=== PATIENT | male | born 1975 | race Caucasian/White ===

== ENCOUNTER → 2022-07-05 | Outpatient (CLI) | payer OTHER ==
--- NOTE | 2022-07-05 13:52 | MR ---
EXAMINATION TYPE: MR brain wo con DATE OF EXAM: 07/05/2022 COMPARISON: NONE HISTORY: DIZZINESS GIDDINESS, OTHER ABN GAIT TECHNIQUE: Multiplanar, multisequence imaging of the brain and brainstem is performed without IV cont rast. FINDINGS: Diffusion weighted images demonstrate no evidence of a recent infarct or other diffusion abnormality. The ventricular system and cisternal spaces are normal in size and appearance. The brain volume is a ge appropriate. Few scattered tiny foci of T2 hyperintensity are seen throughout the white matter esme aterally. Approximately 5-10 scattered lesions are seen. Slight prominence of CSF anterior aspect mid dle cranial fossa could reflect small arachnoid cysts axial image 12 for reference Midline structures demonstrate normal morphology. The craniocervical junction appears within normal limits. Normal vascular flow voids are present. The visualized sinuses are clear and the globes are i ntact. No suspicious opacification of the mastoid air cells bilaterally. IMPRESSION: Mild to minimal nonspecific white matter changes. Possible small arachnoid cysts anterior temporal region bilaterally.
== END | disposition home or self-care (01) ==
LOC: RADMRIMAIN 11:47
PROVIDERS: ATTEND Nurse Practitioner Family
DX: G93.89 Other specified disorders of brain (principal); R42 Dizziness and giddiness; R26.89 Other abnormalities of gait and mobility
CPT/HCPCS: 70551

== ENCOUNTER 2023-07-14 13:42 | Inpatient (IN) | payer OTHER ==
[2023-07-14 14:52] LABS: Basophils # (A) 0.1 k/uL (0-0.2); Basophils % (A) 1 %; Eosinophils # (A) 0.1 k/uL (0-0.7); Eosinophils % (A) 1 %; HCT 42.4 % (39.0-53.0); HGB 14.8 gm/dL (13.0-17.5); Lymphocytes # (A) 2.1 k/uL (1.0-4.8); Lymphocytes % (A) 13 %; MCH 29.5 pg (25.0-35.0); MCHC 34.9 g/dL (31.0-37.0); MCV 84.6 fL (80.0-100.0); Mean Platelet Volume 8.9; Monocytes # (A) 0.6 k/uL (0-1.0); Monocytes % (A) 4 %; Neutrophils # (A) 12.8 k/uL (1.3-7.7); Neutrophils % (A) 80 %; Platelet Count 283 k/uL (150-450); RBC 5.01 m/uL (4.30-5.90); RDW 14.4 % (11.5-15.5); WBC 15.9 k/uL (3.8-10.6)
[2023-07-14 15:00] LABS: Partial Thromboplastin Time 22.6 sec (22.0-30.0)
--- NOTE | 2023-07-14 15:05 | XR ---
EXAMINATION TYPE: XR foot complete LT DATE OF EXAM: 07/14/2023 CLINICAL HISTORY: possible osteomyelitis. Increased redness and drainage from plantar surface wound TECHNIQUE: Frontal, lateral, and oblique images of the left foot are obtained. COMPARISON: None FINDINGS: There is no acute fracture/dislocation evident in the left foot. No suspicious bony destru ction. Small to moderate-sized inferior calcaneal spur. The joint spaces in the left foot appear with in normal limits. Severe diffuse soft tissue swelling is seen. IMPRESSION: As above. No convincing radiographic evidence for acute osteomyelitis. If clinical concer n persists further investigation with 3 phase bone scan and/or MRI may be warranted.
[2023-07-14 15:07] LABS: ALT 35 U/L (4-49); AST 28 U/L (17-59); African American GFR (CKD) 87 (>60 ml/min/1.73 sqM); Albumin 3.7 g/dL (3.5-5.0); Alkaline Phosphatase 183 U/L (38-126); Anion Gap 12 mmol/L; Blood Urea Nitrogen 24 mg/dL (9-20); C Reactive Protein 8.4 mg/dL (<1.0); Calcium 8.8 mg/dL (8.4-10.2); Carbon Dioxide 23 mmol/L (22-30); Chloride 93 mmol/L (98-107); Glucose 279 mg/dL (74-99); Non-African American GFR(CKD) 75 (>60 ml/min/1.73 sqM); Potassium 4.2 mmol/L (3.5-5.1); Sodium 128 mmol/L (137-145); Total Protein 7.9 g/dL (6.3-8.2)
[2023-07-14] MEDS ORDERED: VANCOMYCIN IV PER PHARMACY 1 EACH MISC MISCELLANE PRN (15:12)
--- NOTE | 2023-07-14 15:14 | ED ---
General Adult HPI - General Chief complaint: Skin/Abscess/Foreign Body Stated complaint: FREDI THOMAS Source: patient Mode of arrival: ambulatory Limitations: no limitations - History of Present Illness Initial comments: Cristian is a 47-year-old male with a history of poorly controlled type 2 diabetes, chronic lower extremity lymphedema with chronic wounds, morbid obesity. Patient presents to the ER today via ambulance. Patient states that he's had a wound on his left foot for a long period of time, over the past week it's been progressively worsening it's more red there's purulent drainage and there's worsening sloughing of the skin and skin breakdown. Patient reports he was seen at an outside emergency department over the weekend he had blood work done he states it cultures were obtained and they did a CAT scan of his leg but told him he could be discharged home on Bactrim which she has been taking since that time. He saw his primary care provider today and she advised him he needed to be hospitalized due to the wound. Patient reports significant diabetic neuropathy with minimal sensation of the foot. - Related Data Home Medications Medication Instructions Recorded Confirmed ALPRAZolam [Xanax] 2 mg PO TID 06/12/16 07/14/23 Pregabalin [Lyrica] 300 mg PO BID 06/12/16 07/14/23 lisinopriL [Zestril] 40 mg PO DAILY 06/12/16 07/14/23 ARIPiprazole [Abilify] 30 mg PO DAILY 07/14/23 07/14/23 Amoxic-Pot Clav 875-125Mg 1 tab PO BID 07/14/23 07/14/23 [Augmentin 875-125] Atorvastatin Calcium [Lipitor] 80 mg PO DAILY 07/14/23 07/14/23 Dapagliflozin Propanediol [Farxiga] 10 mg PO DAILY 07/14/23 07/14/23 Escitalopram [Lexapro] 20 mg PO HS 07/14/23 07/14/23 Insulin Glargine,Hum.rec.anlog 95 unit SQ DAILY 07/14/23 07/14/23 [Basaglar Kwikpen U-100] Levothyroxine Sodium [Synthroid] 300 mcg PO DAILY 07/14/23 07/14/23 Metoprolol Succinate (ER) [Toprol 50 mg PO DAILY 07/14/23 07/14/23 Xl] Ondansetron [Zofran] 4 mg PO Q8H PRN 07/14/23 07/14/23 Sulfamethox-Tmp 800-160Mg [Bactrim 1 tab PO BID 07/14/23 07/14/23 DS 800-160 mg] Tirzepatide [Mounjaro] 2.5 mg SQ Q7D 07/14/23 07/14/23 amLODIPine [Norvasc] 10 mg PO DAILY 07/14/23 07/14/23 Allergies Allergy/AdvReac Type Severity Reaction Status Date / Time No Known Allergies Allergy Verified 07/14/23 15:17 Review of Systems ROS Statement: Those systems with pertinent positive or pertinent negative responses have been documented in the HPI. ROS Other: All systems not noted in ROS Statement are negative. Past Medical History Past Medical History: Diabetes Mellitus, Hyperlipidemia, Hypertension, Pneumonia History of Any Multi-Drug Resistant Organisms: None Reported Past Surgical History: No Surgical Hx Reported Past Anesthesia/Blood Transfusion Reactions: No Reported Reaction Past Psychological History: Anxiety, Bipolar, Depression, Panic Disorder Smoking Status: Never smoker Past Alcohol Use History: Rare Past Drug Use History: None Reported - Past Family History Father Additional Family Medical History / Comment(s): polycystic kidney disease. at age 3030 years old Mother Family Medical History: Coronary Artery Disease (CAD), Diabetes Mellitus, Myocardial Infarction ([place]) General Exam Limitations: no limitations General appearance: alert, obese Head exam: Present: atraumatic, normocephalic Eye exam: Present: normal appearance Respiratory exam: Absent: respiratory distress Cardiovascular Exam: Present: regular rate GI/Abdominal exam: Present: soft Rectal exam: Present: deferred Extremities exam: Present: other (Ears chronic lymphedema bilaterally with significant swelling and skin changes that appear chronic. The left foot the lateral surface has macerated skin that is sloughing off, there is a black eschar under the sloughing skin. There is some surrounding erythema and there is a malodorous discharge.) Neurological exam: Present: alert, oriented X3 Psychiatric exam: Present: normal affect, normal mood Skin exam: Present: other (as above) Course Vital Signs 07/14/23 07/14/23 07/14/23 13:59 14:04 14:37 Temperature 98.4 F Pulse Rate 97 78 94 Respiratory 18 20 16 Rate Blood Pressure 113/77 135/68 142/84 O2 Sat by Pulse 96 98 95 Oximetry 07/14/23 17:00 Temperature Pulse Rate 78 Respiratory 20 Rate Blood Pressure 178/105 O2 Sat by Pulse 98 Oximetry Medical Decision Making - Medical Decision Making Was pt. sent in by a medical professional or institution (PATRICIA Stubbs, ELECTRICAL TEST ENGINEER, urgent care, hospital, or jail...) When possible be specific @ -Yes - Roxanne Agee NP Did you speak to anyone other than the patient for history (EMS, parent, family, police, friend...)? What history was obtained from this source @ -EMS Did you review nursing and triage notes (agree or disagree)? Why? @ -I reviewed and agree with nursing and triage notes Were old charts reviewed (outside hosp., previous admission, EMS record, old EKG, old radiological studies, urgent care reports/EKG's, jail records)? Report findings @ -Previous visits here reviewed, records from outside hospital requested Differential Diagnosis (chest pain, altered mental status, abdominal pain women, abdominal pain men, vaginal bleeding, weakness, fever, dyspnea, syncope, headache, dizziness, GI bleed, back pain, seizure, CVA, palpatations, mental health)? @ -For enjoy includes infected diabetic ulcer, osteomyelitis, chronic venous stasis EKG interpreted by me (3pts min.). @ -As above X-rays interpreted by me (1pt min.). @ -No obvious fractures, no free air in the soft tissue CT interpreted by me (1pt min.). @ -None done U/S interpreted by me (1pt. min.). @ -None done What testing was considered but not performed or refused? (CT, X-rays, U/S, labs)? Why? @ -MRI of the foot can be performed while inpatient if needed What meds were considered but not given or refused? Why? @ -None Did you discuss the management of the patient with other professionals (professionals i.e. PATRICIA Stubbs, ELECTRICAL TEST ENGINEER, lab, RT, psych nurse, director of social work, video coordinator, teacher, deportation officer, onsite case manager)? Give summary @ -No Was smoking cessation discussed for >3mins.? @ -No Was critical care preformed (if so, how long)? @ -No Were there social determinants of health that impacted care today? How? (Homelessness, low income, unemployed, alcoholism, drug addiction, transportation, low edu. Level, literacy, decrease access to med. care, shelter, rehab)? @ -No Was there de-escalation of care discussed even if they declined (Discuss DNR or withdrawal of care, Hospice)? DNR status @ -No What co-morbidities impacted this encounter? (DM, HTN, Smoking, COPD, CAD, Cance r, CVA, ARF, Chemo, Hep., AIDS, mental health diagnosis, sleep apnea, morbid obesity)? @ -Diabetes, morbid obesity Was patient admitted / discharged? Hospital course, mention meds given and route, prescriptions, significant lab abnormalities, going to OR and other pertinent info. @ -Admit Patient was seen and evaluated, septic workup was initiated. Outpatient records were requested. Cefepime and vancomycin were ordered for possible ost eomyelitis due to infected diabetic foot ulcer. Labs resulted with multiple abnormalities including leukocytosis, hyponatremia, hyperglycemia. Patient has elevated inflammatory markers. Patient will be admitted for IV antibiotics and evaluation by vascular surgery. Undiagnosed new problem with uncertain prognosis? @ -Yes Drug Therapy requiring intensive monitoring for toxicity (Heparin, Nitro, Insulin, Cardizem)? @ -No Were any procedures done? @ -No Diagnosis/symptom? @ -Infected diabetic foot ulcer Acute, or Chronic, or Acute on Chronic? @ -Acute on chronic Uncomplicated (without systemic symptoms) or Complicated (systemic symptoms)? @ -Complicated Side effects of treatment? @ -No Exacerbation, Progression, or Severe Exacerbation? @ -No Poses a threat to life or bodily function? How? (Chest pain, [place], [place], pneumonia, PE, COPD, DKA, ARF, appy, cholecystitis, CVA, Diverticulitis, Homicidal, Suicidal, threat to staff... and all critical care pts) @ -Yes, infection can advance to sepsis, sepsis shock and . - Lab Data Result diagrams: 07/14/23 14:33 07/14/23 14:33 Lab Results 07/14/23 07/14/23 07/14/23 Range/Units 14:33 14:33 14:34 WBC 15.9 H (3.8-10.6) k/uL RBC 5.01 (4.30-5.90) m/uL Hgb 14.8 (13.0-17.5) gm/dL Hct 42.4 (39.0-53.0) % MCV 84.6 (80.0-100.0) fL MCH 29.5 (25.0-35.0) pg MCHC 34.9 (31.0-37.0) g/dL RDW 14.4 (11.5-15.5) % Plt Count 283 (150-450) k/uL MPV 8.9 Neutrophils % 80 % Lymphocytes % 13 % Monocytes % 4 % Eosinophils % 1 % Basophils % 1 % Neutrophils # 12.8 H (1.3-7.7) k/uL Lymphocytes # 2.1 (1.0-4.8) k/uL Monocytes # 0.6 (0-1.0) k/uL Eosinophils # 0.1 (0-0.7) k/uL Basophils # 0.1 (0-0.2) k/uL ESR 97 H (0-15) mm/Hr PT 11.0 (10.0-12.5) sec INR 1.0 (<1.2) APTT 22.6 (22.0-30.0) sec Sodium 128 L (137-145) mmol/L Potassium 4.2 (3.5-5.1) mmol/L Chloride 93 L (98-107) mmol/L Carbon Dioxide 23 (22-30) mmol/L Anion Gap 12 mmol/L BUN 24 H (9-20) mg/dL Creatinine 1.15 (0.66-1.25) mg/dL Est GFR (CKD-EPI)AfAm 87 (>60 ml/min/1.73 sqM) Est GFR (CKD-EPI)NonAf 75 (>60 ml/min/1.73 sqM) Glucose 279 H (74-99) mg/dL Plasma Lactic Acid Simon (0.7-2.0) mmol/L Calcium 8.8 (8.4-10.2) mg/dL Total Bilirubin 1.0 (0.2-1.3) mg/dL AST 28 (17-59) U/L ALT 35 (4-49) U/L Alkaline Phosphatase 183 H (38-126) U/L C-Reactive Protein 8.4 H (<1.0) mg/dL Total Protein 7.9 (6.3-8.2) g/dL Albumin 3.7 (3.5-5.0) g/dL Procalcitonin (0.02-0.09) ng/mL 07/14/23 07/14/23 Range/Units 14:34 14:39 WBC (3.8-10.6) k/uL RBC (4.30-5.90) m/uL Hgb (13.0-17.5) gm/dL Hct (39.0-53.0) % MCV (80.0-100.0) fL MCH (25.0-35.0) pg MCHC (31.0-37.0) g/dL RDW (11.5-15.5) % Plt Count (150-450) k/uL MPV Neutrophils % % Lymphocytes % % Monocytes % % Eosinophils % % Basophils % % Neutrophils # (1.3-7.7) k/uL Lymphocytes # (1.0-4.8) k/uL Monocytes # (0-1.0) k/uL Eosinophils # (0-0.7) k/uL Basophils # (0-0.2) k/uL ESR (0-15) mm/Hr PT (10.0-12.5) sec INR (<1.2) APTT (22.0-30.0) sec Sodium (137-145) mmol/L Potassium (3.5-5.1) mmol/L Chloride (98-107) mmol/L Carbon Dioxide (22-30) mmol/L Anion Gap mmol/L BUN (9-20) mg/dL Creatinine (0.66-1.25) mg/dL Est GFR (CKD-EPI)AfAm (>60 ml/min/1.73 sqM) Est GFR (CKD-EPI)NonAf (>60 ml/min/1.73 sqM) Glucose (74-99) mg/dL Plasma Lactic Acid Simon 1.7 (0.7-2.0) mmol/L Calcium (8.4-10.2) mg/dL Total Bilirubin (0.2-1.3) mg/dL AST (17-59) U/L ALT (4-49) U/L Alkaline Phosphatase (38-126) U/L C-Reactive Protein (<1.0) mg/dL Total Protein (6.3-8.2) g/dL Albumin (3.5-5.0) g/dL Procalcitonin 0.48 H (0.02-0.09) ng/mL Disposition Clinical Impression: Diabetic foot ulcer, Morbid obesity, Diabetes type 2, uncontrolled, Lymphedema associated with obesity Disposition: ADMITTED IP TO THIS HOSP Condition: Serious
[2023-07-14] MEDS ORDERED: CEFEPIME 2 GM in SODIUM CHLORIDE 0.9% 100 ML IVPB STA (15:23)
[2023-07-14] MEDS ORDERED: VANCOMYCIN 2,500 MG in SODIUM CHLORIDE 0.9% 500 ML 500 ML IVPB ONE (16:00)
[2023-07-14] MEDS ORDERED: NALOXONE 0.4 MG/ML 1 ML VIAL IV PRN (16:51)
[2023-07-14] MEDS: SODIUM CHLORIDE 0.9% 1,000 ML IV SCH (17:19)
[2023-07-14 18:34] LABS: Erythrocyte Sedimentation Rate 97 mm/Hr (0-15)
[2023-07-14] MEDS: PREGABALIN 100 MG CAP PO SCH (22:47)
[2023-07-14] MEDS: ALPRAZolam 1 MG TAB PO SCH (22:47)
[2023-07-14] MEDS: ESCITALOPRAM 20 MG TAB PO SCH (23:11)
[2023-07-15] MEDS ORDERED: CEFEPIME 2 GM in SODIUM CHLORIDE 0.9% 100 ML IVPB SCH ×2
[2023-07-15] MEDS: VANCOMYCIN 2,500 MG in SODIUM CHLORIDE 0.9% 500 ML 500 ML IVPB SCH ×2 (00:51→14:02)
--- NOTE | 2023-07-15 02:37 | HP ---
HISTORY AND PHYSICAL HISTORY OF PRESENT ILLNESS: This is a 47-year-old white male with poorly controlled diabetes mellitus, right lower extremity lymphedema, chronic morbid obesity, came with purulent drainage and worsening of skin breakdown in his right outside foot, has been working now for 10 months. CAT scan of his leg, could not be discharged home after . He is back down here to review further wound cultures, etc. HOME MEDICINES: Reviewed. ALLERGIES: Negative. REVIEW OF SYSTEMS: A 14-point review of systems negative. PHYSICAL EXAMINATION: VITAL SIGNS: Temp 98.4, pulse 97, respiratory rate 16 to 18, blood pressure is 115 to 140s over 70s to 80s, and 96 to 98 on room air. HEENT: Normocephalic, atraumatic. CARDIOVASCULAR: S1, S2. LUNGS: Transmitted upper sounds. GI: Soft, nontender. HEMATOLOGY: Negative for Homans. eschar of his subcu skin on the lateral surface of the left foot. ASSESSMENT: Cellulitis of left foot. Sepsis workup improved osteomyelitis of the foot. The patient wants surgery for debridement possibly soon. Prognosis guarded. MMODL / IJN: [id number] /
[2023-07-15] MEDS: LEVOTHYROXINE 100 MCG TAB PO SCH (06:31)
[2023-07-15 07:28] LABS: Glucose,Whole Blood 225 mg/dL (70-110)
[2023-07-15 07:52] LABS: African American GFR (CKD) >90 (>60 ml/min/1.73 sqM); Non-African American GFR(CKD) >90 (>60 ml/min/1.73 sqM)
[2023-07-15] MEDS: IPRATROPIUM-ALBUTEROL 3 ML NEB INHALATION SCH ×4 (08:04→19:45)
[2023-07-15] MEDS: lisinopriL 20 MG TAB PO SCH (09:48)
[2023-07-15] MEDS: INSULIN DETEMIR (LEVEMIR) 100 UNIT/ML SYR SQ SCH (09:48)
[2023-07-15] MEDS: PREGABALIN 100 MG CAP PO SCH ×2 (09:49→21:40)
[2023-07-15] MEDS: ATORVASTATIN 80 MG TAB PO SCH (09:49)
[2023-07-15] MEDS: amLODIPine 10 MG TAB PO SCH (09:49)
[2023-07-15] MEDS: METOPROLOL SUCCINATE (ER) 50 MG TAB.ER.24H PO SCH (09:49)
[2023-07-15] MEDS: ALPRAZolam 1 MG TAB PO SCH ×3 (09:49→21:40)
[2023-07-15] MEDS: DAPAGLIFLOZIN PROPANEDIOL 10 MG TABLET PO SCH (09:50)
[2023-07-15] MEDS: ARIPiprazole 15 MG TAB PO SCH (09:50)
[2023-07-15] MEDS: SODIUM CHLORIDE 0.9% 1,000 ML IV SCH (09:52)
[2023-07-15 12:08] LABS: Glucose,Whole Blood 260 mg/dL (70-110)
[2023-07-15] MEDS ORDERED: DEXTROSE 50% SYRINGE 50 ML IVP PRN ×2 (12:51)
[2023-07-15] MEDS: INSULIN ASPART (NovoLOG) 100 UNIT/ML VIAL SQ SCH ×3 (13:28→21:34)
[2023-07-15] MEDS: AMPICILLIN-SULBACTAM 3 GM in SODIUM CHLORIDE 0.9% 100 ML IVPB SCH ×2 (13:28→18:40)
--- NOTE | 2023-07-15 15:44 | P.CONS ---
History of Present Illness - Reason for Consult Consult date: 07/15/23 - History of Present Illness Patient is a 47-year-old male with a past medical history significant for diabetes mellitus hypertension hyperlipidemia pneumonia, bipolar depression and panic disorder, patient presented to the ER yesterday afternoon concerning for wound on the left foot that apparently has been getting worse and did have some purulent drainage patient mention he did have a diffuse swelling to esme ateral extremity lymphedema and has developed a blister on the plantar aspect of the left foot subsequent dropped related to ulceration patient will be taking care of himself however on last few days the patient noticed to having increasing swelling redness and foul-smelling drainage for the patient called the EMS and the patient was brought into the hospital on presentation to the hospital patient was afebrile and no fever has been recorded subsequently patient was not tachycardic hypotensive or hypoxic patient did have white count of 15.9 with a left shift creatinine is 1.15 liver isms are normal procalcitonin and CRP are elevated patient did have a foot x-ray no acute fracture or dislocat ion no suspicious bony destruction diffuse soft tissue swelling is seen patient was started on cefepime and vancomycin infectious disease was consulted for further management of antibiotic therapy patient to have diabetic neuropathy has denies significant pain to the left foot wound area Past Medical History Past Medical History: Diabetes Mellitus, Hyperlipidemia, Hypertension, Pneumonia History of Any Multi-Drug Resistant Organisms: None Reported Past Surgical History: No Surgical Hx Reported Past Anesthesia/Blood Transfusion Reactions: No Reported Reaction Past Psychological History: Anxiety, Bipolar, Depression, Panic Disorder Smoking Status: Never smoker Past Alcohol Use History: Rare Past Drug Use History: None Reported - Past Family History Father Additional Family Medical History / Comment(s): polycystic kidney disease. at age 3030 years old Mother Family Medical History: Coronary Artery Disease (CAD), Diabetes Mellitus, Myocardial Infarction ([place]) Medications and Allergies Home Medications Medication Instructions Recorded Confirmed Type ALPRAZolam [Xanax] 2 mg PO TID 06/12/16 07/14/23 History Pregabalin [Lyrica] 300 mg PO BID 06/12/16 07/14/23 History lisinopriL [Zestril] 40 mg PO DAILY 06/12/16 07/14/23 History ARIPiprazole [Abilify] 30 mg PO DAILY 07/14/23 07/14/23 History Amoxic-Pot Clav 875-125Mg 1 tab PO BID 07/14/23 07/14/23 History [Augmentin 875-125] Atorvastatin Calcium [Lipitor] 80 mg PO DAILY 07/14/23 07/14/23 History Dapagliflozin Propanediol [Farxiga] 10 mg PO DAILY 07/14/23 07/14/23 History Escitalopram [Lexapro] 20 mg PO HS 07/14/23 07/14/23 History Insulin Glargine,Hum.rec.anlog 95 unit SQ DAILY 07/14/23 07/14/23 History [Basaglar Kwikpen U-100] Levothyroxine Sodium [Synthroid] 300 mcg PO DAILY 07/14/23 07/14/23 History Metoprolol Succinate (ER) [Toprol 50 mg PO DAILY 07/14/23 07/14/23 History Xl] Ondansetron [Zofran] 4 mg PO Q8H PRN 07/14/23 07/14/23 History Sulfamethox-Tmp 800-160Mg [Bactrim 1 tab PO BID 07/14/23 07/14/23 History DS 800-160 mg] Tirzepatide [Mounjaro] 2.5 mg SQ Q7D 07/14/23 07/14/23 History amLODIPine [Norvasc] 10 mg PO DAILY 07/14/23 07/14/23 History Allergies Allergy/AdvReac Type Severity Reaction Status Date / Time No Known Allergies Allergy Verified 07/14/23 15:17 Physical Exam Vitals: Vital Signs Temp Pulse Pulse Resp BP BP Pulse Ox 07/15/23 07:53 98.6 F 82 21 159/73 94 L 07/15/23 02:32 89 16 07/15/23 01:52 98.5 F 86 18 125/76 92 L 07/14/23 22:18 97.7 F 89 16 141/83 97 07/14/23 19:00 92 20 142/69 96 07/14/23 18:20 97.7 F 89 16 141/92 07/14/23 17:00 78 20 178/105 98 07/14/23 14:37 94 16 142/84 95 07/14/23 14:04 78 20 135/68 98 07/14/23 13:59 98.4 F 97 18 113/77 96 Intake and Output 07/14/23 07/15/23 07/15/23 22:59 06:59 14:59 Other: Voiding Method Toilet # Voids 1 Weight 167.829 kg Results CBC & Chem 7: 07/14/23 14:33 07/15/23 06:44 Labs: Abnormal Lab Results - Last 24 Hours (Table) 07/14/23 07/14/23 07/14/23 Range/Units 14:33 14:33 14:34 WBC 15.9 H (3.8-10.6) k/uL Neutrophils # 12.8 H (1.3-7.7) k/uL ESR 97 H (0-15) mm/Hr Sodium 128 L (137-145) mmol/L Chloride 93 L (98-107) mmol/L BUN 24 H (9-20) mg/dL Glucose 279 H (74-99) mg/dL POC Glucose (mg/dL) (70-110) mg/dL Alkaline Phosphatase 183 H (38-126) U/L C-Reactive Protein 8.4 H (<1.0) mg/dL Procalcitonin 0.48 H (0.02-0.09) ng/mL 07/15/23 Range/Units 07:26 WBC (3.8-10.6) k/uL Neutrophils # (1.3-7.7) k/uL ESR (0-15) mm/Hr Sodium (137-145) mmol/L Chloride (98-107) mmol/L BUN (9-20) mg/dL Glucose (74-99) mg/dL POC Glucose (mg/dL) 225 H (70-110) mg/dL Alkaline Phosphatase (38-126) U/L C-Reactive Protein (<1.0) mg/dL Procalcitonin (0.02-0.09) ng/mL Assessment and Plan Plan: 1patient presented to hospital with extensive left diabetic foot infection and this patient did have a large necrotic wound on the plantar aspect of the left foot with some foul-smelling drainage with associated diffuse swelling redness of the left foot extending to the left leg we will need to cover for the polymicrobial zeeshan associated with diabetic foot infection 2we will wait for the vascular surgery evaluation drainage of this abscess and deep culture 3we will keep the patient on vancomycin however switch cefepime to Unasyn while waiting for the workup to be completed 4check inflammatory markers We will follow on clinical condition and cultures to further adjust medication if needed Thank you for this consultation we will follow the patient along with you Dictation was produced using [employer] dictation software. please excuse any grammatical, word or spelling errors. Time with Patient: Greater than 30
--- NOTE | 2023-07-15 16:44 | P.GSCN ---
History of Present Illness History of present illness: 47-year-old gentleman patient came to the emergency room with history of left foot blister formation on the plantar aspect with a skin necrosis involving the plantar aspect with some fluctuation. Patient has a chronic venous hypertension involving the left lower extremity with marked cellulitis of the both lower extremity left foot is swollen and there is a blister and there is eschar with skin necrosis involving the plantar aspect with some fluctuation noted discussed with the patient patient has been taking care of this problem at home by himself Medical history history of diabetes diabetes, hypertension, history of bipolar disorder Patient was seen in his room afebrile Chest is clear good and both lungs first and second sound present Abdomen is soft nontender Femorals are 1+ patient has a cellulitis of the lower extremity with wound on the plantar aspect the left foot Plan is patient will need debridement and deep culture we will arrange Past Medical History Past Medical History: Diabetes Mellitus, Hyperlipidemia, Hypertension, Pneumonia History of Any Multi-Drug Resistant Organisms: None Reported Past Surgical History: No Surgical Hx Reported Past Anesthesia/Blood Transfusion Reactions: No Reported Reaction Past Psychological History: Anxiety, Bipolar, Depression, Panic Disorder Smoking Status: Never smoker Past Alcohol Use History: Rare Past Drug Use History: None Reported - Past Family History Father Additional Family Medical History / Comment(s): polycystic kidney disease. passe d away at age 3030 years old Mother Family Medical History: Coronary Artery Disease (CAD), Diabetes Mellitus, Myocardial Infarction ([place]) Medications and Allergies Home Medications Medication Instructions Recorded Confirmed Type ALPRAZolam [Xanax] 2 mg PO TID 06/12/16 07/14/23 History Pregabalin [Lyrica] 300 mg PO BID 06/12/16 07/14/23 History lisinopriL [Zestril] 40 mg PO DAILY 06/12/16 07/14/23 History ARIPiprazole [Abilify] 30 mg PO DAILY 07/14/23 07/14/23 History Amoxic-Pot Clav 875-125Mg 1 tab PO BID 07/14/23 07/14/23 History [Augmentin 875-125] Atorvastatin Calcium [Lipitor] 80 mg PO DAILY 07/14/23 07/14/23 History Dapagliflozin Propanediol [Farxiga] 10 mg PO DAILY 07/14/23 07/14/23 History Escitalopram [Lexapro] 20 mg PO HS 07/14/23 07/14/23 History Insulin Glargine,Hum.rec.anlog 95 unit SQ DAILY 07/14/23 07/14/23 History [Basaglar Kwikpen U-100] Levothyroxine Sodium [Synthroid] 300 mcg PO DAILY 07/14/23 07/14/23 History Metoprolol Succinate (ER) [Toprol 50 mg PO DAILY 07/14/23 07/14/23 History Xl] Ondansetron [Zofran] 4 mg PO Q8H PRN 07/14/23 07/14/23 History Sulfamethox-Tmp 800-160Mg [Bactrim 1 tab PO BID 07/14/23 07/14/23 History DS 800-160 mg] Tirzepatide [Mounjaro] 2.5 mg SQ Q7D 07/14/23 07/14/23 History amLODIPine [Norvasc] 10 mg PO DAILY 07/14/23 07/14/23 History Allergies Allergy/AdvReac Type Severity Reaction Status Date / Time No Known Allergies Allergy Verified 07/14/23 15:17 Surgical - Exam Vital Signs Temp Pulse Resp BP Pulse Ox 98.4 F 97 18 113/77 96 07/14/23 13:59 07/14/23 13:59 07/14/23 13:59 07/14/23 13:59 07/14/23 13:59 Results - Labs 07/14/23 14:33 07/15/23 06:44 Abnormal Lab Results - Last 24 Hours (Table) 07/14/23 07/14/23 07/15/23 Range/Units 14:33 14:34 06:44 ESR 97 H (0-15) mm/Hr POC Glucose (mg/dL) (70-110) mg/dL Hemoglobin A1c 9.9 H (<=6.0) % Procalcitonin 0.48 H (0.02-0.09) ng/mL 07/15/23 07/15/23 Range/Units 07:26 12:03 ESR (0-15) mm/Hr POC Glucose (mg/dL) 225 H 260 H (70-110) mg/dL Hemoglobin A1c (<=6.0) % Procalcitonin (0.02-0.09) ng/mL Diabetes panel 07/15/23 07/15/23 Range/Units 06:44 06:44 Creatinine 0.89 (0.66-1.25) mg/dL Hemoglobin A1c 9.9 H (<=6.0) % Pituitary panel 07/15/23 Range/Units 06:44 Creatinine 0.89 (0.66-1.25) mg/dL Adrenal panel 07/15/23 Range/Units 06:44 Creatinine 0.89 (0.66-1.25) mg/dL
[2023-07-15 17:50] LABS: Glucose,Whole Blood 106 mg/dL (70-110)
--- NOTE | 2023-07-15 20:38 | PN ---
PROGRESS NOTE SUBJECTIVE: Dr. Dey saw the patient as well as Dr. Gutierrez. He is a 47-year-old white male, history of diabetes mellitus, hypertension, dyslipidemia, pneumonia, bipolar, panic disorder, in the ER for apparently a wound infection in his leg. OBJECTIVE: VITAL SIGNS: His temperature 98.6, pulse 82, respiratory rate 21, blood pressure 159/73. CARDIOVASCULAR: S1, S2. LUNGS: Transmitted upper sounds. GI: Soft. INTEGUMENT: Extensive left foot diabetic foot infection, large necrotic wound on the plantar aspect of his left foot with some foul smelling drainage. Vascular surgery for evaluating this patient. Continue on vancomycin and Unasyn. Check inflammatory markers. Continue with current treatment. Possible surgical recommendations per Dr. Dey. MMODL / IJN: [id number] /
--- NOTE | 2023-07-15 20:51 | CT ---
EXAMINATION TYPE: CT chest wo con DATE OF EXAM: 07/15/2023 COMPARISON: None HISTORY: pleural effusion, CHF CT DLP: 916.[address] of the chest was performed with lung and mediastinal window settings submitted. The la ck of contrast limits evaluation of the vascular, mediastinal and parenchymal structures including th e upper abdomen. LUNGS: The lungs are clear and free of infiltrate. Mild linear atelectasis left lower lobe. No sizabl e effusion. No pulmonary nodule or mass is detected. No pleural effusion. No CT evidence of interst itial lung disease. MEDIASTINUM/BECKY: Thoracic aorta is of normal caliber with limited evaluation given lack of contrast . The heart is not enlarged. Moderate coronary artery calcifications. No evidence for mediastinal m ass. No lymph nodes greater than 1cm. UPPER ABDOMEN: Cholelithiasis. OTHER: No significant other abnormality. IMPRESSION: 1. Mild linear atelectasis left lower lobe. No sizable effusion.
[2023-07-15 21:13] LABS: Glucose,Whole Blood 113 mg/dL (70-110)
[2023-07-15] MEDS: ESCITALOPRAM 20 MG TAB PO SCH (21:40)
[2023-07-16] MEDS: AMPICILLIN-SULBACTAM 3 GM in SODIUM CHLORIDE 0.9% 100 ML IVPB SCH ×4 (00:15→17:24)
[2023-07-16] MEDS: VANCOMYCIN 2,500 MG in SODIUM CHLORIDE 0.9% 500 ML 500 ML IVPB SCH ×3 (00:59→18:04)
[2023-07-16] MEDS: LEVOTHYROXINE 100 MCG TAB PO SCH (06:31)
[2023-07-16 07:21] LABS: Glucose,Whole Blood 109 mg/dL (70-110)
[2023-07-16] MEDS ORDERED: fentaNYL (PF) 50 MCG/ML 2 ML AMP ONE (08:01)
[2023-07-16] MEDS ORDERED: PROPOFOL 10 MG/ML 20 ML VIAL IV ONE (08:01)
[2023-07-16] MEDS ORDERED: LIDOCAINE 1% INJ 10MG/ML (20 ML MDV) ONE (08:01)
[2023-07-16] MEDS ORDERED: MIDAZOLAM 2 MG/2 ML VIAL ONE (08:01)
[2023-07-16] MEDS ORDERED: IV FLUID CONTINUATION 1,000 ML IV ONE (08:01)
[2023-07-16] MEDS ORDERED: ONDANSETRON 4 MG/2 ML VIAL ONE (08:01)
[2023-07-16] MEDS ORDERED: KETAMINE HCL IN 0.9 % NACL 50 MG/5 ML SYRINGE ONE (08:01)
[2023-07-16] MEDS ORDERED: LIDOCAINE 1% INJ 10MG/ML (20 ML MDV) SQ ONE ×2 (08:12)
[2023-07-16] MEDS ORDERED: SODIUM CHLORIDE 0.9% 1,000 ML IV ONE (08:32)
--- NOTE | 2023-07-16 08:36 | P.PCN ---
Description of Procedure: Preoperative diagnoses is infected wound left foot plantar aspect measurement is 9 x 5 cm Postop is the same measurement is a 9 x 5 x 1 cm Procedure this patient brought to the operating room left foot was prepped and draped applied sterile manner Nina IV sedation and 1% lidocaine was infiltrated using knife we did the debridement we excise the devitalized tissue down to fascia of the left foot there was necrotic tissue skin was excised all the devitalized tissue was excised there was some bleeding point which were controlled with electrocautery. Wound was irrigated with saline excess silver was placed with pressure dressing on patient transferred to recovery room in satisfactory condition Plan is we will change her dressing on Tuesday patient IV antibiotic deep culture was sent for culture and sensitivity aerobic and anaerobic prognosis is guarded
[2023-07-16 08:58] LABS: Glucose,Whole Blood 99 mg/dL (70-110)
[2023-07-16] MEDS: IPRATROPIUM-ALBUTEROL 3 ML NEB INHALATION SCH ×4 (09:02→20:09)
[2023-07-16] MEDS: INSULIN ASPART (NovoLOG) 100 UNIT/ML VIAL SQ SCH ×4 (10:33→21:22)
[2023-07-16] MEDS: SODIUM CHLORIDE 0.9% 1,000 ML IV SCH ×2 (10:54→11:03)
[2023-07-16] MEDS: ARIPiprazole 15 MG TAB PO SCH (10:55)
[2023-07-16] MEDS: ALPRAZolam 1 MG TAB PO SCH ×3 (10:55→21:22)
[2023-07-16] MEDS: INSULIN DETEMIR (LEVEMIR) 100 UNIT/ML SYR SQ SCH (10:55)
[2023-07-16] MEDS: amLODIPine 10 MG TAB PO SCH (10:55)
[2023-07-16] MEDS: METOPROLOL SUCCINATE (ER) 50 MG TAB.ER.24H PO SCH (10:56)
[2023-07-16] MEDS: lisinopriL 20 MG TAB PO SCH (10:56)
[2023-07-16] MEDS: PREGABALIN 100 MG CAP PO SCH ×2 (10:56→21:22)
[2023-07-16] MEDS: ATORVASTATIN 80 MG TAB PO SCH (10:56)
[2023-07-16] MEDS: DAPAGLIFLOZIN PROPANEDIOL 10 MG TABLET PO SCH (10:56)
[2023-07-16] MEDS ORDERED: VANCOMYCIN TROUGH DUE 1 EACH MISC MISCELLANE ONE (11:00)
[2023-07-16 11:40] LABS: African American GFR (CKD) >90 (>60 ml/min/1.73 sqM); Non-African American GFR(CKD) >90 (>60 ml/min/1.73 sqM)
[2023-07-16 12:06] LABS: Glucose,Whole Blood 114 mg/dL (70-110)
[2023-07-16 12:40] LABS: ALT 29 U/L (10-49); AST 68 U/L (14-35); Albumin 2.9 g/dL (3.8-4.9); Albumin/Globulin Ratio 0.81 Ratio (1.60-3.17); Alkaline Phosphatase 125 U/L (41-126); Blood Urea Nitrogen 11.2 mg/dL (9.0-27.0); Calcium 8.4 mg/dL (8.7-10.3); Carbon Dioxide 20.9 mmol/L (21.6-31.8); Chloride 101 mmol/L (96-109); Globulin 3.6 g/dL (1.6-3.3); Glucose 109 mg/dL (70-110); Potassium 3.9 mmol/L (3.5-5.5); Sodium 135 mmol/L (135-145); Total Bilirubin 0.7 mg/dL (0.3-1.2); Total Protein 6.5 g/dL (6.2-8.2)
[2023-07-16 12:54] LABS: Basophils # (A) 0.05 X 10*3/uL (0.00-0.10); Basophils % (A) 0.4 %; Eosinophils # (A) 0.17 X 10*3/uL (0.04-0.35); Eosinophils % (A) 1.3 %; HCT 39.1 % (39.6-50.0); HGB 13.1 g/dL (13.0-17.0); Lymphocytes # (A) 2.05 X 10*3/uL (0.90-5.00); Lymphocytes % (A) 16.2 %; MCH 28.9 pg (27.0-32.0); MCHC 33.5 g/dL (32.0-37.0); MCV 86.1 FL (80.0-97.0); Mean Platelet Volume 10.2 FL (9.5-12.2); Monocytes # (A) 0.75 X 10*3/uL (0.20-1.00); Monocytes % (A) 5.9 %; NRBC Per 100 WBC 0 X 10*3/uL (0.00-0.01); Neutrophils % (A) 74.1 %; Platelet Count 275 X 10*3/uL (140-440); RBC 4.54 X 10*6/uL (4.40-5.60); RDW 14.5 % (11.5-14.5); WBC 12.68 X 10*3/uL (4.50-10.00)
[2023-07-16 13:12] VITALS: BMI 45.0
[2023-07-16 17:19] LABS: Glucose,Whole Blood 134 mg/dL (70-110)
[2023-07-16 19:30] LABS: Glucose,Whole Blood 140 mg/dL (70-110)
--- NOTE | 2023-07-16 21:01 | P.PN ---
Progress Note - Text Progress Note Date: 07/16/23 Presenting complaint: Leg wound Hospital course: I'm rounding for Dr. Deejay Tate 07/16/2023: Patient underwent debridement of the left foot wound on the plantar aspect by Dr. Gutierrez. Patient has bilateral lower extremity redness/cellulitis. Laying in bed. Afebrile. On IV Unasyn and IV vancomycin. Active Medications Albuterol/Ipratropium (Ipratropium-Albuterol 3 Ml Neb) 3 ml INHALATION RT-QID [facility] Last Admin: 07/16/23 20:09 Dose: Not Given Alprazolam (Alprazolam 1 Mg Tab) 2 mg PO TID [facility] Last Admin: 07/16/23 17:24 Dose: 2 mg Amlodipine Besylate (Amlodipine 10 Mg Tab) 10 mg PO DAILY [facility] Last Admin: 07/16/23 10:55 Dose: 10 mg Aripiprazole (Aripiprazole 15 Mg Tab) 30 mg PO DAILY [facility] Last Admin: 07/16/23 10:55 Dose: 30 mg Atorvastatin Calcium (Atorvastatin 80 Mg Tab) 80 mg PO DAILY [facility] Last Admin: 07/16/23 10:56 Dose: 80 mg Dapagliflozin (Dapagliflozin Propanediol 10 Mg Tablet) 10 mg PO DAILY [facility] Last Admin: 07/16/23 10:56 Dose: 10 mg Dextrose/Water (Dextrose 50% Syringe 50 Ml) 25 ml IVP PER PROTOCOL PRN; Protocol PRN Reason: Hypoglycemia Dextrose/Water (Dextrose 50% Syringe 50 Ml) 50 ml IVP PER PROTOCOL PRN; Protocol PRN Reason: Hypoglycemia Escitalopram Oxalate (Escitalopram 20 Mg Tab) 20 mg PO HS [facility] Last Admin: 07/15/23 21:40 Dose: 20 mg Sodium Chloride (Saline 0.9%) 1,000 mls @ 75 mls/hr IV .[id number] [facility] Last Admin: 07/16/23 11:03 Dose: 75 mls/hr Ampicillin Sodium/Sulbactam (Sodium 3 gm/ Sodium Chloride) 100 mls @ 200 mls/hr IVPB Q6H [facility]; Protocol Last Admin: 07/16/23 17:24 Dose: 200 mls/hr Vancomycin HCl 2,500 mg/ (Sodium Chloride) 500 mls @ 167 mls/hr IVPB Q16H [facility] Last Admin: 07/16/23 18:04 Dose: 167 mls/hr Insulin Aspart (Insulin Aspart (Novolog) 100 Unit/Ml Vial) 0 unit SQ ACHS [facility]; Protocol Last Admin: 07/16/23 17:25 Dose: Not Given Insulin Detemir (Insulin Detemir (Levemir) 100 Unit/Ml Syr) 95 unit SQ DAILY@0700 [facility] Last Admin: 07/16/23 10:55 Dose: 95 unit Levothyroxine Sodium (Levothyroxine 100 Mcg Tab) 300 mcg PO DAILY@0630 [facility] Last Admin: 07/16/23 06:31 Dose: 300 mcg Lisinopril (Lisinopril 20 Mg Tab) 40 mg PO DAILY [facility] Last Admin: 07/16/23 10:56 Dose: 40 mg Metoprolol Succinate (Metoprolol Succinate (Er) 50 Mg Tab.Er.24h) 50 mg PO DAILY [facility] Last Admin: 07/16/23 10:56 Dose: 50 mg Naloxone HCl (Naloxone 0.4 Mg/Ml 1 Ml Vial) 0.2 mg IV Q2M PRN PRN Reason: Opioid Reversal Ondansetron HCl (Ondansetron 4 Mg Tab) 4 mg PO Q8H PRN PRN Reason: Nausea Pregabalin (Pregabalin 100 Mg Cap) 300 mg PO BID [facility] Last Admin: 07/16/23 10:56 Dose: 300 mg On examination: VITAL SIGNS: 97.6, 80, 16, 140/82, 95% on room air GENERAL APPEARANCE: Laying in bed, BMI 45 HEENT: Normal external appearance of nose and ear. Oral cavity normal EYES: Pupils equal. Conjunctiva normal. NECK: JVD not raised. Mass not palpable. RESPIRATORY: Respiratory effort normal. Lungs agrees breath sounds. CARDIOVASCULAR: First and second sounds normal. No edema. ABDOMEN: Soft. Liver and spleen not palpable. No tenderness. No mass palpable. PSYCHIATRY: Alert and oriented x3. Mood and affect normal. EXTREMITIES: Left lower extremity foot and a dressing. Both lower extremity mid tibia downwards redness. Investigations: July 16: White count 12.6 and globin 13.1 potassium 3.9 creatinine 1.0 Assessment and plan: -Acute on chronic severe left diabetic foot infection/cellulitis with the large necrotic wound on the plantar aspect with foul-smelling drainage. Associated severe cellulitis.: Uncontrolled July 16: Debridement per Dr. Matt IV Unasyn, IV vancomycin -Essential hypertension Zestril. Norvasc. Toprol-XL -Diabetes mellitus type 2, mounjara. Insulin Lantus. -Hyperlipidemia Lipitor -Depression and anxiety Lexapro -Hypothyroid Synthroid -Peripheral neuropathy with chronic pain Neurontin -Morbid obesity BMI 45 Weight loss measures Discussed with patient.
[2023-07-16] MEDS: ESCITALOPRAM 20 MG TAB PO SCH (21:22)
[2023-07-17] MEDS: AMPICILLIN-SULBACTAM 3 GM in SODIUM CHLORIDE 0.9% 100 ML IVPB SCH ×5 (00:15→23:56)
[2023-07-17] MEDS: SODIUM CHLORIDE 0.9% 1,000 ML IV SCH ×2 (00:18→13:29)
--- NOTE | 2023-07-17 03:50 | P.PN ---
Subjective Progress Note Date: 07/16/23 Principal diagnosis: Reason for follow-up is extensive left diabetic foot infection with an abscess This is a telehealth visit Patient is a 47-year-old male with a past medical history significant for diabetes mellitus hypertension hyperlipidemia pneumonia, bipolar depression and panic disorder, patient presented to the ER for evaluation of worsening wound to the left foot plantar area apparently has been going on for few weeks noticed to have elevated white count and necrotic wound to the left foot patient was taken to the OR 07/16/2023 and s/p debridement of the wound along with deep culture. On today's evaluation that is 07/16/2023 the patient remains to be afebrile, the patient is breathing comfortably currently on 2 L nasal cannula oxygen, the patient denies having any chest pain shortness of breath or cough no nausea no vomiting no abdominal pain and no diarrhea, patient denies any worsening pain to the left foot. Patient did have a creatinine 0.69 Vanco trough is 25.2, white count down to 12.68 sed rate was 97 cultures are currently pending Objective - Vital Signs Vital signs: Vital Signs Temp 97.6 F 07/16/23 14:00 Pulse 80 07/16/23 14:00 Resp 16 07/16/23 14:00 BP 140/82 07/16/23 14:00 Pulse Ox 95 07/16/23 14:00 FiO2 Intake & Output 07/15/23 07/16/23 07/16/23 18:59 06:59 18:59 Intake Total 1118 500 Output Total 900 860 Balance 1118 -900 -360 Weight 167.829 kg Intake: IV 500 Oral 1118 Output: Urine 900 850 Estimated Blood Loss 10 Other: Voiding Method Toilet Toilet # Voids 4 1 1 - Exam Middle-age male lying in bed in no distress Respiratory system unlabored breathing decreased breath sound the base Heart S1-S2 regular Abdominal soft no tenderness Left foot wound is covered with the OR dressing Exam completed with the help of [employer] - Labs CBC & Chem 7: 07/16/23 06:47 07/16/23 11:14 Labs: Abnormal Lab Results - Last 24 Hours (Table) 07/15/23 07/16/23 07/16/23 Range/Units 21:06 06:47 06:47 WBC 12.68 H (4.50-10.00) X 10*3/uL Hct 39.1 L (39.6-50.0) % Immature Gran # 0.26 H (0.00-0.04) X 10*3/uL Neutrophils # 9.40 H (1.80-7.70) X 10*3/uL Carbon Dioxide 20.9 L (21.6-31.8) mmol/L Anion Gap 13.10 H (4.00-12.00) mmol/L BUN/Creatinine Ratio 11.20 L (12.00-20.00) Ratio POC Glucose (mg/dL) 113 H (70-110) mg/dL Calcium 8.4 L (8.7-10.3) mg/dL AST 68 H (14-35) U/L Albumin 2.9 L (3.8-4.9) g/dL Globulin 3.6 H (1.6-3.3) g/dL Albumin/Globulin Ratio 0.81 L (1.60-3.17) Ratio 07/16/23 Range/Units 12:04 WBC (4.50-10.00) X 10*3/uL Hct (39.6-50.0) % Immature Gran # (0.00-0.04) X 10*3/uL Neutrophils # (1.80-7.70) X 10*3/uL Carbon Dioxide (21.6-31.8) mmol/L Anion Gap (4.00-12.00) mmol/L BUN/Creatinine Ratio (12.00-20.00) Ratio POC Glucose (mg/dL) 114 H (70-110) mg/dL Calcium (8.7-10.3) mg/dL AST (14-35) U/L Albumin (3.8-4.9) g/dL Globulin (1.6-3.3) g/dL Albumin/Globulin Ratio (1.60-3.17) Ratio Microbiology - Last 24 Hours (Table) 07/14/23 14:30 Blood Culture - Preliminary Blood Assessment and Plan (1) Diabetic foot infection Current Visit: Yes Status: Acute Code(s): E11.628 - TYPE 2 DIABETES MELLITUS WITH OTHER SKIN COMPLICATIONS; L08.9 - LOCAL INFECTION OF THE SKIN AND SUBCUTANEOUS TISSUE, UNSP SNOMED Code(s): 158473160 (2) Foot abscess, left Current Visit: Yes Status: Acute Code(s): L02.612 - CUTANEOUS ABSCESS OF LEFT FOOT SNOMED Code(s): 27891641430827572 (3) Diabetic foot ulcer Current Visit: Yes Status: Acute Code(s): E11.621 - TYPE 2 DIABETES MELLITUS WITH FOOT ULCER; L97.509 - NON-PRESSURE CHRONIC ULCER OTH PRT UNSP FOOT W UNSP SEVERITY SNOMED Code(s): 178311366 Plan: 1patient presented to hospital with extensive left diabetic foot infection and this patient did have a large necrotic wound on the plantar aspect of the left foot with some foul-smelling drainage with associated diffuse swelling redness of the left foot extending to the left leg we will need to cover for the polymicrobial zeeshan associated with diabetic foot infection 2-patient is s/p vascular surgery evaluation and drainage of this abscess and deep culture which are currently pending 3patient to continue with vancomycin and Unasyn while waiting for the cultures to be completed Dictation was produced using [employer] dictation software. please excuse any grammatical, word or spelling errors.
[2023-07-17] MEDS: LEVOTHYROXINE 100 MCG TAB PO SCH (06:00)
[2023-07-17] MEDS: INSULIN DETEMIR (LEVEMIR) 100 UNIT/ML SYR SQ SCH (06:00)
[2023-07-17 06:41] LABS: African American GFR (CKD) >90 (>60 ml/min/1.73 sqM); Non-African American GFR(CKD) >90 (>60 ml/min/1.73 sqM)
[2023-07-17 07:52] LABS: Glucose,Whole Blood 103 mg/dL (70-110)
[2023-07-17] MEDS: IPRATROPIUM-ALBUTEROL 3 ML NEB INHALATION SCH ×4 (08:13→20:17)
[2023-07-17] MEDS: INSULIN ASPART (NovoLOG) 100 UNIT/ML VIAL SQ SCH ×4 (09:43→20:41)
[2023-07-17] MEDS: VANCOMYCIN 2,500 MG in SODIUM CHLORIDE 0.9% 500 ML 500 ML IVPB SCH (10:00)
[2023-07-17] MEDS: lisinopriL 20 MG TAB PO SCH (10:04)
[2023-07-17] MEDS: PREGABALIN 100 MG CAP PO SCH ×2 (10:04→20:48)
[2023-07-17] MEDS: amLODIPine 10 MG TAB PO SCH (10:04)
[2023-07-17] MEDS: ATORVASTATIN 80 MG TAB PO SCH (10:05)
[2023-07-17] MEDS: DAPAGLIFLOZIN PROPANEDIOL 10 MG TABLET PO SCH (10:05)
[2023-07-17] MEDS: METOPROLOL SUCCINATE (ER) 50 MG TAB.ER.24H PO SCH (10:05)
[2023-07-17] MEDS: ARIPiprazole 15 MG TAB PO SCH (10:05)
--- NOTE | 2023-07-17 11:02 | OP ---
OPERATIVE REPORT DATE OF SERVICE : 07/17/2023 PREOPERATIVE DIAGNOSIS: Acute chronic renal failure. POSTOPERATIVE DIAGNOSIS: Acute chronic renal failure. PROCEDURE PERFORMED: Ultrasound-guided 23 cm dialysis catheter placed in right jugular approach under local and IV sedation. DESCRIPTION OF PROCEDURE: This patient was brought to the clinical laboratory service teacher. Right side of the neck and chest was prepped and draped in a usual sterile manner. 1% lidocaine infiltrated in neck and chest area. Ultrasound-guided Micropuncture introduced in the right jugular vein and Micropuncture guidewire was passed. A 4-Brazilian dilator advanced on top of the guidewire. Then, we passed a regular vide guidewire, which was parked in the inferior vena cava. A tunnel was created through the tunnel. We brought 23 cm dialysis catheter. The dilator was advanced on top of the guidewire. Then, we placed a sheath on the top of the guidewire. Through the sheath, we introduced a 26 cm dialysis catheter. Sheath was removed. Tip of the catheter in superior vena and atrial junction. Flushed with heparin saline and hep-locked, secured with 3-0 nylon, dressing applied. The patient tolerated the procedure well. The patient was going for a chest x-ray. The patient will be dialyzed after the chest x-ray. MMODL / IJN: [id number] / MTDD
--- NOTE | 2023-07-17 11:17 | PN ---
PROGRESS NOTE This patient had a left foot extensive debridement, dress it to dry and intact, the patient is on IV antibiotic. We will change the dressing tomorrow using. Continue with IV antibiotic. MMPERICOL / IJN: [id number] / MTDYasmin
[2023-07-17] MEDS: ALPRAZolam 1 MG TAB PO SCH ×3 (11:38→20:48)
[2023-07-17 13:05] LABS: Glucose,Whole Blood 60 mg/dL (70-110)
[2023-07-17 13:29] LABS: Glucose,Whole Blood 56 mg/dL (70-110)
[2023-07-17 14:09] LABS: Glucose,Whole Blood 64 mg/dL (70-110)
[2023-07-17 14:54] LABS: Glucose,Whole Blood 84 mg/dL (70-110)
[2023-07-17 17:50] LABS: Glucose,Whole Blood 99 mg/dL (70-110)
[2023-07-17 20:34] LABS: Glucose,Whole Blood 81 mg/dL (70-110)
[2023-07-17] MEDS: ESCITALOPRAM 20 MG TAB PO SCH (20:48)
[2023-07-17] MEDS: ONDANSETRON 4 MG TAB PO PRN (20:48)
--- NOTE | 2023-07-18 00:08 | P.PN ---
Progress Note - Text Progress Note Date: 07/17/23 Presenting complaint: Leg wound Hospital course: I'm rounding for Dr. Deejay Tate 07/16/2023: Patient underwent debridement of the left foot wound on the plantar aspect by Dr. Gutierrez. Patient has bilateral lower extremity redness/cellulitis. Laying in bed. Afebrile. On IV Unasyn and IV vancomycin. 07/17/2023: Decreased pain in the feet. Eating better. On IV antibiotics. Wound care per Dr. Angulo. Accu-Cheks low this morning. Cutback on Levemir. Active Medications Albuterol/Ipratropium (Ipratropium-Albuterol 3 Ml Neb) 3 ml INHALATION RT-QID [facility] Last Admin: 07/17/23 20:17 Dose: Not Given Alprazolam (Alprazolam 1 Mg Tab) 2 mg PO TID [facility] Last Admin: 07/17/23 20:48 Dose: 2 mg Amlodipine Besylate (Amlodipine 10 Mg Tab) 10 mg PO DAILY [facility] Last Admin: 07/17/23 10:04 Dose: 10 mg Aripiprazole (Aripiprazole 15 Mg Tab) 30 mg PO DAILY [facility] Last Admin: 07/17/23 10:05 Dose: 30 mg Atorvastatin Calcium (Atorvastatin 80 Mg Tab) 80 mg PO DAILY [facility] Last Admin: 07/17/23 10:05 Dose: 80 mg Dapagliflozin (Dapagliflozin Propanediol 10 Mg Tablet) 10 mg PO DAILY [facility] Last Admin: 07/17/23 10:05 Dose: 10 mg Dextrose/Water (Dextrose 50% Syringe 50 Ml) 25 ml IVP PER PROTOCOL PRN; Protocol PRN Reason: Hypoglycemia Last Admin: 07/17/23 14:18 Dose: 25 ml Dextrose/Water (Dextrose 50% Syringe 50 Ml) 50 ml IVP PER PROTOCOL PRN; Protocol PRN Reason: Hypoglycemia Escitalopram Oxalate (Escitalopram 20 Mg Tab) 20 mg PO HS [facility] Last Admin: 07/17/23 20:48 Dose: 20 mg Sodium Chloride (Saline 0.9%) 1,000 mls @ 75 mls/hr IV .[id number] [facility] Last Admin: 07/17/23 13:29 Dose: 75 mls/hr Ampicillin Sodium/Sulbactam (Sodium 3 gm/ Sodium Chloride) 100 mls @ 200 mls/hr IVPB Q6H [facility]; Protocol Last Admin: 07/17/23 23:56 Dose: 200 mls/hr Vancomycin HCl 2,500 mg/ (Sodium Chloride) 500 mls @ 167 mls/hr IVPB Q16H [facility] Last Admin: 07/17/23 10:00 Dose: 167 mls/hr Insulin Aspart (Insulin Aspart (Novolog) 100 Unit/Ml Vial) 0 unit SQ ACHS [facility]; Protocol Last Admin: 07/17/23 20:41 Dose: Not Given Insulin Detemir (Insulin Detemir (Levemir) 100 Unit/Ml Syr) 95 unit SQ DAILY@0700 [facility] Last Admin: 07/17/23 06:00 Dose: 95 unit Levothyroxine Sodium (Levothyroxine 100 Mcg Tab) 300 mcg PO DAILY@0630 [facility] Last Admin: 07/17/23 06:00 Dose: 300 mcg Lisinopril (Lisinopril 20 Mg Tab) 40 mg PO DAILY [facility] Last Admin: 07/17/23 10:04 Dose: 40 mg Metoprolol Succinate (Metoprolol Succinate (Er) 50 Mg Tab.Er.24h) 50 mg PO DAILY [facility] Last Admin: 07/17/23 10:05 Dose: 50 mg Naloxone HCl (Naloxone 0.4 Mg/Ml 1 Ml Vial) 0.2 mg IV Q2M PRN PRN Reason: Opioid Reversal Ondansetron HCl (Ondansetron 4 Mg Tab) 4 mg PO Q8H PRN PRN Reason: Nausea Last Admin: 07/17/23 20:48 Dose: 4 mg Pregabalin (Pregabalin 100 Mg Cap) 300 mg PO BID [facility] Last Admin: 07/17/23 20:48 Dose: 300 mg On examination: VITAL SIGNS: 97.7, 95, 18, 135.76, 93% room air GENERAL APPEARANCE: Laying in bed, HEENT: Normal external appearance of nose and ear. Oral cavity normal EYES: Pupils equal. Conjunctiva normal. NECK: JVD not raised. Mass not palpable. RESPIRATORY: Respiratory effort normal. Lungs agrees breath sounds. CARDIOVASCULAR: First and second sounds normal. No edema. ABDOMEN: Soft. Liver and spleen not palpable. No tenderness. No mass palpable. PSYCHIATRY: Alert and oriented x3. Mood and affect normal. EXTREMITIES: Left lower extremity foot and a dressing. Both lower extremity mid tibia downwards redness. Investigations: July 16: White count 12.6 and globin 13.1 potassium 3.9 creatinine 1.0 Assessment and plan: -Acute on chronic severe left diabetic foot infection/cellulitis with the large necrotic wound on the plantar aspect with foul-smelling drainage. Associated severe cellulitis.: Uncontrolled July 16: Debridement per Dr. Gutierrez IV Unasyn, IV vancomycin -Essential hypertension Zestril. Norvasc. Toprol-XL -Diabetes mellitus type 2, with hyperglycemia mounjara. Cutback Levemir to 70 units -Hyperlipidemia Lipitor -Depression and anxiety Lexapro -Hypothyroid Synthroid -Peripheral neuropathy with chronic pain Neurontin -Morbid obesity BMI 45 Weight loss measures Discussed with patient. Cutback Levemir.
[2023-07-18] MEDS: VANCOMYCIN 2,500 MG in SODIUM CHLORIDE 0.9% 500 ML 500 ML IVPB SCH (01:13)
[2023-07-18] MEDS: SODIUM CHLORIDE 0.9% 1,000 ML IV SCH ×2 (01:13→21:47)
--- NOTE | 2023-07-18 02:04 | P.PN ---
Subjective Progress Note Date: 07/17/23 Principal diagnosis: Reason for follow-up is extensive left diabetic foot infection with an abscess This is a telehealth visit Patient is a 47-year-old male with a past medical history significant for diabetes mellitus hypertension hyperlipidemia pneumonia, bipolar depression and panic disorder, patient presented to the ER for evaluation of worsening wound to the left foot plantar area apparently has been going on for few weeks noticed to have elevated white count and necrotic wound to the left foot patient was taken to the OR 07/16/2023 and s/p debridement of the wound along with deep culture. On today's evaluation that is 07/17/2023 the patient continues to be afebrile, the patient is breathing comfortably on room air patient denies having any chest pain occasional cough no sputum production, the pt denies nausea vomiting no abdominal pain no diarrhea, denies any worsening pain to the left foot. No CBC was done today creatinine 0.75 culture showing gram-negative and group D Enterococcus Objective - Vital Signs Vital signs: Vital Signs Temp 98.2 F 07/17/23 07:47 Pulse 85 07/17/23 07:47 Resp 18 07/17/23 07:47 BP 126/81 07/17/23 07:47 Pulse Ox 92 L 07/17/23 08:13 FiO2 21 07/17/23 08:13 Intake & Output 07/16/23 07/17/23 07/17/23 18:59 06:59 18:59 Intake Total 500 500 Output Total 860 1500 Balance -360 -1000 Weight 167.829 kg Intake: IV 500 Oral 500 Output: Urine 850 1500 Estimated Blood Loss 10 Other: Voiding Method Toilet # Voids 1 - Exam Middle-age male lying in bed in no distress Respiratory system unlabored breathing decreased breath sound the base Heart S1-S2 regular Abdominal soft no tenderness Left foot wound is covered with the OR dressing Exam completed with the help of [employer] - Labs CBC & Chem 7: 07/16/23 06:47 07/17/23 05:38 Labs: Abnormal Lab Results - Last 24 Hours (Table) 07/16/23 07/16/23 07/16/23 Range/Units 06:47 06:47 06:47 WBC 12.68 H (4.50-10.00) X 10*3/uL Hct 39.1 L (39.6-50.0) % Immature Gran # 0.26 H (0.00-0.04) X 10*3/uL Neutrophils # 9.40 H (1.80-7.70) X 10*3/uL Carbon Dioxide 20.9 L (21.6-31.8) mmol/L Anion Gap 13.10 H (4.00-12.00) mmol/L BUN/Creatinine Ratio 11.20 L (12.00-20.00) Ratio POC Glucose (mg/dL) (70-110) mg/dL Hemoglobin A1c 9.6 H (<=6.0) % Calcium 8.4 L (8.7-10.3) mg/dL AST 68 H (14-35) U/L Albumin 2.9 L (3.8-4.9) g/dL Globulin 3.6 H (1.6-3.3) g/dL Albumin/Globulin Ratio 0.81 L (1.60-3.17) Ratio 07/16/23 07/16/23 07/16/23 Range/Units 12:04 17:17 19:29 WBC (4.50-10.00) X 10*3/uL Hct (39.6-50.0) % Immature Gran # (0.00-0.04) X 10*3/uL Neutrophils # (1.80-7.70) X 10*3/uL Carbon Dioxide (21.6-31.8) mmol/L Anion Gap (4.00-12.00) mmol/L BUN/Creatinine Ratio (12.00-20.00) Ratio POC Glucose (mg/dL) 114 H 134 H 140 H (70-110) mg/dL Hemoglobin A1c (<=6.0) % Calcium (8.7-10.3) mg/dL AST (14-35) U/L Albumin (3.8-4.9) g/dL Globulin (1.6-3.3) g/dL Albumin/Globulin Ratio (1.60-3.17) Ratio Microbiology - Last 24 Hours (Table) 07/16/23 08:27 Gram Stain - Preliminary Foot - Left 07/14/23 14:30 Blood Culture - Preliminary Blood Assessment and Plan (1) Diabetic foot infection Current Visit: Yes Status: Acute Code(s): E11.628 - TYPE 2 DIABETES MELLITUS WITH OTHER SKIN COMPLICATIONS; L08.9 - LOCAL INFECTION OF THE SKIN AND SUBCUTANEOUS TISSUE, UNSP SNOMED Code(s): 688677954 (2) Foot abscess, left Current Visit: Yes Status: Acute Code(s): L02.612 - CUTANEOUS ABSCESS OF LEFT FOOT SNOMED Code(s): 71926557072069987 (3) Diabetic foot ulcer Current Visit: Yes Status: Acute Code(s): E11.621 - TYPE 2 DIABETES MELLITUS WITH FOOT ULCER; L97.509 - NON-PRESSURE CHRONIC ULCER OTH PRT UNSP FOOT W UNSP SEVERITY SNOMED Code(s): 440944330 Plan: 1patient presented to hospital with extensive left diabetic foot infection and this patient did have a large necrotic wound on the plantar aspect of the left foot with some foul-smelling drainage with associated diffuse swelling redness of the left foot extending to the left leg we will need to cover for the polymicrobial zeeshan associated with diabetic foot infection 2-patient is s/p vascular surgery evaluation and drainage of this abscess and deep culture which are currently pending 3patient to continue with vancomycin and Unasyn, will need a PICC line for outpatient IV antibiotic therapy Dictation was produced using [employer] dictation software. please excuse any grammatical, word or spelling errors. Time with Patient: Less than 30
[2023-07-18] MEDS: LEVOTHYROXINE 100 MCG TAB PO SCH (06:21)
[2023-07-18 06:30] LABS: African American GFR (CKD) >90 (>60 ml/min/1.73 sqM); Non-African American GFR(CKD) >90 (>60 ml/min/1.73 sqM)
[2023-07-18] MEDS ORDERED: INSULIN DETEMIR (LEVEMIR) 100 UNIT/ML SYR SQ SCH ×2 (07:00)
[2023-07-18 07:09] LABS: Glucose,Whole Blood 75 mg/dL (70-110)
[2023-07-18] MEDS: INSULIN ASPART (NovoLOG) 100 UNIT/ML VIAL SQ SCH ×4 (07:45→21:41)
[2023-07-18] MEDS ORDERED: PIPERACILLIN-TAZOBACTAM 3.375 GM in SODIUM CHLORIDE 0.9% 100 ML IVPB SCH (08:00)
[2023-07-18] MEDS: ATORVASTATIN 80 MG TAB PO SCH (08:04)
[2023-07-18] MEDS: DAPAGLIFLOZIN PROPANEDIOL 10 MG TABLET PO SCH (08:04)
[2023-07-18] MEDS: ALPRAZolam 1 MG TAB PO SCH ×3 (08:04→21:41)
[2023-07-18] MEDS: ARIPiprazole 15 MG TAB PO SCH (08:04)
[2023-07-18] MEDS: amLODIPine 10 MG TAB PO SCH (08:04)
[2023-07-18] MEDS: PREGABALIN 100 MG CAP PO SCH ×2 (08:05→21:41)
[2023-07-18] MEDS: METOPROLOL SUCCINATE (ER) 50 MG TAB.ER.24H PO SCH (08:05)
[2023-07-18] MEDS: lisinopriL 20 MG TAB PO SCH (08:05)
[2023-07-18] MEDS: IPRATROPIUM-ALBUTEROL 3 ML NEB INHALATION SCH ×4 (08:32→20:38)
[2023-07-18 11:50] LABS: Glucose,Whole Blood 108 mg/dL (70-110)
--- NOTE | 2023-07-18 12:59 | P.PN ---
Progress Note - Text Patient came with infected wound plantar suspect the foot with gangrene changes patient had a extensive debridement done on the weekend patient IV antibiotic today we have changed the dressing we will use [employer] gel dressing should be changed every day daily basis Veda also has a diarrhea today we will check for the for C. diff
[2023-07-18] MEDS: INSULIN DETEMIR (LEVEMIR) 100 UNIT/ML SYR SQ SCH (13:46)
[2023-07-18 16:43] LABS: Glucose,Whole Blood 112 mg/dL (70-110)
[2023-07-18] MEDS: AMPICILLIN-SULBACTAM 3 GM in SODIUM CHLORIDE 0.9% 100 ML IVPB SCH (16:53)
[2023-07-18 20:19] LABS: Glucose,Whole Blood 129 mg/dL (70-110)
[2023-07-18] MEDS: ESCITALOPRAM 20 MG TAB PO SCH (21:41)
[2023-07-18] MEDS: LOPERAMIDE 2 MG CAP PO PRN (21:46)
--- NOTE | 2023-07-18 23:11 | P.PN ---
Subjective Progress Note Date: 07/18/23 Principal diagnosis: Reason for follow-up is extensive left diabetic foot infection with an abscess This is a telehealth visit Patient is a 47-year-old male with a past medical history significant for diabetes mellitus hypertension hyperlipidemia pneumonia, bipolar depression and panic disorder, patient presented to the ER for evaluation of worsening wound to the left foot plantar area apparently has been going on for few weeks noticed to have elevated white count and necrotic wound to the left foot patient was taken to the OR 07/16/2023 and s/p debridement of the wound along with deep culture. On today's evaluation that is 07/18/2023 the patient remains to be afebrile, patient is breathing comfortably on room air without need for supplemental oxygen, the patient denies having any chest pain no significant cough or sputum production no nausea vomiting no abdominal pain, patient has developed some diarrhea No new labs has been obtained today, culture positive for Proteus and Enterococcus faecalis Objective - Vital Signs Vital signs: Vital Signs Temp 97.6 F 07/18/23 07:04 Pulse 85 07/18/23 07:04 Resp 16 07/18/23 07:04 BP 134/78 07/18/23 07:04 Pulse Ox 98 07/18/23 07:45 FiO2 21 07/17/23 08:13 Intake & Output 07/17/23 07/18/23 07/18/23 18:59 06:59 18:59 Intake Total 240 540 Output Total 850 Balance -610 540 Intake: Oral 240 540 Output: Urine 850 Other: Voiding Method Toilet # Voids 400 1 # Bowel Movements 1 1 1 - Labs CBC & Chem 7: 07/16/23 06:47 07/18/23 05:57 Labs: Abnormal Lab Results - Last 24 Hours (Table) 07/17/23 07/17/23 07/17/23 Range/Units 13:03 13:28 14:08 POC Glucose (mg/dL) 60 L 56 L 64 L (70-110) mg/dL Microbiology - Last 24 Hours (Table) 07/14/23 14:30 Blood Culture - Preliminary Blood 07/16/23 08:27 Gram Stain - Preliminary Foot - Left Tissue Culture - Preliminary Gram Neg Bacilli Group D Enterococcus Assessment and Plan (1) Diabetic foot infection Current Visit: Yes Status: Acute Code(s): E11.628 - TYPE 2 DIABETES MELLITUS WITH OTHER SKIN COMPLICATIONS; L08.9 - LOCAL INFECTION OF THE SKIN AND SUBCUTANEOUS TISSUE, UNSP SNOMED Code(s): 685641606 (2) Foot abscess, left Current Visit: Yes Status: Acute Code(s): L02.612 - CUTANEOUS ABSCESS OF LEFT FOOT SNOMED Code(s): 01991253533614972 (3) Diabetic foot ulcer Current Visit: Yes Status: Acute Code(s): E11.621 - TYPE 2 DIABETES MELLITUS WITH FOOT ULCER; L97.509 - NON-PRESSURE CHRONIC ULCER OTH PRT UNSP FOOT W UNSP S [facility] SNOMED Code(s): 898502361 Plan: 1patient presented to hospital with extensive left diabetic foot infection and this patient did have a large necrotic wound on the plantar aspect of the left foot with some foul-smelling drainage with associated diffuse swelling redness of the left foot extending to the left leg we will need to cover for the polymicrobial zeeshan associated with diabetic foot infection 2-patient is s/p vascular surgery evaluation and drainage of this abscess and deep culture, currently growing Proteus and Enterococcus faecalis 3we will discontinue Zosyn and start the patient on Unasyn 3 g every 6 hours will need a PICC line for outpatient IV antibiotic therapy 4-diarrhea check a stool for C. difficile and treat if positive add Questran for symptomatic relief Dictation was produced using [employer] dictation software. please excuse any grammatical, word or spelling errors.
[2023-07-19] MEDS: AMPICILLIN-SULBACTAM 3 GM in SODIUM CHLORIDE 0.9% 100 ML IVPB SCH ×5 (00:13→23:55)
[2023-07-19] MEDS: ONDANSETRON 4 MG TAB PO PRN (01:50)
--- NOTE | 2023-07-19 02:22 | PN ---
PROGRESS NOTE Cristian is a 47-year-old white male for debridement of the left foot wound by the plantar aspect by Dr. Gutierrez, bilateral lower extremity redness, cellulitis, lying in bed, afebrile, on IV Unasyn and vancomycin. He had been on IV antibiotics. Was put back on his Levemir. His Accu-Cheks were low. OBJECTIVE: VITAL SIGNS: Temp 97.7, pulse 95, respiratory rate 16 to 18, O2 93% on room air. HEENT: Normocephalic, atraumatic. Pupils equal, round, reactive. LUNGS: Decreased breath sounds. HEART: S1, S2. ABDOMEN: Soft. PSYCH: Fair mood and affect. NEUROLOGIC: 2 to 3+ edema. White count 12.6, potassium 3.9, creatinine is at 1.0. ASSESSMENT: Acute on chronic severe left diabetic foot infection, cellulitis, large necrotic wound on the plantar aspect, foul smelling drainage severe cellulitis, uncontrolled. IV Zosyn, vancomycin. Hypertension, Zestril, Norvasc, Toprol XL. Diabetes, to cut back his Levemir down to 30 due to low blood sugar. Dyslipidemia, on Lipitor. Depression and anxiety, on Lexapro. Hypothyroid, on Synthroid. Peripheral neuropathy, on Neurontin. Morbid obesity, weight loss procedures. Prognosis guarded. Please see further orders. Continue broad-spectrum antibiotics. Wait for cultures to come back. Prognosis extremely guarded. C Diff negative. MMODL / IJN: [id number] /
[2023-07-19] MEDS: LEVOTHYROXINE 100 MCG TAB PO SCH (05:41)
[2023-07-19] MEDS: SODIUM CHLORIDE 0.9% 1,000 ML IV SCH ×2 (05:42→11:37)
[2023-07-19 07:29] LABS: Glucose,Whole Blood 112 mg/dL (70-110)
[2023-07-19] MEDS: IPRATROPIUM-ALBUTEROL 3 ML NEB INHALATION SCH ×4 (08:06→18:16)
[2023-07-19] MEDS ORDERED: LIDOCAINE 1% INJ 10MG/ML (20 ML MDV) SQ ONE ×2 (08:24→08:30)
--- NOTE | 2023-07-19 08:37 | P.PCN ---
Date of Procedure: 07/19/23 Preoperative Diagnosis: left diabetic foot wound, need for termite inspector antibiotics Postoperative Diagnosis: same Left cephalic vein thrombosis Procedure(s) Performed: Right basilic vein PICC line placement under ultrasound and fluoroscopic guidance Anesthesia: local Surgeon: Ilan Montes Pathology: none sent Condition: stable Disposition: floor Indications for Procedure: 47 year old male with left diabetic foot wound s/p debridement in need of custodial antibiotics Operative Findings: Left upper extremity cephalic vein was thrombosed and noncompressible. Basilic vein was visualized on the left Description of Procedure: After written and informed consent was obtained the patient and all risks, benefits and complications were described the patient was brought to the Director Employee Communications and laid in a supine position with his right arm outstretched on an armboard. The area of the right arm was prepped and draped in usual sterile fashion. Timeout was performed in normal fashion. Utilizing ultrasound the basilic vein was visualized and shown to be compressible without any visible thrombus. Under ultrasound guidance the basilic vein was then cannulated with a micropuncture needle and wire was placed under direct visualization of fluoroscopy. Introducer sheath was then placed. The catheter was measured and cut to the appropriate length which was 49 cm. The catheter was then guided through the breakaway sheath and the sheath was removed with good positioning was visualized under fluoroscopy. The catheter was pulled and flushed easily. It was then secured in place in normal fashion. Patient tolerated the procedure well was sent back to his room for recovery.
--- NOTE | 2023-07-19 08:53 | IR ---
PICC Insertion: EXAMINATION TYPE: IR cvc insert >=5 years Intraoperative/procedural fluoroscopic services were provid ed. CLINICAL INDICATION:Male, 47 years old with history of ANTIBIOTICS; , [facility] Total fluoroscopy time is 0.7 min. DAP: 2.68 Gycm2 Please see the operative/procedural note for further details.
[2023-07-19] MEDS: ATORVASTATIN 80 MG TAB PO SCH (09:21)
[2023-07-19] MEDS: ARIPiprazole 15 MG TAB PO SCH (09:21)
[2023-07-19] MEDS: METOPROLOL SUCCINATE (ER) 50 MG TAB.ER.24H PO SCH (09:21)
[2023-07-19] MEDS: amLODIPine 10 MG TAB PO SCH (09:21)
[2023-07-19] MEDS: ALPRAZolam 1 MG TAB PO SCH ×3 (09:22→21:01)
[2023-07-19] MEDS: PREGABALIN 100 MG CAP PO SCH ×2 (09:22→21:01)
[2023-07-19] MEDS: CHOLESTYRAMINE (WITH SUGAR) 4 GM PACKET PO SCH ×2 (09:22→17:52)
[2023-07-19] MEDS: DAPAGLIFLOZIN PROPANEDIOL 10 MG TABLET PO SCH (09:22)
[2023-07-19] MEDS: lisinopriL 20 MG TAB PO SCH (09:22)
[2023-07-19] MEDS: INSULIN ASPART (NovoLOG) 100 UNIT/ML VIAL SQ SCH ×4 (09:23→21:10)
[2023-07-19] MEDS: INSULIN DETEMIR (LEVEMIR) 100 UNIT/ML SYR SQ SCH (09:23)
[2023-07-19 10:15] LABS: Basophils # (A) 0.04 X 10*3/uL (0.00-0.10); Basophils % (A) 0.4 %; Eosinophils # (A) 0.19 X 10*3/uL (0.04-0.35); Eosinophils % (A) 1.7 %; HCT 37.7 % (39.6-50.0); HGB 12.2 g/dL (13.0-17.0); Lymphocytes # (A) 2.16 X 10*3/uL (0.90-5.00); Lymphocytes % (A) 19.9 %; MCH 28.6 pg (27.0-32.0); MCHC 32.4 g/dL (32.0-37.0); MCV 88.5 FL (80.0-97.0); Mean Platelet Volume 10.4 FL (9.5-12.2); Monocytes # (A) 0.67 X 10*3/uL (0.20-1.00); Monocytes % (A) 6.2 %; NRBC Per 100 WBC 0 X 10*3/uL (0.00-0.01); Neutrophils # (A) 7.74 X 10*3/uL (1.80-7.70); Neutrophils % (A) 71.2 %; Platelet Count 243 X 10*3/uL (140-440); RBC 4.26 X 10*6/uL (4.40-5.60); RDW 14.6 % (11.5-14.5); WBC 10.86 X 10*3/uL (4.50-10.00)
[2023-07-19 10:38] LABS: INR 1.11 sec (0.93-1.11); Prothrombin Time 11.9 sec (9.9-11.9)
[2023-07-19 11:02] LABS: ALT 27 U/L (10-49); AST 61 U/L (14-35); Albumin 2.8 g/dL (3.8-4.9); Albumin/Globulin Ratio 0.85 Ratio (1.60-3.17); Alkaline Phosphatase 117 U/L (41-126); Blood Urea Nitrogen 4.8 mg/dL (9.0-27.0); Carbon Dioxide 24.3 mmol/L (21.6-31.8); Chloride 107 mmol/L (96-109); Globulin 3.3 g/dL (1.6-3.3); Glucose 108 mg/dL (70-110); Potassium 3.8 mmol/L (3.5-5.5); Sodium 142 mmol/L (135-145); Total Bilirubin 0.8 mg/dL (0.3-1.2); Total Protein 6.1 g/dL (6.2-8.2)
[2023-07-19 12:01] LABS: Glucose,Whole Blood 124 mg/dL (70-110)
[2023-07-19 17:32] LABS: Glucose,Whole Blood 142 mg/dL (70-110)
[2023-07-19 20:15] LABS: Glucose,Whole Blood 180 mg/dL (70-110)
[2023-07-19] MEDS: ESCITALOPRAM 20 MG TAB PO SCH (21:01)
--- NOTE | 2023-07-19 22:57 | PN ---
PROGRESS NOTE The patient has an infected wound on the plantar aspect of the foot. The patient had extensive debridement. The patient is on IV antibiotic under care of Infectious Disease. Today I have changed the dressing with Medihoney gel, which will continue. The patient is on IV antibiotic, which will be continued. DENY / BRIA: [id number] /
[2023-07-20] MEDS: LOPERAMIDE 2 MG CAP PO PRN (00:37)
[2023-07-20] MEDS: AMPICILLIN-SULBACTAM 3 GM in SODIUM CHLORIDE 0.9% 100 ML IVPB SCH ×4 (05:03→23:53)
[2023-07-20] MEDS: LEVOTHYROXINE 100 MCG TAB PO SCH (06:16)
[2023-07-20] MEDS: SODIUM CHLORIDE 0.9% 1,000 ML IV SCH ×2 (06:17→17:15)
[2023-07-20 07:45] LABS: Glucose,Whole Blood 108 mg/dL (70-110)
[2023-07-20] MEDS: INSULIN ASPART (NovoLOG) 100 UNIT/ML VIAL SQ SCH ×4 (08:02→21:29)
[2023-07-20] MEDS: IPRATROPIUM-ALBUTEROL 3 ML NEB INHALATION SCH ×4 (08:12→20:09)
[2023-07-20] MEDS: METOPROLOL SUCCINATE (ER) 50 MG TAB.ER.24H PO SCH (10:14)
[2023-07-20] MEDS: PREGABALIN 100 MG CAP PO SCH ×2 (10:14→21:28)
[2023-07-20] MEDS: lisinopriL 20 MG TAB PO SCH (10:14)
[2023-07-20] MEDS: amLODIPine 10 MG TAB PO SCH (10:14)
[2023-07-20] MEDS: ALPRAZolam 1 MG TAB PO SCH ×3 (10:15→21:29)
[2023-07-20] MEDS: INSULIN DETEMIR (LEVEMIR) 100 UNIT/ML SYR SQ SCH (10:15)
[2023-07-20] MEDS: CHOLESTYRAMINE (WITH SUGAR) 4 GM PACKET PO SCH ×2 (10:15→18:41)
[2023-07-20] MEDS: ATORVASTATIN 80 MG TAB PO SCH (10:15)
[2023-07-20] MEDS: ARIPiprazole 15 MG TAB PO SCH (10:15)
[2023-07-20] MEDS: DAPAGLIFLOZIN PROPANEDIOL 10 MG TABLET PO SCH (10:15)
[2023-07-20 12:00] LABS: Glucose,Whole Blood 133 mg/dL (70-110)
[2023-07-20 17:10] LABS: Glucose,Whole Blood 104 mg/dL (70-110)
[2023-07-20 20:30] LABS: Glucose,Whole Blood 154 mg/dL (70-110)
[2023-07-20] MEDS: ESCITALOPRAM 20 MG TAB PO SCH (21:28)
[2023-07-21] MEDS: LEVOTHYROXINE 100 MCG TAB PO SCH (05:57)
[2023-07-21] MEDS: AMPICILLIN-SULBACTAM 3 GM in SODIUM CHLORIDE 0.9% 100 ML IVPB SCH ×4 (05:58→23:27)
[2023-07-21] MEDS: SODIUM CHLORIDE 0.9% 1,000 ML IV SCH ×2 (05:59→20:58)
--- NOTE | 2023-07-21 06:20 | P.PN ---
Subjective Progress Note Date: 07/19/23 Principal diagnosis: Reason for follow-up is extensive left diabetic foot infection with an abscess This is a telehealth visit Patient is a 47-year-old male with a past medical history significant for diabetes mellitus hypertension hyperlipidemia pneumonia, bipolar depression and panic disorder, patient presented to the ER for evaluation of worsening wound to the left foot plantar area apparently has been going on for few weeks noticed to have elevated white count and necrotic wound to the left foot patient was taken to the OR 07/16/2023 and s/p debridement of the wound along with deep culture. On today's evaluation that is 07/19/2023 the patient continues to be afebrile, patient is breathing comfortably on 2 L nasal cannula oxygen, the patient denies having any chest pain no significant cough or sputum production no nausea vomiting no abdominal pain and no diarrhea has been reported, denies pain to the left foot. Patient did have white count of 10.86, creatinine 0.8, stool for C. difficile negative Objective - Vital Signs Vital signs: Vital Signs Temp 97.7 F 07/19/23 07:37 Pulse 89 07/19/23 07:37 Resp 19 07/19/23 07:37 BP 161/90 07/19/23 07:37 Pulse Ox 92 L 07/19/23 07:37 FiO2 21 07/17/23 08:13 Intake & Output 07/18/23 07/19/23 07/19/23 18:59 06:59 18:59 Intake Total 240 Balance 240 Intake: Oral 240 Other: Voiding Method Toilet # Voids 2 # Bowel Movements 1 2 - Exam Middle-age male lying in bed in no distress Respiratory system unlabored breathing decreased breath sound the base Heart S1-S2 regular Abdominal soft no tenderness Left foot wound is covered with the OR dressing Exam completed with the help of ELIGIBILITY MANAGER - Labs CBC & Chem 7: 07/19/23 05:34 07/19/23 05:34 Labs: Abnormal Lab Results - Last 24 Hours (Table) 07/18/23 07/18/23 07/19/23 Range/Units 16:42 20:16 07:24 POC Glucose (mg/dL) 112 H 129 H 112 H (70-110) mg/dL Microbiology - Last 24 Hours (Table) 07/16/23 08:27 Anaerobic Culture - Final Foot - Left 07/16/23 08:27 Gram Stain - Final Foot - Left Tissue Culture - Final Proteus mirabilis Enterococcus faecalis Assessment and Plan (1) Diabetic foot infection Current Visit: Yes Status: Acute Code(s): E11.628 - TYPE 2 DIABETES MELLITUS WITH OTHER SKIN COMPLICATIONS; L08.9 - LOCAL INFECTION OF THE SKIN AND VEGA BCUTANEOUS TISSUE, UNSP SNOMED Code(s): 159548017 (2) Foot abscess, left Current Visit: Yes Status: Acute Code(s): L02.612 - CUTANEOUS ABSCESS OF LEFT FOOT SNOMED Code(s): 71542887117201687 (3) Diabetic foot ulcer Current Visit: Yes Status: Acute Code(s): E11.621 - TYPE 2 DIABETES MELLITUS WITH FOOT ULCER; L97.509 - NON-PRESSURE CHRONIC ULCER OTH PRT UNSP FOOT W UNSP SEVERITY SNOMED Code(s): 526855444 Plan: 1patient presented to hospital with extensive left diabetic foot infection and this patient did have a large necrotic wound on the plantar aspect of the left foot with some foul-smelling drainage with associated diffuse swelling redness of the left foot extending to the left leg we will need to cover for the polymicrobial zeeshan associated with diabetic foot infection 2-patient is s/p vascular surgery evaluation and drainage of this abscess and deep culture, currently growing Proteus and Enterococcus faecalis 3we will continue the patient on Unasyn 3 g every 6 hours, patient did get a PICC line, continue with the Questran for symptomatic relief of his diarrhea stool for C. difficile was negative Dictation was produced using [employer] dictation software. please excuse any gr ammatical, word or spelling errors. Time with Patient: Less than 30
--- NOTE | 2023-07-21 06:21 | P.PN ---
Subjective Progress Note Date: 07/20/23 Principal diagnosis: Reason for follow-up is extensive left diabetic foot infection with an abscess This is a telehealth visit Patient is a 47-year-old male with a past medical history significant for diabetes mellitus hypertension hyperlipidemia pneumonia, bipolar depression and panic disorder, patient presented to the ER for evaluation of worsening wound to the left foot plantar area apparently has been going on for few weeks noticed to have elevated white count and necrotic wound to the left foot patient was taken to the OR 07/16/2023 and s/p debridement of the wound along with deep culture. On today's evaluation that is 07/20/2023, the patient is afebrile patient is breathing comfortably on 3 L nasal cannula supplemental oxygen the patient denies chest pain, the patient did have occasional cough no sputum production patient denies abdominal pain no nausea no vomiting and denies having diarrhea, denies pain to the left foot No new labs has been obtained today culture positive for Proteus mirabilis and Enterococcus faecalis Objective - Vital Signs Vital signs: Vital Signs Temp 97.3 F L 07/20/23 07:46 Pulse 80 07/20/23 08:24 Resp 18 07/20/23 07:46 BP 151/84 07/20/23 07:46 Pulse Ox 92 L 07/20/23 07:46 FiO2 21 07/17/23 08:13 Intake & Output 07/19/23 07/20/23 07/20/23 18:59 06:59 18:59 Intake Total 1720 Balance 1720 Intake: Oral 1720 Other: Voiding Method Toilet # Voids 5 3 # Bowel Movements 1 1 - Exam Middle-age male lying in bed in no distress Respiratory system unlabored breathing decreased breath sound the base Heart S1-S2 regular Abdominal soft no tenderness Left foot wound is covered with the OR dressing Exam completed with the help of GAS DERRICK OPERATOR - Labs CBC & Chem 7: 07/19/23 05:34 07/19/23 05:34 Labs: Abnormal Lab Results - Last 24 Hours (Table) 07/19/23 07/19/23 07/19/23 Range/Units 05:34 05:34 11:52 WBC 10.86 H (4.50-10.00) X 10*3/uL RBC 4.26 L (4.40-5.60) X 10*6/uL Hgb 12.2 L (13.0-17.0) g/dL Hct 37.7 L (39.6-50.0) % RDW 14.6 H (11.5-14.5) % Immature Gran # 0.06 H (0.00-0.04) X 10*3/uL Neutrophils # 7.74 H (1.80-7.70) X 10*3/uL BUN 4.8 L (9.0-27.0) mg/dL BUN/Creatinine Ratio 6.00 L (12.00-20.00) Ratio POC Glucose (mg/dL) 124 H (70-110) mg/dL Calcium 8.0 L (8.7-10.3) mg/dL AST 61 H (14-35) U/L C-Reactive Protein 7.00 H (0.00-0.80) mg/dL Total Protein 6.1 L (6.2-8.2) g/dL Albumin 2.8 L (3.8-4.9) g/dL Albumin/Globulin Ratio 0.85 L (1.60-3.17) Ratio 07/19/23 07/19/23 Range/Units 17:18 20:13 WBC (4.50-10.00) X 10*3/uL RBC (4.40-5.60) X 10*6/uL Hgb (13.0-17.0) g/dL Hct (39.6-50.0) % RDW (11.5-14.5) % Immature Gran # (0.00-0.04) X 10*3/uL Neutrophils # (1.80-7.70) X 10*3/uL BUN (9.0-27.0) mg/dL BUN/Creatinine Ratio (12.00-20.00) Ratio POC Glucose (mg/dL) 142 H 180 H (70-110) mg/dL Calcium (8.7-10.3) mg/dL AST (14-35) U/L C-Reactive Protein (0.00-0.80) mg/dL Total Protein (6.2-8.2) g/dL Albumin (3.8-4.9) g/dL Albumin/Globulin Ratio (1.60-3.17) Ratio Microbiology - Last 24 Hours (Table) 07/14/23 14:30 Blood Culture - Final Blood Assessment and Plan (1) Diabetic foot infection Current Visit: Yes Status: Acute Code(s): E11.628 - TYPE 2 DIABETES MELLITUS WITH OTHER SKIN COMPLICATIONS; L08.9 - LOCAL INFECTION OF THE SKIN AND SUBCUTANEOUS TISSUE, UNSP SNOMED Code(s): 268129608 (2) Foot abscess, left Current Visit: Yes Status: Acute Code(s): L02.612 - CUTANEOUS ABSCESS OF LEFT FOOT SNOMED Code(s): 58065574263919794 (3) Diabetic foot ulcer Current Visit: Yes Status: Acute Code(s): E11.621 - TYPE 2 DIABETES MELLITUS WITH FOOT ULCER; L97.509 - NON-PRESSURE CHRONIC ULCER OTH PRT UNSP FOOT W UNSP SEVERITY SNOMED Code(s): 074287241 Plan: 1patient presented to hospital with extensive left diabetic foot infection and this patient did have a large necrotic wound on the plantar aspect of the left foot with some foul-smelling drainage with associated diffuse swelling redness of the left foot extending to the left leg we will need to cover for the polymicrobial zeeshan associated with diabetic foot infection 2-patient is s/p vascular surgery evaluation and drainage of this abscess and deep culture, currently growing Proteus and Enterococcus faecalis 3patient did have resolution of his diarrhea stool for C. difficile was negative use Questran as needed encouraged to increase his probiotic intake 4-patient did get a PICC line for his extensive left diabetic foot infection plan is for 4 to 6 weeks of IV Unasyn prescription provided to the machine adjuster leader case trim currently waiting for insurance authorization before discharge Dictation was produced using [employer] dictation software. please excuse any gramm atical, word or spelling errors. Time with Patient: Less than 30
[2023-07-21 07:15] LABS: Glucose,Whole Blood 89 mg/dL (70-110)
--- NOTE | 2023-07-21 07:31 | PN ---
PROGRESS NOTE SUBJECTIVE: This is a 47-year-old white male. He is on DuoNeb, IV Zosyn, Abilify, Lipitor, Questran, Zestril, Imodium, Toprol. He had a PIC line placed for IV antibiotics. Echo that is pending, to 98. OBJECTIVE: CARDIOVASCULAR: S1, S2. LUNGS: Transmitted upper sounds. GI: Soft. HEMATOLOGY: Negative for Homans. PSYCH: Fair mood and affect. PLAN: Continue current treatments. Follow up in next 24 to 48 hours. Echo is pending. Continue on breathing treatments. Oxygen at night if pulse ox drops down to 88 on room air. Given 2 L oxygen. Prognosis guarded. MMODL / IJN: [id number] /
[2023-07-21] MEDS: IPRATROPIUM-ALBUTEROL 3 ML NEB INHALATION SCH ×4 (07:48→18:07)
[2023-07-21] MEDS: INSULIN ASPART (NovoLOG) 100 UNIT/ML VIAL SQ SCH ×4 (07:57→20:56)
[2023-07-21] MEDS: INSULIN DETEMIR (LEVEMIR) 100 UNIT/ML SYR SQ SCH (07:59)
[2023-07-21] MEDS: CHOLESTYRAMINE (WITH SUGAR) 4 GM PACKET PO SCH ×2 (09:32→18:01)
[2023-07-21] MEDS: ALPRAZolam 1 MG TAB PO SCH ×3 (09:32→21:00)
[2023-07-21] MEDS: DAPAGLIFLOZIN PROPANEDIOL 10 MG TABLET PO SCH (09:33)
[2023-07-21] MEDS: ATORVASTATIN 80 MG TAB PO SCH (09:33)
[2023-07-21] MEDS: METOPROLOL SUCCINATE (ER) 50 MG TAB.ER.24H PO SCH (09:33)
[2023-07-21] MEDS: PREGABALIN 100 MG CAP PO SCH ×2 (09:33→20:55)
[2023-07-21] MEDS: amLODIPine 10 MG TAB PO SCH (09:33)
[2023-07-21] MEDS: lisinopriL 20 MG TAB PO SCH (09:33)
[2023-07-21] MEDS: ARIPiprazole 15 MG TAB PO SCH (09:33)
[2023-07-21 12:16] LABS: Glucose,Whole Blood 143 mg/dL (70-110)
[2023-07-21] MEDS ORDERED: LIDOCAINE 1% INJ 10MG/ML (20 ML MDV) SQ STA (16:21)
--- NOTE | 2023-07-21 16:55 | P.PN ---
Progress Note - Text 47-year-old diabetic male history of hypertension and diabetes patient came with chronic wound plantar aspect of the foot patient particular surgery we did do extensive debridement patient is an IV diabetic under care of infectious disease culture report came back as a Enterococcus faecalis and Proteus Mirabella's is an IV antibiotic and under care of infectious disease we will changing dressing daily with the Medihoney gel today will change dressing with Medihoney gel continue with IV antibiotic if patient goes to senior living patient has to follow-up in the wound clinic on Tuesday to see me at this point prognosis is guarded
[2023-07-21 17:24] LABS: Glucose,Whole Blood 101 mg/dL (70-110)
[2023-07-21] MEDS ORDERED: KETOROLAC 15 MG/ML 1 ML VIAL IVP PRN (18:17)
[2023-07-21] MEDS: HYDROcodone/APAP 7.5-325MG 1 EACH TAB PO PRN (18:34)
--- NOTE | 2023-07-21 19:28 | US ---
EXAMINATION TYPE: US venous doppler duplex LE RT DATE OF EXAM: 07/21/2023 6:39 PM COMPARISON: NONE CLINICAL INDICATION: Male, 47 years old with history of rule out blood clot; Right leg pain. No hx of DVT. Takes a baby aspirin daily SIDE PERFORMED: Right TECHNIQUE: The lower extremity deep venous system is examined utilizing real time linear array sonog vincenzo with graded compression, doppler sonography and color-flow sonography. VESSELS IMAGED: Common Femoral Vein Deep Femoral Vein Greater Saphenous Vein * Femoral Vein Popliteal Vein Small Saphenous Vein * Proximal Calf Veins (* superficial vessels) Right Leg: No evidence for DVT. Slightly limited due to body habitus IMPRESSION: 1. Right lower extremity ultrasound negative for deep venous thrombosis.
[2023-07-21 20:05] LABS: Glucose,Whole Blood 163 mg/dL (70-110)
[2023-07-21] MEDS: ESCITALOPRAM 20 MG TAB PO SCH (20:55)
--- NOTE | 2023-07-22 01:33 | P.PN ---
Subjective Progress Note Date: 07/21/23 Principal diagnosis: Reason for follow-up is extensive left diabetic foot infection with an abscess This is a telehealth visit Patient is a 47-year-old male with a past medical history significant for diabetes mellitus hypertension hyperlipidemia pneumonia, bipolar depression and panic disorder, patient presented to the ER for evaluation of worsening wound to the left foot plantar area apparently has been going on for few weeks noticed to have elevated white count and necrotic wound to the left foot patient was taken to the OR 07/16/2023 and s/p debridement of the wound along with deep culture. On today's evaluation that is 07/21/2023 patient remains to be afebrile, the patient is breathing comfortably and is currently on room air, the patient denies having any chest pain no significant cough or sputum production patient denies having abdominal pain no nausea no vomiting and no diarrhea has been reported. Denies any pain to the left foot wound area. No new labs has been obtained today culture with Proteus and Enterococcus faecalis Objective - Vital Signs Vital signs: Vital Signs Temp 97.6 F 07/21/23 07:33 Pulse 80 07/21/23 08:01 Resp 18 07/21/23 07:33 BP 171/72 07/21/23 07:33 Pulse Ox 94 L 07/21/23 07:33 FiO2 21 07/17/23 08:13 Intake & Output 07/20/23 07/21/23 07/21/23 18:59 06:59 18:59 Intake Total 1100 1200 Balance 1100 1200 Weight 167.829 kg Intake: Intake, IV Titration 1100 Amount Ampicillin-Sulbactam 3 gm 200 In Sodium Chloride 0.9% 100 ml @ 200 mls/hr IVPB Q6HR LEANDRO Rx#:[id number] Sodium Chloride 0.9% 1, 900 000 ml @ 75 mls/hr IV . [id number] LEANDRO Rx#:[id number] Oral 1200 Other: Voiding Method Toilet # Voids 3 - Exam Middle-age male lying in bed in no distress Respiratory system unlabored breathing decreased breath sound the base Heart S1-S2 regular Abdominal soft no tenderness Left foot wound is covered with the OR dressing Exam completed with the help of FRONT DESK SPECIALIST - Labs CBC & Chem 7: 07/19/23 05:34 07/19/23 05:34 Labs: Abnormal Lab Results - Last 24 Hours (Table) 07/20/23 07/20/23 Range/Units 11:57 20:29 POC Glucose (mg/dL) 133 H 154 H (70-110) mg/dL Assessment and Plan (1) Diabetic foot infection Current Visit: Yes Status: Acute Code(s): E11.628 - TYPE 2 DIABETES MELLITUS WITH OTHER SKIN COMPLICATIONS; L08.9 - LOCAL INFECTION OF THE SKIN AND SUBCUTANEOUS TISSUE, UNSP SNOMED Code(s): 151176732 (2) Foot abscess, left Current Visit: Yes Status: Acute Code(s): L02.612 - CUTANEOUS ABSCESS OF LEFT FOOT SNOMED Code(s): 70995839885116929 (3) Diabetic foot ulcer Current Visit: Yes Status: Acute Code(s): E11.621 - TYPE 2 DIABETES MELLITUS WITH FOOT ULCER; L97.509 - NON-PRESSURE CHRONIC ULCER OTH PRT UNSP FOOT W UNSP SEVERITY SNOMED Code(s): 955450322 Plan: 1patient presented to hospital with extensive left diabetic foot infection and this patient did have a large necrotic wound on the plantar aspect of the left foot with some foul-smelling drainage with associated diffuse swelling redness of the left foot extending to the left leg we will need to cover for the polymicrobial zeeshan associated with diabetic foot infection 2-patient is s/p vascular surgery evaluation and drainage of this abscess and deep culture, currently growing Proteus and Enterococcus faecalis 3patient did have resolution of his diarrhea stool for C. difficile was negative use Questran as needed and discontinue if no bowel movement for more than 24 hours 4-patient did get a PICC line for his extensive left diabetic foot infection 5-plan is for 4 to 6 weeks of IV Unasyn with weekly monitoring of CRP and sed rate local wound care to continue per vascular surgery currently being treated with the Medihoney followed by moist dressing daily Dictation was produced using [employer] dictation software. please excuse any grammatical, word or spelling errors. Time with Patient: Less than 30
[2023-07-22] MEDS: AMPICILLIN-SULBACTAM 3 GM in SODIUM CHLORIDE 0.9% 100 ML IVPB SCH ×3 (05:25→17:28)
[2023-07-22] MEDS: LEVOTHYROXINE 100 MCG TAB PO SCH (05:29)
[2023-07-22] MEDS: SODIUM CHLORIDE 0.9% 1,000 ML IV SCH ×2 (05:29→19:29)
[2023-07-22 07:38] LABS: Glucose,Whole Blood 123 mg/dL (70-110)
[2023-07-22] MEDS: IPRATROPIUM-ALBUTEROL 3 ML NEB INHALATION SCH ×4 (07:53→18:20)
[2023-07-22] MEDS: INSULIN ASPART (NovoLOG) 100 UNIT/ML VIAL SQ SCH ×4 (08:04→20:30)
[2023-07-22] MEDS: INSULIN DETEMIR (LEVEMIR) 100 UNIT/ML SYR SQ SCH (08:33)
[2023-07-22] MEDS: lisinopriL 20 MG TAB PO SCH (08:33)
[2023-07-22] MEDS: ALPRAZolam 1 MG TAB PO SCH ×3 (08:33→21:04)
[2023-07-22] MEDS: METOPROLOL SUCCINATE (ER) 50 MG TAB.ER.24H PO SCH (08:34)
[2023-07-22] MEDS: amLODIPine 10 MG TAB PO SCH (08:34)
[2023-07-22] MEDS: ATORVASTATIN 80 MG TAB PO SCH (08:34)
[2023-07-22] MEDS: ARIPiprazole 15 MG TAB PO SCH (08:34)
[2023-07-22] MEDS: PREGABALIN 100 MG CAP PO SCH ×2 (08:34→21:04)
[2023-07-22] MEDS: DAPAGLIFLOZIN PROPANEDIOL 10 MG TABLET PO SCH (08:34)
[2023-07-22] MEDS: CHOLESTYRAMINE (WITH SUGAR) 4 GM PACKET PO SCH ×2 (08:34→17:28)
--- NOTE | 2023-07-22 09:58 | CA ---
Transthoracic Echo Report Name: Cristian Hoff Age: 47 Gender: M : 1975 Exam Date: 07/21/2023 13:33 Exam Location: [place] Echo Ht (in): 76 Wt (lb): 370 Ordering Physician: Deejay Tate MD Attending/Referring Phys: Fabrication Engineer Ena Crain [facility] Procedure CPT: Indications: CAD Cardiac Hx: Technical Quality: Fair Contrast 1: Total Dose (mL): Contrast 2: Total Dose (mL): MEASUREMENTS (Male / Female) Normal Values 2D ECHO LV Diastolic Diameter PLAX 4.8 cm 4.2 - 5.9 / 3.9 - 5.3 cm LV Systolic Diameter PLAX 3.2 cm IVS Diastolic Thickness 1.0 cm 0.6 - 1.0 / 0.6 - 0.9 cm LVPW Diastolic Thickness 1.2 cm 0.6 - 1.0 / 0.6 - 0.9 cm LV Relative Wall Thickness 0.5 LVOT Diameter 2.0 cm Ascending Aorta Diameter 3.1 cm M-MODE Aortic Root Diameter MM 2.9 cm LA Systolic Diameter MM 4.5 cm LA Ao Ratio MM 1.6 AV Cusp Separation MM 2.3 cm DOPPLER AV Peak Velocity 173.0 cm/s AV Peak Gradient 12.0 mmHg AV Mean Velocity 114.8 cm/s AV Mean Gradient 6.0 mmHg AV Velocity Time Integral 34.4 cm LVOT Peak Velocity 111.5 cm/s LVOT Peak Gradient 5.0 mmHg LVOT Velocity Time Integral 25.6 cm LVOT Stroke Volume 79.0 cm??? LVOT Stroke Volume Index 27.5 ml/m??? LVOT Cardiac Index 2340.0 cm???/min???m??? AV Area Cont Eq vti 2.3 cm??? AV Area Cont Eq pk 2.0 cm??? Mitral E Point Velocity 109.7 cm/s Mitral A Point Velocity 96.1 cm/s Mitral E to A Ratio 1.1 MV Deceleration Time 158.7 ms LV E' Lateral Velocity 10.5 cm/s Mitral E to LV E' Lateral Ratio 10.4 LV E' Septal Velocity 7.2 cm/s Mitral E to LV E' Septal Ratio 15.2 TR Peak Velocity 258.9 cm/s TR Peak Gradient 26.8 mmHg Right Atrial Pressure 8.0 mmHg Pulmonary Artery Systolic Pressu 34.8 mmHg Right Ventricular Systolic Press 34.8 mmHg FINDINGS Left Ventricle Mildly increased left ventricular wall thickness. Left ventricular cavity size normal. Normal left ventricular systolic function with no obvious regional wall motion abnormalities. Left ventricular ejection fraction is estimated at 55- 60%. Right Ventricle Right ventricle not well visualized but appears dilated. Mild pulmonary hypertension. Right Atrium Normal right atrial size. Left Atrium Normal left atrial size. Mitral Valve Mitral valve not well visualized. Trace mitral regurgitation. Aortic Valve Trileaflet aortic valve. No aortic valve stenosis or regurgitation. Tricuspid Valve Tricuspid valve not well visualized. Trace tricuspid regurgitation. Pulmonic Valve Pulmonic valve not well visualized. Pericardium No pericardial effusion. Aorta Normal size aortic root and proximal ascending aorta. CONCLUSIONS Technically difficult study. Normal LV systolic function Previewed by: Dr. Stiven Peralta MD (Electronically Signed) Final Date: 22 July 2023 09:57
[2023-07-22 12:10] LABS: Glucose,Whole Blood 132 mg/dL (70-110)
--- NOTE | 2023-07-22 14:38 | P.PN ---
Progress Note - Text Patient had a large infected wound plantar aspect of the foot we did excisional debridement culture patient is under care of infectious disease [facility] should be changed daily if patient goes home patient has to follow-up with the wound clinic with me
[2023-07-22 17:08] LABS: Glucose,Whole Blood 112 mg/dL (70-110)
[2023-07-22] MEDS: HYDROcodone/APAP 7.5-325MG 1 EACH TAB PO PRN (19:31)
[2023-07-22 19:50] LABS: Glucose,Whole Blood 143 mg/dL (70-110)
[2023-07-22] MEDS: ESCITALOPRAM 20 MG TAB PO SCH (21:04)
--- NOTE | 2023-07-22 23:38 | P.PN ---
Subjective Progress Note Date: 07/22/23 Principal diagnosis: Reason for follow-up is extensive left diabetic foot infection with an abscess This is a telehealth visit Patient is a 47-year-old male with a past medical history significant for diabetes mellitus hypertension hyperlipidemia pneumonia, bipolar depression and panic disorder, patient presented to the ER for evaluation of worsening wound to the left foot plantar area apparently has been going on for few weeks noticed to have elevated white count and necrotic wound to the left foot patient was taken to the OR 07/16/2023 and s/p debridement of the wound along with deep culture. On today's evaluation that is 07/22/2023, the patient is afebrile, the patient is breathing comfortably on room air, the patient denies having any shortness of breath chest pain or cough.Patient denies having any abdominal pain no nausea vomiting or any diarrhea, denies pain to the left foot wound area,. No new labs has been obtained today Objective - Vital Signs Vital signs: Vital Signs Temp 97.5 F L 07/22/23 07:42 Pulse 82 07/22/23 08:05 Resp 18 07/22/23 07:42 BP 136/81 07/22/23 07:42 Pulse Ox 98 07/22/23 07:53 FiO2 21 07/17/23 08:13 Intake & Output 07/21/23 07/22/23 07/22/23 18:59 06:59 18:59 Intake Total 1080 1600 Balance 1080 1600 Intake: Intake, IV Titration 1100 Amount Ampicillin-Sulbactam 3 gm 200 In Sodium Chloride 0.9% 100 ml @ 200 mls/hr IVPB Q6HR LEANDRO Rx#:[id number] Sodium Chloride 0.9% 1, 900 000 ml @ 75 mls/hr IV . [id number] LEANDRO Rx#:[id number] Oral 1080 500 Other: Voiding Method Toilet Toilet # Voids 3 3 - Exam Middle-age male lying in bed in no distress Respiratory system unlabored breathing decreased breath sound the base Heart S1-S2 regular Abdominal soft no tenderness Left foot wound is covered with the OR dressing Exam completed with the help of TRUCK OPERATOR - Labs CBC & Chem 7: 07/19/23 05:34 07/19/23 05:34 Labs: Abnormal Lab Results - Last 24 Hours (Table) 07/21/23 07/21/23 07/22/23 Range/Units 12:09 20:04 07:23 POC Glucose (mg/dL) 143 H 163 H 123 H (70-110) mg/dL Assessment and Plan (1) Diabetic foot infection Current Visit: Yes Status: Acute Code(s): E11.628 - TYPE 2 DIABETES MELLITUS WITH OTHER SKIN COMPLICATIONS; L08.9 - LOCAL INFECTION OF THE SKIN AND SUBCUTANEOUS TISSUE, UNSP SNOMED Code(s): 513477935 (2) Foot abscess, left Current Visit: Yes Status: Acute Code(s): L02.612 - CUTANEOUS ABSCESS OF LEFT FOOT SNOMED Code(s): 26214921876754204 (3) Diabetic foot ulcer Current Visit: Yes Status: Acute Code(s): E11.621 - TYPE 2 DIABETES MELLITUS WITH FOOT ULCER; L97.509 - NON-PRESSURE CHRONIC ULCER OTH PRT UNSP FOOT W UNSP SEVERITY SNOMED Code(s): 793153544 Plan: 1patient presented to hospital with extensive left diabetic foot infection and this patient did have a large necrotic wound on the plantar aspect of the left foot with some foul-smelling drainage with associated diffuse swelling redness of the left foot extending to the left leg we will need to cover for the polymicrobial zeeshan associated with diabetic foot infection 2-patient is s/p vascular surgery evaluation and drainage of this abscess and deep culture, currently growing Proteus and Enterococcus faecalis 3patient did have resolution of his diarrhea stool for C. difficile was negative use Questran as needed and discontinue if no bowel movement for more than 24 hours 4-patient did get a PICC line for his extensive left diabetic foot infection 5-patient to continue with IV Unasyn currently waiting for outpatient IV antibiotic arrangement before discharge Dictation was produced using [employer] software. please excuse any grammatical, word or spelling errors. Time with Patient: Less than 30
[2023-07-23] MEDS: AMPICILLIN-SULBACTAM 3 GM in SODIUM CHLORIDE 0.9% 100 ML IVPB SCH ×5 (00:09→23:17)
[2023-07-23] MEDS: LEVOTHYROXINE 100 MCG TAB PO SCH (05:16)
--- NOTE | 2023-07-23 06:04 | DS ---
DISCHARGE SUMMARY DISCHARGE DIAGNOSES: 1. Type 2 diabetes, uncontrolled. 2. Sleep apnea. 3. Pulmonary hypertension. 4. Asthma. 5. Diabetic foot infection. 6. Diastolic CHF. 7. Diabetic foot ulcer. 8. Foot abscess. 9. Sepsis with necrotic diabetic wound infection, left leg. HOME MEDICINES: 1. Accu-Chek protocol a.c. and at bedtime. 2. Unasyn 3 g IV piggyback every 6 hours for 4-6 weeks. 3. MediHoney dressing changes to the wound daily on the left foot. 4. DuoNeb updrafts q.i.d. around the clock to nonstop dose. He wears 2 L oxygen at nighttime. If his oxygen drops into the 80s in his sleep, do not stop this or either. 2 L only while sleeping. 5. Imodium 2 mg q.i.d. 6. Levemir 30 daily. 7. [place] 7.5 q.6 p.r.n. 8. Questran 4 mg b.i.d. for diarrhea. 9. Xanax 2 mg t.i.d. for anxiety. 10.Lyrica 300 b.i.d. for neuropathy. 11.Zestril 40 mg daily for hypertension. 12.Toprol-XL 50 mg daily for hypertension. 13.Lipitor 80 mg daily for cholesterol. 14.Synthroid 300 mcg for hypothyroidism. 15.Farxiga 10 mg daily for diastolic heart failure and diabetes. 16.Abilify 30 mg daily. 17.Mounjaro 2.5 mg subcu every 7 days for diabetes. 18.Norvasc 10 mg daily for hypertension. 19.Zofran 4 mg q.8 hours p.r.n. for nausea. 20.Lexapro 20 mg daily. As mentioned MediHoney, Unasyn, DuoNeb, oxygen when he sleeps, do not stop these. Wound care MediHoney daily changes. Continue antibiotics for 4-6 weeks. Follow up as an outpatient. Condition stable. Prognosis guarded. Ambulate as tolerated. The patient came in the hospital with diastolic heart failure, severe swelling of his extremities, open skin wounds, large necrotic wound debrided, anterior-posterior foot, much skin debrided and open wounds. Prognosis extremely guarded. He has p.r.n. medicines as mentioned above. Follow up as an outpatient. Offloading boot. Dr. Gutierrez. Follow up with Dr. Harp and follow up with the Wound Clinic with Dr. Gutierrez after being on antibiotics. If the wound worsens, bring him back to the hospital. Condition stable. Prognosis guarded. MMODL / IJN: [id number] /
[2023-07-23 07:06] LABS: Glucose,Whole Blood 117 mg/dL (70-110)
[2023-07-23] MEDS: IPRATROPIUM-ALBUTEROL 3 ML NEB INHALATION SCH ×4 (07:55→18:37)
[2023-07-23] MEDS: INSULIN ASPART (NovoLOG) 100 UNIT/ML VIAL SQ SCH ×4 (09:32→20:08)
[2023-07-23] MEDS: ARIPiprazole 15 MG TAB PO SCH (09:50)
[2023-07-23] MEDS: INSULIN DETEMIR (LEVEMIR) 100 UNIT/ML SYR SQ SCH (09:51)
[2023-07-23] MEDS: amLODIPine 10 MG TAB PO SCH (09:51)
[2023-07-23] MEDS: lisinopriL 20 MG TAB PO SCH (09:51)
[2023-07-23] MEDS: CHOLESTYRAMINE (WITH SUGAR) 4 GM PACKET PO SCH ×2 (09:51→17:59)
[2023-07-23] MEDS: ALPRAZolam 1 MG TAB PO SCH ×3 (09:51→21:15)
[2023-07-23] MEDS: METOPROLOL SUCCINATE (ER) 50 MG TAB.ER.24H PO SCH (09:51)
[2023-07-23] MEDS: PREGABALIN 100 MG CAP PO SCH ×2 (09:51→20:08)
[2023-07-23] MEDS: ATORVASTATIN 80 MG TAB PO SCH (09:51)
[2023-07-23] MEDS: DAPAGLIFLOZIN PROPANEDIOL 10 MG TABLET PO SCH (09:51)
[2023-07-23 12:10] LABS: Glucose,Whole Blood 118 mg/dL (70-110)
[2023-07-23] MEDS: HYDROcodone/APAP 7.5-325MG 1 EACH TAB PO PRN (17:05)
[2023-07-23 17:10] LABS: Glucose,Whole Blood 129 mg/dL (70-110)
[2023-07-23 19:51] LABS: Glucose,Whole Blood 158 mg/dL (70-110)
[2023-07-23] MEDS: ESCITALOPRAM 20 MG TAB PO SCH (20:08)
[2023-07-23] MEDS: SODIUM CHLORIDE 0.9% 1,000 ML IV SCH (20:09)
[2023-07-24] MEDS: HYDROcodone/APAP 7.5-325MG 1 EACH TAB PO PRN ×2 (02:29→15:41)
[2023-07-24] MEDS: AMPICILLIN-SULBACTAM 3 GM in SODIUM CHLORIDE 0.9% 100 ML IVPB SCH ×4 (05:35→23:35)
[2023-07-24] MEDS: LEVOTHYROXINE 100 MCG TAB PO SCH (05:35)
[2023-07-24] MEDS: SODIUM CHLORIDE 0.9% 1,000 ML IV SCH ×2 (05:36→17:58)
--- NOTE | 2023-07-24 05:43 | PN ---
PROGRESS NOTE DuoNeb q.i.d., Norvasc 10 mg for hypertension, Unasyn, Abilify for mood swings, Questran for diarrhea, Farxiga 10 mg daily for diabetes mellitus, Lexapro 20 mg for depression, [place] 7.5 q.i.d. for pain, Levemir 30 units subcu daily a.c. at bedtime, Synthroid 300 mcg daily, Zestril 40 mg daily, Toprol XL 50 daily, Lyrica 300 b.i.d. Condition is stable. 95% on room air. Blood pressure is 132/83, temperature 97.8, pulse 83, respiratory rate 16. PLAN: Continue current treatment, extensive wounds to the legs. Negative for DVT. He has a possible lumbar disc herniation. He is going to go home on Medihoney and IV antibiotics for 6 to 8 weeks from [place]. Waiting for discharge up there. Prognosis guarded. Please see further orders. MMODL / IJN: [id number] /
[2023-07-24 07:13] LABS: Glucose,Whole Blood 122 mg/dL (70-110)
[2023-07-24] MEDS: INSULIN ASPART (NovoLOG) 100 UNIT/ML VIAL SQ SCH ×4 (07:38→20:40)
[2023-07-24] MEDS: IPRATROPIUM-ALBUTEROL 3 ML NEB INHALATION SCH ×4 (07:54→18:15)
[2023-07-24] MEDS: INSULIN DETEMIR (LEVEMIR) 100 UNIT/ML SYR SQ SCH (09:48)
[2023-07-24] MEDS: CHOLESTYRAMINE (WITH SUGAR) 4 GM PACKET PO SCH ×2 (09:48→17:57)
[2023-07-24] MEDS: DAPAGLIFLOZIN PROPANEDIOL 10 MG TABLET PO SCH (09:49)
[2023-07-24] MEDS: PREGABALIN 100 MG CAP PO SCH ×2 (09:49→20:40)
[2023-07-24] MEDS: ALPRAZolam 1 MG TAB PO SCH ×3 (09:49→21:14)
[2023-07-24] MEDS: METOPROLOL SUCCINATE (ER) 50 MG TAB.ER.24H PO SCH (09:49)
[2023-07-24] MEDS: ATORVASTATIN 80 MG TAB PO SCH (09:49)
[2023-07-24] MEDS: amLODIPine 10 MG TAB PO SCH (09:49)
[2023-07-24] MEDS: ARIPiprazole 15 MG TAB PO SCH (09:49)
[2023-07-24] MEDS: lisinopriL 20 MG TAB PO SCH (09:49)
[2023-07-24 11:55] LABS: Glucose,Whole Blood 117 mg/dL (70-110)
--- NOTE | 2023-07-24 15:00 | PN ---
PROGRESS NOTE SUBJECTIVE: This is a 47-year-old white male with asthma, diastolic heart failure, pulmonary hypertension, insulin-dependent diabetes mellitus, extensive wound to the left foot, debridement with osteomyelitis and 6 weeks of IV antibiotics, waiting for fdc placement. OBJECTIVE: VITAL SIGNS: Pulse rate 70 to 80. No other vitals in the computer. CARDIOVASCULAR: S1 and S2. LUNGS: Transmitted upper sounds. HEMATOLOGIC: Stasis changes. EXTREMITIES: 3+ edema in bilateral legs. Negative for DVT. ASSESSMENT: Cellulitis of the legs and diabetic foot infection extending to the left foot. PLAN: Continue on his breathing treatments. Continue with IV antibiotics. Prognosis extremely guarded. Follow up as an outpatient. He has recent IV antibiotics in the fdc, is going to go tomorrow. Slightly appears to be better more with it. His extremity swelling is going down in his legs greatly from when he was admitted. The redness has decreased on his legs. He does have 3+ grossly morbidly obese with right-sided heart failure changes appears to be improving though. MMODL / IJN: [id number] /
[2023-07-24 17:24] LABS: Glucose,Whole Blood 118 mg/dL (70-110)
[2023-07-24 20:05] LABS: Glucose,Whole Blood 240 mg/dL (70-110)
[2023-07-24] MEDS: ESCITALOPRAM 20 MG TAB PO SCH (21:15)
[2023-07-25] MEDS: HYDROcodone/APAP 7.5-325MG 1 EACH TAB PO PRN (04:16)
[2023-07-25] MEDS: LEVOTHYROXINE 100 MCG TAB PO SCH (05:15)
[2023-07-25] MEDS: AMPICILLIN-SULBACTAM 3 GM in SODIUM CHLORIDE 0.9% 100 ML IVPB SCH (05:15)
[2023-07-25] MEDS: SODIUM CHLORIDE 0.9% 1,000 ML IV SCH (05:22)
[2023-07-25 07:24] LABS: Glucose,Whole Blood 112 mg/dL (70-110)
[2023-07-25] MEDS: IPRATROPIUM-ALBUTEROL 3 ML NEB INHALATION SCH ×2 (08:05→11:08)
[2023-07-25] MEDS: INSULIN ASPART (NovoLOG) 100 UNIT/ML VIAL SQ SCH (08:32)
[2023-07-25 08:42] VITALS: BP 131/79; PULSE 88; RESP 16; TEMP 97.4
[2023-07-25] MEDS: PREGABALIN 100 MG CAP PO SCH (08:55)
[2023-07-25] MEDS: ARIPiprazole 15 MG TAB PO SCH (08:55)
[2023-07-25] MEDS: DAPAGLIFLOZIN PROPANEDIOL 10 MG TABLET PO SCH (08:55)
[2023-07-25] MEDS: lisinopriL 20 MG TAB PO SCH (08:55)
[2023-07-25] MEDS: ALPRAZolam 1 MG TAB PO SCH (08:55)
[2023-07-25] MEDS: ATORVASTATIN 80 MG TAB PO SCH (08:56)
[2023-07-25] MEDS: INSULIN DETEMIR (LEVEMIR) 100 UNIT/ML SYR SQ SCH (08:56)
[2023-07-25] MEDS: CHOLESTYRAMINE (WITH SUGAR) 4 GM PACKET PO SCH (08:56)
[2023-07-25] MEDS: METOPROLOL SUCCINATE (ER) 50 MG TAB.ER.24H PO SCH (08:56)
[2023-07-25] MEDS: amLODIPine 10 MG TAB PO SCH (08:56)
== END 2023-07-25 12:09 | DRG 720 ==
LOC: EC 13:42 → 5NMEDONC 16:53
PROVIDERS: ADMIT Family Medicine; ATTEND Family Medicine
PROC: 0JBR0ZZ Excision of Left Foot Subcutaneous Tissue and Fascia, Open Approach (ICD-10-PCS; principal; 2023-07-16 08:00)
PROC: 02HV33Z Insertion of Infusion Device into Superior Vena Cava, Percutaneous Approach (ICD-10-PCS; 2023-07-17)
PROC: 5A1D70Z Performance of Urinary Filtration, Intermittent, Less than 6 Hours Per Day (ICD-10-PCS; 2023-07-17)
PROC: 02HV33Z Insertion of Infusion Device into Superior Vena Cava, Percutaneous Approach (ICD-10-PCS; 2023-07-19)
DX: A41.9 Sepsis, unspecified organism (principal); E03.9 Hypothyroidism, unspecified; E11.22 Type 2 diabetes mellitus with diabetic chronic kidney disease; N18.9 Chronic kidney disease, unspecified; E11.40 Type 2 diabetes mellitus with diabetic neuropathy, unspecified; E11.52 Type 2 diabetes mellitus with diabetic peripheral angiopathy with gangrene; E11.621 Type 2 diabetes mellitus with foot ulcer; E11.622 Type 2 diabetes mellitus with other skin ulcer; E11.628 Type 2 diabetes mellitus with other skin complications; E11.69 Type 2 diabetes mellitus with other specified complication; E66.01 Morbid (severe) obesity due to excess calories; E11.649 Type 2 diabetes mellitus with hypoglycemia without coma; E78.5 Hyperlipidemia, unspecified; E87.1 Hypo-osmolality and hyponatremia; F41.9 Anxiety disorder, unspecified; G47.30 Sleep apnea, unspecified; I13.0 Hypertensive heart and chronic kidney disease with heart failure and stage 1 through stage 4 chronic kidney disease, or unspecified chronic kidney disease; I27.20 Pulmonary hypertension, unspecified; I50.30 Unspecified diastolic (congestive) heart failure; N17.9 Acute kidney failure, unspecified; J45.909 Unspecified asthma, uncomplicated; L97.509 Non-pressure chronic ulcer of other part of unspecified foot with unspecified severity; I82.612 Acute embolism and thrombosis of superficial veins of left upper extremity; Z68.42 Body mass index [BMI] 45.0-49.9, adult; I87.309 Chronic venous hypertension (idiopathic) without complications of unspecified lower extremity; G89.29 Other chronic pain; Z87.01 Personal history of pneumonia (recurrent); L02.612 Cutaneous abscess of left foot; L03.115 Cellulitis of right lower limb; F41.0 Panic disorder [episodic paroxysmal anxiety]; F31.9 Bipolar disorder, unspecified; L03.116 Cellulitis of left lower limb; M86.9 Osteomyelitis, unspecified; Z79.4 Long term (current) use of insulin; Z79.84 Long term (current) use of oral hypoglycemic drugs; Z79.85 Long-term (current) use of injectable non-insulin antidiabetic drugs; Z79.890 Hormone replacement therapy; Z79.899 Other long term (current) drug therapy; Z82.49 Family history of ischemic heart disease and other diseases of the circulatory system; Z82.71 Family history of polycystic kidney; Z83.3 Family history of diabetes mellitus; Z60.2 Problems related to living alone; Z75.1 Person awaiting admission to adequate facility elsewhere; Z79.2 Long term (current) use of antibiotics
CPT/HCPCS: 36415; 36573; 71250; 80053; 80202; 82565; 83036; 83605; 84145; 85025; 85610; 85652; 85730; 86140; 87040; 87070; 87075; 87077; 87186; 87205; 87324; 93306; 94640; 94760; 96365; 96366; 96367; 99285

== ENCOUNTER 2023-10-01 21:36 | Inpatient (IN) | payer OTHER ==
[2023-10-01] MEDS ORDERED: NALOXONE 0.4 MG/ML 1 ML VIAL IV PRN (23:16)
[2023-10-01] MEDS ORDERED: MAG HYDROX/AL HYDROX/SIMETH 30 ML CUP PO PRN (23:16)
[2023-10-01] MEDS ORDERED: MORPHINE SULFATE 4 MG/ML SYRINGE IV PRN (23:16)
--- NOTE | 2023-10-02 00:06 | ED ---
Weakness HPI - General Chief complaint: Extremity Problem,Nontraumatic Stated complaint: Wounds on extremities Time Seen by Provider: 10/01/23 21:52 Source: patient, EMS Mode of arrival: EMS - History of Present Illness Initial comments: This patient is a 47-year-old man who is transferred here from [facility] to have further treatment for left foot ulcer and osteomyelitis. The patient had been sent to the emergency department there from his long-term care facility because he was feeling generalized weakness and fatigue worsening over the past couple of days. At the facility he was also noted to have developed hypotension with blood pressure approximately 80/40. The patient was seen at the other hospital the patient received fluid bolus, had dose of Zosyn 4.5 g, vancomycin 1250 mg, received Zofran 4, Ativan 2, morphine 4 for other symptoms. Studies included left foot x-rays which showed osteomyelitis probably of fifth metatarsal, fifth proximal phalanx, fourth proximal phalanx, third and fourth metatarsals. The patient had CT of the brain for weakness which was interpreted as negative. The patient had chest x-ray that was interpreted as negative. Labs showed white blood cell count 11.26, hemoglobin 8.2, platelets 236. Glucose of 160 MD Complaint: generalized weakness, lack of energy Onset/Timin -: days(s) Location: generalized Severity: moderate Consistency: constant Improves with: none Associated Symptoms: other (Left foot infection) - Related Data Home Medications Medication Instructions Recorded Confirmed Pregabalin [Lyrica] 300 mg PO BID 06/12/16 10/02/23 ARIPiprazole [Abilify] 30 mg PO DAILY 07/14/23 10/02/23 Atorvastatin Calcium [Lipitor] 80 mg PO HS 07/14/23 10/02/23 Dapagliflozin Propanediol [Farxiga] 10 mg PO DAILY 07/14/23 10/02/23 Levothyroxine Sodium [Synthroid] 300 mcg PO DAILY 07/14/23 10/02/23 Metoprolol Succinate (ER) [Toprol 50 mg PO DAILY 07/14/23 10/02/23 XL] Ondansetron [Zofran] 4 mg PO Q8H PRN 07/14/23 10/02/23 Tirzepatide [Mounjaro] 2.5 mg SQ FR 07/14/23 10/02/23 amLODIPine [Norvasc] 10 mg PO DAILY 07/14/23 10/02/23 Collagenase [Santyl Ointment] 1 applic TOPICAL DAILY 10/02/23 10/02/23 Furosemide [Lasix] 20 mg PO DAILY 10/02/23 10/02/23 Insulin Lispro See Protocol SQ ACHS 10/02/23 10/02/23 L.acidoph,Paracasei, B.lactis 2 cap PO DAILY 10/02/23 10/02/23 [Probiotic] Liquacel 30 ml PO TID 10/02/23 10/02/23 Multivitamins, Thera [Multivitamin 1 tab PO DAILY 10/02/23 10/02/23 (formulary)] Previous Rx's Medication Instructions Recorded HYDROcodone/APAP 7.5-325MG [[place] 1 tab PO Q6HR PRN #12 tab 10/06/23 7.5-325] Insulin Glargine,Hum.rec.anlog 26 units SQ DAILY #0 10/06/23 [Lantus Solostar Pen] Mirtazapine [Remeron] 15 mg PO HS #3 tab 10/06/23 Piperacillin-Tazobactam [Zosyn] 4.5 gm IVPB Q8HR #120 each 10/06/23 Potassium Chloride ER [K-Dur 20] 20 meq PO DAILY #0 10/06/23 Sennosides-Docusate Sodium 1 each PO BID tab 10/06/23 [Senokot-S] Sertraline [Zoloft] 50 mg PO DAILY tab 10/06/23 Tamsulosin [Flomax] 0.4 mg PO PC-BRKFST cap 10/06/23 lisinopriL [Zestril] 10 mg PO HS #1 tab 10/06/23 Allergies Allergy/AdvReac Type Severity Reaction Status Date / Time No Known Allergies Allergy Verified 10/02/23 10:01 Review of Systems ROS Statement: Those systems with pertinent positive or pertinent negative responses have been documented in the HPI. ROS Other: All systems not noted in ROS Statement are negative. Past Medical History Past Medical History: Diabetes Mellitus, Hyperlipidemia, Hypertension, Pneumonia Additional Past Medical History / Comment(s): pressure ulcer bilat feet and coccyx History of Any Multi-Drug Resistant Organisms: None Reported Past Surgical History: No Surgical Hx Reported Past Anesthesia/Blood Transfusion Reactions: No Reported Reaction Past Psychological History: Anxiety, Bipolar, Depression, Panic Disorder Smoking Status: Never smoker Past Alcohol Use History: Rare Past Drug Use History: None Reported - Past Family History Father Additional Family Medical History / Comment(s): polycystic kidney disease. at age 3030 years old Mother Family Medical History: Coronary Artery Disease (CAD), Diabetes Mellitus, Myocardial Infarction ([place]) General Exam General appearance: alert, in no apparent distress Head exam: Present: atraumatic, normocephalic Eye exam: Present: normal appearance. Absent: scleral icterus, conjunctival injection Neck exam: Present: normal inspection Respiratory exam: Present: normal lung sounds bilaterally. Absent: respiratory distress, wheezes, rales, rhonchi, stridor, accessory muscle use Cardiovascular Exam: Present: regular rate, normal rhythm, normal heart sounds. Absent: systolic murmur, diastolic murmur, rubs, gallop GI/Abdominal exam: Present: soft. Absent: distended, tenderness, guarding, rebound, rigid, mass Extremities exam: Present: normal capillary refill, pedal edema, other (There are venous stasis changes bilaterally). Absent: calf tenderness Back exam: Present: normal inspection. Absent: CVA tenderness (R), CVA tenderness (L) Neurological exam: Present: alert Skin exam: Present: warm, dry Course Vital Signs 10/01/23 10/01/23 10/02/23 21:42 22:23 00:16 Temperature 97.6 F Pulse Rate 96 94 93 Respiratory 18 12 18 Rate Blood Pressure 108/71 114/78 108/74 O2 Sat by Pulse 88 L 96 95 Oximetry Medical Decision Making - Medical Decision Making Was pt. sent in by a medical professional or institution (, PA, INSPECTOR TYPE, urgent care, hospital, or prison...) When possible be specific @ -[No] Did you speak to anyone other than the patient for history (EMS, parent, family, police, friend...)? What history was obtained from this source @ -[No] Did you review nursing and triage notes (agree or disagree)? Why? @ -[I reviewed and agree with nursing and triage notes] Were old charts reviewed (outside hosp., previous admission, EMS record, old EKG, old radiological studies, urgent care reports/EKG's, prison records)? Report findings @ -[Transfer records were reviewed Differential Diagnosis (chest pain, altered mental status, abdominal pain women, abdominal pain men, vaginal bleeding, weakness, fever, dyspnea, syncope, headache, dizziness, GI bleed, back pain, seizure, CVA, palpatations, mental health, musculoskeletal)? @ -[Differential Musculoskeletal Muscular strain, contusion, ligament sprain, fracture, arthritis, septic arthritis, bursitis, cellulitis, muscle spasm, nerve compression, DVT, arterial occlusion, herpes zoster, electrolyte abnormality, tumor.... This is not meant t o be in all inclusive list EKG interpreted by me (3pts min.). @ -[As above] X-rays interpreted by me (1pt min.). @ -[None done] CT interpreted by me (1pt min.). @ -[None done] U/S interpreted by me (1pt. min.). @ -[None done] What testing was considered but not performed or refused? (CT, X-rays, U/S, labs)? Why? @ -[None] What meds were considered but not given or refused? Why? @ -[None] Did you discuss the management of the patient with other professionals (professionals i.e. , PA, INSPECTOR TYPE, lab, RT, psych nurse, social scientist, refinery operator crude unit, teacher, biological technical officer, rehabilitation case coordinator)? Give summary @ -[Case discussed with the admitting physician and treatment recommendations incorporated Was smoking cessation discussed for >3mins.? @ -[No] Was critical care preformed (if so, how long)? @ -[No] Were there social determinants of health that impacted care today? How? (Homelessness, low income, unemployed, alcoholism, drug addiction, transportation, low edu. Level, literacy, decrease access to med. care, alf, rehab)? @ -[No] Was there de-escalation of care discussed even if they declined (Discuss DNR or withdrawal of care, Hospice)? DNR status @ -[No] What co-morbidities impacted this encounter? (DM, HTN, Smoking, COPD, CAD, Cancer, CVA, ARF, Chemo, Hep., AIDS, mental health diagnosis, sleep apnea, morbid obesity)? @ -[None] Was patient admitted / discharged? Hospital course, mention meds given and route, prescriptions, significant lab abnormalities, going to OR and other pertinent info. @ -[Patient is 47-year-old man transferred from the outside hospital to have further care for diabetic foot ulcer with suspected osteomyelitis. The patient will be admitted to have vascular consultation, ID consultation and antibiotics. Undiagnosed new problem with uncertain prognosis? @ -[No] Drug Therapy requiring intensive monitoring for toxicity (Heparin, Nitro, Insulin, Cardizem)? @ -[No] Were any procedures done? @ -[No] Diagnosis/symptom? @ -[Acute diabetic foot ulcer Possible osteomyelitis. Acute, or Chronic, or Acute on Chronic? @ -[Acute Uncomplicated (without systemic symptoms) or Complicated (systemic symptoms)? @ -[Uncomplicated Side effects of treatment? @ -[No] Exacerbation, Progression, or Severe Exacerbation? @ -[No] Poses a threat to life or bodily function? How? (Chest pain, [place], [place], pneumonia, PE, COPD, DKA, ARF, appy, cholecystitis, CVA, Diverticulitis, Homicidal, Suicidal, threat to staff... and all critical care pts) @ -[Yes diabetic foot ulcer can progress to osteomyelitis/sepsis, with possibility of amputation/worsening infection/ - Lab Data Result diagrams: 10/04/23 06:51 10/05/23 07:09 Disposition Clinical Impression: Diabetic foot ulcer Disposition: ADMITTED IP TO THIS HOSP Condition: Serious
[2023-10-02] MEDS: SODIUM CHLORIDE 0.9% 1,000 ML IV SCH (00:51)
[2023-10-02] MEDS: ONDANSETRON 4 MG TAB PO PRN (01:35)
[2023-10-02] MEDS ORDERED: DEXTROSE 50% SYRINGE 50 ML IVP PRN ×4 (03:32→10:46)
[2023-10-02 03:37] LABS: Glucose,Whole Blood 186 mg/dL (70-110)
[2023-10-02] MEDS: PIPERACILLIN-TAZOBACTAM 3.375 GM in SODIUM CHLORIDE 0.9% 100 ML IVPB SCH (05:39)
[2023-10-02] MEDS: LEVOTHYROXINE 100 MCG TAB PO SCH (05:40)
[2023-10-02] MEDS ORDERED: VANCOMYCIN IV PER PHARMACY 1 EACH MISC MISCELLANE PRN (06:00)
[2023-10-02 07:18] LABS: Glucose,Whole Blood 173 mg/dL (70-110)
[2023-10-02] MEDS: HYDROcodone/APAP 7.5-325MG 1 EACH TAB PO PRN (07:52)
[2023-10-02] MEDS: METOPROLOL SUCCINATE (ER) 50 MG TAB.ER.24H PO SCH (07:53)
[2023-10-02] MEDS: lisinopriL 20 MG TAB PO SCH (07:53)
[2023-10-02] MEDS: ATORVASTATIN 80 MG TAB PO SCH (07:53)
[2023-10-02] MEDS: PREGABALIN 100 MG CAP PO SCH (07:53)
[2023-10-02] MEDS: ALPRAZolam 1 MG TAB PO SCH (07:53)
[2023-10-02] MEDS: amLODIPine 10 MG TAB PO SCH (07:53)
[2023-10-02] MEDS: DAPAGLIFLOZIN PROPANEDIOL 10 MG TABLET PO SCH (07:54)
[2023-10-02] MEDS: VANCOMYCIN 2,250 MG in SODIUM CHLORIDE 0.9% 500 ML 500 ML IVPB SCH (07:54)
[2023-10-02] MEDS: ARIPiprazole 15 MG TAB PO SCH (07:54)
[2023-10-02] MEDS ORDERED: LACTULOSE 20 GM/30 ML CUP PO PRN (10:47)
[2023-10-02] MEDS ORDERED: LORazepam 1 MG TAB PO PRN (10:48)
[2023-10-02 11:07] LABS: Anisocytosis Slight; Basophils % (A) 0 %; Eosinophils # (A) 0.2 k/uL (0-0.7); Eosinophils % (A) 2 %; HCT 28.1 % (39.0-53.0); HGB 8.5 gm/dL (13.0-17.5); Hypochromasia Moderate; Lymphocytes # (A) 1.8 k/uL (1.0-4.8); Lymphocytes % (A) 18 %; MCH 24.8 pg (25.0-35.0); MCHC 30.3 g/dL (31.0-37.0); MCV 81.8 fL (80.0-100.0); Mean Platelet Volume 10.3; Monocytes # (A) 0.5 k/uL (0-1.0); Monocytes % (A) 5 %; Neutrophils # (A) 7.3 k/uL (1.3-7.7); Neutrophils % (A) 74 %; Platelet Count 218 k/uL (150-450); RBC 3.43 m/uL (4.30-5.90); WBC 9.8 k/uL (3.8-10.6)
[2023-10-02 11:16] LABS: ALT 68 U/L (4-49); AST 98 U/L (17-59); African American GFR (CKD) 72 (>60 ml/min/1.73 sqM); Albumin 2.7 g/dL (3.5-5.0); Albumin/Globulin Ratio 0.7; Alkaline Phosphatase 308 U/L (38-126); Anion Gap 10 mmol/L; Blood Urea Nitrogen 34 mg/dL (9-20); Calcium 8.1 mg/dL (8.4-10.2); Carbon Dioxide 19 mmol/L (22-30); Chloride 105 mmol/L (98-107); Globulin 3.9 g/dL; Glucose 166 mg/dL (74-99); Non-African American GFR(CKD) 62 (>60 ml/min/1.73 sqM); Potassium 4.5 mmol/L (3.5-5.1); Sodium 134 mmol/L (137-145); Total Protein 6.6 g/dL (6.3-8.2)
[2023-10-02 12:26] LABS: Glucose,Whole Blood 170 mg/dL (70-110)
[2023-10-02] MEDS: LIDOCAINE 1% INJ 10MG/ML (20 ML MDV) ONE (12:43)
[2023-10-02] MEDS ORDERED: IOPAMIDOL CONTRAST (ORAL USE) VIAL PO PRN (12:57)
--- NOTE | 2023-10-02 13:01 | P.HPIM ---
History of Present Illness H&P Date: 10/02/23 Chief Complaint: Foot ulcer This is a pleasant 47-year-old patient, chronic stable medical conditions include diabetes, hyperlipidemia, hypertension. Patient in June of this year was admitted under Dr. Deejay Tate. Was then seen by Dr. Angulo from vascular. And patient was treated for wound of the left foot with skin necrosis. Patient has known chronic venous hypertension including left lower extremity. Prior to that patient has been dealing with the foot by himself at home. Wound was debrided. Also seen by ID Dr. Dick. PICC line was placed and patient was discharged on IV Unasyn. Patient now presents with wounds on both the feet. Also has sacral decubitus ulcer. Not really ambulated much since June. Left foot is also draining significantly. Decreased appetite. Denies any obvious pain. No fever no chills. Tired. Very weak. Review of systems: GEN.: Tired EYES: None HEENT: None NECK: None RESPIRATORY: None CARDIOVASCULAR: None GASTROINTESTINAL: None GENITOURINARY: None MUSCULOSKELETAL: [As above LYMPHATICS: None HEMATOLOGICAL: None PSYCHIATRY: None NEUROLOGICAL: None Social history: Lives with his girlfriend. No smoking no alcohol. Currently not employed. Physical examination: VITAL SIGNS: 97.6, 89, 18, 126/79, 92% room air GENERAL: BMI 40.8, reclining bed awake a bit tired. EYES: Pupils equal. Conjunctiva gabby l. HEENT: External appearance of nose and ears normal, oral cavity grossly normal. NECK: JVD not raised; masses not palpable. HEART: First and second heart sounds are normal; no edema. LUNGS: Respiratory rate normal; clear to auscultation. ABDOMEN: Soft, nontender, liver spleen not palpable, smooth mass felt in the middle of the abdomen. Mildly tender. Smooth surface. PSYCH: Alert and oriented x3; mood and affect gabby l. EXTREMITIES: Patient has wound on both the foot on the plantar aspect. Also the sacral decubitus. Pictures in the chart. Patient also has venous stasis findings on the right lower extremity. Kate discoloration. MUSCULOSKELETAL:No Clubbing/cyanosis;muscles-grossly intact NEUROLOGICAL: Cranial nerves grossly intact; no facial asymmetry, power and sensation grossly intact. LYMPHATICS: No lymph nodes palpable in the axilla and neck INVESTIGATIONS, reviewed in the clinical context: October 01: White count 9.8 hemoglobin 8.5 platelets 218 sodium 134 potassium 4.5 BUN 34 creatinine 1.34 AST 98 ALT 68 alkaline phosphatase 308 Previous labs: July 19, 2023: Creatinine 0.8 Assessment and plan: -Bilateral acute on chronic foot wounds specially draining on the left side. Patient had foot wound in June. Had debridement done by Dr. Alvino Gutierrez. ID and Dr. Gutierrez consulted. Pictures in the chart.. IV Zosyn. Hold off IV vancomycin because of renal jhony lure. Will need daptomycin. -Sacral decubitus wound Follow-up with surgery -Diabetes mellitus type 2, chronically insulin, uncontrolled Resume home medications. Accu-Cheks with sliding scale. -Essential hypertension Amlodipine 10 mg a day Toprol-XL 50 mg a day -Hypothyroid Synthroid 300 mcg a day -Abdominal mass, CT scan of the abdomen.. P.o. contrast. No IV contrast. -Depression Lexapro 20 mg a day -Hyperlipidemia Lipitor 80 mg a day -Acute kidney injury. Cause at this point unclear Patient's creatinine was 0.8 in June 2023. Hold off IV vancomycin. Consult nephrology. Past Medical History Past Medical History: Diabetes Mellitus, Hyperlipidemia, Hypertension, Pneumonia Additional Past Medical History / Comment(s): pressure ulcer bilat feet and coccyx History of Any Multi-Drug Resistant Organisms: None Reported Past Surgical History: No Surgical Hx Reported Additional Past Surgical History / Comment(s): debridement of left foot ulcer Past Anesthesia/Blood Transfusion Reactions: No Reported Reaction Past Psychological History: Anxiety, Bipolar, Depression, Panic Disorder Smoking Status: Never smoker Past Alcohol Use History: Rare Past Drug Use History: None Reported - Past Family History Father Additional Family Medical History / Comment(s): polycystic kidney disease. at age 3030 years old Mother Family Medical History: Coronary Artery Disease (CAD), Diabetes Mellitus, Myocardial Infarction ([place]) Medications and Allergies Home Medications Medication Instructions Recorded Confirmed Type Pregabalin [Lyrica] 300 mg PO BID 06/12/16 10/02/23 History lisinopriL [Zestril] 40 mg PO DAILY 06/12/16 10/02/23 History ARIPiprazole [Abilify] 30 mg PO DAILY 07/14/23 10/02/23 History Atorvastatin Calcium [Lipitor] 80 mg PO HS 07/14/23 10/02/23 History Dapagliflozin Propanediol [Farxiga] 10 mg PO DAILY 07/14/23 10/02/23 History Escitalopram [Lexapro] 20 mg PO DAILY 07/14/23 10/02/23 History Levothyroxine Sodium [Synthroid] 300 mcg PO DAILY 07/14/23 10/02/23 History Metoprolol Succinate (ER) [Toprol 50 mg PO DAILY 07/14/23 10/02/23 History XL] Ondansetron [Zofran] 4 mg PO Q8H PRN 07/14/23 10/02/23 History Tirzepatide [Mounjaro] 2.5 mg SQ FR 07/14/23 10/02/23 History amLODIPine [Norvasc] 10 mg PO DAILY 07/14/23 10/02/23 History Collagenase [Santyl Ointment] 1 applic TOPICAL DAILY 10/02/23 10/02/23 History Furosemide [Lasix] 20 mg PO DAILY 10/02/23 10/02/23 History HYDROcodone/APAP 7.5-325MG [[place] 1 tab PO Q6HR PRN 10/02/23 10/02/23 History 7.5-325] Insulin Glargine,Hum.rec.anlog 30 units SQ DAILY 10/02/23 10/02/23 History [Lantus Solostar Pen] Insulin Lispro See Protocol SQ ACHS 10/02/23 10/02/23 History L.acidoph,Paracasei, B.lactis 2 cap PO DAILY 10/02/23 10/02/23 History [Probiotic] Liquacel 30 ml PO TID 10/02/23 10/02/23 History Multivitamins, Thera [Multivitamin 1 tab PO DAILY 10/02/23 10/02/23 History (formulary)] Potassium Chloride ER [K-Dur 20] 20 meq PO BID 10/02/23 10/02/23 History clindamycin HCL 300 mg PO QID 10/02/23 10/02/23 History Allergies Allergy/AdvReac Type Severity Reaction Status Date / Time No Known Allergies Allergy Verified 10/02/23 10:01 Physical Exam Vitals: Vital Signs Temp Pulse Pulse Resp BP BP Pulse Ox 10/02/23 07:18 99 18 139/74 98 10/02/23 05:52 97.8 F 96 18 132/79 96 10/02/23 01:37 98.1 F 97 16 115/69 95 10/02/23 00:16 93 18 108/74 95 10/01/23 22:23 94 12 114/78 96 10/01/23 21:42 97.6 F 96 18 108/71 88 L Intake and Output 10/01/23 10/02/23 10/02/23 22:59 06:59 14:59 Intake Total 1600 Balance 1600 Intake: Intake, IV Titration 1600 Amount Piperacillin-Tazobactam 3 100 .375 gm In Sodium Chloride 0.9% 100 ml @ 25 mls/hr IVPB Q8H [facility] Rx#: [id number] Sodium Chloride 0.9% 1, 1500 000 ml @ 130 mls/hr IV . Q7H42M [facility] Rx#:[id number] Other: Voiding Method Diaper Diaper Incontinent Incontinent External Catheter # Voids 2 2 # Bowel Movements 1 Weight 144.242 kg 152 kg Results CBC & Chem 7: 10/02/23 05:00 10/02/23 05:00 Labs: Abnormal Lab Results - Last 24 Hours (Table) 10/02/23 10/02/23 Range/Units 03:35 07:17 POC Glucose (mg/dL) 186 H 173 H (70-110) mg/dL Thrombosis Risk Factor Assmnt - Choose All That Apply Any of the Below Risk Factors Present?: Yes Each Factor Represents 1 point: Age 41-60 years, Minor surgery planned, Obesity (BMI >25), Swollen legs (current) Other Risk Factors: No Other congenital or acquired thrombophilia - If yes, enter type in comment: No Thrombosis Risk Factor Assessment Total Risk Factor Score: 4 Thrombosis Risk Factor Assessment Level: Moderate Risk
--- NOTE | 2023-10-02 13:12 | P.GSCN ---
History of Present Illness History of present illness: 47-year-old gentleman well known to me from the past patient has been coming to the wound clinic for local wound care involving the left foot plantar aspect Veda came in the past with long-standing history of 4 infected wound on the plantar aspect of the left foot we did extensive debridement that time and patient was treated in the wound clinic every Tuesday and patient IV antibiotic under care of infectious disease pant also came twith some abdominal pain mostly right lower quadrant and some diarrhea. This patient has sacral wound involvement close to the the anus and there is discoloration of the skin and some mild drainage noted. Medical history history of diabetes hypertension chronic venous hypertension involving the both lower extremity Patient's in his room neck is supple trachea central chest is clear good and both lungs first second sound present patient is a mild tenderness noted in the right lower quadrant patient scheduled to have a CAT scan Vascular femorals are 1+ bilateral Veda has a large wound on the left foot plantar aspect most of the wound is granulating at the heel area patient had some necrotic area which will be doing debridement and deep culture we will arrange for debridement follow with you Past Medical History Past Medical History: Diabetes Mellitus, Hyperlipidemia, Hypertension, Pneumonia Additional Past Medical History / Comment(s): pressure ulcer bilat feet and jarrod cyx History of Any Multi-Drug Resistant Organisms: None Reported Past Surgical History: No Surgical Hx Reported Additional Past Surgical History / Comment(s): debridement of left foot ulcer Past Anesthesia/Blood Transfusion Reactions: No Reported Reaction Past Psychological History: Anxiety, Bipolar, Depression, Panic Disorder Smoking Status: Never smoker Past Alcohol Use History: Rare Past Drug Use History: None Reported - Past Family History Father Additional Family Medical History / Comment(s): polycystic kidney disease. at age 3030 years old Mother Family Medical History: Coronary Artery Disease (CAD), Diabetes Mellitus, Myocardial Infarction ([place]) Medications and Allergies Home Medications Medication Instructions Recorded Confirmed Type Pregabalin [Lyrica] 300 mg PO BID 06/12/16 10/02/23 History lisinopriL [Zestril] 40 mg PO DAILY 06/12/16 10/02/23 History ARIPiprazole [Abilify] 30 mg PO DAILY 07/14/23 10/02/23 History Atorvastatin Calcium [Lipitor] 80 mg PO HS 07/14/23 10/02/23 History Dapagliflozin Propanediol [Farxiga] 10 mg PO DAILY 07/14/23 10/02/23 History Escitalopram [Lexapro] 20 mg PO DAILY 07/14/23 10/02/23 History Levothyroxine Sodium [Synthroid] 300 mcg PO DAILY 07/14/23 10/02/23 History Metoprolol Succinate (ER) [Toprol 50 mg PO DAILY 07/14/23 10/02/23 History XL] Ondansetron [Zofran] 4 mg PO Q8H PRN 07/14/23 10/02/23 History Tirzepatide [Mounjaro] 2.5 mg SQ FR 07/14/23 10/02/23 History amLODIPine [Norvasc] 10 mg PO DAILY 07/14/23 10/02/23 History Collagenase [Santyl Ointment] 1 applic TOPICAL DAILY 10/02/23 10/02/23 History Furosemide [Lasix] 20 mg PO DAILY 10/02/23 10/02/23 History HYDROcodone/APAP 7.5-325MG [[place] 1 tab PO Q6HR PRN 10/02/23 10/02/23 History 7.5-325] Insulin Glargine,Hum.rec.anlog 30 units SQ DAILY 10/02/23 10/02/23 History [Lantus Solostar Pen] Insulin Lispro See Protocol SQ ACHS 10/02/23 10/02/23 History L.acidoph,Paracasei, B.lactis 2 cap PO DAILY 10/02/23 10/02/23 History [Probiotic] Liquacel 30 ml PO TID 10/02/23 10/02/23 History Multivitamins, Thera [Multivitamin 1 tab PO DAILY 10/02/23 10/02/23 History (formulary)] Potassium Chloride ER [K-Dur 20] 20 meq PO BID 10/02/23 10/02/23 History clindamycin HCL 300 mg PO QID 10/02/23 10/02/23 History Allergies Allergy/AdvReac Type Severity Reaction Status Date / Time No Known Allergies Allergy Verified 10/02/23 10:01 Surgical - Exam Vital Signs Temp Pulse Resp BP Pulse Ox 97.6 F 96 18 108/71 88 L 10/01/23 21:42 10/01/23 21:42 10/01/23 21:42 10/01/23 21:42 10/01/23 21:42 Results - Labs 10/02/23 05:00 10/02/23 05:00 Abnormal Lab Results - Last 24 Hours (Table) 10/02/23 10/02/23 10/02/23 Range/Units 03:35 05:00 05:00 RBC 3.43 L (4.30-5.90) m/uL Hgb 8.5 L (13.0-17.5) gm/dL Hct 28.1 L (39.0-53.0) % MCH 24.8 L (25.0-35.0) pg MCHC 30.3 L (31.0-37.0) g/dL RDW 17.0 H (11.5-15.5) % Sodium 134 L (137-145) mmol/L Carbon Dioxide 19 L (22-30) mmol/L BUN 34 H (9-20) mg/dL Creatinine 1.34 H (0.66-1.25) mg/dL Glucose 166 H (74-99) mg/dL POC Glucose (mg/dL) 186 H (70-110) mg/dL Calcium 8.1 L (8.4-10.2) mg/dL AST 98 H (17-59) U/L ALT 68 H (4-49) U/L Alkaline Phosphatase 308 H (38-126) U/L Albumin 2.7 L (3.5-5.0) g/dL 10/02/23 10/02/23 Range/Units 07:17 12:25 RBC (4.30-5.90) m/uL Hgb (13.0-17.5) gm/dL Hct (39.0-53.0) % MCH (25.0-35.0) pg MCHC (31.0-37.0) g/dL RDW (11.5-15.5) % Sodium (137-145) mmol/L Carbon Dioxide (22-30) mmol/L BUN (9-20) mg/dL Creatinine (0.66-1.25) mg/dL Glucose (74-99) mg/dL POC Glucose (mg/dL) 173 H 170 H (70-110) mg/dL Calcium (8.4-10.2) mg/dL AST (17-59) U/L ALT (4-49) U/L Alkaline Phosphatase (38-126) U/L Albumin (3.5-5.0) g/dL Diabetes panel 10/02/23 Range/Units 05:00 Sodium 134 L (137-145) mmol/L Potassium 4.5 (3.5-5.1) mmol/L Chloride 105 (98-107) mmol/L Carbon Dioxide 19 L (22-30) mmol/L BUN 34 H (9-20) mg/dL Creatinine 1.34 H (0.66-1.25) mg/dL Glucose 166 H (74-99) mg/dL Calcium 8.1 L (8.4-10.2) mg/dL AST 98 H (17-59) U/L ALT 68 H (4-49) U/L Alkaline Phosphatase 308 H (38-126) U/L Total Protein 6.6 (6.3-8.2) g/dL Albumin 2.7 L (3.5-5.0) g/dL Calcium panel 10/02/23 Range/Units 05:00 Calcium 8.1 L (8.4-10.2) mg/dL Albumin 2.7 L (3.5-5.0) g/dL Pituitary panel 10/02/23 Range/Units 05:00 Sodium 134 L (137-145) mmol/L Potassium 4.5 (3.5-5.1) mmol/L Chloride 105 (98-107) mmol/L Carbon Dioxide 19 L (22-30) mmol/L BUN 34 H (9-20) mg/dL Creatinine 1.34 H (0.66-1.25) mg/dL Glucose 166 H (74-99) mg/dL Calcium 8.1 L (8.4-10.2) mg/dL Adrenal panel 10/02/23 Range/Units 05:00 Sodium 134 L (137-145) mmol/L Potassium 4.5 (3.5-5.1) mmol/L Chloride 105 (98-107) mmol/L Carbon Dioxide 19 L (22-30) mmol/L BUN 34 H (9-20) mg/dL Creatinine 1.34 H (0.66-1.25) mg/dL Glucose 166 H (74-99) mg/dL Calcium 8.1 L (8.4-10.2) mg/dL Total Bilirubin 1.0 (0.2-1.3) mg/dL AST 98 H (17-59) U/L ALT 68 H (4-49) U/L Alkaline Phosphatase 308 H (38-126) U/L Total Protein 6.6 (6.3-8.2) g/dL Albumin 2.7 L (3.5-5.0) g/dL
--- NOTE | 2023-10-02 13:14 | P.PN ---
Progress Note - Text preoperative diagnoses is chronic wound left foot plantar aspect left heel wound has some necrotic tissue followed or smell The foot was prepped and 1% lidocaine for infected patient had a chronic devitalized tissue and followed or smell noted of the left heel 1% lidocaine infiltrated and using sharp knife we excised the device tissue down to subcutaneous tissue fat and fascia on the Berry test tissue was excised we took some deep culture plus of the wound is granulating on the plantar aspect of the foot the use medihoney gel patient has a scab on the right foot lateral aspect we use medihoney gel no drainage noted dressing will be changed tomorrow
[2023-10-02] MEDS: ENOXAPARIN 40 MG/0.4 ML SYRINGE SQ SCH (13:18)
[2023-10-02] MEDS: IOPAMIDOL CONTRAST (ORAL USE) VIAL PO PRN (13:18)
[2023-10-02] MEDS: ONDANSETRON 4 MG/2 ML VIAL IVP PRN (13:26)
[2023-10-02] MEDS: INSULIN ASPART (NovoLOG) 100 UNIT/ML VIAL SQ SCH (13:39)
[2023-10-02 17:10] LABS: Glucose,Whole Blood 153 mg/dL (70-110)
[2023-10-02 20:41] LABS: Glucose,Whole Blood 161 mg/dL (70-110)
--- NOTE | 2023-10-02 21:51 | CT ---
EXAMINATION TYPE: CT abdomen pelvis wo con CT DLP: 2120.30 mGycm, Automated exposure control for dose reduction was used. DATE OF EXAM: 10/02/2023 2:48 PM COMPARISON: None. CLINICAL INDICATION:Male, 47 years old with history of mid intraabdominal mass was felt; mid intraabd ominal mass was felt TECHNIQUE: Axial CT of the abdomen and pelvis. Sagittal and coronal reformats were created on a [employer] workstation. Contrast used: mL of , (none if empty) Oral contrast used: without Oral Contrast (none if empty) FINDINGS: Exam is limited without contrast. There is also limitation by body habitus and streak artifacts from the patient's arm position LOWER CHEST: Heart is mildly enlarged. Mildly prominent pericardiac fat without effusion seen. Mild c oronary artery calcifications. Dependent strandy opacities in the lung bases likely subsegmental atel ectasis or scarring. ABDOMEN LIVER: Unremarkable GALLBLADDER AND BILE DUCTS: The gallbladder appears mildly distended with several calcified gallstone s and layering radiodensity which could represent sludge versus tiny layering stones. No pericholecys tic inflammation. PANCREAS: Fatty infiltration without acute finding SPLEEN: Unremarkable. ADRENAL GLANDS: Unremarkable. KIDNEYS AND URETERS: Kidneys show no calculi. There is moderate bilateral perinephric stranding. Mild bilateral hydroureteronephrosis with no ureteral calculi seen. PELVIS BLADDER: Bladder is moderately to severely distended, with the bladder dome reaching the L4 level. Th is also causes deformity of the anterior abdominal muscular wall, and probably accounts for the palpa ble mass. REPRODUCTIVE: Prostate not well seen due to pelvic artifacts however appears somewhat prominent measu ring approximately 5.1 cm transverse. ABDOMEN & PELVIS STOMACH AND BOWEL: Contrast is present in the stomach. There is contrast traversing multiple small argenis wel loops without evidence of obstruction. Contrast has not yet reached the colon. The appendix appea rs within normal limits. Mild/moderate stool throughout the colon without focal acute abnormality. P ortions of small bowel and colon are displaced by the distended bladder. PERITONEUM/RETROPERITONEUM: No evidence of pneumoperitoneum or free fluid. VASCULATURE: Aorta and major branches are grossly unremarkable. No AAA. LYMPH NODES: No enlarged nodes by CT size criteria. SOFT TISSUE/ABDOMINAL WALL: Large pannus is present which drapes towards the left and pulls the abdom inal wall musculature and umbilicus towards the left. Small area of subcutaneous increased attenuatio n and small bubble of gas in the left anterior abdominal wall, likely from medication injection. Ther e is moderate diffuse body wall edema suggesting third spacing. MUSCULOSKELETAL: No acute osseous abnormalities. Moderate degenerative changes throughout the majori ty of the visualized spine, worst towards the lumbosacral junction and there is the suggestion of mod erate to severe canal stenoses in these areas. No significant listhesis. Mild S-shaped scoliosis IMPRESSION: 1. Moderately to severely distended urinary bladder. 2. Prostate is mostly obscured but appears mildly enlarged. 3. Mild bilateral hydronephrosis, probably secondary to the distended bladder. There is bilateral pe rinephric stranding, which may be chronic but can be seen with acute infection. 4. Recommend Dykes catheter placement and urology consultation.
--- NOTE | 2023-10-02 23:10 | P.CONS ---
History of Present Illness - Reason for Consult Consult date: 10/02/23 Diabetic foot ulcer Requesting physician: Ilan Msoquera - Chief Complaint Weakness low blood pressure and worsening wound to the left foot x few days - History of Present Illness Patient is a 47-year-old male with a past medical history significant for diabetes mellitus hypertension hyperlipidemia pneumonia patient was admitted to the hospital June 2022 and this patient who did have a extensive left diabetic foot infection requiring surgical debridement culture positive for Enterococcus faecalis and Proteus Mirabelis for the patient has received 6 to 8- week course of IV Unasyn at the local group home and the patient has been following at [facility] wound care [place] for local wound care patient is now brought back to the hospital last night for generalized weakness fatigue and also noticed to having worsening wound to the left foot apparently the patient developed hypotension at the facility for the patient was sent to the [facility] where the patient was evaluated he did have left foot x-ray concerning for osteomyelitis probably left fifth metatarsal as well as the third and fourth metatarsal he did receive a dose of vancomycin and Zosyn subsequently was transferred to [facility] for further evaluation patient denies high-gr shilpi fever and chills and no fever have recorded during this hospital stay patient was not tachycardic hypotensive or hypoxic patient did have a white count of 9.8 creatinine is 1.34 liver isms mildly elevated patient has been evaluated by vascular surgery and did have a bedside debridement to the left foot culture has been obtained which are currently pending patient is empirically on Zosyn infectious disease was consulted for further management of antibiotic therapy patient mention his foot has been getting worse recently patient did have neuropathy denies significant pain to the left foot area however mentioning worsening wound and did have some possible drainage patient denies having any nausea vomiting abdominal pain or diarrhea Review of Systems Positive point and negatives has been mentioned in the HPI, complete review of systems was performed and all other systems are negative Past Medical History Past Medical History: Diabetes Mellitus, Hyperlipidemia, Hypertension, Pneumonia Additional Past Medical History / Comment(s): pressure ulcer bilat feet and coccyx History of Any Multi-Drug Resistant Organisms: None Reported Past Surgical History: No Surgical Hx Reported Additional Past Surgical History / Comment(s): debridement of left foot ulcer Past Anesthesia/Blood Transfusion Reactions: No Reported Reaction Past Psychological History: Anxiety, Bipolar, Depression, Panic Disorder Smoking Status: Never smoker Past Alcohol Use History: Rare Past Drug Use History: None Reported - Past Family History Father Additional Family Medical History / Comment(s): polycystic kidney disease. at age 3030 years old Mother Family Medical History: Coronary Artery Disease (CAD), Diabetes Mellitus, Myocardial Infarction ([place]) Medications and Allergies Home Medications Medication Instructions Recorded Confirmed Type Pregabalin [Lyrica] 300 mg PO BID 06/12/16 10/02/23 History ARIPiprazole [Abilify] 30 mg PO DAILY 07/14/23 10/02/23 History Atorvastatin Calcium [Lipitor] 80 mg PO HS 07/14/23 10/02/23 History Dapagliflozin Propanediol [Farxiga] 10 mg PO DAILY 07/14/23 10/02/23 History Levothyroxine Sodium [Synthroid] 300 mcg PO DAILY 07/14/23 10/02/23 History Metoprolol Succinate (ER) [Toprol 50 mg PO DAILY 07/14/23 10/02/23 History XL] Ondansetron [Zofran] 4 mg PO Q8H PRN 07/14/23 10/02/23 History Tirzepatide [Mounjaro] 2.5 mg SQ FR 07/14/23 10/02/23 History amLODIPine [Norvasc] 10 mg PO DAILY 07/14/23 10/02/23 History Collagenase [Santyl Ointment] 1 applic TOPICAL DAILY 10/02/23 10/02/23 History Furosemide [Lasix] 20 mg PO DAILY 10/02/23 10/02/23 History Insulin Lispro See Protocol SQ ACHS 10/02/23 10/02/23 History L.acidoph,Paracasei, B.lactis 2 cap PO DAILY 10/02/23 10/02/23 History [Probiotic] Liquacel 30 ml PO TID 10/02/23 10/02/23 History Multivitamins, Thera [Multivitamin 1 tab PO DAILY 10/02/23 10/02/23 History (formulary)] HYDROcodone/APAP 7.5-325MG [Adrian 1 tab PO Q6HR PRN #12 tab 10/06/23 Rx 7.5-325] Insulin Glargine,Hum.rec.anlog 26 units SQ DAILY #0 10/06/23 10/02/23 Rx [Lantus Solostar Pen] Mirtazapine [Remeron] 15 mg PO HS #3 tab 10/06/23 Rx Piperacillin-Tazobactam [Zosyn] 4.5 gm IVPB Q8HR #120 each 10/06/23 Rx Potassium Chloride ER [K-Dur 20] 20 meq PO DAILY #0 10/06/23 10/02/23 Rx Sennosides-Docusate Sodium 1 each PO BID tab 10/06/23 Rx [Senokot-S] Sertraline [Zoloft] 50 mg PO DAILY tab 10/06/23 Rx Tamsulosin [Flomax] 0.4 mg PO PC-BRKFST cap 10/06/23 Rx lisinopriL [Zestril] 10 mg PO HS #1 tab 10/06/23 Rx Allergies Allergy/AdvReac Type Severity Reaction Status Date / Time No Known Allergies Allergy Verified 10/02/23 10:01 Physical Exam Vitals: Vital Signs Temp Pulse Pulse Resp BP BP Pulse Ox 10/02/23 12:25 97.6 F 89 18 126/79 92 L 10/02/23 07:18 99 18 139/74 98 10/02/23 05:52 97.8 F 96 18 132/79 96 10/02/23 01:37 98.1 F 97 16 115/69 95 10/02/23 00:16 93 18 108/74 95 10/01/23 22:23 94 12 114/78 96 10/01/23 21:42 97.6 F 96 18 108/71 88 L Intake and Output 10/02/23 10/02/23 10/02/23 06:59 14:59 22:59 Intake Total 1600 Balance 1600 Intake: Intake, IV Titration 1600 Amount Piperacillin-Tazobactam 3 100 .375 gm In Sodium Chloride 0.9% 100 ml @ 25 mls/hr IVPB Q8H [facility] Rx#: [id number] Sodium Chloride 0.9% 1, 1500 000 ml @ 130 mls/hr IV . Q7H42M [facility] Rx#:[id number] Other: Voiding Method Diaper Diaper Incontinent Incontinent External Catheter # Voids 2 2 # Bowel Movements 1 Weight 152 kg GENERAL DESCRIPTION: Middle-aged male lying in bed, no distress. No tachypnea or accessory muscle of respiration use. HEENT: Shows Pallor , no scleral icterus. Oral mucous membrane is dry. No pharyngeal erythema or thrush NECK: Trachea central, no thyromegaly. LUNGS: Unlabored breathing. Clear to auscultation anteriorly. No wheeze or crackle. HEART: S1, S2, regular rate and rhythm. No loud murmur ABDOMEN: Soft, no tenderness , guarding or rigidity, no organomegaly EXTREMITIES: Left foot plantar wound with significant slough tissue surrounding swelling redness no foul-smelling drainage SKIN: No rash, no masses palpable. NEUROLOGICAL: The patient is awake, alert, oriented x3, mood and affect normal. Results CBC & Chem 7: 10/04/23 06:51 10/05/23 07:09 Labs: Abnormal Lab Results - Last 24 Hours (Table) 10/02/23 10/02/23 10/02/23 Range/Units 03:35 05:00 05:00 RBC 3.43 L (4.30-5.90) m/uL Hgb 8.5 L (13.0-17.5) gm/dL Hct 28.1 L (39.0-53.0) % MCH 24.8 L (25.0-35.0) pg MCHC 30.3 L (31.0-37.0) g/dL RDW 17.0 H (11.5-15.5) % Sodium 134 L (137-145) mmol/L Carbon Dioxide 19 L (22-30) mmol/L BUN 34 H (9-20) mg/dL Creatinine 1.34 H (0.66-1.25) mg/dL Glucose 166 H (74-99) mg/dL POC Glucose (mg/dL) 186 H (70-110) mg/dL Calcium 8.1 L (8.4-10.2) mg/dL AST 98 H (17-59) U/L ALT 68 H (4-49) U/L Alkaline Phosphatase 308 H (38-126) U/L Albumin 2.7 L (3.5-5.0) g/dL 10/02/23 10/02/23 Range/Units 07:17 12:25 RBC (4.30-5.90) m/uL Hgb (13.0-17.5) gm/dL Hct (39.0-53.0) % MCH (25.0-35.0) pg MCHC (31.0-37.0) g/dL RDW (11.5-15.5) % Sodium (137-145) mmol/L Carbon Dioxide (22-30) mmol/L BUN (9-20) mg/dL Creatinine (0.66-1.25) mg/dL Glucose (74-99) mg/dL POC Glucose (mg/dL) 173 H 170 H (70-110) mg/dL Calcium (8.4-10.2) mg/dL AST (17-59) U/L ALT (4-49) U/L Alkaline Phosphatase (38-126) U/L Albumin (3.5-5.0) g/dL Assessment and Plan (1) Diabetic foot infection Status: Acute Code(s): E11.628 - TYPE 2 DIABETES MELLITUS WITH OTHER SKIN COMPLICATIONS; L08.9 - LOCAL INFECTION OF THE SKIN AND SUBCUTANEOUS TISSUE, UNSP SNOMED Code(s): 788903408 (2) Diabetic foot ulcer Status: Acute Code(s): E11.621 - TYPE 2 DIABETES MELLITUS WITH FOOT ULCER; L97.509 - NON-PRESSURE CHRONIC ULCER OTH PRT UNSP FOOT W UNSP SEVERITY SNOMED Code(s): 795382115 (3) Failure of outpatient treatment Status: Acute Code(s): Z78.9 - OTHER SPECIFIED HEALTH STATUS SNOMED Code(s): 176100911 Plan: 1patient with extensive left diabetic foot wound and concern for secondary cellulitis due to significant amount of slippage that has been debrided at the bedside by the vascular surgeon culture has been obtained previous culture positive for Proteus and Enterococcus faecalis 2-we will check inflammatory markers if elevated may benefit from Bone scan as x-rays were abnormal 3-for now continue with Zosyn 3.37 g every 8 hours 4-local wound care per surgery We will follow on clinical condition and cultures to further adjust medication if needed Thank you for this consultation we will follow the patient along with you Dictation was produced using [employer] dictation software. please excuse any gra mmatical, word or spelling errors. Time with Patient: Greater than 30
[2023-10-03] MEDS: ZINC OXIDE PASTE (Z-GUARD) 1 APPLIC TOPICAL PRN (05:54)
[2023-10-03 07:04] LABS: Glucose,Whole Blood 111 mg/dL (70-110)
[2023-10-03 07:10] LABS: African American GFR (CKD) >90 (>60 ml/min/1.73 sqM); Anion Gap 7 mmol/L; Blood Urea Nitrogen 22 mg/dL (9-20); Calcium 7.9 mg/dL (8.4-10.2); Carbon Dioxide 20 mmol/L (22-30); Chloride 112 mmol/L (98-107); Glucose 119 mg/dL (74-99); Non-African American GFR(CKD) >90 (>60 ml/min/1.73 sqM); Sodium 139 mmol/L (137-145)
[2023-10-03 07:27] LABS: C Reactive Protein 13.1 mg/dL (<1.0)
--- NOTE | 2023-10-03 09:43 | P.NPCON ---
History of Present Illness - Reason for Consult acute renal failure - History of Present Illness Reason for consultation: Acute kidney injury History of present illness: Patient is a 47-year-old male seen in renal consultation for acute kidney injury. Patient's baseline creatinine is 0.8. It was elevated at 1.34 this admission and is back down to 0.88 today. Patient is currently being treated for left lower extremity wounds. Patient was noted to have severe urinary retention and a Dykes catheter was placed. Urine output in the last 24 hours was nearly 6 L. He is currently receiving IV fluids. Oral intake is fair. No vomiting or diarrhea. Denies chest pain or shortness of breath. Patient does have history of diabetes. Denies regular use of nonsteroidals. Patient was taking lisinopril as well as Lasix which are currently held. He is also on Farxiga. Currently receiving IV Zosyn for the foot wounds. Patient states he did take IV antibiotics outpatient and the PICC line was removed a couple of weeks ago. Patient states his left arm has been weak since the PICC line was removed. Vital signs are stable. General: No acute distress. HEENT: Head exam is unremarkable. LUNGS: No audible rhonchi or wheezes. HEART: Rate and Rhythm are regular. ABDOMEN: Nontender. EXTREMITITES: No edema. Both feet wrapped. No drainage. Past Medical History Past Medical History: Diabetes Mellitus, Hyperlipidemia, Hypertension, Pneumonia Additional Past Medical History / Comment(s): pressure ulcer bilat feet and coccyx History of Any Multi-Drug Resistant Organisms: None Reported Past Surgical History: No Surgical Hx Reported Additional Past Surgical History / Comment(s): debridement of left foot ulcer Past Anesthesia/Blood Transfusion Reactions: No Reported Reaction Past Psychological History: Anxiety, Bipolar, Depression, Panic Disorder Smoking Status: Never smoker Past Alcohol Use History: Rare Past Drug Use History: None Reported - Past Family History Father Additional Family Medical History / Comment(s): polycystic kidney disease. at age 3030 years old Mother Family Medical History: Coronary Artery Disease (CAD), Diabetes Mellitus, Myocardial Infarction ([place]) Medications and Allergies Home Medications Medication Instructions Recorded Confirmed Type Pregabalin [Lyrica] 300 mg PO BID 06/12/16 10/02/23 History lisinopriL [Zestril] 40 mg PO DAILY 06/12/16 10/02/23 History ARIPiprazole [Abilify] 30 mg PO DAILY 07/14/23 10/02/23 History Atorvastatin Calcium [Lipitor] 80 mg PO HS 07/14/23 10/02/23 History Dapagliflozin Propanediol [Farxiga] 10 mg PO DAILY 07/14/23 10/02/23 History Escitalopram [Lexapro] 20 mg PO DAILY 07/14/23 10/02/23 History Levothyroxine Sodium [Synthroid] 300 mcg PO DAILY 07/14/23 10/02/23 History Metoprolol Succinate (ER) [Toprol 50 mg PO DAILY 07/14/23 10/02/23 History XL] Ondansetron [Zofran] 4 mg PO Q8H PRN 07/14/23 10/02/23 History Tirzepatide [Mounjaro] 2.5 mg SQ FR 07/14/23 10/02/23 History amLODIPine [Norvasc] 10 mg PO DAILY 07/14/23 10/02/23 History Collagenase [Santyl Ointment] 1 applic TOPICAL DAILY 10/02/23 10/02/23 History Furosemide [Lasix] 20 mg PO DAILY 10/02/23 10/02/23 History HYDROcodone/APAP 7.5-325MG [[place] 1 tab PO Q6HR PRN 10/02/23 10/02/23 History 7.5-325] Insulin Glargine,Hum.rec.anlog 30 units SQ DAILY 10/02/23 10/02/23 History [Lantus Solostar Pen] Insulin Lispro See Protocol SQ ACHS 10/02/23 10/02/23 History L.acidoph,Paracasei, B.lactis 2 cap PO DAILY 10/02/23 10/02/23 History [Probiotic] Liquacel 30 ml PO TID 10/02/23 10/02/23 History Multivitamins, Thera [Multivitamin 1 tab PO DAILY 10/02/23 10/02/23 History (formulary)] Potassium Chloride ER [K-Dur 20] 20 meq PO BID 10/02/23 10/02/23 History clindamycin HCL 300 mg PO QID 10/02/23 10/02/23 History Allergies Allergy/AdvReac Type Severity Reaction Status Date / Time No Known Allergies Allergy Verified 10/02/23 10:01 Physical Exam Vitals: Vital Signs Temp Pulse Resp BP Pulse Ox 10/03/23 07:05 97.4 F L 82 17 104/67 92 L 10/03/23 01:31 97.4 F L 85 18 112/70 95 10/02/23 22:56 97.6 F 89 18 114/73 93 L 10/02/23 20:00 97.4 F L 85 16 159/79 95 10/02/23 12:25 97.6 F 89 18 126/79 92 L Intake and Output 10/02/23 10/03/23 10/03/23 22:59 06:59 14:59 Intake Total 2200 Output Total 3500 2400 Balance -3500 -200 Intake: Intake, IV Titration 1700 Amount Piperacillin-Tazobactam 3 200 .375 gm In Sodium Chloride 0.9% 100 ml @ 25 mls/hr IVPB Q8H [facility] Rx#: [id number] Sodium Chloride 0.9% 1, 1500 000 ml @ 130 mls/hr IV . Q7H42M [facility] Rx#:[id number] Oral 500 Output: Urine 3500 2400 Uretheral (Dykes) 2400 Other: Voiding Method Diaper Diaper Indwelling Catheter Indwelling Catheter # Bowel Movements 3 Results - Lab Results Most recent lab results Calcium 7.9 mg/dL (8.4-10.2) L 10/03/23 06:23 10/02/23 05:00 10/03/23 06:23 Assessment and Plan Plan: Assessment: 1. Acute kidney injury secondary to urinary retention. Improved. Creatinine 1.34 on admission and is 0.88 today. 2. Urinary retention status post Dykes catheter placement. Mild bilateral hydronephrosis noted on CAT scan. 3. Benign hypertension. Controlled. 4. Left diabetic foot wound being followed by vascular surgery and infectious disease. 5. Diabetes mellitus. 6. Metabolic acidosis secondary to IV fluids. Plan: Decrease rate of normal saline to 75 cc an hour. Encouraged oral intake. Add Flomax. Urology consulted for retention. Check UA. Hold Farxiga for now. Hold amlodipine for systolic blood pressure less than 120. Thank you for the consultation. I will continue to follow the patient with you during his hospital stay.
[2023-10-03] MEDS: LIDOCAINE 1% INJ 10MG/ML (20 ML MDV) SQ ONE (10:00)
[2023-10-03] MEDS: TAMSULOSIN 0.4 MG CAP.ER.24H PO SCH (11:13)
[2023-10-03 12:08] LABS: Glucose,Whole Blood 168 mg/dL (70-110)
[2023-10-03 12:28] LABS: Appearance,Urine Clear (Clear); Bacteria,Urine Rare /hpf; Bilirubin,Urine Negative (Negative); Blood,Urine Small (Negative); Color,Urine Colorless; Glucose,Urine (UA) 4+ (Negative); Ketones,Urine Trace (Negative); Leukocyte Esterase,Urine Negative (Negative); Mucus,Urine Rare /hpf; Nitrite,Urine Negative (Negative); PH, Urine 5.5 (5.0-8.0); Protein,Urine 1+ (Negative); RBC,Urine 4 /hpf (0-5); Specific Gravity,Urine 1.015 (1.001-1.035); Squamous Epithelial Cell,Urine <1 /hpf (0-4); Urobilinogen,Urine <2.0 mg/dL (<2.0); WBC,Urine 2 /hpf (0-5)
--- NOTE | 2023-10-03 12:41 | P.PN ---
Subjective Progress Note Date: 10/03/23 Principal diagnosis: Left diabetic foot wound infection Patient is a 47-year-old male with a past medical history significant for diabetes mellitus hypertension hyperlipidemia pneumonia and also with extensive left diabetic foot infection culture with Proteus and Enterococcus faecalis per the patient has completed 8 weeks of IV by therapy, patient has now been admitted to the hospital with worsening wound s/p bedside debridement by vascular surgery on 10/02/2023. On today's visit that is 10/03/2023, patient has been afebrile, patient is breathing comfortably and is currently on room air, patient denies having any significant cough no chest pain shortness of breath, patient denies nausea vomiting or diarrhea and no abdominal pain , Denies any worsening pain to the left foot wound. Patient did have a creatinine 0.88 urine is negative cultures are pending Objective - Vital Signs Vital signs: Vital Signs Temp 97.4 F L 10/03/23 07:05 Pulse 82 10/03/23 07:05 Resp 17 10/03/23 07:05 BP 104/67 10/03/23 07:05 Pulse Ox 92 L 10/03/23 07:05 FiO2 Intake & Output 10/02/23 10/03/23 10/03/23 18:59 06:59 18:59 Intake Total 2200 Output Total 700 5200 1000 Balance -700 -3000 -1000 Intake: Intake, IV Titration 1700 Amount Piperacillin-Tazobactam 3 200 .375 gm In Sodium Chloride 0.9% 100 ml @ 25 mls/hr IVPB Q8H [facility] Rx#: [id number] Sodium Chloride 0.9% 1, 1500 000 ml @ 130 mls/hr IV . Q7H42M [facility] Rx#:[id number] Oral 500 Output: Urine 700 5200 1000 Uretheral (Dykes) 2400 Other: Voiding Method Diaper Diaper Diaper Incontinent Indwelling Catheter Indwelling Catheter External Catheter # Voids 2 # Bowel Movements 3 - Exam GENERAL DESCRIPTION: Middle-age male lying in bed in no distress RESPIRATORY SYSTEM: Unlabored breathing , decreased breath sounds at bases HEART: S1 S2 regular rate and rhythm , ABDOMEN: Soft , no tenderness EXTREMITIES: Left foot is currently dressed Unstageable sacral pressure ulcer - Labs CBC & Chem 7: 10/02/23 05:00 10/03/23 06:23 Labs: Abnormal Lab Results - Last 24 Hours (Table) 10/02/23 10/02/23 10/03/23 Range/Units 17:09 20:39 06:23 ESR (0-15) mm/Hr Chloride (98-107) mmol/L Carbon Dioxide (22-30) mmol/L BUN (9-20) mg/dL Glucose (74-99) mg/dL POC Glucose (mg/dL) 153 H 161 H (70-110) mg/dL Hemoglobin A1c 7.4 H (<=6.0) % Calcium (8.4-10.2) mg/dL C-Reactive Protein (<1.0) mg/dL Urine Protein (Negative) Urine Glucose (UA) (Negative) Urine Ketones (Negative) Urine Blood (Negative) Urine Bacteria (None) /hpf Urine Mucus (None) /hpf 10/03/23 10/03/23 10/03/23 Range/Units 06:23 06:23 07:02 ESR 92 H (0-15) mm/Hr Chloride 112 H (98-107) mmol/L Carbon Dioxide 20 L (22-30) mmol/L BUN 22 H (9-20) mg/dL Glucose 119 H (74-99) mg/dL POC Glucose (mg/dL) 111 H (70-110) mg/dL Hemoglobin A1c (<=6.0) % Calcium 7.9 L (8.4-10.2) mg/dL C-Reactive Protein 13.1 H (<1.0) mg/dL Urine Protein (Negative) Urine Glucose (UA) (Negative) Urine Ketones (Negative) Urine Blood (Negative) Urine Bacteria (None) /hpf Urine Mucus (None) /hpf 10/03/23 10/03/23 Range/Units 11:44 12:06 ESR (0-15) mm/Hr Chloride (98-107) mmol/L Carbon Dioxide (22-30) mmol/L BUN (9-20) mg/dL Glucose (74-99) mg/dL POC Glucose (mg/dL) 168 H (70-110) mg/dL Hemoglobin A1c (<=6.0) % Calcium (8.4-10.2) mg/dL C-Reactive Protein (<1.0) mg/dL Urine Protein 1+ H (Negative) Urine Glucose (UA) 4+ H (Negative) Urine Ketones Trace H (Negative) Urine Blood Small H (Negative) Urine Bacteria Rare H (None) /hpf Urine Mucus Rare H (None) /hpf Assessment and Plan (1) Unstageable pressure ulcer of sacral region Current Visit: Yes Status: Acute Code(s): L89.150 - PRESSURE ULCER OF SACRAL REGION, UNSTAGEABLE SNOMED Code(s): 32817756315398129 (2) Diabetic foot infection Current Visit: No Status: Acute Code(s): E11.628 - TYPE 2 DIABETES MELLITUS WITH OTHER SKIN COMPLICATIONS; L08.9 - LOCAL INFECTION OF THE SKIN AND SUBCUTANEOUS TISSUE, UNSP SNOMED Code(s): 810239977 (3) Diabetic foot ulcer Current Visit: No Status: Acute Code(s): E11.621 - TYPE 2 DIABETES MELLITUS WITH FOOT ULCER; L97.509 - NON-PRESSURE CHRONIC ULCER OTH PRT UNSP FOOT W UNSP SEVERITY SNOMED Code(s): 756644808 Plan: 1patient with extensive left diabetic foot wound and concern for secondary cellulitis due to significant amount of slippage that has been debrided at the bedside by the vascular surgeon culture has been obtained previous culture positive for Proteus and Enterococcus faecalis 2-patient did have elevated inflammatory markers and will order bone scan to the left foot 3 -patient to continue with Zosyn 3.37 g every 8 hours while waiting for the culture to finalize 4-local wound care per surgery Dictation was produced using [employer] dictation software. please excuse any grammatical, word or spelling errors. Time with Patient: Less than 30
--- NOTE | 2023-10-03 12:55 | P.PN ---
Progress Note - Text 47-year-old gentleman history of diabetes, patient came with history of infected wound left foot plantar aspect patient also complaining of abdominal pain patient had CT scan which was negative patient had a distended bladder today we have changed her dressing will use Medihoney gel patient is under care of infectious disease we will change dressing tomorrow
--- NOTE | 2023-10-03 13:00 | P.OP ---
Date of Procedure: 10/03/23 Preoperative Diagnosis: Need for long-term IV antibiotic therapy. Postoperative Diagnosis: Same. Procedure(s) Performed: Ultrasound and fluoroscopic guided placement of a PICC via the left brachial vein approach. Anesthesia: local Surgeon: Devon Vee Estimated Blood Loss (ml): 20 IV fluids (ml): 0 Urine output (ml): 0 Pathology: none sent Condition: stable Disposition: no change Description of Procedure: Patient brought to the special procedure suite. The left upper extremity was sterilely prepped and draped in usual manner. Ultrasound was utilized to evaluate the left upper extremity. The cephalic vein was not usable due to its relatively small size however the patient had a normal-appearing brachial vein. 1% Xylocaine was utilized for local anesthesia of the tissues overlying the brachial vein. Through this anesthetized area with the aid of ultrasound a micropuncture needle was utilized to cannulate the vein. Once cannulated soft tipped guidewire was then advanced into the vein. The needle was withdrawn and a PICC sheath and dilator were advanced over the guidewire. The dilator was withdrawn after the distance was measured to 55 cm to the atrial level. The catheter was then advanced over the guidewire and and the sheath was peeled away. The catheter was advanced into its proper position. The guidewire and sheath were peeled away. Blood was easily aspirated through the catheter and the catheter was then flushed with heparinized saline solution and secured to the skin with nylon suture. Appropriate dressings were applied. Patient tolerated the procedure well.
--- NOTE | 2023-10-03 13:31 | IR ---
EXAMINATION TYPE: IR cvc insert >=5 years DATE OF EXAM: 10/03/2023 COMPARISON: NONE HISTORY: Fluoroscopy time. Fluoroscopy was provided to the referring clinician.
--- NOTE | 2023-10-03 14:17 | P.GSCN ---
History of Present Illness Consult date: 10/03/23 History of present illness: CHIEF COMPLAINT: Left foot wound HISTORY OF PRESENT ILLNESS: This is a 47-year-old male who was a transfer from [place] due to his left foot ulcer and osteomyelitis. He is status post debridement of the left foot ulcer by vascular surgery. Patient does have a known history of diabetes mellitus. Patient reports that his mobility has been limited recently. And also has had issues with left arm weakness. Medicine service has placed consult for neurology. He has a sacral decubitus ulcer. He is unsure of how long it has been present. Afebrile. He is also followed by infectious disease. PAST MEDICAL HISTORY: See below PAST SURGICAL HISTORY: See below MEDICATIONS: See below ALLERGIES: See below SOCIAL HISTORY: No illicit drug use. REVIEW OF SYSTEMS: CONSTITUTIONAL: Denies fever or chills. HEENT: Denies blurred vision, vision changes, or eye pain. Denies hemoptysis CARDIOVASCULAR: Denies chest pain or pressure. RESPIRATORY: No shortness of breath. GASTROINTESTINAL: See HPI for pertinent findings HEMATOLOGIC: Denies bleeding disorders. GENITOURINARY: Denies any blood in urine or increased urinary frequency. SKIN: Denies pruitis. Denies rash. PHYSICAL EXAM: VITAL SIGNS: Reviewed GENERAL: Well-developed in no acute distress. ABDOMEN: Soft. Nondistended. nontender NEUROLOGIC: Alert and oriented x 3 SKIN: Sacral decubitus ulcer with darkened granulation tissue and slough LABORATORY DATA: WBC 9.8 Hgb 8.5 platelets 218 Sodium 139 potassium is 4 creatinine 0.88 IMAGING: CT scan abdomen pelvis moderate to severe distended urinary bladder. Prostate mostly obscured mildly enlarged. Mild bilateral hydronephrosis. ASSESSMENT: 1. Sacral decubitus ulcer 2. Diabetes mellitus 3. Urinary retention status post Dykes catheter placement 4. Left foot ulcer and osteomyelitis status postdebridement by vascular surgery PLAN: -Patient scheduled for debridement of sacral decubitus ulcer tomorrow with Dr. Best -N.p.o. after midnight -Agree with neurology consult for left arm weakness Thank you for this consultation Physician Spa Coordinator note has been reviewed by physician. Signing provider agrees with the documented findings, assessment, and plan of care. I have personally seen and examined the patient, reviewed the CARBURETOR REPAIRER /PAs history, exam and MDM and agree with the assessment and plan as written. Based on total visit time, I have performed more than 50% of the visit. As above: Patient with decubitus ulcer around the lower aspect of the sacrum/coccygeal region worse on the right-hand side. Will proceed with operative debridement in the operating room tomorrow. Risks of bleeding, infection, wound enlargement, poor healing all reviewed. He understands and wishes to proceed. Past Medical History Past Medical History: Diabetes Mellitus, Hyperlipidemia, Hypertension, Pneumonia Additional Past Medical History / Comment(s): pressure ulcer bilat feet and coccyx History of Any Multi-Drug Resistant Organisms: None Reported Past Surgical History: No Surgical Hx Reported Additional Past Surgical History / Comment(s): debridement of left foot ulcer Past Anesthesia/Blood Transfusion Reactions: No Reported Reaction Past Psychological History: Anxiety, Bipolar, Depression, Panic Disorder Smoking Status: Never smoker Past Alcohol Use History: Rare Past Drug Use History: None Reported - Past Family History Father Additional Family Medical History / Comment(s): polycystic kidney disease. at age 3030 years old Mother Family Medical History: Coronary Artery Disease (CAD), Diabetes Mellitus, Myocardial Infarction (ND) Medications and Allergies Home Medications Medication Instructions Recorded Confirmed Type Pregabalin [Lyrica] 300 mg PO BID 06/12/16 10/02/23 History lisinopriL [Zestril] 40 mg PO DAILY 06/12/16 10/02/23 History ARIPiprazole [Abilify] 30 mg PO DAILY 07/14/23 10/02/23 History Atorvastatin Calcium [Lipitor] 80 mg PO HS 07/14/23 10/02/23 History Dapagliflozin Propanediol [Farxiga] 10 mg PO DAILY 07/14/23 10/02/23 History Escitalopram [Lexapro] 20 mg PO DAILY 07/14/23 10/02/23 History Levothyroxine Sodium [Synthroid] 300 mcg PO DAILY 07/14/23 10/02/23 History Metoprolol Succinate (ER) [Toprol 50 mg PO DAILY 07/14/23 10/02/23 History XL] Ondansetron [Zofran] 4 mg PO Q8H PRN 07/14/23 10/02/23 History Tirzepatide [Mounjaro] 2.5 mg SQ FR 07/14/23 10/02/23 History amLODIPine [Norvasc] 10 mg PO DAILY 07/14/23 10/02/23 History Collagenase [Santyl Ointment] 1 applic TOPICAL DAILY 10/02/23 10/02/23 History Furosemide [Lasix] 20 mg PO DAILY 10/02/23 10/02/23 History HYDROcodone/APAP 7.5-325MG [[place] 1 tab PO Q6HR PRN 10/02/23 10/02/23 History 7.5-325] Insulin Glargine,Hum.rec.anlog 30 units SQ DAILY 10/02/23 10/02/23 History [Lantus Solostar Pen] Insulin Lispro See Protocol SQ ACHS 10/02/23 10/02/23 History L.acidoph,Paracasei, B.lactis 2 cap PO DAILY 10/02/23 10/02/23 History [Probiotic] Liquacel 30 ml PO TID 10/02/23 10/02/23 History Multivitamins, Thera [Multivitamin 1 tab PO DAILY 10/02/23 10/02/23 History (formulary)] Potassium Chloride ER [K-Dur 20] 20 meq PO BID 10/02/23 10/02/23 History clindamycin HCL 300 mg PO QID 10/02/23 10/02/23 History Allergies Allergy/AdvReac Type Severity Reaction Status Date / Time No Known Allergies Allergy Verified 10/02/23 10:01 Surgical - Exam Vital Signs Temp Pulse Resp BP Pulse Ox 97.6 F 96 18 108/71 88 L 10/01/23 21:42 10/01/23 21:42 10/01/23 21:42 10/01/23 21:42 10/01/23 21:42 Results - Labs 10/02/23 05:00 10/03/23 06:23 Abnormal Lab Results - Last 24 Hours (Table) 10/02/23 10/02/23 10/03/23 Range/Units 17:09 20:39 06:23 ESR (0-15) mm/Hr Chloride (98-107) mmol/L Carbon Dioxide (22-30) mmol/L BUN (9-20) mg/dL Glucose (74-99) mg/dL POC Glucose (mg/dL) 153 H 161 H (70-110) mg/dL Hemoglobin A1c 7.4 H (<=6.0) % Calcium (8.4-10.2) mg/dL C-Reactive Protein (<1.0) mg/dL Urine Protein (Negative) Urine Glucose (UA) (Negative) Urine Ketones (Negative) Urine Blood (Negative) Urine Bacteria (None) /hpf Urine Mucus (None) /hpf 10/03/23 10/03/23 10/03/23 Range/Units 06:23 06:23 07:02 ESR 92 H (0-15) mm/Hr Chloride 112 H (98-107) mmol/L Carbon Dioxide 20 L (22-30) mmol/L BUN 22 H (9-20) mg/dL Glucose 119 H (74-99) mg/dL POC Glucose (mg/dL) 111 H (70-110) mg/dL Hemoglobin A1c (<=6.0) % Calcium 7.9 L (8.4-10.2) mg/dL C-Reactive Protein 13.1 H (<1.0) mg/dL Urine Protein (Negative) Urine Glucose (UA) (Negative) Urine Ketones (Negative) Urine Blood (Negative) Urine Bacteria (None) /hpf Urine Mucus (None) /hpf 10/03/23 10/03/23 Range/Units 11:44 12:06 ESR (0-15) mm/Hr Chloride (98-107) mmol/L Carbon Dioxide (22-30) mmol/L BUN (9-20) mg/dL Glucose (74-99) mg/dL POC Glucose (mg/dL) 168 H (70-110) mg/dL Hemoglobin A1c (<=6.0) % Calcium (8.4-10.2) mg/dL C-Reactive Protein (<1.0) mg/dL Urine Protein 1+ H (Negative) Urine Glucose (UA) 4+ H (Negative) Urine Ketones Trace H (Negative) Urine Blood Small H (Negative) Urine Bacteria Rare H (None) /hpf Urine Mucus Rare H (None) /hpf Diabetes panel 10/03/23 10/03/23 Range/Units 06:23 06:23 Sodium 139 (137-145) mmol/L Potassium 4.0 (3.5-5.1) mmol/L Chloride 112 H (98-107) mmol/L Carbon Dioxide 20 L (22-30) mmol/L BUN 22 H (9-20) mg/dL Creatinine 0.88 (0.66-1.25) mg/dL Glucose 119 H (74-99) mg/dL Hemoglobin A1c 7.4 H (<=6.0) % Calcium 7.9 L (8.4-10.2) mg/dL Calcium panel 10/03/23 Range/Units 06:23 Calcium 7.9 L (8.4-10.2) mg/dL Pituitary panel 10/03/23 Range/Units 06:23 Sodium 139 (137-145) mmol/L Potassium 4.0 (3.5-5.1) mmol/L Chloride 112 H (98-107) mmol/L Carbon Dioxide 20 L (22-30) mmol/L BUN 22 H (9-20) mg/dL Creatinine 0.88 (0.66-1.25) mg/dL Glucose 119 H (74-99) mg/dL Calcium 7.9 L (8.4-10.2) mg/dL Adrenal panel 10/03/23 Range/Units 06:23 Sodium 139 (137-145) mmol/L Potassium 4.0 (3.5-5.1) mmol/L Chloride 112 H (98-107) mmol/L Carbon Dioxide 20 L (22-30) mmol/L BUN 22 H (9-20) mg/dL Creatinine 0.88 (0.66-1.25) mg/dL Glucose 119 H (74-99) mg/dL Calcium 7.9 L (8.4-10.2) mg/dL
[2023-10-03 14:27] VITALS: BMI 40.8
--- NOTE | 2023-10-03 15:00 | P.CN ---
Psychiatric Consult - . Consult date: 10/03/23 Consult:: 10/03/23 13:28 IDENTIFYING DATA: This patient is a 47-year-old male, currently lives with his girlfriend in a condo, he was coming from a long-term care facility in [place]. He has no kids collect Social Security disability. REASON FOR REFERRAL: Psychiatry was consulted for depression, medication changes? HISTORY OF PRESENT ILLNESS: The patient presented to the hospital initially on 09/30 as a transfer from [facility]. Patient was being treated for right foot ulcer osteomyelitis weakness and fatigue. Patient was seen at the bedside today appeared to be fairly sleepy had poor eye contact, he spoke about dealing with multiple medical issues and ulcers. He states that he does have a history of bipolar disorder type II, is being seen at [facility] in [place] by psychiatrist. He states that he recently had a PICC line placed for antibiotics. Claims that he is dealing with multiple wounds on his body. Claims that he is having some depression mainly related to his medical issues and also anxiety. Denies any p aranoia at this time. Claims that his sleep and appetite are poor. We spoke about medication changes and he is agreeable to try Zoloft instead of Lexapro and Remeron at nighttime to help with sleep. At this time patient denies any suicidal or homical ideations, intent or plan. Patient denies any auditory, visual hallucinations and denies any paranoia or delusions. Patients admits to using no recreational drugs or cigarettes PAST PSYCHIATRIC HISTORY: Patient has a a history of bipolar disorder type II. Patient is currently on Abilify 30 mg daily and also Lexapro at home. Claims that he was last psychiatrically admitted to the mental health unit at [facility] when he was 15 years old. Claims that he follows up at [facility] in [place] with Dr. Burgess. Claims that he attempted to hang himself when he was younger Past Medical History: Diabetes Mellitus, Hyperlipidemia, Hypertension, Pneumonia Additional Past Medical History / Comment(s): pressure ulcer bilat feet and coccyx History of Any Multi-Drug Resistant Organisms: None Reported Past Surgical History: No Surgical Hx Reported Past Anesthesia/Blood Transfusion Reactions: No Reported Reaction Past Psychological History: Anxiety, Bipolar, Depression, Panic Disorder Smoking Status: Never smoker Past Alcohol Use History: Rare Past Drug Use History: None Reported ALLERGIES: as per EMR. CHEMICAL DEPENDENCY HISTORY: as per HPI. FAMILY PSYCHIATRIC/SUBSTANCE USE HISTORY: Claims that his uncle committed suicide, mother and aunt both have depression and anxiety, states that several other family members do have unknown mental illnesses as well. SOCIAL HISTORY: Patient was born and raised in [place]. Claims that he completed high school. States that he collect Social Security disability, claims that he has no kids, he lives in a condominium with his girlfriend. He claims that he used to do work doing as a credit underwriter and an otorhinolaryngologist for [employer]. Denies any legal history. MENTAL STATUS EXAM: General Appearance: Patient appears to be obese, short hair, bolden, stated age is somewhat tired, pleasant, and cooperative. Patient appears to have fair hygiene and grooming wearing hospital gown with poor eye contact. Behavior: Patient is calmly lying in bed without any agitated behavior. Poor eye contact. Peers to be in pain. Speech: Patient's speech is fluent and nonpressured. Soft tone Mood/Affect: Patient reports their mood is "depressed and anxious", affect is congruent Suicidality/Homicidality: Patient denies having any suicidal or homicidal ideation intent or plan. Perceptions: Patient denies any visual hallucinations and denies any auditory hallucinations Though content/process: There is no evidence of any delusional thought content and thought process is linear and goal-directed. Focused on his medical issues. Memory and concentration: AOX3, grossly intact for the purposes of this session. Can spell "WORLD" backwards Judgment and insight: Fair IMPRESSIONS: Bipolar disorder, current episode depressed PLAN: -At this time patient DOES NOT meet criteria for inpatient psychiatric admission. -Would recommend the following medication changes/additions: Added Zoloft 50 mg daily for mood/anxiety, continue with Abilify 30 mg daily for mood stabilization. Added Remeron 15 mg nightly for insomnia/mood. -Once patient is discharged he can continue following up at [facility] with Dr. Burgess. -Communicated plan to patient's nurse -Will continue to follow along if needed -Please contact with any questions. 10/03/23 14:55
[2023-10-03 17:18] LABS: Glucose,Whole Blood 170 mg/dL (70-110)
[2023-10-03] MEDS: SERTRALINE 50 MG TAB PO SCH (17:27)
--- NOTE | 2023-10-03 17:53 | P.GSCN ---
History of Present Illness Consult date: 10/03/23 Reason for Consult: Hydronephrosis Requesting physician: Ricardo Pinzon History of present illness: The patient is a 47-year-old white male with multiple medical conditions, including hypertension, diabetes mellitus, and hyperlipidemia. He also has a history of chronic venous hypertension. He was hospitalized in June and treated for a left foot wound with skin necrosis. He underwent wound debridement and was discharged home on IV Unasyn. He now presents back with bilateral foot wounds as well as a sacral pressure ulcer. CT scan shows evidence of bilateral hydroureteronephrosis with bladder distention above the umbilicus. I am consulted for this reason. He states that he experienced urinary incontinence yesterday, but overall has been relatively free of voiding symptoms. Review of Systems - Constitutional Reports poor appetite, Reports weakness, Denies chills, Denies fever - Genitourinary Reports as per HPI Past Medical History Past Medical History: Diabetes Mellitus, Hyperlipidemia, Hypertension, Pneumonia Additional Past Medical History / Comment(s): pressure ulcer bilat feet and coccyx History of Any Multi-Drug Resistant Organisms: None Reported Past Surgical History: No Surgical Hx Reported Additional Past Surgical History / Comment(s): debridement of left foot ulcer Past Anesthesia/Blood Transfusion Reactions: No Reported Reaction Past Psychological History: Anxiety, Bipolar, Depression, Panic Disorder Smoking Status: Never smoker Past Alcohol Use History: Rare Past Drug Use History: None Reported - Past Family History Father Additional Family Medical History / Comment(s): polycystic kidney disease. at age 3030 years old Mother Family Medical History: Coronary Artery Disease (CAD), Diabetes Mellitus, Myocardial Infarction (MD) Medications and Allergies Home Medications Medication Instructions Recorded Confirmed Type Pregabalin [Lyrica] 300 mg PO BID 06/12/16 10/02/23 History lisinopriL [Zestril] 40 mg PO DAILY 06/12/16 10/02/23 History ARIPiprazole [Abilify] 30 mg PO DAILY 07/14/23 10/02/23 History Atorvastatin Calcium [Lipitor] 80 mg PO HS 07/14/23 10/02/23 History Dapagliflozin Propanediol [Farxiga] 10 mg PO DAILY 07/14/23 10/02/23 History Escitalopram [Lexapro] 20 mg PO DAILY 07/14/23 10/02/23 History Levothyroxine Sodium [Synthroid] 300 mcg PO DAILY 07/14/23 10/02/23 History Metoprolol Succinate (ER) [Toprol 50 mg PO DAILY 07/14/23 10/02/23 History XL] Ondansetron [Zofran] 4 mg PO Q8H PRN 07/14/23 10/02/23 History Tirzepatide [Mounjaro] 2.5 mg SQ FR 07/14/23 10/02/23 History amLODIPine [Norvasc] 10 mg PO DAILY 07/14/23 10/02/23 History Collagenase [Santyl Ointment] 1 applic TOPICAL DAILY 10/02/23 10/02/23 History Furosemide [Lasix] 20 mg PO DAILY 10/02/23 10/02/23 History HYDROcodone/APAP 7.5-325MG [[place] 1 tab PO Q6HR PRN 10/02/23 10/02/23 History 7.5-325] Insulin Glargine,Hum.rec.anlog 30 units SQ DAILY 10/02/23 10/02/23 History [Lantus Solostar Pen] Insulin Lispro See Protocol SQ ACHS 10/02/23 10/02/23 History L.acidoph,Paracasei, B.lactis 2 cap PO DAILY 10/02/23 10/02/23 History [Probiotic] Liquacel 30 ml PO TID 10/02/23 10/02/23 History Multivitamins, Thera [Multivitamin 1 tab PO DAILY 10/02/23 10/02/23 History (formulary)] Potassium Chloride ER [K-Dur 20] 20 meq PO BID 10/02/23 10/02/23 History clindamycin HCL 300 mg PO QID 10/02/23 10/02/23 History Allergies Allergy/AdvReac Type Severity Reaction Status Date / Time No Known Allergies Allergy Verified 10/02/23 10:01 Surgical - Exam Vital Signs Temp Pulse Resp BP Pulse Ox 97.6 F 96 18 108/71 88 L 10/01/23 21:42 10/01/23 21:42 10/01/23 21:42 10/01/23 21:42 10/01/23 21:42 - General well developed, well nourished, no distress - Respiratory normal respiratory effort - Abdomen Abdomen: soft, non tender, no guarding, no rigid, no rebound - Genitourinary normal penis with no external lesions, testicles non-tender - Rectum Rectum: normal sphincter tone, no masses, other (Prostate normal size and consistency) - Psychiatric oriented to time, oriented to person, oriented to place, speech is normal, memory intact Results - Labs 10/02/23 05:00 10/03/23 06:23 Abnormal Lab Results - Last 24 Hours (Table) 10/02/23 10/02/23 10/02/23 Range/Units 05:00 05:00 12:25 RBC 3.43 L (4.30-5.90) m/uL Hgb 8.5 L (13.0-17.5) gm/dL Hct 28.1 L (39.0-53.0) % MCH 24.8 L (25.0-35.0) pg MCHC 30.3 L (31.0-37.0) g/dL RDW 17.0 H (11.5-15.5) % Sodium 134 L (137-145) mmol/L Carbon Dioxide 19 L (22-30) mmol/L BUN 34 H (9-20) mg/dL Creatinine 1.34 H (0.66-1.25) mg/dL Glucose 166 H (74-99) mg/dL POC Glucose (mg/dL) 170 H (70-110) mg/dL Calcium 8.1 L (8.4-10.2) mg/dL AST 98 H (17-59) U/L ALT 68 H (4-49) U/L Alkaline Phosphatase 308 H (38-126) U/L Albumin 2.7 L (3.5-5.0) g/dL 10/02/23 10/02/23 10/03/23 Range/Units 17:09 20:39 07:02 RBC (4.30-5.90) m/uL Hgb (13.0-17.5) gm/dL Hct (39.0-53.0) % MCH (25.0-35.0) pg MCHC (31.0-37.0) g/dL RDW (11.5-15.5) % Sodium (137-145) mmol/L Carbon Dioxide (22-30) mmol/L BUN (9-20) mg/dL Creatinine (0.66-1.25) mg/dL Glucose (74-99) mg/dL POC Glucose (mg/dL) 153 H 161 H 111 H (70-110) mg/dL Calcium (8.4-10.2) mg/dL AST (17-59) U/L ALT (4-49) U/L Alkaline Phosphatase (38-126) U/L Albumin (3.5-5.0) g/dL Diabetes panel 10/02/23 Range/Units 05:00 Sodium 134 L (137-145) mmol/L Potassium 4.5 (3.5-5.1) mmol/L Chloride 105 (98-107) mmol/L Carbon Dioxide 19 L (22-30) mmol/L BUN 34 H (9-20) mg/dL Creatinine 1.34 H (0.66-1.25) mg/dL Glucose 166 H (74-99) mg/dL Calcium 8.1 L (8.4-10.2) mg/dL AST 98 H (17-59) U/L ALT 68 H (4-49) U/L Alkaline Phosphatase 308 H (38-126) U/L Total Protein 6.6 (6.3-8.2) g/dL Albumin 2.7 L (3.5-5.0) g/dL Calcium panel 10/02/23 Range/Units 05:00 Calcium 8.1 L (8.4-10.2) mg/dL Albumin 2.7 L (3.5-5.0) g/dL Pituitary panel 10/02/23 Range/Units 05:00 Sodium 134 L (137-145) mmol/L Potassium 4.5 (3.5-5.1) mmol/L Chloride 105 (98-107) mmol/L Carbon Dioxide 19 L (22-30) mmol/L BUN 34 H (9-20) mg/dL Creatinine 1.34 H (0.66-1.25) mg/dL Glucose 166 H (74-99) mg/dL Calcium 8.1 L (8.4-10.2) mg/dL Adrenal panel 10/02/23 Range/Units 05:00 Sodium 134 L (137-145) mmol/L Potassium 4.5 (3.5-5.1) mmol/L Chloride 105 (98-107) mmol/L Carbon Dioxide 19 L (22-30) mmol/L BUN 34 H (9-20) mg/dL Creatinine 1.34 H (0.66-1.25) mg/dL Glucose 166 H (74-99) mg/dL Calcium 8.1 L (8.4-10.2) mg/dL Total Bilirubin 1.0 (0.2-1.3) mg/dL AST 98 H (17-59) U/L ALT 68 H (4-49) U/L Alkaline Phosphatase 308 H (38-126) U/L Total Protein 6.6 (6.3-8.2) g/dL Albumin 2.7 L (3.5-5.0) g/dL - Imaging CT scan - abdomen: report reviewed, image reviewed Assessment and Plan (1) Unspecified hydronephrosis Current Visit: Yes Status: Acute Code(s): N13.30 - UNSPECIFIED HYDRONEPHROSIS SNOMED Code(s): 03698172 (2) Retention of urine, unspecified Current Visit: Yes Status: Acute Code(s): R33.9 - RETENTION OF URINE, UNSPECIFIED SNOMED Code(s): 294002765 Plan: The patient appears to have bilateral hydronephrosis due to urinary retention. Given the degree of retention and the presence of hydronephrosis, this is likely chronic. The amount of urine initially obtained upon Dykes catheter insertion was not recorded, but urine output in the past 24 hours has exceeded 6 L. The cause of the retention is either BPH or a hypotonic bladder due to longstanding diabetes mellitus with neuropathy. I would suggest that the Dykes catheter remain in place. Arrangements will be made for him to undergo outpatient evaluation consisting of urodynamic testing and cystoscopy. Time with Patient: Greater than 30
[2023-10-03] MEDS: MIRTAZAPINE 15 MG TAB PO SCH (20:04)
[2023-10-03 20:23] LABS: Glucose,Whole Blood 189 mg/dL (70-110)
--- NOTE | 2023-10-03 20:36 | P.PN ---
Progress Note - Text Progress Note Date: 10/03/23 Chief Complaint: Foot ulcer This is a pleasant 47-year-old patient, chronic stable medical conditions include diabetes, hyperlipidemia, hypertension. Patient in June of this year was admitted under Dr. Deejay Tate. Was then seen by Dr. Angulo from [facility]. And patient was treated for wound of the left foot with skin necrosis. Patient has known chronic venous hypertension including left lower extremity. Prior to that patient has been dealing with the foot by himself at home. Wound was debrided. Also seen by ID Dr. Dick. PICC line was placed and patient was discharged on IV Unasyn. Patient now presents with wounds on both the feet. Also has sacral decubitus ulcer. Not really ambulated much since June. Left foot is also draining significantly. Decreased appetite. Denies any obvious pain. No fever no chills. Tired. Very weak. October 02: Yesterday left foot plantar aspect and left heel wound debrided with Dr. Gutierrez. CT scan of the abdomen showed severely distended urinary bladder. Slight enlargement of the prostate. Mild bilateral hydronephrosis. Dykes catheter was placed. Seen by Dr. Ramirez from urology. [place] to be chronic. Outpatient urodynamic testing and cystoscopy will be done. Creatinine down to normal. PICC line was placed due to difficult access. Also seen by Dr. Best from general surgery. For debridement tomorrow. Patient is also complaining of left distal arm weakness for which neurology was consulted. For his depression seen by Dr. Wong from psychiatry. Zoloft added. Abilify to continue. Remeron 50 mg added at night Active Medications Acetaminophen (Acetaminophen Tab 325 Mg Tab) 650 mg PO Q6HR PRN PRN Reason: Mild Pain or Fever > 100.5 Hydrocodone Bitart/Acetaminophen (Hydrocodone/Apap 7.5-325mg 1 Each Tab) 1 each PO Q6HR PRN PRN Reason: Pain Last Admin: 10/02/23 07:52 Dose: 1 each Al Hydroxide/Mg Hydroxide (Mag Hydrox/Al Hydrox/Simeth 30 Ml Cup) 15 ml PO Q6HR PRN PRN Reason: Indigestion Amlodipine Besylate (Amlodipine 10 Mg Tab) 10 mg PO DAILY [facility] Last Admin: 10/03/23 11:07 Dose: Not Given Aripiprazole (Aripiprazole 15 Mg Tab) 30 mg PO DAILY [facility] Last Admin: 10/03/23 11:13 Dose: 30 mg Atorvastatin Calcium (Atorvastatin 80 Mg Tab) 80 mg PO DAILY [facility] Last Admin: 10/03/23 11:14 Dose: 80 mg Dextrose/Water (Dextrose 50% Syringe 50 Ml) 25 ml IVP PER PROTOCOL PRN; Protocol PRN Reason: Hypoglycemia Dextrose/Water (Dextrose 50% Syringe 50 Ml) 50 ml IVP PER PROTOCOL PRN; Protocol PRN Reason: Hypoglycemia Enoxaparin Sodium (Enoxaparin 40 Mg/0.4 Ml Syringe) 40 mg SQ DAILY [facility] Last Admin: 10/03/23 11:13 Dose: 40 mg Sodium Chloride (Saline 0.9%) 1,000 mls @ 75 mls/hr IV .[id number] [facility] Last Admin: 10/03/23 20:03 Dose: 75 mls/hr Piperacillin Sod/Tazobactam (Sod 3.375 gm/ Sodium Chloride) 100 mls @ 25 mls/hr IVPB Q8H [facility]; Protocol Last Admin: 10/03/23 14:17 Dose: 25 mls/hr Insulin Aspart (Insulin Aspart (Novolog) 100 Unit/Ml Vial) 0 unit SQ AC-TID [facility]; Protocol Last Admin: 10/03/23 17:27 Dose: 2 unit Lactulose (Lactulose 20 Gm/30 Ml Cup) 20 gm PO DAILY PRN PRN Reason: Constipation Levothyroxine Sodium (Levothyroxine 100 Mcg Tab) 300 mcg PO DAILY@0630 [facility] Last Admin: 10/03/23 05:51 Dose: 300 mcg Lorazepam (Lorazepam 1 Mg Tab) 1 mg PO Q8HR PRN PRN Reason: Anxiety Metoprolol Succinate (Metoprolol Succinate (Er) 50 Mg Tab.Er.24h) 50 mg PO DAILY [facility] Last Admin: 10/03/23 11:14 Dose: 50 mg Mirtazapine (Mirtazapine 15 Mg Tab) 15 mg PO HS [facility] Last Admin: 10/03/23 20:04 Dose: 15 mg Morphine Sulfate (Morphine Sulfate 4 Mg/Ml Syringe) 4 mg IV Q4HR PRN PRN Reason: Severe Pain (Scale 7 to 10) Naloxone HCl (Naloxone 0.4 Mg/Ml 1 Ml Vial) 0.2 mg IV Q2M PRN PRN Reason: Opioid Reversal Ondansetron HCl (Ondansetron 4 Mg Tab) 4 mg PO Q8H PRN PRN Reason: Nausea Last Admin: 10/02/23 08:03 Dose: 4 mg Ondansetron HCl (Ondansetron 4 Mg/2 Ml Vial) 4 mg IVP Q8HR PRN PRN Reason: Nausea And Vomiting Last Admin: 10/02/23 21:29 Dose: 4 mg Petrolatum (Zinc Oxide Paste (Z-Guard) 1 Applic) 1 applic TOPICAL Q2HR PRN; Protocol PRN Reason: Wound Healing Last Admin: 10/03/23 05:54 Dose: 1 applic Pregabalin (Pregabalin 100 Mg Cap) 300 mg PO BID [facility] Last Admin: 10/03/23 20:03 Dose: 300 mg Sertraline HCl (Sertraline 50 Mg Tab) 50 mg PO DAILY [facility] Last Admin: 10/03/23 17:27 Dose: 50 mg Tamsulosin HCl (Tamsulosin 0.4 Mg Cap.Er.24h) 0.4 mg PO PC-BRKFST [facility] Last Admin: 10/03/23 11:13 Dose: 0.4 mg Social history: Lives with his girlfriend. No smoking no alcohol. Currently not employed. Physical examination: VITAL SIGNS: 97.8, 87, 16, 121 x 73, 95% room air GENERAL: BMI 40.8, reclining bed . EYES: Pupils equal. Conjunctiva gabby l. HEENT: External appearance of nose and ears normal, oral cavity grossly normal. NECK: JVD not raised; masses not palpable. HEART: First and second heart sounds are normal; no edema. LUNGS: Respiratory rate normal; clear to auscultation. ABDOMEN: Soft, nontender, liver spleen not palpable,. Dykes catheter PSYCH: Alert and oriented x3; mood and affect depressed EXTREMITIES: Patient has wound on both the foot on the plantar aspect. Also the sacral decubitus. Pictures in the chart. Patient also has venous stasis findings on the right lower extremity. - discoloration. MUSCULOSKELETAL:No Clubbing/cyanosis;muscles-grossly intact NEUROLOGICAL: Cranial nerves grossly intact; no facial asymmetry, power and sensation grossly intact. INVESTIGATIONS, reviewed in the clinical context: CT scan abdomen: Distended bladder with bilateral mild hydronephrosis hydroureter. Possibly enlarged prostate October 02: Sodium 139 potassium 4 creatinine 0.88 October 01: White count 9.8 hemoglobin 8.5 platelets 218 sodium 134 potassium 4.5 BUN 34 creatinine 1.34 AST 98 ALT 68 alkaline phosphatase 308 Previous labs: July 19, 2023: Creatinine 0.8 Assessment and plan: -Bilateral acute on chronic foot wounds specially draining on the left side. Patient had foot wound in June. Had debridement done by Dr. Alvino Gutierrez. Left plantar and heel left heel debridement and with Dr. Gutierrez on October 01 Pictures in the chart.. IV Zosyn. -Sacral decubitus wound Seen by Dr. Best: For debridement tomorrow -Diabetes mellitus type 2, chronically insulin, uncontrolled Resume home medications. Accu-Cheks with sliding scale. -Essential hypertension Amlodipine 10 mg a day Toprol-XL 50 mg a day -Hypothyroid Synthroid 300 mcg a day -Likely chronically dilated bladder with bilateral hydronephroureter and hydronephrosis likely secondary to enlarged prostate Seen by Dr. Moses from urology. Kate Dykes placed. Continue the same. Follow-up outpatient for urodynamic studies and cystoscopy t -Bipolar disorder with depression Seen by Dr. Wong from psychiatry. Patient to follow-up with Dr. Burgess outpatient. Remeron 15 mg nightly added, Zoloft 50 mg a day added. Lexapro discontinued -Hyperlipidemia Lipitor 80 mg a day -Acute kidney injury. Obstructive likely from BPH Resolved with Dykes catheter Nephrology following -Probable BPH Flomax added Discussed with patient. For debridement tomorrow. IV Zosyn. IV fluids. Patient does not really have any significant pain in the feet. Cut back Lyrica to 150 twice daily. Past Medical History Past Medical History: Diabetes Mellitus, Hyperlipidemia, Hypertension, Pneumonia Additional Past Medical History / Comment(s): pressure ulcer bilat feet and coccyx History of Any Multi-Drug Resistant Organisms: None Reported Past Surgical History: No Surgical Hx Reported Additional Past Surgical History / Comment(s): debridement of left foot ulcer Past Anesthesia/Blood Transfusion Reactions: No Reported Reaction Past Psychological History: Anxiety, Bipolar, Depression, Panic Disorder Smoking Status: Never smoker Past Alcohol Use History: Rare Past Drug Use History: None Reported
[2023-10-04 07:45] LABS: African American GFR (CKD) >90 (>60 ml/min/1.73 sqM); Anion Gap 4 mmol/L; Blood Urea Nitrogen 13 mg/dL (9-20); Calcium 7.8 mg/dL (8.4-10.2); Carbon Dioxide 22 mmol/L (22-30); Chloride 113 mmol/L (98-107); Glucose 159 mg/dL (74-99); Non-African American GFR(CKD) >90 (>60 ml/min/1.73 sqM); Sodium 139 mmol/L (137-145)
[2023-10-04 07:48] LABS: Glucose,Whole Blood 172 mg/dL (70-110)
[2023-10-04 10:46] LABS: HCT 24.6 % (39.6-50.0); HGB 7.6 g/dL (13.0-17.0); MCH 24.6 pg (27.0-32.0); MCHC 30.9 g/dL (32.0-37.0); MCV 79.6 FL (80.0-97.0); Mean Platelet Volume 11.6 FL (9.5-12.2); NRBC Per 100 WBC 0 X 10*3/uL (0.00-0.01); Platelet Count 250 X 10*3/uL (140-440); RBC 3.09 X 10*6/uL (4.40-5.60); WBC 11.52 X 10*3/uL (4.50-10.00)
[2023-10-04] MEDS: PREGABALIN 75 MG CAP PO SCH (11:14)
--- NOTE | 2023-10-04 12:15 | NM ---
EXAMINATION TYPE: NM bone 3 phase DATE OF EXAM: 10/04/2023 COMPARISON: Radiograph 10/01/2023 CLINICAL INDICATION: Male, 47 years old with history of Left diabetic foot ulcer rule out osteomyelitis; Triple phase bone scintigraphy was performed following the injection of 25.7 mCi Tc 99m MDP. Immedia te images and 3.5 hours post injection images acquired. FINDINGS: Increase in tracer uptake within the left mid foot on blood pool and delayed imaging. Increased uptak e in the tibiotalar joint posteriorly of the right foot on delayed imaging. IMPRESSION: There is increased radiotracer uptake on blood pool and delayed imaging of the left midfo ot favored represent cellulitis changes. Consider confirmation with MRI of the foot without IV contra st given findings on radiograph appear to represent osteomyelitis.
[2023-10-04 12:18] LABS: Glucose,Whole Blood 143 mg/dL (70-110)
--- NOTE | 2023-10-04 15:13 | P.PN ---
Subjective Progress Note Date: 10/04/23 Principal diagnosis: Left diabetic foot wound infection Patient is a 47-year-old male with a past medical history significant for diabetes mellitus hypertension hyperlipidemia pneumonia and also with extensive left diabetic foot infection culture with Proteus and Enterococcus faecalis per the patient has completed 8 weeks of IV by therapy, patient has now been admitted to the hospital with worsening wound s/p bedside debridement by vascular surgery on 10/02/2023. On today's visit that is10/04/2023,the patient denies any fever or any chills, patient is breathing comfortably on room air, the patient denies chest pain shortness of breath and no significant cough, patient denies abdominal pain, no nausea vomiting or diarrhea. Denies any worsening pain to the left foot wound. Patient white count of 11.52, creatinine 0.80 cultures currently pending Objective - Vital Signs Vital signs: Vital Signs Temp 98.7 F 10/04/23 08:00 Pulse 83 10/04/23 11:06 Resp 18 10/04/23 08:00 BP 124/71 10/04/23 11:06 Pulse Ox 95 10/04/23 08:00 FiO2 Intake & Output 10/03/23 10/04/23 10/04/23 18:59 06:59 18:59 Intake Total 1000 Output Total 2300 1600 Balance -2300 -600 Weight 152 kg Intake: Intake, IV Titration 1000 Amount Piperacillin-Tazobactam 3 100 .375 gm In Sodium Chloride 0.9% 100 ml @ 25 mls/hr IVPB Q8H [facility] Rx#: [id number] Sodium Chloride 0.9% 1, 900 000 ml @ 75 mls/hr IV . [id number] [facility] Rx#:[id number] Output: Urine 2300 1600 Other: Voiding Method Diaper Diaper Diaper Indwelling Catheter Indwelling Catheter Indwelling Catheter # Bowel Movements 1 1 - Exam GENERAL DESCRIPTION: Middle-age male lying in bed in no distress RESPIRATORY SYSTEM: Unlabored breathing , decreased breath sounds at bases HEART: S1 S2 regular rate and rhythm , ABDOMEN: Soft , no tenderness EXTREMITIES: Left foot is currently dressed Unstageable sacral pressure ulcer - Labs CBC & Chem 7: 10/04/23 06:51 10/04/23 06:51 Labs: Abnormal Lab Results - Last 24 Hours (Table) 10/03/23 10/03/23 10/04/23 Range/Units 17:16 20:21 06:51 WBC (4.50-10.00) X 10*3/uL RBC (4.40-5.60) X 10*6/uL Hgb (13.0-17.0) g/dL Hct (39.6-50.0) % MCV (80.0-97.0) FL MCH (27.0-32.0) pg MCHC (32.0-37.0) g/dL RDW (11.5-14.5) % Chloride 113 H (98-107) mmol/L Glucose 159 H (74-99) mg/dL POC Glucose (mg/dL) 170 H 189 H (70-110) mg/dL Calcium 7.8 L (8.4-10.2) mg/dL 10/04/23 10/04/23 10/04/23 Range/Units 06:51 07:46 12:17 WBC 11.52 H (4.50-10.00) X 10*3/uL RBC 3.09 L (4.40-5.60) X 10*6/uL Hgb 7.6 L (13.0-17.0) g/dL Hct 24.6 L (39.6-50.0) % MCV 79.6 L (80.0-97.0) FL MCH 24.6 L (27.0-32.0) pg MCHC 30.9 L (32.0-37.0) g/dL RDW 17.0 H (11.5-14.5) % Chloride (98-107) mmol/L Glucose (74-99) mg/dL POC Glucose (mg/dL) 172 H 143 H (70-110) mg/dL Calcium (8.4-10.2) mg/dL Microbiology - Last 24 Hours (Table) 10/02/23 13:00 Gram Stain - Preliminary Heel - Left Assessment and Plan (1) Unstageable pressure ulcer of sacral region Current Visit: Yes Status: Acute Code(s): L89.150 - PRESSURE ULCER OF SACRAL REGION, UNSTAGEABLE SNOMED Code(s): 59678475910620336 (2) Diabetic foot infection Current Visit: No Status: Acute Code(s): E11.628 - TYPE 2 DIABETES MELLITUS WITH OTHER SKIN COMPLICATIONS; L08.9 - LOCAL INFECTION OF THE SKIN AND SUB CUTANEOUS TISSUE, UNSP SNOMED Code(s): 931053997 (3) Diabetic foot ulcer Current Visit: No Status: Acute Code(s): E11.621 - TYPE 2 DIABETES MELLITUS WITH FOOT ULCER; L97.509 - NON-PRESSURE CHRONIC ULCER OTH PRT UNSP FOOT W UNSP SEVERITY SNOMED Code(s): 028403129 Plan: 1patient with extensive left diabetic foot wound and concern for secondary cellulitis due to significant amount of slippage that has been debrided at the bedside by the vascular surgeon culture has been obtained previous culture positive for Proteus and Enterococcus faecalis 2-patient did have elevated inflammatory markers and bone scan to the left foot suspicious for osteomyelitis no need for MRI 3 -patient to continue with Zosyn 3.37 g every 8 hours while waiting for the culture to finalize to determine discharge antibiotics 4-local wound care per surgery Dictation was produced using [employer] dictation software. please excuse any grammatical, word or spelling errors. Time with Patient: Less than 30
--- NOTE | 2023-10-04 15:35 | CT ---
EXAMINATION TYPE: CT brain wo con DATE OF EXAM: 10/04/2023 COMPARISON: 10/01/2023 INDICATION: ams, weakness DLP: 1145.1 mGycm, Automated exposure control for dose reduction was used. CONTRAST: None CT of the brain is performed utilizing 3 mm thick sections through the posterior fossa and 3 mm thick sections through the remaining calvarium. Study is performed within 24 hours of arrival to the hosp [facility]. No abnormal hyperdensity is present to suggest an acute intracranial hemorrhage. No mass lesion is evident. No acute infarcts are evident. Ventricles and sulci are appropriate for the patient age. Paranasal sinuses and mastoid air cells within the [id number] are clear. IMPRESSION: 1. No acute intracranial process. Follow-up MRI can be performed as clinically indicated.
--- NOTE | 2023-10-04 15:36 | P.PN ---
Subjective Progress Note Date: 10/04/23 Principal diagnosis: Sacral decubitus ulcer Patient doing about the same today. Being seen for his left arm weakness by neurology. Unfortunately surgery had to be canceled today as there was a power outage. This was discussed with the patient. He is fine with that. Will reschedule for tomorrow. Hopefully they will be able to accommodate tomorrow as scheduling. Objective - Vital Signs Vital signs: Vital Signs Temp 98.5 F 10/04/23 12:19 Pulse 79 10/04/23 12:19 Resp 18 10/04/23 12:19 BP 124/72 10/04/23 12:19 Pulse Ox 90 L 10/04/23 12:19 FiO2 Intake & Output 10/03/23 10/04/23 10/04/23 18:59 06:59 18:59 Intake Total 1000 Output Total 2300 1600 Balance -2300 -600 Weight 152 kg Intake: Intake, IV Titration 1000 Amount Piperacillin-Tazobactam 3 100 .375 gm In Sodium Chloride 0.9% 100 ml @ 25 mls/hr IVPB Q8H [facility] Rx#: [id number] Sodium Chloride 0.9% 1, 900 000 ml @ 75 mls/hr IV . [id number] [facility] Rx#:[id number] Output: Urine 2300 1600 Other: Voiding Method Diaper Diaper Diaper Indwelling Catheter Indwelling Catheter Indwelling Catheter # Bowel Movements 1 1 - Exam Sacral wound with ischemic skin and subcutaneous fat right side greater than left - Labs CBC & Chem 7: 10/04/23 06:51 10/04/23 06:51 Labs: Abnormal Lab Results - Last 24 Hours (Table) 10/03/23 10/03/23 10/04/23 Range/Units 17:16 20:21 06:51 WBC (4.50-10.00) X 10*3/uL RBC (4.40-5.60) X 10*6/uL Hgb (13.0-17.0) g/dL Hct (39.6-50.0) % MCV (80.0-97.0) FL MCH (27.0-32.0) pg MCHC (32.0-37.0) g/dL RDW (11.5-14.5) % Chloride 113 H (98-107) mmol/L Glucose 159 H (74-99) mg/dL POC Glucose (mg/dL) 170 H 189 H (70-110) mg/dL Calcium 7.8 L (8.4-10.2) mg/dL 10/04/23 10/04/23 10/04/23 Range/Units 06:51 07:46 12:17 WBC 11.52 H (4.50-10.00) X 10*3/uL RBC 3.09 L (4.40-5.60) X 10*6/uL Hgb 7.6 L (13.0-17.0) g/dL Hct 24.6 L (39.6-50.0) % MCV 79.6 L (80.0-97.0) FL MCH 24.6 L (27.0-32.0) pg MCHC 30.9 L (32.0-37.0) g/dL RDW 17.0 H (11.5-14.5) % Chloride (98-107) mmol/L Glucose (74-99) mg/dL POC Glucose (mg/dL) 172 H 143 H (70-110) mg/dL Calcium (8.4-10.2) mg/dL Microbiology - Last 24 Hours (Table) 10/02/23 13:00 Gram Stain - Preliminary Heel - Left Assessment and Plan Plan: Will proceed with debridement tomorrow as long as the operating room can accommodate us. Nothing to eat or drink after midnight.
--- NOTE | 2023-10-04 15:52 | P.CNNES ---
History of Present Illness Consult date: 10/04/23 Requesting physician: Ricardo Pinzon Reason for Consult: left arm weakness History of Present Illness: this is a 47-year-old gentleman who presented emergency departmentbecause of left foot ulcer.neurologist consulted for left arm weakness.patient has a chronic history of diabetes.seems the patient had a recent foot infection and the had a PICC line in the left upper extremity and he stated that the PICC line was removed possibly about 3 weeks ago and he is not sure about the timeline and ever since the PICC line he has left upper extremity weakness. He also has numbness from the left shoulder over to the middle of the forearm on the left. Denies any neck pain. Denies any history of stroke. Denies any speech difficulty any visual disturbance. during this hospital visit it felt the patient has extensive left diabetic foot wound and consider for secondary cellulitis and had that then divided by vascular surgeon and cultures were obtained with previous cultures positive for Proteus and enterococcus faecalis. It is felt that the patient has elevated inflammatory markers and bone scan of the left foot suspicious for osteomyelitis. ID did not feel MRI as needed. Patient is on antibiotic. Some of the workup during his hospital visit consisted of: ESR is 92. hemoglobin A1c 7.4 which is trending compared to prior the last one prior to that was 9.6 in June 2023. AST is [address] the head is reported as no acute intracranial process. Follow-up MRI can be performed and is complaining to get. I personally reviewed the CT of the head and I agree with the report. Review of Systems review of system is limited but the prone positive and negative as per HPI. Past Medical History Past Medical History: Diabetes Mellitus, Hyperlipidemia, Hypertension, Pneumonia Additional Past Medical History / Comment(s): pressure ulcer bilat feet and coccyx History of Any Multi-Drug Resistant Organisms: None Reported Past Surgical History: No Surgical Hx Reported Additional Past Surgical History / Comment(s): debridement of left foot ulcer Past Anesthesia/Blood Transfusion Reactions: No Reported Reaction Past Psychological History: Anxiety, Bipolar, Depression, Panic Disorder Smoking Status: Never smoker Past Alcohol Use History: Rare Past Drug Use History: None Reported - Past Family History Father Additional Family Medical History / Comment(s): polycystic kidney disease. at age 3030 years old Mother Family Medical History: Coronary Artery Disease (CAD), Diabetes Mellitus, Myocardial Infarction (NH) Medications and Allergies Home Medications Medication Instructions Recorded Confirmed Type Pregabalin [Lyrica] 300 mg PO BID 06/12/16 10/02/23 History lisinopriL [Zestril] 40 mg PO DAILY 06/12/16 10/02/23 History ARIPiprazole [Abilify] 30 mg PO DAILY 07/14/23 10/02/23 History Atorvastatin Calcium [Lipitor] 80 mg PO HS 07/14/23 10/02/23 History Dapagliflozin Propanediol [Farxiga] 10 mg PO DAILY 07/14/23 10/02/23 History Escitalopram [Lexapro] 20 mg PO DAILY 07/14/23 10/02/23 History Levothyroxine Sodium [Synthroid] 300 mcg PO DAILY 07/14/23 10/02/23 History Metoprolol Succinate (ER) [Toprol 50 mg PO DAILY 07/14/23 10/02/23 History XL] Ondansetron [Zofran] 4 mg PO Q8H PRN 07/14/23 10/02/23 History Tirzepatide [Mounjaro] 2.5 mg SQ FR 07/14/23 10/02/23 History amLODIPine [Norvasc] 10 mg PO DAILY 07/14/23 10/02/23 History Collagenase [Santyl Ointment] 1 applic TOPICAL DAILY 10/02/23 10/02/23 History Furosemide [Lasix] 20 mg PO DAILY 10/02/23 10/02/23 History HYDROcodone/APAP 7.5-325MG [[place] 1 tab PO Q6HR PRN 10/02/23 10/02/23 History 7.5-325] Insulin Glargine,Hum.rec.anlog 30 units SQ DAILY 10/02/23 10/02/23 History [Lantus Solostar Pen] Insulin Lispro See Protocol SQ ACHS 10/02/23 10/02/23 History L.acidoph,Paracasei, B.lactis 2 cap PO DAILY 10/02/23 10/02/23 History [Probiotic] Liquacel 30 ml PO TID 10/02/23 10/02/23 History Multivitamins, Thera [Multivitamin 1 tab PO DAILY 10/02/23 10/02/23 History (formulary)] Potassium Chloride ER [K-Dur 20] 20 meq PO BID 10/02/23 10/02/23 History clindamycin HCL 300 mg PO QID 10/02/23 10/02/23 History Allergies Allergy/AdvReac Type Severity Reaction Status Date / Time No Known Allergies Allergy Verified 10/02/23 10:01 Physical Examination - Vital Signs Vital Signs: Vital Signs Temp Pulse Resp BP BP Pulse Ox 10/04/23 12:19 98.5 F 79 18 124/72 90 L 10/04/23 11:06 83 124/71 10/04/23 08:00 98.7 F 87 18 115/65 95 10/04/23 02:00 98.2 F 87 16 142/68 90 L 10/03/23 20:00 98.1 F 87 16 116/65 93 L Intake and Output 10/04/23 10/04/23 10/04/23 06:59 14:59 22:59 Intake Total 1000 Output Total 1600 Balance -600 Intake: Intake, IV Titration 1000 Amount Piperacillin-Tazobactam 3 100 .375 gm In Sodium Chloride 0.9% 100 ml @ 25 mls/hr IVPB Q8H [facility] Rx#: [id number] Sodium Chloride 0.9% 1, 900 000 ml @ 75 mls/hr IV . [id number] LEAN[facility] Rx#:[id number] Output: Urine 1600 Other: Voiding Method Diaper Indwelling Catheter # Bowel Movements 1 GENERAL: The patient is lying in bed and is mild in acute distress. NEUROLOGICAL: Higher mental function: The patient is awake, alert, oriented to self, place and time. Patient is following commands. No aphasia and no neglect. Cranial nerves: The pupils are round, equal and reactive to light and accommodation. Visual hinds are full to confrontation throughout. Extraocular movement is intact no nystagmus is noted. Facial sensation is normal to touch throughout. The facial strength is normal throughout. Hearing is normal bilaterally to hand rub. Tongue is midline and moved [id number] without any difficulty. No dysarthria is noted. Shoulder shrug is normal bilaterally. Motor: The strength is somewhat limited because of pain but patient has severe weakness over the left elbow flexion and having difficulty lifting arm above head since having pain but lifting above gravity. Otherwise lifting all extremities above gravity equally. Has decrease tone over the left elbow felxion region. Normal bulk. Has bilateral ankles wrapped. . Cerebellum: Normal finger to nose on right and limited on left because of pain. Sensation: Sensation is normal to touch throughout. Reflexes (right/left): Biceps 2/0-1; triceps0-1/2; brachioradialis2/2; p atellar 0/0; ankles 0/0. Plantars are downgoing bilaterally. Results - Laboratory Findings CBC and BMP: 10/04/23 06:51 10/04/23 06:51 Abnormal Lab Findings: Abnormal Labs 10/02/23 10/02/23 10/02/23 03:35 05:00 05:00 WBC RBC 3.43 L Hgb 8.5 L Hct 28.1 L MCV MCH 24.8 L MCHC 30.3 L RDW 17.0 H ESR Sodium 134 L Chloride Carbon Dioxide 19 L BUN 34 H Creatinine 1.34 H Glucose 166 H POC Glucose (mg/dL) 186 H Hemoglobin A1c Calcium 8.1 L AST 98 H ALT 68 H Alkaline Phosphatase 308 H C-Reactive Protein Albumin 2.7 L Urine Protein Urine Glucose (UA) Urine Ketones Urine Blood Urine Bacteria Urine Mucus 10/02/23 10/02/23 10/02/23 07:17 12:25 17:09 WBC RBC Hgb Hct MCV MCH MCHC RDW ESR Sodium Chloride Carbon Dioxide BUN Creatinine Glucose POC Glucose (mg/dL) 173 H 170 H 153 H Hemoglobin A1c Calcium AST ALT Alkaline Phosphatase C-Reactive Protein Albumin Urine Protein Urine Glucose (UA) Urine Ketones Urine Blood Urine Bacteria Urine Mucus 10/02/23 10/03/23 10/03/23 20:39 06:23 06:23 WBC RBC Hgb Hct MCV MCH MCHC RDW ESR Sodium Chloride 112 H Carbon Dioxide 20 L BUN 22 H Creatinine Glucose 119 H POC Glucose (mg/dL) 161 H Hemoglobin A1c 7.4 H Calcium 7.9 L AST ALT Alkaline Phosphatase C-Reactive Protein 13.1 H Albumin Urine Protein Urine Glucose (UA) Urine Ketones Urine Blood Urine Bacteria Urine Mucus 10/03/23 10/03/23 10/03/23 06:23 07:02 11:44 WBC RBC Hgb Hct MCV MCH MCHC RDW ESR 92 H Sodium Chloride Carbon Dioxide BUN Creatinine Glucose POC Glucose (mg/dL) 111 H Hemoglobin A1c Calcium AST ALT Alkaline Phosphatase C-Reactive Protein Albumin Urine Protein 1+ H Urine Glucose (UA) 4+ H Urine Ketones Trace H Urine Blood Small H Urine Bacteria Rare H Urine Mucus Rare H 10/03/23 10/03/23 10/03/23 12:06 17:16 20:21 WBC RBC Hgb Hct MCV MCH MCHC RDW ESR Sodium Chloride Carbon Dioxide BUN Creatinine Glucose POC Glucose (mg/dL) 168 H 170 H 189 H Hemoglobin A1c Calcium AST ALT Alkaline Phosphatase C-Reactive Protein Albumin Urine Protein Urine Glucose (UA) Urine Ketones Urine Blood Urine Bacteria Urine Mucus 10/04/23 10/04/23 10/04/23 06:51 06:51 07:46 WBC 11.52 H RBC 3.09 L Hgb 7.6 L Hct 24.6 L MCV 79.6 L MCH 24.6 L MCHC 30.9 L RDW 17.0 H ESR Sodium Chloride 113 H Carbon Dioxide BUN Creatinine Glucose 159 H POC Glucose (mg/dL) 172 H Hemoglobin A1c Calcium 7.8 L AST ALT Alkaline Phosphatase C-Reactive Protein Albumin Urine Protein Urine Glucose (UA) Urine Ketones Urine Blood Urine Bacteria Urine Mucus 10/04/23 12:17 WBC RBC Hgb Hct MCV MCH MCHC RDW ESR Sodium Chloride Carbon Dioxide BUN Creatinine Glucose POC Glucose (mg/dL) 143 H Hemoglobin A1c Calcium AST ALT Alkaline Phosphatase C-Reactive Protein Albumin Urine Protein Urine Glucose (UA) Urine Ketones Urine Blood Urine Bacteria Urine Mucus Assessment and Plan Assessment: this is a 47-year-old gentleman who presents because of left foot ulcer and was felt the patient has left foot osteomyelitis. Patient has left upper extremity weakness for the last 3 weeks and he stated that the he had a PICC line and the PICC line was removed about 3 weeks ago and that during that time that's what his weakness that began. CT of the head is unremarkable Denies of any neck pain. Subacute left arm weakness and on examination is seems more elbow flexion seems more due to neuropathy. Cannot rule out plexopathy. Unsure if due to PICC line injuryversus diabetic. Left foot osteomyelitis Diabetes mellitus hypertension Hypothyroidism Plan: MRI the brain but I feel unlikely this is a stroke or subacute stroke. Recommend EMG with nerve conduction study of the upper extremities as an outpatient and to follow up with a neurologist as an outpatient.recommended to follow up with that neurology as an outpatient within 2 weeks. I ordered a hepatitis panel, tsh and vitamin B12. recommend duplex of the left upper extremity to rule out any DVT physical therapy is on board Will defer the rest of the medical management to primary and other specialists. The plan discussed with the patient and his nurse Thank you for the consultation. Time with Patient: Greater than 30
--- NOTE | 2023-10-04 16:40 | P.PN ---
Progress Note - Text Progress Note Date: 10/04/23 Chief Complaint: Foot ulcer This is a pleasant 47-year-old patient, chronic stable medical conditions include diabetes, hyperlipidemia, hypertension. Patient in June of this year was admitted under Dr. Deejay Tate. Was then [facility] And patient was treated for wound of the left foot with skin necrosis. Patient has known chronic venous hypertension including left lower extremity. Prior to that patient has been dealing with the foot by himself at home. Wound was debrided. Also seen by ID Dr. Dick. PICC line was placed and patient was discharged on IV Unasyn. Patient now presents with wounds on both the feet. Also has sacral decubitus ulcer. Not really ambulated much since June. Left foot is also draining significantly. Decreased appetite. Denies any obvious pain. No fever no chills. Tired. Very weak. October 02: Yesterday left foot plantar aspect and left heel wound debrided with Dr. Gutierrez. CT scan of the abdomen showed severely distended urinary bladder. Slight enlargement of the prostate. Mild bilateral hydronephrosis. Dykes catheter was placed. Seen by Dr. Ramirez from urology. [place] to be chronic. Outpatient urodynamic testing and cystoscopy will be done. Creatinine down to normal. PICC line was placed due to difficult access. Also seen by Dr. Best from general surgery. For debridement tomorrow. Patient is also complaining of left distal arm weakness for which neurology was consulted. For his depression seen by Dr. Wong from psychiatry. Zoloft added. Abilify to continue. Remeron 50 mg added at night October 03: Saw the patient this morning. Plan for patient to go down for debridement of the sacral wound-tomorrow. Patient also went nuclear medicine testing that was suggestive of cellulitic changes. CT brain: Unremarkable. Dykes catheter. Active Medications Acetaminophen (Acetaminophen Tab 325 Mg Tab) 650 mg PO Q6HR PRN PRN Reason: Mild Pain or Fever > 100.5 Hydrocodone Bitart/Acetaminophen (Hydrocodone/Apap 7.5-325mg 1 Each Tab) 1 each PO Q6HR PRN PRN Reason: Pain Last Admin: 10/02/23 07:52 Dose: 1 each Al Hydroxide/Mg Hydroxide (Mag Hydrox/Al Hydrox/Simeth 30 Ml Cup) 15 ml PO Q6HR PRN PRN Reason: Indigestion Amlodipine Besylate (Amlodipine 10 Mg Tab) 10 mg PO DAILY [facility] Last Admin: 10/04/23 08:16 Dose: Not Given Aripiprazole (Aripiprazole 15 Mg Tab) 30 mg PO DAILY [facility] Last Admin: 10/04/23 11:14 Dose: Not Given Atorvastatin Calcium (Atorvastatin 80 Mg Tab) 80 mg PO DAILY [facility] Last Admin: 10/04/23 11:14 Dose: Not Given Dextrose/Water (Dextrose 50% Syringe 50 Ml) 25 ml IVP PER PROTOCOL PRN; Protocol PRN Reason: Hypoglycemia Dextrose/Water (Dextrose 50% Syringe 50 Ml) 50 ml IVP PER PROTOCOL PRN; Protocol PRN Reason: Hypoglycemia Enoxaparin Sodium (Enoxaparin 40 Mg/0.4 Ml Syringe) 40 mg SQ DAILY [facility] Last Admin: 10/04/23 08:16 Dose: Not Given Sodium Chloride (Saline 0.9%) 1,000 mls @ 75 mls/hr IV .[id number] [facility] Last Admin: 10/04/23 05:35 Dose: 75 mls/hr Piperacillin Sod/Tazobactam (Sod 3.375 gm/ Sodium Chloride) 100 mls @ 25 mls/hr IVPB Q8H [facility]; Protocol Last Admin: 10/04/23 14:51 Dose: 25 mls/hr Insulin Aspart (Insulin Aspart (Novolog) 100 Unit/Ml Vial) 0 unit SQ AC-TID SC H; Protocol Last Admin: 10/04/23 12:57 Dose: Not Given Lactulose (Lactulose 20 Gm/30 Ml Cup) 20 gm PO DAILY PRN PRN Reason: Constipation Levothyroxine Sodium (Levothyroxine 100 Mcg Tab) 300 mcg PO DAILY@0630 [facility] Last Admin: 10/04/23 05:37 Dose: 300 mcg Lorazepam (Lorazepam 1 Mg Tab) 1 mg PO Q8HR PRN PRN Reason: Anxiety Metoprolol Succinate (Metoprolol Succinate (Er) 50 Mg Tab.Er.24h) 50 mg PO DAILY [facility] Last Admin: 10/04/23 11:11 Dose: 50 mg Mirtazapine (Mirtazapine 15 Mg Tab) 15 mg PO HS [facility] Last Admin: 10/03/23 20:04 Dose: 15 mg Naloxone HCl (Naloxone 0.4 Mg/Ml 1 Ml Vial) 0.2 mg IV Q2M PRN PRN Reason: Opioid Reversal Ondansetron HCl (Ondansetron 4 Mg Tab) 4 mg PO Q8H PRN PRN Reason: Nausea Last Admin: 10/02/23 08:03 Dose: 4 mg Ondansetron HCl (Ondansetron 4 Mg/2 Ml Vial) 4 mg IVP Q8HR PRN PRN Reason: Nausea And Vomiting Last Admin: 10/02/23 21:29 Dose: 4 mg Petrolatum (Zinc Oxide Paste (Z-Guard) 1 Applic) 1 applic TOPICAL Q2HR PRN; Protocol PRN Reason: Wound Healing Last Admin: 10/03/23 05:54 Dose: 1 applic Pregabalin (Pregabalin 75 Mg Cap) 150 mg PO BID [facility] Last Admin: 10/04/23 11:14 Dose: Not Given Sertraline HCl (Sertraline 50 Mg Tab) 50 mg PO DAILY [facility] Last Admin: 10/04/23 11:14 Dose: Not Given Tamsulosin HCl (Tamsulosin 0.4 Mg Cap.Er.24h) 0.4 mg PO [id number] [facility] Last Admin: 10/04/23 11:14 Dose: Not Given Social history: Lives with his girlfriend. No smoking no alcohol. Currently not employed. Physical examination: VITAL SIGNS: 98.5, 79, 18, 125 x 72, 90% room air GENERAL: Reclining in bed EYES: Pupils equal. Conjunctiva gabby l. HEENT: External appearance of nose and ears normal, oral cavity grossly normal. NECK: JVD not raised; masses not palpable. HEART: First and second heart sounds are normal; no edema. LUNGS: Respiratory rate normal; clear to auscultation. ABDOMEN: Soft, nontender, liver spleen not palpable,. Dykes catheter PSYCH: Alert and oriented x3; mood and affect depressed EXTREMITIES: Patient has wound on both the foot on the plantar aspect. Also the sacral decubitus. Pictures in the chart. Patient also has venous stasis findings on the right lower extremity. - discoloration. INVESTIGATIONS, reviewed in the clinical context: September night: White count 11.5 hemoglobin 7.6 platelets 250 potassium [address] scan abdomen: Distended bladder with bilateral mild hydronephrosis hydroureter. Possibly enlarged prostate October 02: Sodium 139 potassium 4 creatinine 0.88 October 01: White count 9.8 hemoglobin 8.5 platelets 218 sodium 134 potassium 4.5 BUN 34 creatinine 1.34 AST 98 ALT 68 alkaline phosphatase 308 Previous labs: July 19, 2023: Creatinine 0.8 Assessment and plan: -Bilateral acute on chronic foot wounds specially draining on the left side. Patient had foot wound in June. Had debridement done by Dr. Alvino Gutierrez. Left plantar and heel left heel debridement and with Dr. Gutierrez on October 01 Pictures in the chart.. IV Zosyn. -Sacral decubitus wound: Not improving Seen by Dr. Best: For debridement tomorrow -Diabetes mellitus type 2, chronically insulin, uncontrolled Resume home medications. Accu-Cheks with sliding scale. Lantus 15 units subcu daily start tomorrow -Essential hypertension Amlodipine 10 mg a day Toprol-XL 50 mg a day -Hypothyroid Synthroid 300 mcg a day -Likely chronically dilated bladder with bilateral hydronephroureter and hydronephrosis likely secondary to enlarged prostate Seen by Dr. Moses from urology. Kate Dykes placed. Continue the same. Follow-up outpatient for urodynamic studies and cystoscopy t -Bipolar disorder with depression Seen by Dr. Wong from psychiatry. Patient to follow-up with Dr. Burgess outpatient. Remeron 15 mg nightly added, Zoloft 50 mg a day added. Lexapro discontinued -Hyperlipidemia Lipitor 80 mg a day -Acute kidney injury. Obstructive likely from BPH Resolved with Dykes catheter Nephrology following -Probable BPH Flomax added -Full code -Discharge to: [facility], when ready IV Zosyn. Debridement of sacrum has been postponed till tomorrow because of scheduling issues. Other medications to continue. Past Medical History Past Medical History: Diabetes Mellitus, Hyperlipidemia, Hypertension, Pneumonia Additional Past Medical History / Comment(s): pressure ulcer bilat feet and coccyx History of Any Multi-Drug Resistant Organisms: None Reported Past Surgical History: No Surgical Hx Reported Additional Past Surgical History / Comment(s): debridement of left foot ulcer Past Anesthesia/Blood Transfusion Reactions: No Reported Reaction Past Psychological History: Anxiety, Bipolar, Depression, Panic Disorder Smoking Status: Never smoker Past Alcohol Use History: Rare Past Drug Use History: None Reported
--- NOTE | 2023-10-04 17:06 | US ---
EXAMINATION TYPE: US venous doppler duplex UE LT DATE OF EXAM: 10/04/2023 COMPARISON: NONE CLINICAL INDICATION: Male, 47 years old with history of Left arm r/o DVT; Left arm swelling, PICC kasie e for antibiotics left upper arm SIDE PERFORMED: Left Right Arm: NA Left Arm: Acute clot seen mid and distal left basillic vein adjacent to PICC line IMPRESSION: 1. Acute superficial venous thrombosis adjacent to the PICC line within the left basilic vein.
[2023-10-04 17:15] LABS: Glucose,Whole Blood 252 mg/dL (70-110)
[2023-10-04] MEDS: INSULIN NPH 100 UNIT/ML 10 ML VIAL SQ SCH (18:18)
[2023-10-04 21:18] LABS: Glucose,Whole Blood 256 mg/dL (70-110)
[2023-10-05 02:06] LABS: Glucose,Whole Blood 232 mg/dL (70-110)
[2023-10-05 02:54] LABS: Hepatitis A Antibody IgM Nonreactive (Nonreactive); Hepatitis B Core IgM Nonreactive (Nonreactive); Hepatitis B Surface Antigen Nonreactive (Nonreactive); Hepatitis C IgG Antibody Nonreactive (Nonreactive)
[2023-10-05 07:15] LABS: Glucose,Whole Blood 232 mg/dL (70-110)
[2023-10-05 07:52] LABS: African American GFR (CKD) >90 (>60 ml/min/1.73 sqM); Anion Gap 5 mmol/L; Blood Urea Nitrogen 10 mg/dL (9-20); Calcium 7.6 mg/dL (8.4-10.2); Carbon Dioxide 20 mmol/L (22-30); Chloride 111 mmol/L (98-107); Glucose 203 mg/dL (74-99); Non-African American GFR(CKD) >90 (>60 ml/min/1.73 sqM); Potassium 3.9 mmol/L (3.5-5.1); Sodium 136 mmol/L (137-145)
[2023-10-05] MEDS: INSULIN DETEMIR (LEVEMIR) 100 UNIT/ML SYR SQ SCH (08:16)
--- NOTE | 2023-10-05 11:27 | P.PN ---
Subjective Patient is seen in follow-up for acute kidney injury. Renal function back to baseline. On IV fluids. Has Dykes catheter for urinary retention. N onoliguric. Oral intake fair. Vital signs are stable. General: No acute distress. HEENT: Head exam is unremarkable. LUNGS: No audible rhonchi or wheezes. HEART: Rate and Rhythm are regular. ABDOMEN: Obese, nontender. EXTREMITITES: No edema. Objective - Vital Signs Vital signs: Vital Signs Temp 98.0 F 10/05/23 07:55 Pulse 83 10/05/23 07:55 Resp 20 10/05/23 07:55 BP 125/73 10/05/23 07:55 Pulse Ox 95 10/05/23 07:55 FiO2 Intake & Output 10/04/23 10/05/23 10/05/23 18:59 06:59 18:59 Intake Total 100 Output Total 450 1703 Balance -450 -1603 Intake: Oral 100 Output: Urine 450 1700 Stool 3 Other: Voiding Method Diaper Diaper Diaper Indwelling Catheter Indwelling Catheter Indwelling Catheter - Labs CBC & Chem 7: 10/04/23 06:51 10/05/23 07:09 Labs: Abnormal Lab Results - Last 24 Hours (Table) 10/04/23 10/04/23 10/04/23 Range/Units 12:17 17:14 21:16 Sodium (137-145) mmol/L Chloride (98-107) mmol/L Carbon Dioxide (22-30) mmol/L Glucose (74-99) mg/dL POC Glucose (mg/dL) 143 H 252 H 256 H (70-110) mg/dL Calcium (8.4-10.2) mg/dL 10/05/23 10/05/23 10/05/23 Range/Units 01:57 07:09 07:14 Sodium 136 L (137-145) mmol/L Chloride 111 H (98-107) mmol/L Carbon Dioxide 20 L (22-30) mmol/L Glucose 203 H (74-99) mg/dL POC Glucose (mg/dL) 232 H 232 H (70-110) mg/dL Calcium 7.6 L (8.4-10.2) mg/dL Assessment and Plan Plan: Assessment: 1. Acute kidney injury secondary to urinary retention. Improved. Creatinine 1.34 on admission and is 0.67 today. 2. Urinary retention status post Dykes catheter placement. Mild bilateral hydronephrosis noted on CAT scan. On Flomax. Urology following. 3. Benign hypertension. Controlled. 4. Left diabetic foot wound being followed by vascular surgery and infectious disease. 5. Diabetes mellitus. 6. Metabolic acidosis secondary to IV fluids. Plan: Decrease rate of normal saline to 50 cc an hour. Hep-Lock once diet resumed. Encouraged oral intake. Maintain Dykes per urology recommendations. Hold amlodipine for systolic blood pressure less than 120. Resume Farxiga. I will sign off. Please call with any questions or concerns.
[2023-10-05] MEDS: IV FLUID CONTINUATION 900 ML IV ONE (11:28)
[2023-10-05] MEDS: FLUID CONTINUATION IV ONE (11:29)
[2023-10-05 11:34] LABS: Glucose,Whole Blood 174 mg/dL (70-110)
[2023-10-05] MEDS ORDERED: NEOSTIGMINE 1 MG/ML 10 ML VIAL ONE (11:58)
[2023-10-05] MEDS ORDERED: PROPOFOL 10 MG/ML 20 ML VIAL IV ONE (11:58)
[2023-10-05] MEDS ORDERED: MIDAZOLAM 2 MG/2 ML VIAL ONE (11:58)
[2023-10-05] MEDS ORDERED: SUCCINYLCHOLINE CHLORIDE 200 MG/10 ML VIAL IV ONE (11:58)
[2023-10-05] MEDS ORDERED: GLYCOPYRROLATE 0.2 MG/ML 2 ML VIAL ONE (11:58)
[2023-10-05] MEDS ORDERED: ROCURONIUM 10 MG/ML (5 ML VIAL) IV ONE (11:58)
[2023-10-05] MEDS ORDERED: LIDOCAINE 1% INJ 10MG/ML (20 ML MDV) ONE (11:58)
[2023-10-05] MEDS ORDERED: fentaNYL (PF) 50 MCG/ML 2 ML AMP ONE (11:58)
[2023-10-05] MEDS ORDERED: PHENYLEPHRINE 10 MG/ML VIAL ONE (11:58)
--- NOTE | 2023-10-05 12:49 | P.OP ---
Date of Procedure: 10/05/23 Procedure(s) Performed: PREOPERATIVE DIAGNOSIS: Sacral decubitus ulcer POSTOPERATIVE DIAGNOSIS: Same PROCEDURE: Excisional debridement sacral decubitus ulcer SURGEON: Estephania EBL: 20 cc ANESTHESIA: General COMPLICATIONS: None OPERATIVE PROCEDURE: Patient placed in the prone jackknife position for the debridement. This occurred after general anesthesia. Sacral region prepped and draped sterilely. Debridement using a scalpel using an excisional manner took place excising necrotic skin subcutaneous fat and superficial muscle. Area of debridement measured 6 x 9 cm. This was mostly on the right-hand side of midline. The wound was C-shaped around the lower coccygeal region extending around the anal opening. Unfortunately this is in proximity to the anus. Approximately 5 to 6 cm from the anal verge. Most of the left side of the cubitus ulcer consisted of ischemic appearing skin and dermis. No debridement took place there. Sterile dressings applied. DISPOSITION: Stable to recovery room
[2023-10-05 13:07] LABS: Glucose,Whole Blood 171 mg/dL (70-110)
[2023-10-05] MEDS: SENNOSIDES-DOCUSATE SODIUM 1 EACH TAB PO SCH (13:37)
--- NOTE | 2023-10-05 16:38 | P.PN ---
Progress Note - Text 47-year-old gentleman history of diabetes patient had a sacral wound debridement done today patient has a wound on the left foot plantar aspect we will treating local wound care and IV antibiotic dressing has been changed today the base of the wound is granulating will continue with Medihoney gel when patient goes home he will follow-up in the wound clinic at [facility]
--- NOTE | 2023-10-05 17:06 | P.PN ---
Subjective Progress Note Date: 10/05/23 I am following-up with patient and he feels about the same with left arm weakness. Denies any new weakness. He had duplex and showed acute superifical venous thrombosis adjacent to PICC line in left basilic vein. Objective - Vital Signs Vital signs: Vital Signs Temp 98.1 F 10/05/23 16:50 Pulse 82 10/05/23 16:50 Resp 18 10/05/23 16:50 BP 114/69 10/05/23 16:50 Pulse Ox 96 10/05/23 16:50 FiO2 Intake & Output 10/04/23 10/05/23 10/05/23 18:59 06:59 18:59 Intake Total 100 1135 Output Total 450 1703 120 Balance -450 -1603 1015 Weight 152 kg Intake: IV 825 Oral 100 Blood Product 310 Rc As-1 Unit 310 [id number] Output: Urine 450 1700 100 Stool 3 Estimated Blood Loss 20 Other: Voiding Method Diaper Diaper Diaper Indwelling Catheter Indwelling Catheter Indwelling Catheter - Exam GENERAL: The patient is lying in bed and is mild in acute distress. NEUROLOGICAL: Higher mental function: The patient is awake, alert, oriented to self, place and time. Patient is following commands. No aphasia and no neglect. Cranial nerves: The pupils are round, equal and reactive to light and accommodation. Visual hinds are full to confrontation throughout. Extraocular movement is intact no nystagmus is noted. Facial sensation is normal to touch throughout. The facial strength is normal throughout. Hearing is normal bilaterally to hand rub. Tongue is midline and moved [id number] without any difficulty. No dysarthria is noted. Shoulder shrug is normal bilaterally. Motor: The strength is somewhat limited because of pain but patient has severe weakness over the left elbow flexion and having difficulty lifting arm above head since having pain but lifting above gravity. Otherwise lifting all extremities above gravity equally. Has decrease tone over the left elbow f elxion region. Normal bulk. Has bilateral ankles wrapped. . Cerebellum: Normal finger to nose on right and limited on left because of pain. Sensation: Sensation is normal to touch throughout. Reflexes (right/left): Biceps 2/0-1; triceps0-1/2; brachioradialis2/2; patellar 0/0; ankles 0/0. Plantars are downgoing bilaterally. Some of the work-up during this hospital visit consisted of: ESR is 92. hemoglobin A1c 7.4 which is trending compared to prior the last one prior to that was 9.6 in June 2023. Vitamin B12: 324 TSH: 1.360 Hepatitis panel is nonreactive. He had duplex and showed acute superficial venous thrombosis adjacent to PICC line in left basilic vein. CT brain is reported as No acute intracranial process. - Labs CBC & Chem 7: 10/04/23 06:51 10/05/23 07:09 Labs: Abnormal Lab Results - Last 24 Hours (Table) 10/04/23 10/04/23 10/05/23 Range/Units 17:14 21:16 01:57 Sodium (137-145) mmol/L Chloride (98-107) mmol/L Carbon Dioxide (22-30) mmol/L Glucose (74-99) mg/dL POC Glucose (mg/dL) 252 H 256 H 232 H (70-110) mg/dL Calcium (8.4-10.2) mg/dL Crossmatch 10/05/23 10/05/23 10/05/23 Range/Units 07:09 07:14 11:32 Sodium 136 L (137-145) mmol/L Chloride 111 H (98-107) mmol/L Carbon Dioxide 20 L (22-30) mmol/L Glucose 203 H (74-99) mg/dL POC Glucose (mg/dL) 232 H 174 H (70-110) mg/dL Calcium 7.6 L (8.4-10.2) mg/dL Crossmatch 10/05/23 10/05/23 Range/Units 11:50 13:05 Sodium (137-145) mmol/L Chloride (98-107) mmol/L Carbon Dioxide (22-30) mmol/L Glucose (74-99) mg/dL POC Glucose (mg/dL) 171 H (70-110) mg/dL Calcium (8.4-10.2) mg/dL Crossmatch See Detail Assessment and Plan Assessment: this is a 47-year-old gentleman who presents because of left foot ulcer and was felt the patient has left foot osteomyelitis. Patient has left upper extremity weakness for the last 3 weeks and he stated that the he had a PICC line and the PICC line was removed about 3 weeks ago and that during that time that's what his weakness that began. CT of the head is unremarkable Denies of any neck pain. Subacute left arm weakness and on examination is seems more elbow flexion. On duplex has acute superficial venous thrombosis adjacent to PICC line in left basilic vein. CT brain is unremarkable and denies of any neck pain. Left foot osteomyelitis Diabetes mellitus hypertension Hypothyroidism Plan: Discontinued MRI Brain since duplex revealed clot and that is likel cause of his left elbow flexion. After treatment if no improvement in strength then recommend following-up with neurologist as outpatient and recommend to pursue with EMG with nerve conduction study of the upper extremities as an outpatient. physical therapy is on board Will defer the rest of the medical management to primary and other specialists. The plan discussed with the patient and his nurse There is no further neurological work-up. Will sign off. Please notify neur ology team if any further concerns. Time with Patient: Less than 30
[2023-10-05 17:24] LABS: Glucose,Whole Blood 185 mg/dL (70-110)
--- NOTE | 2023-10-05 19:44 | P.PN ---
Progress Note - Text Progress Note Date: 10/05/23 Chief Complaint: Foot ulcer This is a pleasant 47-year-old patient, chronic stable medical conditions include diabetes, hyperlipidemia, hypertension. Patient in June of this year was admitted under Dr. Deejay Tate. [facility] And patient was treated for wound of the left foot with skin necrosis. Patient has known chronic venous hypertension including left lower extremity. Prior to that patient has been dealing with the foot by himself at home. Wound was debrided. Also seen by ID Dr. Dick. PICC line was placed and patient was discharged on IV Unasyn. Patient now presents with wounds on both the feet. Also has sacral decubitus ulcer. Not really ambulated much since June. Left foot is also draining significantly. Decreased appetite. Denies any obvious pain. No fever no chills. Tired. Very weak. October 02: Yesterday left foot plantar aspect and left heel wound debrided with Dr. Gutierrez. CT scan of the abdomen showed severely distended urinary bladder. Slight enlargement of the prostate. Mild bilateral hydronephrosis. Dykes catheter was placed. Seen by Dr. Ramirez from urology. [place] to be chronic. Outpatient urodynamic testing and cystoscopy will be done. Creatinine down to normal. PICC line was placed due to difficult access. Also seen by Dr. Best from general surgery. For debridement tomorrow. Patient is also complaining of left distal arm weakness for which neurology was consulted. For his depression seen by Dr. Wong from psychiatry. Zoloft added. Abilify to continue. Remeron 50 mg added at night October 03: Saw the patient this morning. Plan for patient to go down for debridement of the sacral wound-tomorrow. Patient also went nuclear medicine testing that was suggestive of cellulitic changes. CT brain: Unremarkable. Dykes catheter. October 04: Saw the patient this morning. He went down for debridement of the sacral wound by Dr. Best. Remains on IV Zosyn. Otherwise tolerating a diet. Discussed with Dr. Best from surgery. Diverting colostomy may be an option down the road. Not at this point. Patient is eating well. [facility] and dressing changes with Dr. Gutierrez to the foot. Active Medications Acetaminophen (Acetaminophen Tab 325 Mg Tab) 650 mg PO Q6HR PRN PRN Reason: Mild Pain or Fever > 100.5 Hydrocodone Bitart/Acetaminophen (Hydrocodone/Apap 7.5-325mg 1 Each Tab) 1 each PO Q6HR PRN PRN Reason: Pain Last Admin: 10/05/23 14:51 Dose: 1 each Al Hydroxide/Mg Hydroxide (Mag Hydrox/Al Hydrox/Simeth 30 Ml Cup) 15 ml PO Q6HR PRN PRN Reason: Indigestion Amlodipine Besylate (Amlodipine 10 Mg Tab) 10 mg PO DAILY [facility] Last Admin: 10/05/23 08:00 Dose: 10 mg Aripiprazole (Aripiprazole 15 Mg Tab) 30 mg PO DAILY [facility] Last Admin: 10/05/23 08:00 Dose: 30 mg Atorvastatin Calcium (Atorvastatin 80 Mg Tab) 80 mg PO DAILY [facility] Last Admin: 10/05/23 08:00 Dose: 80 mg Dapagliflozin (Dapagliflozin Propanediol 5 Mg Tablet) 5 mg PO DAILY [facility] Dextrose/Water (Dextrose 50% Syringe 50 Ml) 25 ml IVP PER PROTOCOL PRN; Protocol PRN Reason: Hypoglycemia Dextrose/Water (Dextrose 50% Syringe 50 Ml) 50 ml IVP PER PROTOCOL PRN; Protocol PRN Reason: Hypoglycemia Enoxaparin Sodium (Enoxaparin 40 Mg/0.4 Ml Syringe) 40 mg SQ DAILY [facility] Last Admin: 10/05/23 10:22 Dose: Not Given Sodium Chloride (Saline 0.9%) 1,000 mls @ 50 mls/hr IV .Q20H [facility] Last Admin: 10/05/23 08:18 Dose: 75 mls/hr Piperacillin Sod/Tazobactam (Sod 3.375 gm/ Sodium Chloride) 100 mls @ 25 mls/hr IVPB Q8H [facility]; Protocol Insulin Aspart (Insulin Aspart (Novolog) 100 Unit/Ml Vial) 0 unit SQ AC-TID [facility]; Protocol Last Admin: 10/05/23 18:23 Dose: 2 unit Insulin Detemir (Insulin Detemir (Levemir) 100 Unit/Ml Syr) 15 unit SQ DAILY@0700 [facility] Last Admin: 10/05/23 08:16 Dose: 15 unit Lactulose (Lactulose 20 Gm/30 Ml Cup) 20 gm PO DAILY PRN PRN Reason: Constipation Levothyroxine Sodium (Levothyroxine 100 Mcg Tab) 300 mcg PO DAILY@0630 [facility] Last Admin: 10/05/23 06:09 Dose: 300 mcg Lorazepam (Lorazepam 1 Mg Tab) 1 mg PO Q8HR PRN PRN Reason: Anxiety Metoprolol Succinate (Metoprolol Succinate (Er) 50 Mg Tab.Er.24h) 50 mg PO DAILY [facility] Last Admin: 10/05/23 08:00 Dose: 50 mg Mirtazapine (Mirtazapine 15 Mg Tab) 15 mg PO HS [facility] Last Admin: 10/04/23 21:00 Dose: 15 mg Naloxone HCl (Naloxone 0.4 Mg/Ml 1 Ml Vial) 0.2 mg IV Q2M PRN PRN Reason: Opioid Reversal Ondansetron HCl (Ondansetron 4 Mg Tab) 4 mg PO Q8H PRN PRN Reason: Nausea Last Admin: 10/02/23 08:03 Dose: 4 mg Ondansetron HCl (Ondansetron 4 Mg/2 Ml Vial) 4 mg IVP Q8HR PRN PRN Reason: Nausea And Vomiting Last Admin: 10/02/23 21:29 Dose: 4 mg Petrolatum (Zinc Oxide Paste (Z-Guard) 1 Applic) 1 applic TOPICAL Q2HR PRN; Protocol PRN Reason: Wound Healing Last Admin: 10/03/23 05:54 Dose: 1 applic Pregabalin (Pregabalin 75 Mg Cap) 150 mg PO BID [facility] Last Admin: 10/05/23 08:00 Dose: 150 mg Senna/Docusate Sodium (Sennosides-Docusate Sodium 1 Each Tab) 1 each PO BID [facility] Last Admin: 10/05/23 13:37 Dose: Not Given Sertraline HCl (Sertraline 50 Mg Tab) 50 mg PO DAILY [facility] Last Admin: 10/05/23 08:01 Dose: 50 mg Tamsulosin HCl (Tamsulosin 0.4 Mg Cap.Er.24h) 0.4 mg PO PC-[id number] [facility] Last Admin: 10/05/23 08:01 Dose: 0.4 mg Social history: Lives with his girlfriend. No smoking no alcohol. Currently not employed. Physical examination: VITAL SIGNS: 98.2, 85, 18, 120 x 72, 93% GENERAL: Reclining in bed EYES: Pupils equal. Conjunctiva gabby l. HEENT: External appearance of nose and ears normal, oral cavity grossly normal. NECK: JVD not raised; masses not palpable. HEART: First and second heart sounds are normal; no edema. LUNGS: Respiratory rate normal; clear to auscultation. ABDOMEN: Soft, nontender, liver spleen not palpable,. Dykes catheter PSYCH: Alert and oriented x3; mood and affect depressed EXTREMITIES: Patient has wound on both the foot on the plantar aspect. Also the sacral decubitus. Pictures in the chart. Patient also has venous stasis find ings on the right lower extremity. - discoloration. INVESTIGATIONS, reviewed in the clinical context: October 04: 136 sodium potassium 3.9 creatinine 0.67 October 03: White count 11.5 hemoglobin 7.6 platelets 250 potassium [address] scan abdomen: Distended bladder with bilateral mild hydronephrosis hydroureter. Possibly enlarged prostate October 02: Sodium 139 potassium 4 creatinine 0.88 October 01: White count 9.8 hemoglobin 8.5 platelets 218 sodium 134 potassium 4.5 BUN 34 creatinine 1.34 AST 98 ALT 68 alkaline phosphatase 308 Previous labs: July 19, 2023: Creatinine 0.8 Assessment and plan: -Bilateral acute on chronic foot wounds specially draining on the left side. Patient had foot wound in June. Had debridement done by Dr. Alvino Gutierrez. Left plantar and heel left heel debridement and with Dr. Gutierrez on October 01 Pictures in the chart.. IV Zosyn. -Sacral decubitus wound: Seen by Dr. Best: [place] carried out on October 04. -Diabetes mellitus type 2, chronically insulin, uncontrolled Resume home medications. Accu-Cheks with sliding scale. Increase Lantus 22 units subcu daily -Essential hypertension Amlodipine 10 mg a day Toprol-XL 50 mg a day -Hypothyroid Synthroid 300 mcg a day -Likely chronically dilated bladder with bilateral hydronephroureter and hydronephrosis likely secondary to enlarged prostate Seen by Dr. Moses from urology. Kate Dykes placed. Continue the same. Follow-up outpatient for urodynamic studies and cystoscopy t -Bipolar disorder with depression Seen by Dr. Wong from psychiatry. Patient to follow-up with Dr. Burgess outpatient. Remeron 15 mg nightly added, Zoloft 50 mg a day added. Lexapro discontinued -Hyperlipidemia Lipitor 80 mg a day -Acute kidney injury. Obstructive likely from BPH Resolved with Dykes catheter Nephrology following -Probable BPH Flomax added -Full code -Discharge to: [facility], when ready IV Zosyn. Wound care to continue. Change antibiotics per ID. Past Medical History Past Medical History: Diabetes Mellitus, Hyperlipidemia, Hypertension, Pneumonia Additional Past Medical History / Comment(s): pressure ulcer bilat feet and coccyx History of Any Multi-Drug Resistant Organisms: None Reported Past Surgical History: No Surgical Hx Reported Additional Past Surgical History / Comment(s): debridement of left foot ulcer Past Anesthesia/Blood Transfusion Reactions: No Reported Reaction Past Psychological History: Anxiety, Bipolar, Depression, Panic Disorder Smoking Status: Never smoker Past Alcohol Use History: Rare Past Drug Use History: None Reported
[2023-10-05 20:15] LABS: Glucose,Whole Blood 221 mg/dL (70-110)
[2023-10-05] MEDS: ACETAMINOPHEN TAB 325 MG TAB PO PRN (21:31)
[2023-10-05] MEDS: PIPERACILLIN-TAZOBACTAM 3.375 GM in SODIUM CHLORIDE 0.9% 100 ML IVPB SCH (22:12)
[2023-10-06 07:48] LABS: Glucose,Whole Blood 207 mg/dL (70-110)
[2023-10-06] MEDS: DAPAGLIFLOZIN PROPANEDIOL 5 MG TABLET PO SCH (08:26)
[2023-10-06] MEDS: INSULIN DETEMIR (LEVEMIR) 100 UNIT/ML SYR SQ SCH (08:27)
[2023-10-06 12:19] LABS: Glucose,Whole Blood 203 mg/dL (70-110)
--- NOTE | 2023-10-06 13:37 | P.DS ---
Providers Date of admission: 10/01/23 23:20 Expected date of discharge: 10/06/23 Attending physician: Ricardo Pinzon Consults: 10/01/23 23:16 Consult Physician Routine Consulting Provider: David Gutierrez Consult Reason/Comments: diabetic foot ulcer Do you want consulting provider notified?: Yes Consult Physician Routine Consulting Provider: Yonas Rivera Consult Reason/Comments: Diabetic foot ulcer Do you want consulting provider notified?: Yes 10/02/23 13:00 Consult Physician Routine Consulting Provider: Dinora Flowers Consult Reason/Comments: COLT Do you want consulting provider notified?: Yes 10/02/23 14:49 Consult Physician Routine Consulting Provider: Nadeem Best Consult Reason/Comments: Abdominal pain, decubitus buttocks ulcer Do you want consulting provider notified?: Yes 10/02/23 18:39 Consult Physician Routine Consulting Provider: Stiven Wong Consult Reason/Comments: Depression, medication changes? Do you want consulting provider notified?: Yes 10/02/23 22:30 Consult Physician Routine Consulting Provider: Mehul Miranda Consult Reason/Comments: moderate/severe urinary distention; mild B/L hydronephrosis; galaviz required Do you want consulting provider notified?: Yes, Notify in am 10/03/23 11:21 Consult Physician Routine Consulting Provider: Ray Noriega Consult Reason/Comments: left arm weakness Do you want consulting provider notified?: Yes Primary care physician: [facility] Course: Chief Complaint: Foot ulcer This is a pleasant 47-year-old patient, chronic stable medical conditions include diabetes, hyperlipidemia, hypertension. Patient in June of this year was admitted under Dr. Deejay Tate. Was then seen by Dr. Angulo from vascular. And patient was treated for wound of the left foot with skin necrosis. Patient has known chronic venous hypertension including left lower extremity. Prior to that patient has been dealing with the foot by himself at home. Wound was debrided. Also seen by BETTY Dick. PICC line was placed and patient was discharged on IV Unasyn. Patient now presents with wounds on both the feet. Also has sacral decubitus ulcer. Not really ambulated much since June. Left foot is also draining significantly. Decreased appetite. Denies any obvious pain. No fever no chills. Tired. Very weak. October 02: Yesterday left foot plantar aspect and left heel wound debrided with Dr. Gutierrez. CT scan of the abdomen showed severely distended urinary bladder. Slight enlargement of the prostate. Mild bilateral hydronephrosis. Galaviz catheter was placed. Seen by Dr. Ramirez from urology. [place] to be chronic. Outpatient urodynamic testing and cystoscopy will be done. Creatinine down to normal. PICC line was placed due to difficult access. Also seen by Dr. Best from general surgery. For debridement tomorrow. Patient is also complaining of left distal arm weakness for which neurology was consulted. For his depression seen by Dr. Wong from psychiatry. Zoloft added. Abilify to continue. Remeron 50 mg added at night October 03: Saw the patient this morning. Plan for patient to go down for debridement of the sacral wound-tomorrow. Patient also went nuclear medicine testing that was suggestive of cellulitic changes. CT brain: Unremarkable. Galaviz catheter. October 04: Saw the patient this morning. He went down for debridement of the sacral wound by Dr. Best. Remains on IV Zosyn. Otherwise tolerating a diet. Discussed with Dr. Best from surgery. Diverting colostomy may be an option down the road. Not at this point. Patient is eating well. Local wound care with Medihoney gel and dressing changes with Dr. Gutierrez to the foot. October 05: Discussed with patient. He will return to [facility]. IV Zosyn to continue per ID. Discussed with him. Patient also will follow-up with Dr. Best from general surgery, [place] and also Dr. Gutierrez at the wound care center for his footcare. He is scheduled to get 14 more days of IV Zosyn. Questions answered Discussion and discharge planning more than 35 minutes Social history: Lives with his girlfriend. No smoking no alcohol. Currently not employed. Physical examination: VITAL SIGNS: 97.9, 83, 24, 110 x 64, 93% room air GENERAL: Reclining in bed, comfortable EYES: Pupils equal. Conjunctiva gabby l. HEENT: External appearance of nose and ears normal, oral cavity grossly normal. NECK: JVD not raised; masses not palpable. HEART: First and second heart sounds are normal; no edema. LUNGS: Respiratory rate normal; clear to auscultation. ABDOMEN: Soft, nontender, liver spleen not palpable,. Galaviz catheter PSYCH: Alert and oriented x3; mood and affect depressed EXTREMITIES: Patient has wound on both the foot on the plantar aspect. Also the sacral decubitus. Pictures in the chart. Patient also has venous stasis findings on the right lower extremity. - discoloration. INVESTIGATIONS, reviewed in the clinical context: October 04: 136 sodium potassium 3.9 creatinine 0.67 October 03: White count 11.5 hemoglobin 7.6 platelets 250 potassium [address] scan abdomen: Distended bladder with bilateral mild hydronephrosis hydroureter. Possibly enlarged prostate October 02: Sodium 139 potassium 4 creatinine 0.88 October 01: White count 9.8 hemoglobin 8.5 platelets 218 sodium 134 potassium 4.5 BUN 34 creatinine 1.34 AST 98 ALT 68 alkaline phosphatase 308 Previous labs: July 19, 2023: Creatinine 0.8 Assessment and plan: -Bilateral acute on chronic foot wounds specially draining on the left side. Patient had foot wound in June. Had debridement done by Dr. Alvino Gutierrez. Left plantar and heel left heel debridement and with Dr. Gutierrez on October 01 Pictures in the chart.. IV Zosyn. Follow-up at wound care center with Dr. Gutierrez. Wound care Kate Dr. Gutierrez -Sacral decubitus wound: Seen by Dr. Best: Debridement carried out on October 04. Wound care to continue -Diabetes mellitus type 2, chronically insulin, uncontrolled Home dose of Lantus and oral hypoglycemic. Follow Accu-Cheks -Essential hypertension Amlodipine 10 mg a day Toprol-XL 50 mg a day -Hypothyroid Synthroid 300 mcg a day -Likely chronically dilated bladder with bilateral hydronephroureter and hydronephrosis likely secondary to enlarged prostate Seen by Dr. Moses from urology. Galaviz placed. Continue the same. Follow-up outpatient for urodynamic studies and cystoscopy t -Bipolar disorder with depression Seen by Dr. Wong from psychiatry. Patient to follow-up with Dr. Burgess outpatient. Remeron 15 mg nightly added, Zoloft 50 mg a day added. Lexapro discontinued -Hyperlipidemia Lipitor 80 mg a day -Acute kidney injury. Obstructive likely from BPH Resolved with Galaviz catheter Nephrology following -Probable BPH Flomax added -Full code Disposition: [facility] facility Labs: CBC BMP: 4 days. Past Medical History Past Medical History: Diabetes Mellitus, Hyperlipidemia, Hypertension, Pneumonia Additional Past Medical History / Comment(s): pressure ulcer bilat feet and coccyx History of Any Multi-Drug Resistant Organisms: None Reported Past Surgical History: No Surgical Hx Reported Additional Past Surgical History / Comment(s): debridement of left foot ulcer Past Anesthesia/Blood Transfusion Reactions: No Reported Reaction Past Psychological History: Anxiety, Bipolar, Depression, Panic Disorder Smoking Status: Never smoker Past Alcohol Use History: Rare Past Drug Use History: None Reported Plan - Discharge Summary Discharge Rx Participant: No New Discharge Prescriptions: New Sennosides-Docusate Sodium [Senokot-S] 1 each PO BID tab Sertraline [Zoloft] 50 mg PO DAILY tab lisinopriL [Zestril] 10 mg PO HS #1 tab Tamsulosin [Flomax] 0.4 mg PO PC-BRKFST cap Mirtazapine [Remeron] 15 mg PO HS #3 tab Piperacillin-Tazobactam [Zosyn] 4.5 gm IVPB Q8HR #120 each Continue Pregabalin [Lyrica] 300 mg PO BID Metoprolol Succinate (ER) [Toprol XL] 50 mg PO DAILY Atorvastatin Calcium [Lipitor] 80 mg PO HS Levothyroxine Sodium [Synthroid] 300 mcg PO DAILY Dapagliflozin Propanediol [Farxiga] 10 mg PO DAILY ARIPiprazole [Abilify] 30 mg PO DAILY Multivitamins, Thera [Multivitamin (formulary)] 1 tab PO DAILY Tirzepatide [Mounjaro] 2.5 mg SQ FR amLODIPine [Norvasc] 10 mg PO DAILY Ondansetron [Zofran] 4 mg PO Q8H PRN PRN Reason: Nausea And Vomiting L.acidoph,Paracasei, B.lactis [Probiotic] 2 cap PO DAILY Insulin Lispro See Protocol SQ ACHS Furosemide [Lasix] 20 mg PO DAILY Liquacel 30 ml PO TID HYDROcodone/APAP 7.5-325MG [[place] 7.5-325] 1 tab PO Q6HR PRN #12 tab PRN Reason: Pain Changed Insulin Glargine,Hum.rec.anlog [Lantus Solostar Pen] 26 units SQ DAILY #0 Potassium Chloride ER [K-Dur 20] 20 meq PO DAILY #0 Discontinued lisinopriL [Zestril] 40 mg PO DAILY clindamycin HCL 300 mg PO QID Escitalopram [Lexapro] 20 mg PO DAILY No Action Collagenase [Santyl Ointment] 1 applic TOPICAL DAILY Discharge Medication List Pregabalin [Lyrica] 300 mg PO BID 06/12/16 [History] ARIPiprazole [Abilify] 30 mg PO DAILY 07/14/23 [History] Atorvastatin Calcium [Lipitor] 80 mg PO HS 07/14/23 [History] Dapagliflozin Propanediol [Farxiga] 10 mg PO DAILY 07/14/23 [History] Levothyroxine Sodium [Synthroid] 300 mcg PO DAILY 07/14/23 [History] Metoprolol Succinate (ER) [Toprol XL] 50 mg PO DAILY 07/14/23 [History] Ondansetron [Zofran] 4 mg PO Q8H PRN 07/14/23 [History] Tirzepatide [Mounjaro] 2.5 mg SQ FR 07/14/23 [History] amLODIPine [Norvasc] 10 mg PO DAILY 07/14/23 [History] Collagenase [Santyl Ointment] 1 applic TOPICAL DAILY 10/02/23 [History] Furosemide [Lasix] 20 mg PO DAILY 10/02/23 [History] Insulin Lispro See Protocol SQ ACHS 10/02/23 [History] L.acidoph,Paracasei, B.lactis [Probiotic] 2 cap PO DAILY 10/02/23 [History] Liquacel 30 ml PO TID 10/02/23 [History] Multivitamins, Thera [Multivitamin (formulary)] 1 tab PO DAILY 10/02/23 [History] HYDROcodone/APAP 7.5-325MG [[place] 7.5-325] 1 tab PO Q6HR PRN #12 tab 10/06/23 [Rx] Insulin Glargine,Hum.rec.anlog [Lantus Solostar Pen] 26 units SQ DAILY #0 10/06/23 [Rx] Mirtazapine [Remeron] 15 mg PO HS #3 tab 10/06/23 [Rx] Piperacillin-Tazobactam [Zosyn] 4.5 gm IVPB Q8HR #120 each 10/06/23 [Rx] Potassium Chloride ER [K-Dur 20] 20 meq PO DAILY #0 10/06/23 [Rx] Sennosides-Docusate Sodium [Senokot-S] 1 each PO BID tab 10/06/23 [Rx] Sertraline [Zoloft] 50 mg PO DAILY tab 10/06/23 [Rx] Tamsulosin [Flomax] 0.4 mg PO PC-BRKFST cap 10/06/23 [Rx] lisinopriL [Zestril] 10 mg PO HS #1 tab 10/06/23 [Rx] Follow up Appointment(s)/Referral(s): Nadeem Best MD [Medical Doctor] - 3 Weeks Sang Moses MD [STAFF PHYSICIAN] - 2 Weeks Deejay Burgess DO [REFERRING] - 2 Weeks Devon Bower MD [Primary Care Provider] - 1 Week [facility] [NON-STAFF] - 1 Week Yonas Rivera MD [STAFF PHYSICIAN] - 2 Weeks Ambulatory/Diagnostic Orders: Basic Metabolic Panel [LAB.AMB] Location: None Selected C Reactive Protein [LAB.AMB] Location: None Selected Complete Blood Count w/diff [LAB.AMB] Location: None Selected Erythrocyte Sedimentation Rate [LAB.AMB] Location: None Selected Activity/Diet/Wound Care/Special Instructions: anibiotics per dr rivera wound care per dr gutierrez of foot sacral wound care per id/dr best
[2023-10-06 15:03] VITALS: BP 126/73; PULSE 94; RESP 20; TEMP 98
--- NOTE | 2023-10-06 16:50 | P.PN ---
Subjective Progress Note Date: 10/06/23 CHIEF COMPLAINT: Sacral decubitus ulcer HISTORY OF PRESENT ILLNESS: Patient is postop day #1 excisional debridement of sacral decubitus ulcer. Patient's pain is controlled. He did have a bowel movement. They are planning on discharge today. Vital stable PHYSICAL EXAM: VITAL SIGNS: Reviewed. GENERAL: Well-developed in no acute distress. ABDOMEN: Soft. Nondistended. Nontender. ASSESSMENT: 1. Sacral decubitus ulcer status post debridement PLAN: -Continue local wound care with [facility] -Patient can be discharge from surgical standpoint Physician Mechanic Recovery note has been reviewed by physician. Signing provider agrees with the documented findings, assessment, and plan of care. Objective - Vital Signs Vital signs: Vital Signs Temp 97.9 F 10/06/23 07:45 Pulse 83 10/06/23 07:45 Resp 24 10/06/23 07:45 BP 110/64 10/06/23 07:45 Pulse Ox 93 L 10/06/23 07:45 FiO2 Intake & Output 10/05/23 10/06/23 10/06/23 18:59 06:59 18:59 Intake Total 1135 310 Output Total 370 1000 950 Balance 765 -690 -950 Weight 152 kg Intake: IV 825 Blood Product 310 310 Rc As-1 Unit 310 [id number] Rc As-1 Unit 0 310 [id number] Output: Urine 350 1000 950 Estimated Blood Loss 20 Other: Voiding Method Diaper Diaper Indwelling Catheter Indwelling Catheter Indwelling Catheter - Labs CBC & Chem 7: 10/04/23 06:51 10/05/23 07:09 Labs: Abnormal Lab Results - Last 24 Hours (Table) 10/05/23 10/05/23 10/05/23 Range/Units 11:32 11:50 13:05 POC Glucose (mg/dL) 174 H 171 H (70-110) mg/dL Crossmatch See Detail 10/05/23 10/05/23 10/06/23 Range/Units 17:22 20:14 07:47 POC Glucose (mg/dL) 185 H 221 H 207 H (70-110) mg/dL Crossmatch Microbiology - Last 24 Hours (Table) 10/02/23 13:00 Gram Stain - Final Heel - Left Tissue Culture - Final Proteus mirabilis Enterobacter cloacae Enterococcus faecalis
--- NOTE | 2023-10-07 12:15 | P.PN ---
Subjective Progress Note Date: 10/05/23 Principal diagnosis: Left diabetic foot wound infection Patient is a 47-year-old male with a past medical history significant for diabetes mellitus hypertension hyperlipidemia pneumonia and also with extensive left diabetic foot infection culture with Proteus and Enterococcus faecalis per the patient has completed 8 weeks of IV by therapy, patient has now been admitted to the hospital with worsening wound s/p bedside debridement by vascular surgery on 10/02/2023. Patient is status post surgical debridement of the sacral pressure ulcer did not mention any purulence and no culture was done by the surgeon the procedure completed on 10/05/2023 On today's visit that is 10/05/2023 the patient denies having any fever or any chills he is breathing comfortably on room air no chest pain shortness with cough no nausea no abdominal pain or pain to the left foot wound area. Patient did have a creatinine 0.67 no CBC was done today Objective - Vital Signs Vital signs: Vital Signs Temp 97 F L 10/05/23 13:01 Pulse 83 10/05/23 13:16 Resp 16 10/05/23 13:16 BP 116/63 10/05/23 13:16 Pulse Ox 98 10/05/23 13:16 FiO2 Intake & Output 10/04/23 10/05/23 10/05/23 18:59 06:59 18:59 Intake Total 100 825 Output Total 450 1703 120 Balance -450 -1603 705 Intake: IV 825 Oral 100 Output: Urine 450 1700 100 Stool 3 Estimated Blood Loss 20 Other: Voiding Method Diaper Diaper Diaper Indwelling Catheter Indwelling Catheter Indwelling Catheter - Exam GENERAL DESCRIPTION: Middle-age male lying in bed in no distress RESPIRATORY SYSTEM: Unlabored breathing , decreased breath sounds at bases HEART: S1 S2 regular rate and rhythm , ABDOMEN: Soft , no tenderness EXTREMITIES: Left foot is currently dressed Unstageable sacral pressure ulcer - Labs CBC & Chem 7: 10/04/23 06:51 10/05/23 07:09 Labs: Abnormal Lab Results - Last 24 Hours (Table) 10/04/23 10/04/23 10/05/23 Range/Units 17:14 21:16 01:57 Sodium (137-145) mmol/L Chloride (98-107) mmol/L Carbon Dioxide (22-30) mmol/L Glucose (74-99) mg/dL POC Glucose (mg/dL) 252 H 256 H 232 H (70-110) mg/dL Calcium (8.4-10.2) mg/dL Crossmatch 10/05/23 10/05/23 10/05/23 Range/Units 07:09 07:14 11:32 Sodium 136 L (137-145) mmol/L Chloride 111 H (98-107) mmol/L Carbon Dioxide 20 L (22-30) mmol/L Glucose 203 H (74-99) mg/dL POC Glucose (mg/dL) 232 H 174 H (70-110) mg/dL Calcium 7.6 L (8.4-10.2) mg/dL Crossmatch 10/05/23 10/05/23 Range/Units 11:50 13:05 Sodium (137-145) mmol/L Chloride (98-107) mmol/L Carbon Dioxide (22-30) mmol/L Glucose (74-99) mg/dL POC Glucose (mg/dL) 171 H (70-110) mg/dL Calcium (8.4-10.2) mg/dL Crossmatch See Detail Assessment and Plan (1) Unstageable pressure ulcer of sacral region Status: Acute Code(s): L89.150 - PRESSURE ULCER OF SACRAL REGION, UNSTAGEABLE SNOMED Code(s): 53762557449127170 (2) Diabetic foot infection Status: Acute Code(s): E11.628 - TYPE 2 DIABETES MELLITUS WITH OTHER SKIN COMPLICATIONS; L08.9 - LOCAL INFECTION OF THE SKIN AND SUBCUTANEOUS TISSUE, UNSP SNOMED Code(s): 190968233 (3) Diabetic foot ulcer Status: Acute Code(s): E11.621 - TYPE 2 DIABETES MELLITUS WITH FOOT ULCER; L97.509 - NON-PRESSURE CHRONIC ULCER OTH PRT UNSP FOOT W UNSP SEVERITY SNOMED Code(s): 072097441 Plan: 1patient with extensive left diabetic foot wound and concern for secondary cellulitis due to significant amount of slippage that has been debrided at the bedside by the vascular surgeon culture has been obtained previous culture posi tive for Proteus and Enterococcus faecalis 2-patient did have elevated inflammatory markers and bone scan to the left foot suspicious for osteomyelitis no need for MRI 3 -patient to continue with Zosyn 3.37 g every 8 hours while waiting for the culture to finalize 4-s/p surgical debridement of his sacral wound Dictation was produced using [employer] dictation software. please excuse any grammatical, word or spelling errors. Time with Patient: Less than 30
--- NOTE | 2023-10-07 12:17 | P.PN ---
Subjective Progress Note Date: 10/06/23 Principal diagnosis: Left diabetic foot wound infection Patient is a 47-year-old male with a past medical history significant for diabetes mellitus hypertension hyperlipidemia pneumonia and also with extensive left diabetic foot infection culture with Proteus and Enterococcus faecalis per the patient has completed 8 weeks of IV by therapy, patient has now been admitted to the hospital with worsening wound s/p bedside debridement by vascular surgery on 10/02/2023. Patient is status post surgical debridement of the sacral pressure ulcer did not mention any purulence and no culture was done by the surgeon the procedure completed on 10/05/2023 On today's visit that is 10/06/2023, the patient continues to be afebrile, the patient is on room air and breathing comfortably, the Pt denies having any chest pain or cough, the patient denies having any abdominal pain no vomiting or any diarrhea has been reported by the nursing staff, denies pain to the left foot wound area. No new labs has been obtained today culture positive for Proteus Enterococcus and Enterobacter Objective - Vital Signs Vital signs: Vital Signs Temp 97.9 F 10/06/23 07:45 Pulse 83 10/06/23 07:45 Resp 24 10/06/23 07:45 BP 110/64 10/06/23 07:45 Pulse Ox 93 L 10/06/23 07:45 FiO2 Intake & Output 10/05/23 10/06/23 10/06/23 18:59 06:59 18:59 Intake Total 1135 310 Output Total 370 1000 950 Balance 765 -690 -950 Weight 152 kg Intake: IV 825 Blood Product 310 310 Rc As-1 Unit 310 [id number] Rc As-1 Unit 0 310 [id number] Output: Urine 350 1000 950 Estimated Blood Loss 20 Other: Voiding Method Diaper Diaper Indwelling Catheter Indwelling Catheter Indwelling Catheter - Exam GENERAL DESCRIPTION: Middle-age male lying in bed in no distress RESPIRATORY SYSTEM: Unlabored breathing , decreased breath sounds at bases HEART: S1 S2 regular rate and rhythm , ABDOMEN: Soft , no tenderness EXTREMITIES: Left foot is currently dressed Unstageable sacral pressure ulcer - Labs CBC & Chem 7: 10/04/23 06:51 10/05/23 07:09 Labs: Abnormal Lab Results - Last 24 Hours (Table) 10/05/23 10/05/23 10/05/23 Range/Units 11:50 13:05 17:22 POC Glucose (mg/dL) 171 H 185 H (70-110) mg/dL Crossmatch See Detail 10/05/23 10/06/23 10/06/23 Range/Units 20:14 07:47 12:18 POC Glucose (mg/dL) 221 H 207 H 203 H (70-110) mg/dL Crossmatch Microbiology - Last 24 Hours (Table) 10/02/23 13:00 Gram Stain - Final Heel - Left Tissue Culture - Final Proteus mirabilis Enterobacter cloacae Enterococcus faecalis Assessment and Plan (1) Unstageable pressure ulcer of sacral region Status: Acute Code(s): L89.150 - PRESSURE ULCER OF SACRAL REGION, UNSTAGEABLE SNOMED Code(s): 01490840733266842 (2) Diabetic foot infection Status: Acute Code(s): E11.628 - TYPE 2 DIABETES MELLITUS WITH OTHER SKIN COMPLICATIONS; L08.9 - LOCAL INFECTION OF THE SKIN AND SUBCUTANEOUS TISSUE, UNSP SNOMED Code(s): 476169116 (3) Diabetic foot ulcer Status: Acute Code(s): E11.621 - TYPE 2 DIABETES MELLITUS WITH FOOT ULCER; L97.509 - NON-PRESSURE CHRONIC ULCER OTH PRT UNSP FOOT W UNSP SEVERITY SNOMED Code(s): 777756089 Plan: 1patient with extensive left diabetic foot wound and concern for secondary cellulitis due to significant amount of slippage that has been debrided at the bedside by the vascular surgeon culture has been obtained previous culture positive for Proteus and Enterococcus faecalis 2-patient did have elevated inflammatory markers and bone scan to the left foot suspicious for osteomyelitis no need for MRI 3 -patient local culture has been positive for Enterobacter Proteus and Enterococcus sensitive to Zosyn plan is to continue the patient on Zosyn for 6 weeks along with weekly monitoring of CRP and sed rate local wound care to continue per surgery/wound care team Dictation was produced using [employer] dictation software. please excuse any grammatical, word or spelling errors.
== END 2023-10-06 16:23 | DRG 317 ==
LOC: EC 21:36 → 5NMEDONC 23:20
PROVIDERS: ADMIT Hospitalist; ATTEND Hospitalist
PROC: 0JBR0ZZ Excision of Left Foot Subcutaneous Tissue and Fascia, Open Approach (ICD-10-PCS; 2023-10-02)
PROC: 02HV33Z Insertion of Infusion Device into Superior Vena Cava, Percutaneous Approach (ICD-10-PCS; 2023-10-03)
PROC: 0KBN0ZZ Excision of Right Hip Muscle, Open Approach (ICD-10-PCS; principal; 2023-10-05 12:30)
DX: E11.621 Type 2 diabetes mellitus with foot ulcer (principal); E11.65 Type 2 diabetes mellitus with hyperglycemia; Z79.4 Long term (current) use of insulin; E03.9 Hypothyroidism, unspecified; E11.40 Type 2 diabetes mellitus with diabetic neuropathy, unspecified; E11.628 Type 2 diabetes mellitus with other skin complications; E11.69 Type 2 diabetes mellitus with other specified complication; E78.5 Hyperlipidemia, unspecified; E87.20 Acidosis, unspecified; F31.81 Bipolar II disorder; F41.0 Panic disorder [episodic paroxysmal anxiety]; I87.309 Chronic venous hypertension (idiopathic) without complications of unspecified lower extremity; I87.2 Venous insufficiency (chronic) (peripheral); I10 Essential (primary) hypertension; K59.00 Constipation, unspecified; L03.116 Cellulitis of left lower limb; B96.4 Proteus (mirabilis) (morganii) as the cause of diseases classified elsewhere; B95.2 Enterococcus as the cause of diseases classified elsewhere; L89.150 Pressure ulcer of sacral region, unstageable; L97.519 Non-pressure chronic ulcer of other part of right foot with unspecified severity; L97.529 Non-pressure chronic ulcer of other part of left foot with unspecified severity; L89.309 Pressure ulcer of unspecified buttock, unspecified stage; M86.9 Osteomyelitis, unspecified; N13.30 Unspecified hydronephrosis; N17.9 Acute kidney failure, unspecified; N40.1 Benign prostatic hyperplasia with lower urinary tract symptoms; R33.8 Other retention of urine; N32.89 Other specified disorders of bladder; R32 Unspecified urinary incontinence; Z79.84 Long term (current) use of oral hypoglycemic drugs; Z79.890 Hormone replacement therapy; Z79.899 Other long term (current) drug therapy; Z82.49 Family history of ischemic heart disease and other diseases of the circulatory system; Z82.71 Family history of polycystic kidney; Z83.3 Family history of diabetes mellitus; Z87.01 Personal history of pneumonia (recurrent); Z56.0 Unemployment, unspecified
CPT/HCPCS: 36573; 70450; 74176; 78315; 80048; 80053; 80074; 81001; 82607; 83036; 83605; 83735; 84443; 85025; 85027; 85652; 86140; 86850; 86900; 86901; 86920; 87070; 87077; 87186; 87205; 88304; 99285

== ENCOUNTER 2023-11-17 04:03 | Inpatient (IN) | payer OTHER ==
--- NOTE | 2023-11-17 04:30 | ED ---
General Adult HPI - General Chief complaint: Altered Mental Status Stated complaint: Acute Kidney Failure Time Seen by Provider: 11/17/23 04:05 Source: patient, RN/MD, EMS Mode of arrival: EMS Limitations: physical limitation - History of Present Illness Initial comments: Cristian is a 48-year-old male who currently resides in a intermediate, he was taken to the emergency department today at [facility] due to altered mental status. Staff there noted that the patient seemed to be more delayed in his responses and seemed quite sleepy or lethargic. Workup at the outside facility revealed the patient was in acute kidney failure with BUN in the 80s and creatinine of 5.5 with a baseline of 1 noted earlier this year. Patient was also noted to have bacteria and white blood cells in urine but has a longstanding apparently contaminated Dykes catheter. Patient states he just does not feel well. - Related Data Home Medications Medication Instructions Recorded Confirmed RX: Pregabalin [Lyrica] 300 mg PO BID 06/12/16 10/02/23 RX: ARIPiprazole [Abilify] 30 mg PO DAILY 07/14/23 10/02/23 RX: Atorvastatin Calcium [Lipitor] 80 mg PO HS 07/14/23 10/02/23 RX: Dapagliflozin Propanediol 10 mg PO DAILY 07/14/23 10/02/23 [Farxiga] RX: Levothyroxine Sodium 300 mcg PO DAILY 07/14/23 10/02/23 [Synthroid] RX: Metoprolol Succinate (ER) 50 mg PO DAILY 07/14/23 10/02/23 [Toprol XL] RX: Ondansetron [Zofran] 4 mg PO Q8H PRN 07/14/23 10/02/23 RX: Tirzepatide [Mounjaro] 2.5 mg SQ FR 07/14/23 10/02/23 RX: amLODIPine [Norvasc] 10 mg PO DAILY 07/14/23 10/02/23 Collagenase [Santyl Ointment] 1 applic TOPICAL DAILY 10/02/23 10/02/23 Liquacel 30 ml PO TID 10/02/23 10/02/23 RX: Furosemide [Lasix] 20 mg PO DAILY 10/02/23 10/02/23 RX: Insulin Lispro See Protocol SQ ACHS 10/02/23 10/02/23 RX: L.acidoph,Paracasei, B.lactis 2 cap PO DAILY 10/02/23 10/02/23 [Probiotic] RX: Multivitamins, Thera 1 tab PO DAILY 10/02/23 10/02/23 [Multivitamin (formulary)] Previous Rx's Medication Instructions Recorded Piperacillin-Tazobactam [Zosyn] 4.5 gm IVPB Q8HR #120 each 10/06/23 RX: HYDROcodone/APAP 7.5-325MG 1 tab PO Q6HR PRN #12 tab 10/06/23 [[place] 7.5-325] RX: Insulin Glargine,Hum.rec.anlog 26 units SQ DAILY #0 10/06/23 [Lantus Solostar Pen] RX: Mirtazapine [Remeron] 15 mg PO HS #3 tab 10/06/23 RX: Potassium Chloride ER [K-Dur 20 meq PO DAILY #0 10/06/23 20] RX: Sennosides-Docusate Sodium 1 each PO BID tab 10/06/23 [Senokot-S] RX: Sertraline [Zoloft] 50 mg PO DAILY tab 10/06/23 RX: Tamsulosin [Flomax] 0.4 mg PO PC-BRKFST cap 10/06/23 RX: lisinopriL [Zestril] 10 mg PO HS #1 tab 10/06/23 Allergies Allergy/AdvReac Type Severity Reaction Status Date / Time No Known Allergies Allergy Verified 11/17/23 04:25 Review of Systems ROS Statement: Those systems with pertinent positive or pertinent negative responses have been documented in the HPI. ROS Other: All systems not noted in ROS Statement are negative. Past Medical History Past Medical History: Diabetes Mellitus, Hyperlipidemia, Hypertension, Pneumonia Additional Past Medical History / Comment(s): pressure ulcer bilat feet and coccyx History of Any Multi-Drug Resistant Organisms: None Reported Past Surgical History: No Surgical Hx Reported Additional Past Surgical History / Comment(s): debridement of left foot ulcer Past Anesthesia/Blood Transfusion Reactions: No Reported Reaction Past Psychological History: Anxiety, Bipolar, Depression, Panic Disorder Smoking Status: Never smoker Past Alcohol Use History: Rare Past Drug Use History: None Reported - Past Family History Father Additional Family Medical History / Comment(s): polycystic kidney disease. at age 3030 years old Mother Family Medical History: Coronary Artery Disease (CAD), Diabetes Mellitus, Myocardial Infarction ([place]) General Exam - General Exam Comments Initial Comments: Physical Exam GENERAL: Ill-appearing obese male, appears pale HENT: Normocephalic, Atraumatic. EYES: PERRL, EOMI PULMONARY: Unlabored respirations. No audible rales rhonchi or wheezing was noted. CARDIOVASCULAR: There is a regular rate and rhythm without any murmurs gallops or rubs. ABDOMEN: Soft and nontender with normal bowel sounds. SKIN: There is a nearly unstageable decubitus ulcer with visible underlying muscle layers There is skin breakdown in the bilateral groin This ulcers on the bilateral feet, air boots are on : Dykes catheter in place NEUROLOGIC: Patient is alert and oriented x3 but very slow to respond MUSCULOSKELETAL: Bilateral lower extremities are in boots there is lower extremity edema Upper extremities with no signs of injury PSYCHIATRIC: Unable to assess due to illness Limitations: physical limitation Course Vital Signs 11/17/23 04:09 Temperature 97.9 F Pulse Rate 89 Respiratory 18 Rate Blood Pressure 115/78 O2 Sat by Pulse 98 Oximetry Medical Decision Making - Medical Decision Making Was pt. sent in by a medical professional or institution (, PA, INSTRUMENT TECHNICIAN HELPER, urgent care, hospital, or intermediate...) When possible be specific @ -Yes transfer from [facility] Did you speak to anyone other than the patient for history (EMS, parent, family, police, friend...)? What history was obtained from this source @ -Transferring physician Dr. Fatima, EMS Did you review nursing and triage notes (agree or disagree)? Why? @ -I reviewed and agree with nursing and triage notes Were old charts reviewed (outside hosp., previous admission, EMS record, old EKG, old radiological studies, urgent care reports/EKG's, intermediate records)? Report findings @ -Previous labs were reviewed for comparison Differential Diagnosis (chest pain, altered mental status, abdominal pain women, abdominal pain men, vaginal bleeding, weakness, fever, dyspnea, syncope, headache, dizziness, GI bleed, back pain, seizure, CVA, palpatations, mental health)? @ -Not applicable EKG interpreted by me (3pts min.). @ -As above X-rays interpreted by me (1pt min.). @ -None done CT interpreted by me (1pt min.). @ -None done U/S interpreted by me (1pt. min.). @ -None done What testing was considered but not performed or refused? (CT, X-rays, U/S, labs)? Why? @ -None What meds were considered but not given or refused? Why? @ -None Did you discuss the management of the patient with other professionals (professionals i.e. Dr., PA, INSTRUMENT TECHNICIAN HELPER, lab, RT, psych nurse, manager social media, tank builder and erector, teacher, planned giving officer, returned case inspector)? Give summary @ -Admitting physician Dr. Lua Was smoking cessation discussed for >3mins.? @ -No Was critical care preformed (if so, how long)? @ -Yes, 35 minutes Were there social determinants of health that impacted care today? How? (Homelessness, low income, unemployed, alcoholism, drug addiction, transportation, low edu. Level, literacy, decrease access to med. care, detention, rehab)? @ -No Was there de-escalation of care discussed even if they declined (Discuss DNR or withdrawal of care, Hospice)? DNR status @ -No What co-morbidities impacted this encounter? (DM, HTN, Smoking, COPD, CAD, Cancer, CVA, ARF, Chemo, Hep., AIDS, mental health diagnosis, sleep apnea, morbid obesity)? @ -None Was patient admitted / discharged? Hospital course, mention meds given and route, prescriptions, significant lab abnormalities, going to OR and other pertinent info. @ -Admit Patient was seen and evaluated upon arrival, this is a chronically ill-appearing obese 48-year-old male who presents the ER today as a transfer from an outside hospital. Patient is lethargic has some metabolic encephalopathy and is in acute kidney failure. Patient's home medications were reviewed none of his antibiotics are associated with kidney failure. Patient did not receive a fluid bolus prior to transfer he was given a fluid bolus here and fluids were increased from 50/h to 150/h. Dykes catheter is in place for monitoring ins and outs. Repeat blood work was obtained here patient's creatinine is decreasing slightly he will continue to receive IV fluid resuscitation. Patient care was discussed with admitting physician Dr. Lua who accepts the admission. Undiagnosed new problem with uncertain prognosis? @ -Yes, kidney failure Drug Therapy requiring intensive monitoring for toxicity (Heparin, Nitro, Insulin, Cardizem)? @ -No Were any procedures done? @ -No Diagnosis/symptom? @ -Acute kidney failure Acute, or Chronic, or Acute on Chronic? @ -Acute Uncomplicated (without systemic symptoms) or Complicated (systemic symptoms)? @ -Complicated Side effects of treatment? @ -Potentially Exacerbation, Progression, or Severe Exacerbation? @ -No Poses a threat to life or bodily function? How? (Chest pain, [place], [place], pneumonia, PE, COPD, DKA, ARF, appy, cholecystitis, CVA, Diverticulitis, Homicidal, Suicidal, threat to staff... and all critical care pts) @ -Potentially Diagnosis/symptom? @ -Osteomyelitis Acute, or Chronic, or Acute on Chronic? @ -Chronic Uncomplicated (without systemic symptoms) or Complicated (systemic symptoms)? @ -Complicated Side effects of treatment? @ -None Exacerbation, Progression, or Severe Exacerbation] @ -No Poses a threat to life or bodily function? @ -Potentially Diagnosis/symptom? @ -Sacral decubitus Acute, or Chronic, or Acute on Chronic? @ -Chronic Uncomplicated (without systemic symptoms) or Complicated (systemic symptoms)? @ -Complicated Side effects of treatment? @ -None Exacerbation, Progression, or Severe Exacerbation] @ -Progression Poses a threat to life or bodily function? @ -Unlikely - Lab Data Result diagrams: 11/17/23 04:29 11/17/23 04:29 Lab Results 11/17/23 11/17/23 Range/Units 04:29 04:29 WBC 11.3 H (3.8-10.6) k/uL RBC 3.65 L (4.30-5.90) m/uL Hgb 9.0 L (13.0-17.5) gm/dL Hct 29.0 L (39.0-53.0) % MCV 79.4 L (80.0-100.0) fL MCH 24.5 L (25.0-35.0) pg MCHC 30.9 L (31.0-37.0) g/dL RDW 18.8 H (11.5-15.5) % Plt Count 199 (150-450) k/uL MPV 9.1 Neutrophils % 58 % Lymphocytes % 29 % Monocytes % 5 % Eosinophils % 7 % Basophils % 0 % Neutrophils # 6.5 (1.3-7.7) k/uL Lymphocytes # 3.2 (1.0-4.8) k/uL Monocytes # 0.6 (0-1.0) k/uL Eosinophils # 0.8 H (0-0.7) k/uL Basophils # 0.0 (0-0.2) k/uL Hypochromasia Moderate Poikilocytosis Slight Anisocytosis Slight Microcytosis Slight Sodium 138 (137-145) mmol/L Potassium 4.1 (3.5-5.1) mmol/L Chloride 117 H (98-107) mmol/L Carbon Dioxide 8 L* (22-30) mmol/L Anion Gap 13 mmol/L BUN 77 H (9-20) mg/dL Creatinine 4.42 H (0.66-1.25) mg/dL Est GFR (CKD-EPI)AfAm 17 (>60 ml/min/1.73 sqM) Est GFR (CKD-EPI)NonAf 14 (>60 ml/min/1.73 sqM) Glucose 140 H (74-99) mg/dL Calcium 8.1 L (8.4-10.2) mg/dL Phosphorus 4.9 H (2.5-4.5) mg/dL Magnesium 1.6 (1.6-2.3) mg/dL Total Bilirubin 0.5 (0.2-1.3) mg/dL AST 15 L (17-59) U/L ALT 12 (4-49) U/L Alkaline Phosphatase 123 (38-126) U/L Total Protein 6.4 (6.3-8.2) g/dL Albumin 2.6 L (3.5-5.0) g/dL Disposition Clinical Impression: Acute kidney failure, Osteomyelitis, Decubitus ulcer of sacral area, Decubitus ulcer, Uremic encephalopathy, Delirium due to general medical condition, Morbid obesity, Diabetes type 2, uncontrolled Disposition: ADMITTED IP TO THIS [facility] Condition: Serious Referrals: Roxanne Agee, SHAISTA [REFERRING] - 1-2 days
[2023-11-17] MEDS: SODIUM CHLORIDE 0.9% 1,000 ML IV ONE (04:42)
[2023-11-17] MEDS: SODIUM CHLORIDE 0.9% 1,000 ML IV SCH (04:43)
[2023-11-17 04:45] LABS: Anisocytosis Slight; Basophils % (A) 0 %; Eosinophils # (A) 0.8 k/uL (0-0.7); Eosinophils % (A) 7 %; Hypochromasia Moderate; Lymphocytes # (A) 3.2 k/uL (1.0-4.8); Lymphocytes % (A) 29 %; MCH 24.5 pg (25.0-35.0); MCHC 30.9 g/dL (31.0-37.0); MCV 79.4 fL (80.0-100.0); Mean Platelet Volume 9.1; Microcytosis Slight; Monocytes # (A) 0.6 k/uL (0-1.0); Monocytes % (A) 5 %; Neutrophils # (A) 6.5 k/uL (1.3-7.7); Neutrophils % (A) 58 %; Platelet Count 199 k/uL (150-450); Poikilocytosis Slight; RBC 3.65 m/uL (4.30-5.90); RDW 18.8 % (11.5-15.5); WBC 11.3 k/uL (3.8-10.6)
[2023-11-17 04:59] LABS: ALT 12 U/L (4-49); AST 15 U/L (17-59); African American GFR (CKD) 17 (>60 ml/min/1.73 sqM); Albumin 2.6 g/dL (3.5-5.0); Alkaline Phosphatase 123 U/L (38-126); Anion Gap 13 mmol/L; Blood Urea Nitrogen 77 mg/dL (9-20); Calcium 8.1 mg/dL (8.4-10.2); Chloride 117 mmol/L (98-107); Glucose 140 mg/dL (74-99); Magnesium 1.6 mg/dL (1.6-2.3); Non-African American GFR(CKD) 14 (>60 ml/min/1.73 sqM); Phosphorus 4.9 mg/dL (2.5-4.5); Potassium 4.1 mmol/L (3.5-5.1); Sodium 138 mmol/L (137-145); Total Bilirubin 0.5 mg/dL (0.2-1.3); Total Protein 6.4 g/dL (6.3-8.2)
[2023-11-17 05:00] LABS: Carbon Dioxide 8 mmol/L (22-30)
[2023-11-17] MEDS ORDERED: NALOXONE 0.4 MG/ML 1 ML VIAL IV PRN (06:39)
--- NOTE | 2023-11-17 07:16 | P.HPIM ---
History of Present Illness H&P Date: 11/17/23 Patient is a 48-year-old male with a PMH of insulin-dependent diabetes melitis, PAD with chronic bilateral feet ulcers, chronic sacral decubitus ulcer, hypertension, and hyperlipidemia who was transferred from [facility] where the patient had presented for altered mental status. No meaningful history could be obtained from the patient as he was severely confused at the time of interview, only oriented to self. History obtained from the chart and from the ED provider. The patient The patient who is currently undergoing treatment for osteomyelitis involving sacral decubitus on wound VAC, was noted to be more confused than usual. He has been receiving IV daptomycin, cefepime, and Flagyl via PICC line. He was subsequently sent to [facility] where he was noted to be in acute renal failure. Laboratory evaluation reveals a creatinine of 4.42 (baseline 0.6), with BUN 77 (baseline 10), WBC count 11.3, hemoglobin 9.0 (similar to baseline), with MCV 79.4, and phosphorus 4.9 with glucose 140. ED documentation reviewed and case discussed with ED provider. Review of systems: Unable to obtain due to mental status Physical examination: Vital signs reviewed General: Ill-appearing male, no distress, appears older than stated age, obese Derm: Left lateral foot stage III ulcer extending from heel to left fifth toe, unstageable sacral large decubitus, unstageable right foot ulcer, warm Head: atraumatic, normocephalic, symmetric Eyes: EOMI, no lid lag, anicteric sclera, pupils equal round reactive to light ENT: Nose and ears atraumatic Neck: No cervical lymphadenopathy, trachea midline, supple Mouth: no lip lesion, mucus membranes dry Cardiovascular: S1S2 reg, no murmur, positive dorsalis pedis pulse bilateral, no edema Lungs: CTA bilateral, no rhonchi, no rales, no accessory muscle use Abdominal: soft, nontender to palpation, no guarding Ext: no gross muscle atrophy, no contractures, Neuro: no gross focal neuro deficits Psych: Oriented only to self, moving all extremities Assessment: Acute renal failure Altered mental status, likely uremic encephalopathy due to above Osteomyelitis involving sacral decubitus, currently on IV antibiotic therapy of unknown duration Chronic conditions: Type II DM, hypertension, hyperlipidemia Imaging: None performed Data Review: Laboratory evaluation reveals a creatinine of 4.42 (baseline 0.6), with BUN 77 (baseline 10), WBC count 11.3, hemoglobin 9.0 (similar to baseline), with MCV 79.4, and phosphorus 4.9 with glucose 140. Plan: Infectious disease consult Wound care consult for multiple unstageable ulcers Continue with IV fluids normal saline 150 cc/h Monitor BMP Insulin sliding scale blood glucose monitoring Resume home medications once reconciled DVT prophylaxis: Lovenox subcu The patient is admitted with an anticipated greater than 2 midnight stay for evaluation of acute renal failure CODE STATUS: Full Code Discussed with: ED provider Anticipated discharge place: [facility] Past Medical History Past Medical History: Diabetes Mellitus, Hyperlipidemia, Hypertension, Pneumonia Additional Past Medical History / Comment(s): pressure ulcer bilat feet and coccyx History of Any Multi-Drug Resistant Organisms: None Reported Past Surgical History: No Surgical Hx Reported Additional Past Surgical History / Comment(s): debridement of left foot ulcer Past Anesthesia/Blood Transfusion Reactions: No Reported Reaction Past Psychological History: Anxiety, Bipolar, Depression, Panic Disorder Smoking Status: Never smoker Past Alcohol Use History: Rare Past Drug Use History: None Reported - Past Family History Father Additional Family Medical History / Comment(s): polycystic kidney disease. at age 3030 years old Mother Family Medical History: Coronary Artery Disease (CAD), Diabetes Mellitus, Myocardial Infarction ([place]) Medications and Allergies Home Medications Medication Instructions Recorded Confirmed Type Pregabalin [Lyrica] 300 mg PO BID 06/12/16 10/02/23 History ARIPiprazole [Abilify] 30 mg PO DAILY 07/14/23 10/02/23 History Atorvastatin Calcium [Lipitor] 80 mg PO HS 07/14/23 10/02/23 History Dapagliflozin Propanediol [Farxiga] 10 mg PO DAILY 07/14/23 10/02/23 History Levothyroxine Sodium [Synthroid] 300 mcg PO DAILY 07/14/23 10/02/23 History Metoprolol Succinate (ER) [Toprol 50 mg PO DAILY 07/14/23 10/02/23 History XL] Ondansetron [Zofran] 4 mg PO Q8H PRN 07/14/23 10/02/23 History Tirzepatide [Mounjaro] 2.5 mg SQ FR 07/14/23 10/02/23 History amLODIPine [Norvasc] 10 mg PO DAILY 07/14/23 10/02/23 History Collagenase [Santyl Ointment] 1 applic TOPICAL DAILY 10/02/23 10/02/23 History Furosemide [Lasix] 20 mg PO DAILY 10/02/23 10/02/23 History Insulin Lispro See Protocol SQ ACHS 10/02/23 10/02/23 History L.acidoph,Paracasei, B.lactis 2 cap PO DAILY 10/02/23 10/02/23 History [Probiotic] Liquacel 30 ml PO TID 10/02/23 10/02/23 History Multivitamins, Thera [Multivitamin 1 tab PO DAILY 10/02/23 10/02/23 History (formulary)] HYDROcodone/APAP 7.5-325MG [[place] 1 tab PO Q6HR PRN #12 tab 10/06/23 Rx 7.5-325] Insulin Glargine,Hum.rec.anlog 26 units SQ DAILY #0 10/06/23 10/02/23 Rx [Lantus Solostar Pen] Mirtazapine [Remeron] 15 mg PO HS #3 tab 10/06/23 Rx Piperacillin-Tazobactam [Zosyn] 4.5 gm IVPB Q8HR #120 each 10/06/23 Rx Potassium Chloride ER [K-Dur 20] 20 meq PO DAILY #0 10/06/23 10/02/23 Rx Sennosides-Docusate Sodium 1 each PO BID tab 10/06/23 Rx [Senokot-S] Sertraline [Zoloft] 50 mg PO DAILY tab 10/06/23 Rx Tamsulosin [Flomax] 0.4 mg PO PC-BRKFST cap 10/06/23 Rx lisinopriL [Zestril] 10 mg PO HS #1 tab 10/06/23 Rx Allergies Allergy/AdvReac Type Severity Reaction Status Date / Time No Known Allergies Allergy Verified 11/17/23 04:25 Physical Exam Vitals: Vital Signs Temp Pulse Resp BP Pulse Ox 11/17/23 06:00 93 20 110/75 99 11/17/23 05:00 93 20 118/76 99 11/17/23 04:09 97.9 F 89 18 115/78 98 Intake and Output 11/16/23 11/17/2324 22:59 06:59 14:59 Other: Weight 136.078 kg Results CBC & Chem 7: 11/17/23 04:29 11/17/23 04:29 Labs: Abnormal Lab Results - Last 24 Hours (Table) 11/17/23 11/17/23 Range/Units 04:29 04:29 WBC 11.3 H (3.8-10.6) k/uL RBC 3.65 L (4.30-5.90) m/uL Hgb 9.0 L (13.0-17.5) gm/dL Hct 29.0 L (39.0-53.0) % MCV 79.4 L (80.0-100.0) fL MCH 24.5 L (25.0-35.0) pg MCHC 30.9 L (31.0-37.0) g/dL RDW 18.8 H (11.5-15.5) % Eosinophils # 0.8 H (0-0.7) k/uL Chloride 117 H (98-107) mmol/L Carbon Dioxide 8 L* (22-30) mmol/L BUN 77 H (9-20) mg/dL Creatinine 4.42 H (0.66-1.25) mg/dL Glucose 140 H (74-99) mg/dL Calcium 8.1 L (8.4-10.2) mg/dL Phosphorus 4.9 H (2.5-4.5) mg/dL AST 15 L (17-59) U/L Albumin 2.6 L (3.5-5.0) g/dL
[2023-11-17] MEDS: INSULIN ASPART (NovoLOG) 100 UNIT/ML VIAL SQ SCH (08:35)
[2023-11-17 08:48] LABS: Glucose,Whole Blood 141 mg/dL (70-110)
[2023-11-17] MEDS ORDERED: HYDROcodone/APAP 7.5-325MG 1 EACH TAB PO PRN (09:13)
[2023-11-17] MEDS ORDERED: ONDANSETRON 4 MG TAB PO PRN (09:13)
[2023-11-17] MEDS ORDERED: DAPTOmycin 500 MG VIAL IV SCH (09:15)
[2023-11-17] MEDS ORDERED: NON FORMULARY DRUG (Liquacel 30 ML) PO SCH (09:30)
--- NOTE | 2023-11-17 10:02 | P.NPCON ---
History of Present Illness - Reason for Consult acute renal failure - History of Present Illness Reason for consultation: Acute kidney injury History of present illness: Patient is a 48-year-old male seen in renal consultation for acute kidney injury. Patient's baseline creatinine is near 0.6-0.8 from September 2023. Creatinine this admission was elevated at 4.42. Patient presents from [facility] and was initially seen there for altered mental status. Patient is not a very reliable historian and is quite slow to respond. Patient has osteomyelitis as well as a large sacral decubitus ulcer with wound VAC for which she has been receiving IV antibiotics outpatient via PICC line. Patient has l ongstanding history of diabetes. He currently has a Dykes catheter. He was on lisinopril, Lasix as well as Farxiga outpatient. Blood pressure this admission has been stable. No fevers this admission. He is on room air. He denies history of stroke. Denies history of coronary artery disease. Currently receiving normal saline at 150 cc an hour. Bicarb noted to be low at 8. Vital signs are stable. General: No acute distress. HEENT: Head exam is unremarkable. LUNGS: No audible rhonchi or wheezes. HEART: Rate and Rhythm are regular. ABDOMEN: Nontender. EXTREMITITES: Feet wrapped. No drainage. No edema. Chronic changes noted. Past Medical History Past Medical History: Diabetes Mellitus, Hyperlipidemia, Hypertension, Pneumonia Additional Past Medical History / Comment(s): pressure ulcer bilat feet and coccyx History of Any Multi-Drug Resistant Organisms: None Reported Past Surgical History: No Surgical Hx Reported Additional Past Surgical History / Comment(s): debridement of left foot ulcer Past Anesthesia/Blood Transfusion Reactions: No Reported Reaction Past Psychological History: Anxiety, Bipolar, Depression, Panic Disorder Smoking Status: Never smoker Past Alcohol Use History: Rare Past Drug Use History: None Reported - Past Family History Father Additional Family Medical History / Comment(s): polycystic kidney disease. at age 3030 years old Mother Family Medical History: Coronary Artery Disease (CAD), Diabetes Mellitus, Myocardial Infarction ([place]) Medications and Allergies Home Medications Medication Instructions Recorded Confirmed Type Pregabalin [Lyrica] 300 mg PO BID 06/12/16 11/17/23 History ARIPiprazole [Abilify] 30 mg PO DAILY 07/14/23 11/17/23 History Atorvastatin Calcium [Lipitor] 80 mg PO HS 07/14/23 11/17/23 History Dapagliflozin Propanediol [Farxiga] 10 mg PO DAILY 07/14/23 11/17/23 History Levothyroxine Sodium [Synthroid] 300 mcg PO DAILY 07/14/23 11/17/23 History Metoprolol Succinate (ER) [Toprol 50 mg PO DAILY 07/14/23 11/17/23 History XL] Ondansetron [Zofran] 4 mg PO Q8H PRN 07/14/23 11/17/23 History Furosemide [Lasix] 20 mg PO DAILY 10/02/23 11/17/23 History Insulin Lispro See Protocol SQ ACHS 10/02/23 11/17/23 History L.acidoph,Paracasei, B.lactis 2 cap PO DAILY 10/02/23 11/17/23 History [Probiotic] Liquacel 30 ml PO TID 10/02/23 11/17/23 History Multivitamins, Thera [Multivitamin 1 tab PO DAILY 10/02/23 11/17/23 History (formulary)] HYDROcodone/APAP 7.5-325MG [[place] 1 tab PO Q6HR PRN #12 tab 10/06/23 11/17/23 Rx 7.5-325] Insulin Glargine,Hum.rec.anlog 26 units SQ DAILY #0 10/06/23 11/17/23 Rx [Lantus Solostar Pen] Potassium Chloride ER [K-Dur 20] 20 meq PO DAILY #0 10/06/23 11/17/23 Rx lisinopriL [Zestril] 10 mg PO HS #1 tab 10/06/23 11/17/23 Rx 0.9 % Sodium Chloride [Sodium 10 ml IV BID 11/17/23 11/17/23 History Chloride Flush] Cefepime [Maxipime] 2 gm IVPB Q8H 11/17/23 11/17/23 History DAPTOmycin [Cubicin] 6 mg IV Q48H 11/17/23 11/17/23 History Dulaglutide [Trulicity] 1.5 mg SQ TH 11/17/23 11/17/23 History Loperamide [Imodium] 2 mg PO QID PRN 11/17/23 11/17/23 History Mirtazapine [Remeron] 45 mg PO HS 11/17/23 11/17/23 History SILVER sulfADIAZINE Cream 1 applic TOPICAL MOWEFR 11/17/23 11/17/23 History [Silvadene 1% Cream] Zinc Gluconate [Zinc] 50 mg PO DAILY 11/17/23 11/17/23 History amLODIPine [Norvasc] 5 mg PO DAILY 11/17/23 11/17/23 History buPROPion HCL [Wellbutrin XL] 150 mg PO DAILY 11/17/23 11/17/23 History buPROPion XL [Wellbutrin XL] 300 mg PO DIRECTED 11/17/23 11/17/23 History metroNIDAZOLE [Flagyl] 500 mg PO Q8H 11/17/23 11/17/23 History Allergies Allergy/AdvReac Type Severity Reaction Status Date / Time No Known Allergies Allergy Verified 11/17/23 04:25 Physical Exam Vitals: Vital Signs Temp Pulse Pulse Resp BP BP Pulse Ox 11/17/23 09:17 97.5 F L 92 17 136/85 98 11/17/23 08:00 98.0 F 98 14 116/74 99 11/17/23 07:00 91 14 113/71 98 11/17/23 06:00 93 20 110/75 99 11/17/23 05:00 93 20 118/76 99 11/17/23 04:09 97.9 F 89 18 115/78 98 Intake and Output 11/16/23 11/17/23 11/17/23 22:59 06:59 14:59 Other: Weight 136.078 kg Results - Lab Results Most recent lab results Calcium 8.1 mg/dL (8.4-10.2) L 11/17/23 04:29 Phosphorus 4.9 mg/dL (2.5-4.5) H 11/17/23 04:29 Magnesium 1.6 mg/dL (1.6-2.3) 11/17/23 04:29 11/17/23 04:29 11/17/23 04:29 Assessment and Plan Plan: Assessment: 1. Acute kidney injury secondary to ATN secondary to severe sepsis and further worsen with the use of diuretics and BRIDGET inhibitor. Creatinine 4.42 on admission. Baseline creatinine near 0.6-0.8 from September 2023. 2. Lower extremity osteomyelitis on IV antibiotics. ID consulted. 3. Metabolic acidosis secondary to acute kidney injury and use of SGLT2 inhibitor. 4. Diabetes mellitus. 5. Benign hypertension. Plan: Change IV fluids to bicarb drip to be run at 125 cc an hour. Maintain Dykes catheter. Strict I's and O's. Check UA. Check renal ultrasound. Consider CT of the head. Avoid nephrotoxins. Thank you for the consultation. I will continue to follow the patient with you during his hospital stay.
--- NOTE | 2023-11-17 10:23 | CT ---
EXAMINATION TYPE: CT brain wo con CT DLP: 1280.60 mGycm, Automated exposure control for dose reduction was used. DATE OF EXAM: 11/17/2023 10:15 AM COMPARISON: 10/04/2023. CLINICAL INDICATION:Male, 48 years old with history of confusion rule out stroke, Confusion, rule out stroke TECHNIQUE: Brain: Axial CT images of the brain were obtained with coronal and sagittal reformats created and rev iewed. Contrast used: None. Oral contrast used: None. FINDINGS: Brain: Extra-axial spaces: No abnormal extra-axial fluid collections. Ventricular system: Dilatation in proportion to cerebral atrophy. Cerebral parenchyma: Cerebral atrophy. No acute intraparenchymal hemorrhage or mass effect. The dwyer -white junction is well differentiated. Scattered hypoattenuating areas are seen within the white mat ter. Cerebellum: Unremarkable. Mass effect: No evidence of midline shift. Intracranial vasculature: Atherosclerotic calcifications of the intracranial vessels. Soft tissues: Normal. Calvarium/osseous structures: No depressed skull fracture. Paranasal sinuses and mastoid air cells: Mild scattered paranasal sinus disease. Visualized orbits: Orbital contents are intact. IMPRESSION: 1. No CT evidence for acute CVA. 2. Nonspecific white matter changes, likely secondary to chronic small vessel ischemic disease.
--- NOTE | 2023-11-17 10:46 | US ---
EXAMINATION TYPE: US kidneys/renal and bladder DATE OF EXAM: 11/17/2023 COMPARISON: CT 10/02/2023 CLINICAL INDICATION: Male, 48 years old with history of colt; COLT EXAM MEASUREMENTS: Right Kidney: 13.9 x 7.0 x 6.2 cm Left Kidney: 14.0 x 4.9 x 7.1 cm Right Kidney: Enlarged. No hydronephrosis or masses seen Left Kidney: Enlarged. No hydronephrosis or masses seen Bladder: Appears distended, but there appears to be a catheter in place. Bladder wall appears thick ened measuring 0.45 cm. Bilateral Jets seen: Yes *Incidental finding: spleen appears enlarged measuring 14.8 cm. IMPRESSION: 1. No evidence for obstructive uropathy. Cortical medullary differentiation maintained. 2. Dykes catheter in place. 3. Splenomegaly
[2023-11-17] MEDS: ZINC SULFATE 220 MG CAP PO SCH (11:25)
[2023-11-17] MEDS: LEVOTHYROXINE 100 MCG TAB PO SCH (11:25)
[2023-11-17] MEDS: amLODIPine 5 MG TAB PO SCH (11:25)
[2023-11-17] MEDS: MULTIVITAMINS, THERA 1 EACH TAB PO SCH (11:25)
[2023-11-17] MEDS: ENOXAPARIN 30 MG/0.3 ML SYRINGE SQ SCH (11:25)
[2023-11-17] MEDS: INSULIN DETEMIR (LEVEMIR) 100 UNIT/ML SYR SQ SCH (11:25)
[2023-11-17] MEDS: METOPROLOL SUCCINATE (ER) 50 MG TAB.ER.24H PO SCH (11:25)
[2023-11-17] MEDS: NON FORMULARY DRUG (Dulaglutide [Trulicity] 1.5 MG/0.5 ML Each) SQ SCH (11:25)
[2023-11-17 11:31] LABS: Glucose,Whole Blood 133 mg/dL (70-110)
[2023-11-17] MEDS: DEXTROSE 5% IN WATER 1,000 ML with SODIUM BICARB (1 MEQ/ML) 150 ML IV SCH (12:03)
[2023-11-17] MEDS: ARIPiprazole 15 MG TAB PO SCH (12:04)
[2023-11-17] MEDS: buPROPion XL 150 MG TAB.ER.24H PO SCH (12:04)
[2023-11-17] MEDS: CEFEPIME 2 GM VIAL IVPB SCH (12:05)
[2023-11-17] MEDS: PREGABALIN 100 MG CAP PO SCH (12:06)
[2023-11-17] MEDS: CEFEPIME 2 GM in SODIUM CHLORIDE 0.9% 100 ML IVPB SCH (12:06)
[2023-11-17] MEDS: metroNIDAZOLE 500 MG TAB PO SCH (12:06)
[2023-11-17] MEDS: POTASSIUM CHLORIDE ER 20 MEQ TAB.ER PO SCH (12:06)
[2023-11-17] MEDS: DAPAGLIFLOZIN PROPANEDIOL 10 MG TABLET PO SCH (12:06)
--- NOTE | 2023-11-17 13:18 | P.CONS ---
History of Present Illness - Reason for Consult Consult date: 11/17/23 wound care - History of Present Illness This is a 48-year-old patient known to the wound care center who follows with Dr. Gutierrez with multiple ulcerations. Wound #2 status is Open. Original cause of wound was Gradually Appeared. The date acquired was: 06/25/2023. The wound has been in treatment 15 weeks. The wound is currently classified as a Grade 2 wound with etiology of Diabetic Wound/Ulcer of the Lower Extremity and is located on the Left,Plantar Foot. The wound measures 9.4cm length x 2.4cm width x 1cm depth; 17.719cm^2 area and 17.719cm^3 volume. There is bone, Fat Layer (Subcutaneous Tissue), and fascia exposed. There is no tunneling or undermining noted. There is a large amount of serosanguineous drainage noted. Foul odor after cleansing was noted. The wound margin is well defined and not attached to the wound base. There is large (67-100%) red, hyper - granulation within the wound bed. There is a small (1-33%) amount of necrotic tissue within the wound bed including Eschar. The periwound skin appearance exhibited: Callus, Scarring, Dry/Scaly. The periwound skin appearance did not exhibit: Crepitus, Excoriation, Induration, Rash, Maceration, Atrophie [place], Cyanosis, Ecchymosis, Hemosiderin Staining, Mottled, Pallor, Rubor, Erythema. Periwound temperature was noted as No Abnormality. Wound #4 status is Open. Original cause of wound was Blister. The date acquired was: 09/05/2023. The wound has been in treatment 10 weeks. The wound is currently classified as a Grade 2 wound with etiology of Diabetic Wound/Ulcer of the Lower Extremity and is located on the Right,Lateral Foot. The wound measures 1.2cm length x 1.6cm width x 0.1cm depth; 1.508cm^2 area and 0.151cm^3 volume. The wound is limited to skin breakdown. There is no tunneling or undermining noted. There is a none present amount of drainage noted. The wound margin is indistinct and nonvisible. There is medium (34-66%) pink granulation within the wound bed. There is a medium (34-66%) amount of necrotic tissue within the wound bed including Eschar. The periwound skin appearance had no abnormalities noted for texture. The periwound skin appearance had no abnormalities noted for color. The periwound skin appearance exhibited: Dry/Scaly. The periwound skin appearance did not exhibit: Maceration. Periwound temperature was noted as No Abnormality. Wound #5 status is Open. Original cause of wound was Pressure Injury. The date acquired was: 08/26/2023. The wound has been in treatment 5 weeks. The wound is currently classified as a Category/Stage IV wound with etiology of Pressure Ulcer and is located on the Right,Medial Coccyx. The wound measures 4.4cm length x 4.5cm width x 5cm depth; 15.551cm^2 area and 77.754cm^3 volume. There is Fat Layer (Subcutaneous Tissue) and fascia exposed. There is no tunneling or undermining noted. There is a medium amount of purulent drainage noted. Foul odor after cleansing was noted. The wound margin is distinct with the outline attached to the wound base. There is large (67-100%) red granulation within the wound bed. There is a small (1-33%) amount of necrotic tissue within the wound bed including Eschar. The periwound skin appearance exhibited: Excoriation, Rash, Scarring, Maceration, Erythema. The periwound skin appearance did not exhibit: Callus, Crepitus, Induration, Dry/Scaly, Atrophie [place], Cyanosis, Ecchymosis, Hemosiderin Staining, Mottled, Pallor, Rubor. The surrounding wound skin color is noted with erythema which is circumferential. Periwound temperature was noted as No Abnormality. Wound #6 status is Open. Original cause of wound was Blister. The date acquired was: 10/10/2023. The wound has been in treatment 4 weeks. The wound is currently classified as a Grade 1 wound with etiology of Diabetic Wound/Ulcer of the Lower Extremity and is located on the Left,Dorsal Foot. The wound measures 4.6cm length x 1.9cm width x 0.1cm depth; 6.864cm^2 area and 0.686cm^3 volume. There is no tunneling or undermining noted. There is a medium amount of serosanguineou s drainage noted. The wound margin is distinct with the outline attached to the wound base. There is medium (34-66%) granulation within the wound bed. There is a medium (34-66%) amount of necrotic tissue within the wound bed. The periwound skin appearance exhibited: Dry/Scaly, Ecchymosis, Erythema. The periwound skin appearance did not exhibit: Callus, Crepitus, Excoriation, Induration, Rash, Scarring, Maceration, Atrophie [place], Cyanosis, Hemosiderin Staining, Mottled, Pallor, Rubor. The surrounding wound skin color is noted with erythema which is circumferential. Periwound temperature was noted as No Abnormality. Wound #7 status is Open. Original cause of wound was Gradually Appeared. The date acquired was: 09/26/2023. The wound has been in treatment 4 weeks. The wound is currently classified as a Grade 1 wound with etiology of Diabetic Wound/Ulcer of the Lower Extremity and is located on the Left Toe - Web between 4th and 5th. The wound measures 0.8cm length x 1.8cm width x 0.1cm depth; 1.131cm^2 area and 0.113cm^3 volume. There is no tunneling or undermining noted. There is a small amount of serosanguineous drainage noted. The wound margin is distinct with the outline attached to the wound base. There is no granulation within the wound bed. There is a large (67-100%) amount of necrotic tissue within the wound bed including Eschar. The periwound skin appearance had no abnormalities noted for color. The periwound skin appearance exhibited: Maceration. The periwound skin appearance did not exhibit: Callus, Crepitus, Excoriation, Induration, Rash, Scarring, Dry/Scaly. Periwound temperature was noted as No Abnormality. Wound #8 status is Open. Original cause of wound was Gradually Appeared. The date acquired was: 10/17/2023. The wound has been in treatment 3 weeks. The wound is currently classified as a Grade 2 wound with etiology of Diabetic Wound/Ulcer of the Lower Extremity and is located on the Right Calcaneus. The wound measures 3.7cm length x 3.6cm width x 0.1cm depth; 10.462cm^2 area and 1.046cm^3 volume. There is no tunneling or undermining noted. There is a medium amount of serosanguineous drainage noted. The wound margin is flat and intact. There is me dium (34-66%) pink granulation within the wound bed. There is a medium (34-66%) amount of necrotic tissue within the wound bed including Eschar. The periwound skin appearance exhibited: Scarring, Dry/Scaly. The periwound skin appearance did not exhibit: Callus, Crepitus, Excoriation, Induration, Rash, Maceration, Atrophie [place], Cyanosis, Ecchymosis, Hemosiderin Staining, Mottled, Pallor, Rubor, Erythema. Periwound temperature was noted as No Abnormality. Review of systems: Unable to obtain due to patient's mental status Physical exam: General Appearance: Alert, cooperative, no distress, appears stated age. Skin: See HPI all other Skin color, texture, tugor normal, no rashes or lesions. Neurologic: Alert oriented x3 Assessment: 1. 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 Nonpressure ulcer of other part of right foot with fat layer exposure 3. Stage IV pressure ulcer right buttocks new 4. Nonpressure ulcer of other part of left foot with fat layer exposure 5. Nonpressure ulcer of right heel and midfoot with fat layer exposure 6. Diabetic foot ulcer Plan: 1. Left foot: Apply absorptive silver, saline moist gauze, dry gauze, rolled gauze secure with paper tape. Coccyx ulceration: Apply absorptive silver, moistened with saline, apply sacral border foam. Right foot ulcerations: Apply honey gel, dry gauze rolled gauze and secure with paper tape. 2. Return to the wound care center on November [address] Gutierrez Thank you for the consultation any questions please contact the wound care center DNP note has been reviewed and discussed with Dr. Segura and the impression and plan of care has been directed as dictated. Past Medical History Past Medical History: Diabetes Mellitus, Hyperlipidemia, Hypertension, Pneumonia Additional Past Medical History / Comment(s): pressure ulcer bilat feet and coccyx History of Any Multi-Drug Resistant Organisms: None Reported Past Surgical History: No Surgical Hx Reported Additional Past Surgical History / Comment(s): debridement of left foot ulcer Past Anesthesia/Blood Transfusion Reactions: No Reported Reaction Past Psychological History: Anxiety, Bipolar, Depression, Panic Disorder Smoking Status: Never smoker Past Alcohol Use History: Rare Past Drug Use History: None Reported - Past Family History Father Additional Family Medical History / Comment(s): polycystic kidney disease. at age 3030 years old Mother Family Medical History: Coronary Artery Disease (CAD), Diabetes Mellitus, Myocardial Infarction ([place]) Medications and Allergies Home Medications Medication Instructions Recorded Confirmed Type Pregabalin [Lyrica] 300 mg PO BID 06/12/16 11/17/23 History ARIPiprazole [Abilify] 30 mg PO DAILY 07/14/23 11/17/23 History Atorvastatin Calcium [Lipitor] 80 mg PO HS 07/14/23 11/17/23 History Dapagliflozin Propanediol [Farxiga] 10 mg PO DAILY 07/14/23 11/17/23 History Levothyroxine Sodium [Synthroid] 300 mcg PO DAILY 07/14/23 11/17/23 History Metoprolol Succinate (ER) [Toprol 50 mg PO DAILY 07/14/23 11/17/23 History XL] Ondansetron [Zofran] 4 mg PO Q8H PRN 07/14/23 11/17/23 History Furosemide [Lasix] 20 mg PO DAILY 10/02/23 11/17/23 History Insulin Lispro See Protocol SQ ACHS 10/02/23 11/17/23 History L.acidoph,Paracasei, B.lactis 2 cap PO DAILY 10/02/23 11/17/23 History [Probiotic] Liquacel 30 ml PO TID 10/02/23 11/17/23 History Multivitamins, Thera [Multivitamin 1 tab PO DAILY 10/02/23 11/17/23 History (formulary)] HYDROcodone/APAP 7.5-325MG [[place] 1 tab PO Q6HR PRN #12 tab 10/06/23 11/17/23 Rx 7.5-325] Insulin Glargine,Hum.rec.anlog 26 units SQ DAILY #0 10/06/23 11/17/23 Rx [Lantus Solostar Pen] Potassium Chloride ER [K-Dur 20] 20 meq PO DAILY #0 10/06/23 11/17/23 Rx lisinopriL [Zestril] 10 mg PO HS #1 tab 10/06/23 11/17/23 Rx 0.9 % Sodium Chloride [Sodium 10 ml IV BID 11/17/23 11/17/23 History Chloride Flush] Cefepime [Maxipime] 2 gm IVPB Q8H 11/17/23 11/17/23 History DAPTOmycin [Cubicin] 6 mg IV Q48H 11/17/23 11/17/23 History Dulaglutide [Trulicity] 1.5 mg SQ TH 11/17/23 11/17/23 History Loperamide [Imodium] 2 mg PO QID PRN 11/17/23 11/17/23 History Mirtazapine [Remeron] 45 mg PO HS 11/17/23 11/17/23 History SILVER sulfADIAZINE Cream 1 applic TOPICAL MOWEFR 11/17/23 11/17/23 History [Silvadene 1% Cream] Zinc Gluconate [Zinc] 50 mg PO DAILY 11/17/23 11/17/23 History amLODIPine [Norvasc] 5 mg PO DAILY 11/17/23 11/17/23 History buPROPion HCL [Wellbutrin XL] 150 mg PO DAILY 11/17/23 11/17/23 History buPROPion XL [Wellbutrin XL] 300 mg PO DIRECTED 11/17/23 11/17/23 History metroNIDAZOLE [Flagyl] 500 mg PO Q8H 11/17/23 11/17/23 History Allergies Allergy/AdvReac Type Severity Reaction Status Date / Time No Known Allergies Allergy Verified 11/17/23 04:25 Physical Exam Vitals: Vital Signs Temp Pulse Pulse Resp BP BP Pulse Ox 11/17/23 09:17 97.5 F L 92 17 136/85 98 11/17/23 08:00 98.0 F 98 14 116/74 99 11/17/23 07:00 91 14 113/71 98 11/17/23 06:00 93 20 110/75 99 11/17/23 05:00 93 20 118/76 99 11/17/23 04:09 97.9 F 89 18 115/78 98 Intake and Output 11/16/23 11/17/23 11/17/23 22:59 06:59 14:59 Other: Weight 136.078 kg Results CBC & Chem 7: 11/17/23 04:29 11/17/23 04:29 Labs: Abnormal Lab Results - Last 24 Hours (Table) 11/17/23 11/17/23 11/17/23 Range/Units 04:29 04:29 08:43 WBC 11.3 H (3.8-10.6) k/uL RBC 3.65 L (4.30-5.90) m/uL Hgb 9.0 L (13.0-17.5) gm/dL Hct 29.0 L (39.0-53.0) % MCV 79.4 L (80.0-100.0) fL MCH 24.5 L (25.0-35.0) pg MCHC 30.9 L (31.0-37.0) g/dL RDW 18.8 H (11.5-15.5) % Eosinophils # 0.8 H (0-0.7) k/uL Chloride 117 H (98-107) mmol/L Carbon Dioxide 8 L* (22-30) mmol/L BUN 77 H (9-20) mg/dL Creatinine 4.42 H (0.66-1.25) mg/dL Glucose 140 H (74-99) mg/dL POC Glucose (mg/dL) 141 H (70-110) mg/dL Calcium 8.1 L (8.4-10.2) mg/dL Phosphorus 4.9 H (2.5-4.5) mg/dL AST 15 L (17-59) U/L Albumin 2.6 L (3.5-5.0) g/dL 11/17/23 Range/Units 11:30 WBC (3.8-10.6) k/uL RBC (4.30-5.90) m/uL Hgb (13.0-17.5) gm/dL Hct (39.0-53.0) % MCV (80.0-100.0) fL MCH (25.0-35.0) pg MCHC (31.0-37.0) g/dL RDW (11.5-15.5) % Eosinophils # (0-0.7) k/uL Chloride (98-107) mmol/L Carbon Dioxide (22-30) mmol/L BUN (9-20) mg/dL Creatinine (0.66-1.25) mg/dL Glucose (74-99) mg/dL POC Glucose (mg/dL) 133 H (70-110) mg/dL Calcium (8.4-10.2) mg/dL Phosphorus (2.5-4.5) mg/dL AST (17-59) U/L Albumin (3.5-5.0) g/dL Assessment and Plan (1) Non-pressure chronic ulcer of left heel and midfoot with fat layer exposed Current Visit: Yes Status: Acute Code(s): L97.422 - NON-PRS CHR ULCER OF LEFT HEEL AND MIDFOOT W FAT LAYER EXPOS SNOMED Code(s): 32824365516060215 (2) Non-pressure chronic ulcer of other part of right foot with fat layer exposed Current Visit: Yes Status: Acute Code(s): L97.512 - NON-PRS CHRONIC ULCER OTH PRT RIGHT FOOT W FAT LAYER EXPOSED SNOMED Code(s): 89720057558186006 (3) Pressure ulcer of right buttock, stage 4 Current Visit: Yes Status: Acute Code(s): L89.314 - PRESSURE ULCER OF RIGHT BUTTOCK, STAGE 4 SNOMED Code(s): 98700916574896 (4) Non-pressure chronic ulcer of other part of left foot with fat layer exposed Current Visit: Yes Status: Acute Code(s): L97.522 - NON-PRS CHRONIC ULCER OTH PRT LEFT FOOT W FAT LAYER EXPOSED SNOMED Code(s): 99473864961340551 (5) Non-pressure chronic ulcer of right heel and midfoot with necrosis of muscle Current Visit: Yes Status: Acute Code(s): L97.413 - NON-PRS CHR ULCER OF RIGHT HEEL AND MIDFOOT W NECROS MUSCLE SNOMED Code(s): 55102255780259960 (6) Type 2 diabetes mellitus with foot ulcer Current Visit: Yes Status: Acute Code(s): E11.621 - TYPE 2 DIABETES MELLITUS WITH FOOT ULCER; L97.509 - NON-PRESSURE CHRONIC ULCER OTH PRT UNSP FOOT W UNSP SEVERITY SNOMED Code(s): 101420561
[2023-11-17] MEDS: PIPERACILLIN-TAZOBACTAM 3.375 GM in SODIUM CHLORIDE 0.9% 100 ML IVPB SCH (14:01)
[2023-11-17 15:07] LABS: Appearance,Urine Turbid (Clear); Bacteria,Urine Occasional /hpf; Bilirubin,Urine Negative (Negative); Blood,Urine Moderate (Negative); Color,Urine Colorless; Glucose,Urine (UA) 2+ (Negative); Ketones,Urine Negative (Negative); Leukocyte Esterase,Urine Large (Negative); Nitrite,Urine Negative (Negative); PH, Urine 5.5 (5.0-8.0); Protein,Urine 1+ (Negative); RBC,Urine 7 /hpf (0-5); Specific Gravity,Urine 1.011 (1.001-1.035); Squamous Epithelial Cell,Urine 1 /hpf (0-4); Urobilinogen,Urine <2.0 mg/dL (<2.0); WBC,Urine >182 /hpf (0-5)
--- NOTE | 2023-11-17 16:45 | P.GSCN ---
History of Present Illness History of present illness: 48-year-old diabetic male patient is well-known to me from the wound clinic. She has been admitted with mental status changes patient is CT scan which was negative for intracranial bleed. Patient also has history of chronic renal failure his creatinine is 4.2 under care of nephrology care patient had a large wound on the plantar aspect the left foot has been treating with local wound ca re and debridement in the in the wound center patient has decent granulation tissue on the plantar aspect of the left foot however plan was to placed a skin graft which has been arranged and also has a wound on the right heel with been treated with local wound care and patient is a large pressure ulcer her at the sacral area area will be treating with local wound care using Aquacel rope On examination patient was seen in his room his vital signs stable afebrile Neck is supple no bruit appreciated Chest is clear good entry both lungs few crackles the lung bases. Second sound present Abdomen soft nontender Vascular femorals are 1+ bilateral wound left foot plantar aspect granulating Plan is patient will need air mattress bed we will change dressing tomorrow and follow with you when patient is stabilized then will follow in the wound clinic Past Medical History Past Medical History: Diabetes Mellitus, Hyperlipidemia, Hypertension, Pneumonia Additional Past Medical History / Comment(s): pressure ulcer bilat feet and coccyx History of Any Multi-Drug Resistant Organisms: None Reported Past Surgical History: No Surgical Hx Reported Additional Past Surgical History / Comment(s): debridement of left foot ulcer Past Anesthesia/Blood Transfusion Reactions: No Reported Reaction Past Psychological History: Anxiety, Bipolar, Depression, Panic Disorder Smoking Status: Never smoker Past Alcohol Use History: Rare Past Drug Use History: None Reported - Past Family History Father Additional Family Medical History / Comment(s): polycystic kidney disease. at age 3030 years old Mother Family Medical History: Coronary Artery Disease (CAD), Diabetes Mellitus, Myocardial Infarction ([place]) Medications and Allergies Home Medications Medication Instructions Recorded Confirmed Type Pregabalin [Lyrica] 300 mg PO BID 06/12/16 11/17/23 History ARIPiprazole [Abilify] 30 mg PO DAILY 07/14/23 11/17/23 History Atorvastatin Calcium [Lipitor] 80 mg PO HS 07/14/23 11/17/23 History Dapagliflozin Propanediol [Farxiga] 10 mg PO DAILY 07/14/23 11/17/23 History Levothyroxine Sodium [Synthroid] 300 mcg PO DAILY 07/14/23 11/17/23 History Metoprolol Succinate (ER) [Toprol 50 mg PO DAILY 07/14/23 11/17/23 History XL] Ondansetron [Zofran] 4 mg PO Q8H PRN 07/14/23 11/17/23 History Furosemide [Lasix] 20 mg PO DAILY 10/02/23 11/17/23 History Insulin Lispro See Protocol SQ ACHS 10/02/23 11/17/23 History L.acidoph,Paracasei, B.lactis 2 cap PO DAILY 10/02/23 11/17/23 History [Probiotic] Liquacel 30 ml PO TID 10/02/23 11/17/23 History Multivitamins, Thera [Multivitamin 1 tab PO DAILY 10/02/23 11/17/23 History (formulary)] HYDROcodone/APAP 7.5-325MG [[place] 1 tab PO Q6HR PRN #12 tab 10/06/23 11/17/23 Rx 7.5-325] Insulin Glargine,Hum.rec.anlog 26 units SQ DAILY #0 10/06/23 11/17/23 Rx [Lantus Solostar Pen] Potassium Chloride ER [K-Dur 20] 20 meq PO DAILY #0 10/06/23 11/17/23 Rx lisinopriL [Zestril] 10 mg PO HS #1 tab 10/06/23 11/17/23 Rx 0.9 % Sodium Chloride [Sodium 10 ml IV BID 11/17/23 11/17/23 History Chloride Flush] Cefepime [Maxipime] 2 gm IVPB Q8H 11/17/23 11/17/23 History DAPTOmycin [Cubicin] 6 mg IV Q48H 11/17/23 11/17/23 History Dulaglutide [Trulicity] 1.5 mg SQ TH 11/17/23 11/17/23 History Loperamide [Imodium] 2 mg PO QID PRN 11/17/23 11/17/23 History Mirtazapine [Remeron] 45 mg PO HS 11/17/23 11/17/23 History SILVER sulfADIAZINE Cream 1 applic TOPICAL MOWEFR 11/17/23 11/17/23 History [Silvadene 1% Cream] Zinc Gluconate [Zinc] 50 mg PO DAILY 11/17/23 11/17/23 History amLODIPine [Norvasc] 5 mg PO DAILY 11/17/23 11/17/23 History buPROPion HCL [Wellbutrin XL] 150 mg PO DAILY 11/17/23 11/17/23 History buPROPion XL [Wellbutrin XL] 300 mg PO DIRECTED 11/17/23 11/17/23 History metroNIDAZOLE [Flagyl] 500 mg PO Q8H 11/17/23 11/17/23 History Allergies Allergy/AdvReac Type Severity Reaction Status Date / Time No Known Allergies Allergy Verified 11/17/23 04:25 Surgical - Exam Vital Signs Temp Pulse Resp BP Pulse Ox 97.9 F 89 18 115/78 98 11/17/23 04:09 11/17/23 04:09 11/17/23 04:09 11/17/23 04:09 11/17/23 04:09 Results - Labs 11/17/23 04:29 11/17/23 04:29 Abnormal Lab Results - Last 24 Hours (Table) 11/17/23 11/17/23 11/17/23 Range/Units 04:29 04:29 08:43 WBC 11.3 H (3.8-10.6) k/uL RBC 3.65 L (4.30-5.90) m/uL Hgb 9.0 L (13.0-17.5) gm/dL Hct 29.0 L (39.0-53.0) % MCV 79.4 L (80.0-100.0) fL MCH 24.5 L (25.0-35.0) pg MCHC 30.9 L (31.0-37.0) g/dL RDW 18.8 H (11.5-15.5) % Eosinophils # 0.8 H (0-0.7) k/uL Chloride 117 H (98-107) mmol/L Carbon Dioxide 8 L* (22-30) mmol/L BUN 77 H (9-20) mg/dL Creatinine 4.42 H (0.66-1.25) mg/dL Glucose 140 H (74-99) mg/dL POC Glucose (mg/dL) 141 H (70-110) mg/dL Calcium 8.1 L (8.4-10.2) mg/dL Phosphorus 4.9 H (2.5-4.5) mg/dL AST 15 L (17-59) U/L Albumin 2.6 L (3.5-5.0) g/dL Urine Protein (Negative) Urine Glucose (UA) (Negative) Urine Blood (Negative) Ur Leukocyte Esterase (Negative) Urine RBC (0-5) /hpf Urine WBC (0-5) /hpf Urine WBC Clumps (None) /hpf Urine Bacteria (None) /hpf 11/17/23 11/17/23 Range/Units 11:30 14:50 WBC (3.8-10.6) k/uL RBC (4.30-5.90) m/uL Hgb (13.0-17.5) gm/dL Hct (39.0-53.0) % MCV (80.0-100.0) fL MCH (25.0-35.0) pg MCHC (31.0-37.0) g/dL RDW (11.5-15.5) % Eosinophils # (0-0.7) k/uL Chloride (98-107) mmol/L Carbon Dioxide (22-30) mmol/L BUN (9-20) mg/dL Creatinine (0.66-1.25) mg/dL Glucose (74-99) mg/dL POC Glucose (mg/dL) 133 H (70-110) mg/dL Calcium (8.4-10.2) mg/dL Phosphorus (2.5-4.5) mg/dL AST (17-59) U/L Albumin (3.5-5.0) g/dL Urine Protein 1+ H (Negative) Urine Glucose (UA) 2+ H (Negative) Urine Blood Moderate H (Negative) Ur Leukocyte Esterase Large H (Negative) Urine RBC 7 H (0-5) /hpf Urine WBC >182 H (0-5) /hpf Urine WBC Clumps Many H (None) /hpf Urine Bacteria Occasional H (None) /hpf Diabetes panel 11/17/23 Range/Units 04:29 Sodium 138 (137-145) mmol/L Potassium 4.1 (3.5-5.1) mmol/L Chloride 117 H (98-107) mmol/L Carbon Dioxide 8 L* (22-30) mmol/L BUN 77 H (9-20) mg/dL Creatinine 4.42 H (0.66-1.25) mg/dL Glucose 140 H (74-99) mg/dL Calcium 8.1 L (8.4-10.2) mg/dL AST 15 L (17-59) U/L ALT 12 (4-49) U/L Alkaline Phosphatase 123 (38-126) U/L Total Protein 6.4 (6.3-8.2) g/dL Albumin 2.6 L (3.5-5.0) g/dL Calcium panel 11/17/23 Range/Units 04:29 Calcium 8.1 L (8.4-10.2) mg/dL Phosphorus 4.9 H (2.5-4.5) mg/dL Albumin 2.6 L (3.5-5.0) g/dL Pituitary panel 11/17/23 Range/Units 04:29 Sodium 138 (137-145) mmol/L Potassium 4.1 (3.5-5.1) mmol/L Chloride 117 H (98-107) mmol/L Carbon Dioxide 8 L* (22-30) mmol/L BUN 77 H (9-20) mg/dL Creatinine 4.42 H (0.66-1.25) mg/dL Glucose 140 H (74-99) mg/dL Calcium 8.1 L (8.4-10.2) mg/dL Adrenal panel 11/17/23 Range/Units 04:29 Sodium 138 (137-145) mmol/L Potassium 4.1 (3.5-5.1) mmol/L Chloride 117 H (98-107) mmol/L Carbon Dioxide 8 L* (22-30) mmol/L BUN 77 H (9-20) mg/dL Creatinine 4.42 H (0.66-1.25) mg/dL Glucose 140 H (74-99) mg/dL Calcium 8.1 L (8.4-10.2) mg/dL Total Bilirubin 0.5 (0.2-1.3) mg/dL AST 15 L (17-59) U/L ALT 12 (4-49) U/L Alkaline Phosphatase 123 (38-126) U/L Total Protein 6.4 (6.3-8.2) g/dL Albumin 2.6 L (3.5-5.0) g/dL
[2023-11-17 17:26] LABS: Glucose,Whole Blood 149 mg/dL (70-110)
[2023-11-17] MEDS ORDERED: ZINC OXIDE PASTE (Z-GUARD) 1 APPLIC TOPICAL PRN (18:21)
[2023-11-17 20:05] LABS: Glucose,Whole Blood 144 mg/dL (70-110)
[2023-11-17] MEDS: MIRTAZAPINE 45 MG TABLET PO SCH (21:18)
[2023-11-17] MEDS: NYSTATIN 100,000 UNIT/GM OINT 30 GM TUBE TOPICAL SCH (21:18)
[2023-11-17] MEDS: ATORVASTATIN 80 MG TAB PO SCH (21:18)
--- NOTE | 2023-11-17 22:39 | P.CONS ---
History of Present Illness - Reason for Consult Consult date: 11/17/23 Osteomyelitis Requesting physician: Pradeep Lua - Chief Complaint Mental status changes x 1 day - History of Present Illness Patient is a 48-year-old male with a past medical history significant for diabetes mellitus hypertension hyperlipidemia patient has been dealing with extensive left diabetic foot wound and infection for the patient did have multiple admission to the hospital last admission was back in beginning of September with local culture grew Enterobacter Enterococcus faecalis and Proteus for the patient was advised Zosyn unfortunately patient insurance refused to pay any further for IV Zosyn and after discussion with the [facility]dc patient antib iotic was switched over to cefepime vancomycin and Flagyl patient was noticed to have elevated vancomycin trough and creatinine on recent blood draw in the fdc was advised to discontinue vancomycin and start the patient on daptomycin patient subsequently has been sent to the [facility] for mental status changes as the patient was noted to be quite sleepy and lethargic and the patient subsequently transferred to [facility] for further evaluation on presentation the hospital patient was afebrile and no fever and recorded subsequently patient has been complaining of weakness but no headache or URI symptoms denies any chest pain shortness of breath or cough no nausea vomiting no abdominal pain or any worsening pain to the left foot wound area which seem to have significant decrease in size and if hospital drainage patient presented hospital was afebrile he did have mild elevated white count of 11.3 BUN of 77 creatinine is 4.42 liver enzymes are normal urine has been positive patient has been admitted to hospital infectious he was consulted regarding antibiotic management Review of Systems Positive point and negatives has been mentioned in the HPI, complete review of systems was performed and all other systems are negative Past Medical History Past Medical History: Diabetes Mellitus, Hyperlipidemia, Hypertension, Pneumonia Additional Past Medical History / Comment(s): pressure ulcer bilat feet and coccyx History of Any Multi-Drug Resistant Organisms: None Reported Past Surgical History: No Surgical Hx Reported Additional Past Surgical History / Comment(s): debridement of left foot ulcer Past Anesthesia/Blood Transfusion Reactions: No Reported Reaction Past Psychological History: Anxiety, Bipolar, Depression, Panic Disorder Smoking Status: Never smoker Past Alcohol Use History: Rare Past Drug Use History: None Reported - Past Family History Father Additional Family Medical History / Comment(s): polycystic kidney disease. at age 3030 years old Mother Family Medical History: Coronary Artery Disease (CAD), Diabetes Mellitus, Myocardial Infarction ([place]) Medications and Allergies Home Medications Medication Instructions Recorded Confirmed Type ARIPiprazole [Abilify] 30 mg PO DAILY 07/14/23 11/17/23 History Atorvastatin Calcium [Lipitor] 80 mg PO HS 07/14/23 11/17/23 History Dapagliflozin Propanediol [Farxiga] 10 mg PO DAILY 07/14/23 11/17/23 History Levothyroxine Sodium [Synthroid] 300 mcg PO DAILY 07/14/23 11/17/23 History Metoprolol Succinate (ER) [Toprol 50 mg PO DAILY 07/14/23 11/17/23 History XL] Ondansetron [Zofran] 4 mg PO Q8H PRN 07/14/23 11/17/23 History Insulin Lispro See Protocol SQ ACHS 10/02/23 11/17/23 History L.acidoph,Paracasei, B.lactis 2 cap PO DAILY 10/02/23 11/17/23 History [Probiotic] Liquacel 30 ml PO TID 10/02/23 11/17/23 History Multivitamins, Thera [Multivitamin 1 tab PO DAILY 10/02/23 11/17/23 History (formulary)] Insulin Glargine,Hum.rec.anlog 26 units SQ DAILY #0 10/06/23 11/17/23 Rx [Lantus Solostar Pen] Potassium Chloride ER [K-Dur 20] 20 meq PO DAILY #0 10/06/23 11/17/23 Rx 0.9 % Sodium Chloride [Sodium 10 ml IV BID 11/17/23 11/17/23 History Chloride Flush] Dulaglutide [Trulicity] 1.5 mg SQ TH 11/17/23 11/17/23 History Loperamide [Imodium] 2 mg PO QID PRN 11/17/23 11/17/23 History Mirtazapine [Remeron] 45 mg PO HS 11/17/23 11/17/23 History Zinc Gluconate [Zinc] 50 mg PO DAILY 11/17/23 11/17/23 History amLODIPine [Norvasc] 5 mg PO DAILY 11/17/23 11/17/23 History buPROPion HCL [Wellbutrin XL] 150 mg PO DAILY 11/17/23 11/17/23 History buPROPion XL [Wellbutrin XL] 300 mg PO DIRECTED 11/17/23 11/17/23 History Enoxaparin [Lovenox] 30 mg SQ DAILY each 11/22/23 Rx Folic Acid 1 mg PO DAILY tab 11/22/23 Rx Nystatin 100,000 Unit/gm Oint 1 applic TOPICAL TID each 11/22/23 Rx [Mycostatin Oint] Nystatin 100,000 Unit/gm Powd 1 applic TOPICAL BID each 11/22/23 Rx [Mycostatin Powder] Tamsulosin [Flomax] 0.4 mg PO PC-BRKFST #0 cap 11/22/23 Rx Thiamine [Vitamin B-1] 100 mg PO DAILY tab 11/22/23 Rx Allergies Allergy/AdvReac Type Severity Reaction Status Date / Time No Known Allergies Allergy Verified 11/17/23 04:25 Physical Exam Vitals: Vital Signs Temp Pulse Pulse Resp BP BP Pulse Ox 11/17/23 09:17 97.5 F L 92 17 136/85 98 11/17/23 08:00 98.0 F 98 14 116/74 99 11/17/23 07:00 91 14 113/71 98 11/17/23 06:00 93 20 110/75 99 11/17/23 05:00 93 20 118/76 99 11/17/23 04:09 97.9 F 89 18 115/78 98 Intake and Output 11/16/23 11/17/23 11/17/23 22:59 06:59 14:59 Other: Weight 136.078 kg GENERAL DESCRIPTION: Middle-aged male lying in bed, no distress. No tachypnea or accessory muscle of respiration use. HEENT: Shows Pallor , no scleral icterus. Oral mucous membrane is dry. No pharyngeal erythema or thrush NECK: Trachea central, no thyromegaly. LUNGS: Unlabored breathing. Clear to auscultation anteriorly. No wheeze or crackle. HEART: S1, S2, regular rate and rhythm. No loud murmur ABDOMEN: Soft, no tenderness , guarding or rigidity, no organomegaly EXTREMITIES: Left foot plantar wound has decreased in size no slough tissue or surrounding redness patient did have a necrotic wound to the right heel but no foul-smelling drainage SKIN: No rash, no masses palpable. NEUROLOGICAL: The patient is awake, alert, oriented x3, mood and affect normal. Results CBC & Chem 7: 11/21/23 07:04 11/22/23 06:03 Labs: Abnormal Lab Results - Last 24 Hours (Table) 11/17/23 11/17/23 11/17/23 Range/Units 04:29 04:29 08:43 WBC 11.3 H (3.8-10.6) k/uL RBC 3.65 L (4.30-5.90) m/uL Hgb 9.0 L (13.0-17.5) gm/dL Hct 29.0 L (39.0-53.0) % MCV 79.4 L (80.0-100.0) fL MCH 24.5 L (25.0-35.0) pg MCHC 30.9 L (31.0-37.0) g/dL RDW 18.8 H (11.5-15.5) % Eosinophils # 0.8 H (0-0.7) k/uL Chloride 117 H (98-107) mmol/L Carbon Dioxide 8 L* (22-30) mmol/L BUN 77 H (9-20) mg/dL Creatinine 4.42 H (0.66-1.25) mg/dL Glucose 140 H (74-99) mg/dL POC Glucose (mg/dL) 141 H (70-110) mg/dL Calcium 8.1 L (8.4-10.2) mg/dL Phosphorus 4.9 H (2.5-4.5) mg/dL AST 15 L (17-59) U/L Albumin 2.6 L (3.5-5.0) g/dL Assessment and Plan (1) Osteomyelitis Current Visit: Yes Status: Acute Code(s): M86.9 - OSTEOMYELITIS, UNSPECIFIED SNOMED Code(s): 49109321 (2) Type 2 diabetes mellitus with foot ulcer Current Visit: Yes Status: Acute Code(s): E11.621 - TYPE 2 DIABETES MELLITUS WITH FOOT ULCER; L97.509 - NON-PRESSURE CHRONIC ULCER OTH PRT UNSP FOOT W UNSP SEVERITY SNOMED Code(s): 510756545 (3) Diabetic foot infection Current Visit: No Status: Acute Code(s): E11.628 - TYPE 2 DIABETES MELLITUS WITH OTHER SKIN COMPLICATIONS; L08.9 - LOCAL INFECTION OF THE SKIN AND SUBCUTANEOUS TISSUE, UNSP SNOMED Code(s): 655436430 Plan: 1patient with a left diabetic foot wound and underlying osteomyelitis with the last culture positive for Enterobacter Enterococcus and Proteus unfortunately patient insurance refused to pay for the Zosyn and the patient has been treated with the vancomycin and cefepime along with the Flagyl not being admitted to hospital with renal failure secondary to Vanco toxicity vancomycin has been discontinued nephrology has been consulted 2-we will start the patient on Zosyn 3.375 g every 12 hours 3-local wound care to the left foot wound with a dry Aquacel silver dressing change every 48 hour keep the area of the pressure 4-patient also noted to have a necrotic wound to the right heel area which has been new for which vascular surgery be consulted for possible debridement Case has been discussed with Dr. Gutierrez who knows the patient well We will follow on clinical condition and cultures to further adjust medication if needed Thank you for this consultation we will follow the patient along with you Dictation was produced using [employer] dictation software. please excuse any grammatical, word or spelling errors. Time with Patient: Greater than 30
--- NOTE | 2023-11-18 04:16 | P.HPIM ---
History of Present Illness H&P Date: 11/17/23 Patient is a 48-year-old male with a PMH of insulin-dependent diabetes melitis, PAD with chronic bilateral feet ulcers, chronic sacral decubitus ulcer, hypertension, and hyperlipidemia who was transferred from [facility] where the patient had presented for altered mental status. No meaningful history could be obtained from the patient as he was severely confused at the time of interview, only oriented to self. History obtained from the chart and from the ED provider. The patient The patient who is currently undergoing treatment for osteomyelitis involving sacral decubitus on wound VAC, was noted to be more confused than usual. He has been receiving IV daptomycin, cefepime, and Flagyl via PICC line. He was subsequently sent to [facility] where he was noted to be in acute renal failure. Laboratory evaluation reveals a creatinine of 4.42 (baseline 0.6), with BUN 77 (baseline 10), WBC count 11.3, hemoglobin 9.0 (similar to baseline), with MCV 79.4, and phosphorus 4.9 with glucose 140. ED documentation reviewed and case discussed with ED provider. Review of systems: Unable to obtain due to mental status Physical examination: Vital signs reviewed General: Ill-appearing male, no distress, appears older than stated age, obese Derm: Left lateral foot stage III ulcer extending from heel to left fifth toe, unstageable sacral large decubitus, unstageable right foot ulcer, warm Head: atraumatic, normocephalic, symmetric Eyes: EOMI, no lid lag, anicteric sclera, pupils equal round reactive to light ENT: Nose and ears atraumatic Neck: No cervical lymphadenopathy, trachea midline, supple Mouth: no lip lesion, mucus membranes dry Cardiovascular: S1S2 reg, no murmur, positive dorsalis pedis pulse bilateral, no edema Lungs: CTA bilateral, no rhonchi, no rales, no accessory muscle use Abdominal: soft, nontender to palpation, no guarding Ext: no gross muscle atrophy, no contractures, Neuro: no gross focal neuro deficits Psych: Oriented only to self, moving all extremities Assessment: Acute renal failure Urinary retention with indwelling Dykes catheter, on admission Altered mental status, likely uremic encephalopathy due to above Leukocytosis, present on admission possibly secondary to multiple unstageable wounds, patient is afebrile Osteomyelitis involving sacral decubitus, currently on IV antibiotic therapy of unknown duration. Patient does have a PICC line Hypertension Diabetes mellitus, type II Hyperlipidemia Obesity with a BMI of 36.5 GI prophylaxis DVT prophylaxis Full code Plan: Infectious disease consulted as patient was on a number of medications with concerns of overmedicating and will hold on medications for now and discussed with infectious disease regarding appropriate medications Wound care consult for multiple unstageable ulcers, will consult vascular surgery Dr. Gutierrez who does the patient and follows with him in the outpatient setting Continue with IV fluids normal saline 150 cc/h and follow-up on repeat labs Nephrology consulted regarding renal failure and patient is being started on bicarb drip Monitor BMP, repeat labs ordered for a.m. Home medications reviewed and resumed as appropriate Continue monitoring Accu-Cheks before meals and at bedtime and will adjust medications as needed Patient is from [facility] and primary care provider is Dr. Roca since living at the [facility] 1 month ago per family Due to multiple complex medical issues, prognosis is guarded The impression and plan of care has been dictated by Nirmala Morales, Nurse Practitioner as directed. Dr. Stephanie MD I have performed a history and examination and MDM of this patient, discussed the same with the dictator, and agree with the dictator's assessment and plan as written ,documented as a scribe. Based on total visit time, I have performed more than 50% of the visit. Past Medical History Past Medical History: Diabetes Mellitus, Hyperlipidemia, Hypertension, Pneumonia Additional Past Medical History / Comment(s): pressure ulcer bilat feet and coccyx History of Any Multi-Drug Resistant Organisms: None Reported Past Surgical History: No Surgical Hx Reported Additional Past Surgical History / Comment(s): debridement of left foot ulcer Past Anesthesia/Blood Transfusion Reactions: No Reported Reaction Past Psychological History: Anxiety, Bipolar, Depression, Panic Disorder Smoking Status: Never smoker Past Alcohol Use History: Rare Past Drug Use History: None Reported - Past Family History Father Additional Family Medical History / Comment(s): polycystic kidney disease. at age 3030 years old Mother Family Medical History: Coronary Artery Disease (CAD), Diabetes Mellitus, Myocardial Infarction ([place]) Medications and Allergies Home Medications Medication Instructions Recorded Confirmed Type Pregabalin [Lyrica] 300 mg PO BID 06/12/16 11/17/23 History ARIPiprazole [Abilify] 30 mg PO DAILY 07/14/23 11/17/23 History Atorvastatin Calcium [Lipitor] 80 mg PO HS 07/14/23 11/17/23 History Dapagliflozin Propanediol [Farxiga] 10 mg PO DAILY 07/14/23 11/17/23 History Levothyroxine Sodium [Synthroid] 300 mcg PO DAILY 07/14/23 11/17/23 History Metoprolol Succinate (ER) [Toprol 50 mg PO DAILY 07/14/23 11/17/23 History XL] Ondansetron [Zofran] 4 mg PO Q8H PRN 07/14/23 11/17/23 History Furosemide [Lasix] 20 mg PO DAILY 10/02/23 11/17/23 History Insulin Lispro See Protocol SQ ACHS 10/02/23 11/17/23 History L.acidoph,Paracasei, B.lactis 2 cap PO DAILY 10/02/23 11/17/23 History [Probiotic] Liquacel 30 ml PO TID 10/02/23 11/17/23 History Multivitamins, Thera [Multivitamin 1 tab PO DAILY 10/02/23 11/17/23 History (formulary)] HYDROcodone/APAP 7.5-325MG [[place] 1 tab PO Q6HR PRN #12 tab 10/06/23 11/17/23 Rx 7.5-325] Insulin Glargine,Hum.rec.anlog 26 units SQ DAILY #0 10/06/23 11/17/23 Rx [Lantus Solostar Pen] Potassium Chloride ER [K-Dur 20] 20 meq PO DAILY #0 10/06/23 11/17/23 Rx lisinopriL [Zestril] 10 mg PO HS #1 tab 10/06/23 11/17/23 Rx 0.9 % Sodium Chloride [Sodium 10 ml IV BID 11/17/23 11/17/23 History Chloride Flush] Cefepime [Maxipime] 2 gm IVPB Q8H 11/17/23 11/17/23 History DAPTOmycin [Cubicin] 6 mg IV Q48H 11/17/23 11/17/23 History Dulaglutide [Trulicity] 1.5 mg SQ TH 11/17/23 11/17/23 History Loperamide [Imodium] 2 mg PO QID PRN 11/17/23 11/17/23 History Mirtazapine [Remeron] 45 mg PO HS 11/17/23 11/17/23 History SILVER sulfADIAZINE Cream 1 applic TOPICAL MOWEFR 11/17/23 11/17/23 History [Silvadene 1% Cream] Zinc Gluconate [Zinc] 50 mg PO DAILY 11/17/23 11/17/23 History amLODIPine [Norvasc] 5 mg PO DAILY 11/17/23 11/17/23 History buPROPion HCL [Wellbutrin XL] 150 mg PO DAILY 11/17/23 11/17/23 History buPROPion XL [Wellbutrin XL] 300 mg PO DIRECTED 11/17/23 11/17/23 History metroNIDAZOLE [Flagyl] 500 mg PO Q8H 11/17/23 11/17/23 History Allergies Allergy/AdvReac Type Severity Reaction Status Date / Time No Known Allergies Allergy Verified 11/17/23 04:25 Physical Exam Vitals: Vital Signs Temp Pulse Pulse Resp BP BP Pulse Ox 11/17/23 09:17 97.5 F L 92 17 136/85 98 11/17/23 08:00 98.0 F 98 14 116/74 99 11/17/23 07:00 91 14 113/71 98 11/17/23 06:00 93 20 110/75 99 11/17/23 05:00 93 20 118/76 99 11/17/23 04:09 97.9 F 89 18 115/78 98 Intake and Output 11/16/23 11/17/23 11/17/23 22:59 06:59 14:59 Other: Weight 136.078 kg Results CBC & Chem 7: 11/17/23 04:29 11/17/23 04:29 Labs: Abnormal Lab Results - Last 24 Hours (Table) 11/17/23 11/17/23 11/17/23 Range/Units 04:29 04:29 08:43 WBC 11.3 H (3.8-10.6) k/uL RBC 3.65 L (4.30-5.90) m/uL Hgb 9.0 L (13.0-17.5) gm/dL Hct 29.0 L (39.0-53.0) % MCV 79.4 L (80.0-100.0) fL MCH 24.5 L (25.0-35.0) pg MCHC 30.9 L (31.0-37.0) g/dL RDW 18.8 H (11.5-15.5) % Eosinophils # 0.8 H (0-0.7) k/uL Chloride 117 H (98-107) mmol/L Carbon Dioxide 8 L* (22-30) mmol/L BUN 77 H (9-20) mg/dL Creatinine 4.42 H (0.66-1.25) mg/dL Glucose 140 H (74-99) mg/dL POC Glucose (mg/dL) 141 H (70-110) mg/dL Calcium 8.1 L (8.4-10.2) mg/dL Phosphorus 4.9 H (2.5-4.5) mg/dL AST 15 L (17-59) U/L Albumin 2.6 L (3.5-5.0) g/dL
[2023-11-18 07:00] LABS: Glucose,Whole Blood 119 mg/dL (70-110)
[2023-11-18] MEDS: LACTOBACILLUS ACIDOPHILUS/PECT 1 EACH CAPSULE PO SCH (08:26)
[2023-11-18 10:34] LABS: Basophils # (A) 0.05 X 10*3/uL (0.00-0.10); Basophils % (A) 0.5 %; Eosinophils # (A) 0.88 X 10*3/uL (0.04-0.35); Eosinophils % (A) 8.2 %; HCT 28.8 % (39.6-50.0); Lymphocytes # (A) 3.13 X 10*3/uL (0.90-5.00); Lymphocytes % (A) 29.1 %; MCH 24.3 pg (27.0-32.0); MCHC 31.3 g/dL (32.0-37.0); MCV 77.6 FL (80.0-97.0); Mean Platelet Volume 11.9 FL (9.5-12.2); Monocytes # (A) 0.76 X 10*3/uL (0.20-1.00); Monocytes % (A) 7.1 %; NRBC Per 100 WBC 0 X 10*3/uL (0.00-0.01); Neutrophils # (A) 5.88 X 10*3/uL (1.80-7.70); Neutrophils % (A) 54.5 %; Platelet Count 170 X 10*3/uL (140-440); RBC 3.71 X 10*6/uL (4.40-5.60); RDW 19.6 % (11.5-14.5); WBC 10.77 X 10*3/uL (4.50-10.00)
[2023-11-18 10:35] LABS: BUN/Creat Ratio 15.41 Ratio (12.00-20.00); Blood Urea Nitrogen 70.9 mg/dL (9.0-27.0); Calcium 8.1 mg/dL (8.7-10.3); Carbon Dioxide 12.2 mmol/L (21.6-31.8); Chloride 114 mmol/L (96-109); Glucose 114 mg/dL (70-110); Magnesium 1.7 mg/dL (1.5-2.4); Potassium 4.1 mmol/L (3.5-5.5); Sodium 141 mmol/L (135-145)
[2023-11-18] MEDS ORDERED: ACETAMINOPHEN IV (For NPO) 1,000 MG in EMPTY BAG 1 BAG IVPB PRN (11:08)
--- NOTE | 2023-11-18 11:35 | P.PN ---
Subjective Patient is seen in follow-up for acute kidney injury. No improvement in renal function. Has Dykes catheter. Nonoliguric. Hemodynamically stable. Oral intake fair. Receiving IV fluids. Vital signs are stable. General: No acute distress. HEENT: Head exam is unremarkable. LUNGS: No audible rhonchi or wheezes. HEART: Rate and Rhythm are regular. ABDOMEN: Nontender. EXTREMITITES: Chronic changes noted. No drainage. No edema. Objective - Vital Signs Vital signs: Vital Signs Temp 98.5 F 11/18/23 07:00 Pulse 82 11/18/23 07:00 Resp 18 11/18/23 07:00 BP 130/78 11/18/23 07:00 Pulse Ox 99 11/18/23 07:00 FiO2 Intake & Output 11/17/23 11/18/23 11/18/23 18:59 06:59 18:59 Intake Total 600 0 Output Total 1150 1000 Balance -550 -1000 Weight 136.078 kg Intake: Intake, IV Titration 600 Amount Dextrose 5% in Water 1, 500 000 ml @ 125 mls/hr IV . Q9H12M LEANDRO with Sodium Bicarb (1 Meq/ml) 150 ml Rx#:[id number] Piperacillin-Tazobactam 3 100 .375 gm In Sodium Chloride 0.9% 100 ml @ 25 mls/hr IVPB Q12H LEANDRO Rx# :[id number] Oral 0 Output: Urine 1150 1000 Other: Voiding Method Indwelling Catheter Indwelling Catheter - Labs CBC & Chem 7: 11/18/23 06:43 11/18/23 06:43 Labs: Abnormal Lab Results - Last 24 Hours (Table) 11/17/23 11/17/23 11/17/23 Range/Units 11:30 14:50 17:25 WBC (4.50-10.00) X 10*3/uL RBC (4.40-5.60) X 10*6/uL Hgb (13.0-17.0) g/dL Hct (39.6-50.0) % MCV (80.0-97.0) FL MCH (27.0-32.0) pg MCHC (32.0-37.0) g/dL RDW (11.5-14.5) % Immature Gran # (0.00-0.04) X 10*3/uL Eosinophils # (0.04-0.35) X 10*3/uL Chloride (96-109) mmol/L Carbon Dioxide (21.6-31.8) mmol/L Anion Gap (4.00-12.00) mmol/L BUN (9.0-27.0) mg/dL Creatinine (0.6-1.5) mg/dL Est GFR (CKD-EPI) (>=60) Glucose (70-110) mg/dL POC Glucose (mg/dL) 133 H 149 H (70-110) mg/dL Calcium (8.7-10.3) mg/dL Urine Protein 1+ H (Negative) Urine Glucose (UA) 2+ H (Negative) Urine Blood Moderate H (Negative) Ur Leukocyte Esterase Large H (Negative) Urine RBC 7 H (0-5) /hpf Urine WBC >182 H (0-5) /hpf Urine WBC Clumps Many H (None) /hpf Urine Bacteria Occasional H (None) /hpf 11/17/23 11/18/23 11/18/23 Range/Units 20:04 06:43 06:43 WBC 10.77 H (4.50-10.00) X 10*3/uL RBC 3.71 L (4.40-5.60) X 10*6/uL Hgb 9.0 L (13.0-17.0) g/dL Hct 28.8 L (39.6-50.0) % MCV 77.6 L (80.0-97.0) FL MCH 24.3 L (27.0-32.0) pg MCHC 31.3 L (32.0-37.0) g/dL RDW 19.6 H (11.5-14.5) % Immature Gran # 0.07 H (0.00-0.04) X 10*3/uL Eosinophils # 0.88 H (0.04-0.35) X 10*3/uL Chloride 114 H (96-109) mmol/L Carbon Dioxide 12.2 L (21.6-31.8) mmol/L Anion Gap 14.80 H (4.00-12.00) mmol/L BUN 70.9 H (9.0-27.0) mg/dL Creatinine 4.6 H (0.6-1.5) mg/dL Est GFR (CKD-EPI) 15 L (>=60) Glucose 114 H (70-110) mg/dL POC Glucose (mg/dL) 144 H (70-110) mg/dL Calcium 8.1 L (8.7-10.3) mg/dL Urine Protein (Negative) Urine Glucose (UA) (Negative) Urine Blood (Negative) Ur Leukocyte Esterase (Negative) Urine RBC (0-5) /hpf Urine WBC (0-5) /hpf Urine WBC Clumps (None) /hpf Urine Bacteria (None) /hpf 11/18/23 Range/Units 06:59 WBC (4.50-10.00) X 10*3/uL RBC (4.40-5.60) X 10*6/uL Hgb (13.0-17.0) g/dL Hct (39.6-50.0) % MCV (80.0-97.0) FL MCH (27.0-32.0) pg MCHC (32.0-37.0) g/dL RDW (11.5-14.5) % Immature Gran # (0.00-0.04) X 10*3/uL Eosinophils # (0.04-0.35) X 10*3/uL Chloride (96-109) mmol/L Carbon Dioxide (21.6-31.8) mmol/L Anion Gap (4.00-12.00) mmol/L BUN (9.0-27.0) mg/dL Creatinine (0.6-1.5) mg/dL Est GFR (CKD-EPI) (>=60) Glucose (70-110) mg/dL POC Glucose (mg/dL) 119 H (70-110) mg/dL Calcium (8.7-10.3) mg/dL Urine Protein (Negative) Urine Glucose (UA) (Negative) Urine Blood (Negative) Ur Leukocyte Esterase (Negative) Urine RBC (0-5) /hpf Urine WBC (0-5) /hpf Urine WBC Clumps (None) /hpf Urine Bacteria (None) /hpf Assessment and Plan Plan: Assessment: 1. Acute kidney injury secondary to ATN secondary to severe sepsis and further worsen with the use of diuretics and BRIDGET inhibitor. Creatinine 4.42 on admission - 4.6 today. Baseline creatinine near 0.6-0.8 from September 2023. No h ydronephrosis noted on kidney ultrasound. UA suggestive of UTI. 2. Lower extremity osteomyelitis on IV antibiotics. ID following. 3. Metabolic acidosis secondary to acute kidney injury and use of SGLT2 inhibitor. 4. Diabetes mellitus. 5. Benign hypertension. Controlled. Plan: Maintain bicarb drip. 2 amp sodium bicarb IV push now. Maintain Dykes catheter. Strict I's and O's. Avoid nephrotoxins. Continue to monitor renal function and urine output. Continue to assess daily for need for renal replacement therapy. No urgency at this time. Check urine eosinophils.
[2023-11-18 11:52] LABS: Glucose,Whole Blood 180 mg/dL (70-110)
[2023-11-18] MEDS: SODIUM BICARB 8.4% 50 ML SYR (1 MEQ/ML) IV STA (12:35)
[2023-11-18 14:01] VITALS: BMI 36.5
[2023-11-18] MEDS: FOLIC ACID 1 MG TAB PO SCH (14:27)
[2023-11-18] MEDS: THIAMINE 100 MG TAB PO SCH (14:27)
--- NOTE | 2023-11-18 15:13 | P.PN ---
Progress Note - Text 48-yeaold gentleman history of diabetes patient has a wound on the left foot plantar aspect patient had extensive debridement in the past foot wound is granulating no discharge or redness noted. Patient has a left heel pressure ulcer which would be to debride arrange for debridement and also has sacral wound will be treated with local wound care arrange for debridement tomorrow on bedside
--- NOTE | 2023-11-18 16:11 | P.PN ---
Subjective Progress Note Date: 11/18/23 Principal diagnosis: Reason for follow-up is diabetic foot infection and osteomyelitis Patient is a 48-year-old male with a past medical history significant for diabetes mellitus hypertension hyperlipidemia patient has been dealing with extensive left diabetic foot wound and infection for the patient did have multiple admission to the hospital, last culture positive for Enterobacter Enterococcus and Proteus patient is being admitted to hospital with renal failure. On today's evaluation that is 11/18/2023,the patient denies any fever or any chills, patient is breathing comfortably on room air, the patient denies chest pain shortness of breath and no significant cough, patient denies abdominal pain, no nausea vomiting or diarrhea. Patient white count is 10.77 creatinine is 4.6 Objective - Vital Signs Vital signs: Vital Signs Temp 97.4 F L 11/18/23 11:53 Pulse 82 11/18/23 11:53 Resp 18 11/18/23 11:53 BP 122/78 11/18/23 11:53 Pulse Ox 99 11/18/23 11:53 FiO2 Intake & Output 11/17/23 11/18/23 11/18/23 18:59 06:59 18:59 Intake Total 600 0 Output Total 1150 1000 650 Balance -550 -1000 -650 Weight 136.078 kg 136.078 kg Intake: Intake, IV Titration 600 Amount Dextrose 5% in Water 1, 500 000 ml @ 125 mls/hr IV . Q9H12M LEANDRO with Sodium Bicarb (1 Meq/ml) 150 ml Rx#:[id number] Piperacillin-Tazobactam 3 100 .375 gm In Sodium Chloride 0.9% 100 ml @ 25 mls/hr IVPB Q12H LEANDRO Rx# :[id number] Oral 0 Output: Urine 1150 1000 650 Other: Voiding Method Indwelling Catheter Indwelling Catheter - Exam GENERAL DESCRIPTION: Middle-aged male lying in bed in no distress RESPIRATORY SYSTEM: Unlabored breathing , decreased breath sounds at bases HEART: S1 S2 regular rate and rhythm , ABDOMEN: Soft , no tenderness EXTREMITIES: Feet wounds are currently dressed - Labs CBC & Chem 7: 11/18/23 06:43 11/18/23 06:43 Labs: Abnormal Lab Results - Last 24 Hours (Table) 11/17/23 11/17/23 11/17/23 Range/Units 14:50 17:25 20:04 WBC (4.50-10.00) X 10*3/uL RBC (4.40-5.60) X 10*6/uL Hgb (13.0-17.0) g/dL Hct (39.6-50.0) % MCV (80.0-97.0) FL MCH (27.0-32.0) pg MCHC (32.0-37.0) g/dL RDW (11.5-14.5) % Immature Gran # (0.00-0.04) X 10*3/uL Eosinophils # (0.04-0.35) X 10*3/uL Chloride (96-109) mmol/L Carbon Dioxide (21.6-31.8) mmol/L Anion Gap (4.00-12.00) mmol/L BUN (9.0-27.0) mg/dL Creatinine (0.6-1.5) mg/dL Est GFR (CKD-EPI) (>=60) Glucose (70-110) mg/dL POC Glucose (mg/dL) 149 H 144 H (70-110) mg/dL Calcium (8.7-10.3) mg/dL Urine Protein 1+ H (Negative) Urine Glucose (UA) 2+ H (Negative) Urine Blood Moderate H (Negative) Ur Leukocyte Esterase Large H (Negative) Urine RBC 7 H (0-5) /hpf Urine WBC >182 H (0-5) /hpf Urine WBC Clumps Many H (None) /hpf Urine Bacteria Occasional H (None) /hpf 11/18/23 11/18/23 11/18/23 Range/Units 06:43 06:43 06:59 WBC 10.77 H (4.50-10.00) X 10*3/uL RBC 3.71 L (4.40-5.60) X 10*6/uL Hgb 9.0 L (13.0-17.0) g/dL Hct 28.8 L (39.6-50.0) % MCV 77.6 L (80.0-97.0) FL MCH 24.3 L (27.0-32.0) pg MCHC 31.3 L (32.0-37.0) g/dL RDW 19.6 H (11.5-14.5) % Immature Gran # 0.07 H (0.00-0.04) X 10*3/uL Eosinophils # 0.88 H (0.04-0.35) X 10*3/uL Chloride 114 H (96-109) mmol/L Carbon Dioxide 12.2 L (21.6-31.8) mmol/L Anion Gap 14.80 H (4.00-12.00) mmol/L BUN 70.9 H (9.0-27.0) mg/dL Creatinine 4.6 H (0.6-1.5) mg/dL Est GFR (CKD-EPI) 15 L (>=60) Glucose 114 H (70-110) mg/dL POC Glucose (mg/dL) 119 H (70-110) mg/dL Calcium 8.1 L (8.7-10.3) mg/dL Urine Protein (Negative) Urine Glucose (UA) (Negative) Urine Blood (Negative) Ur Leukocyte Esterase (Negative) Urine RBC (0-5) /hpf Urine WBC (0-5) /hpf Urine WBC Clumps (None) /hpf Urine Bacteria (None) /hpf 11/18/23 Range/Units 11:51 WBC (4.50-10.00) X 10*3/uL RBC (4.40-5.60) X 10*6/uL Hgb (13.0-17.0) g/dL Hct (39.6-50.0) % MCV (80.0-97.0) FL MCH (27.0-32.0) pg MCHC (32.0-37.0) g/dL RDW (11.5-14.5) % Immature Gran # (0.00-0.04) X 10*3/uL Eosinophils # (0.04-0.35) X 10*3/uL Chloride (96-109) mmol/L Carbon Dioxide (21.6-31.8) mmol/L Anion Gap (4.00-12.00) mmol/L BUN (9.0-27.0) mg/dL Creatinine (0.6-1.5) mg/dL Est GFR (CKD-EPI) (>=60) Glucose (70-110) mg/dL POC Glucose (mg/dL) 180 H (70-110) mg/dL Calcium (8.7-10.3) mg/dL Urine Protein (Negative) Urine Glucose (UA) (Negative) Urine Blood (Negative) Ur Leukocyte Esterase (Negative) Urine RBC (0-5) /hpf Urine WBC (0-5) /hpf Urine WBC Clumps (None) /hpf Urine Bacteria (None) /hpf Assessment and Plan (1) Diabetic foot infection Current Visit: No Status: Acute Code(s): E11.628 - TYPE 2 DIABETES MELLITUS WITH OTHER SKIN COMPLICATIONS; L08.9 - LOCAL INFECTION OF THE SKIN AND SUBCUTANEOUS TISSUE, UNSP SNOMED Code(s): 637354455 (2) Diabetic foot ulcer Current Visit: No Status: Acute Code(s): E11.621 - TYPE 2 DIABETES MELLITUS WITH FOOT ULCER; L97.509 - NON-PRESSURE CHRONIC ULCER OTH PRT UNSP FOOT W UNSP SEVERITY SNOMED Code(s): 557233436 Plan: 1patient with a left diabetic foot wound and underlying osteomyelitis with the last culture positive for Enterobacter Enterococcus and Proteus unfortunately patient insurance refused to pay for the Zosyn and the patient has been treated with the vancomycin and cefepime along with the Flagyl not being admitted to hospital with renal failure secondary to Vanco toxicity vancomycin has been discontinued nephrology has been consulted 2-patient to continue with Zosyn 3.375 g every 12 hours 3-local wound care to the left foot wound with a dry Aquacel silver dressing change every 48 hour keep the area of the pressure 4-patient also noted to have a necrotic wound to the right heel area which has been new for which vascular surgery be consulted for possible debridement Family the bedside questions were answered Dictation was produced using [employer] dictation software. please excuse any grammatical, word or spelling errors. Time with Patient: Less than 30
[2023-11-18] MEDS ORDERED: LIDOCAINE 1% INJ 10MG/ML (20 ML MDV) SQ PRN (16:27)
[2023-11-18 17:09] LABS: Glucose,Whole Blood 205 mg/dL (70-110)
[2023-11-18 20:02] LABS: Glucose,Whole Blood 393 mg/dL (70-110)
--- NOTE | 2023-11-19 06:16 | P.PN ---
Subjective Progress Note Date: 11/18/23 Patient is a 48-year-old male with a PMH of insulin-dependent diabetes melitis, PAD with chronic bilateral feet ulcers, chronic sacral decubitus ulcer, hypertension, and hyperlipidemia who was transferred from [facility] where the patient had presented for altered mental status. No meaningful history could be obtained from the patient as he was severely confused at the time of interview, only oriented to self. History obtained from the chart and from the ED provider. The patient The patient who is currently undergoing treatment for osteomyelitis involving sacral decubitus on wound VAC, was noted to be more confused than usual. He has been receiving IV daptomycin, cefepime, and Flagyl via PICC line. He was subsequently sent to [facility] where he was noted to be in acute renal failure. Laboratory evaluation reveals a creatinine of 4.42 (baseline 0.6), with BUN 77 (baseline 10), WBC count 11.3, hemoglobin 9.0 (similar to baseline), with MCV 79.4, and phosphorus 4.9 with glucose 140. ED documentation reviewed and case discussed with ED provider. 11/18/2023 Patient is seen in follow-up this morning with multiple medical consultations following. Patient's mentation is improving and is awake and alert and talking answering questions appropriately. Patient continues with indwelling Dykes catheter which was exchanged although per nursing staff at [facility] facility they had continued complications with Dykes clotting and not draining properly without Flomax. Will consult urology and appreciate input and recommendations. Patient is maintained on antibiotics with infectious disease following in the form of Zosyn and vancomycin has been discontinued. Concerns for vancomycin toxicity with COLT. Patient continued on sodium bicarb drip with no improvements in kidney functions at this time. Renal replacement being discussed although no urgency. Vascular surgery Dr. Gutierrez also consulted with concerns of multiple wounds and will undergo bedside debridement and hopeful for deep tissue cultures. Patient is afebrile and on room air with no reports of chest pain or shortness of breath Review of systems: Constitutional: No reports of fatigue, fever, or chills, reports to feeling confused still Cardiovascular: No reports of chest pain or palpitations Respiratory: No reports of shortness of breath or cough GI: No reports of nausea, vomiting, or diarrhea : No reports of dysuria or retention Neurovascular: reports of generalized weakness All medications have been reviewed Physical examination: Vital signs reviewed General: Ill-appearing male, awake, alert and oriented x 2, mentation improved from yesterday, appears older than stated age, obese Derm: Left lateral foot stage III ulcer extending from heel to left fifth toe, unstageable sacral large decubitus, unstageable right foot ulcer, warm Head: atraumatic, normocephalic, symmetric Eyes: EOMI, no lid lag, anicteric sclera, pupils equal round reactive to light ENT: Nose and ears atraumatic Neck: No cervical lymphadenopathy, trachea midline, supple Mouth: no lip lesion, mucus membranes dry Cardiovascular: S1S2 muffled Lungs: Breath sounds diminished bilaterally otherwise clear to auscultation with no rhonchi or wheezing noted. No accessory muscle use Abdominal: soft, obese nontender to palpation, no guarding Ext: no gross muscle atrophy, no contractures, Neuro: no gross focal neuro deficits, diffusely weak Assessment: Acute kidney injury related to acute tubular necrosis secondary to severe sepsis as well as diuretics, BRIDGET inhibitor, and vancomycin Concerns for vancomycin toxicity, present on admission Urinary retention with indwelling Dykes catheter, on admission Altered mental status, likely uremic encephalopathy due to above Leukocytosis, present on admission with sepsis, possibly secondary to multiple unstageable wounds, patient is afebrile Osteomyelitis involving sacral decubitus, currently on IV antibiotic therapy of unknown duration. Patient does have a PICC line Hypertension Diabetes mellitus, type II Hyperlipidemia Obesity with a BMI of 36.5 GI prophylaxis DVT prophylaxis Full code Plan: Infectious disease following and will continue on Zosyn. Patient was on vancomycin with concerns of vancomycin toxicity and acute kidney injury s econdary to this. As patient was on a number of medications with concerns of overmedicating and will hold on those previous medications Wound care as well as vascular surgery following for multiple unstageable ulcers, plan for bedside debridement on 11/19/2023 including decubitus ulcer Continue with IV fluids normal saline 150 cc/h and follow-up on repeat labs, nephrology following and patient is maintained on bicarb drip with no improvements in kidney functions. Discussing renal replacement therapy although not urgent at this time Monitor BMP, repeat labs ordered for a.m. Home medications reviewed and resumed as appropriate Continue monitoring Accu-Cheks before meals and at bedtime and will adjust medications as needed Patient is from [facility] and primary care provider is Dr. Roca since living at the medical care facility 1 month ago per family Due to multiple complex medical issues, prognosis is guarded The impression and plan of care has been dictated by Nirmala Morales, Nurse Practitioner as directed. Dr. Filippo MD I have performed a history and examination and MDM of this patient, discussed the same with the dictator, and agree with the dictator's assessment and plan as written ,documented as a scribe. Based on total visit time, I have performed more than 50% of the visit. Objective - Vital Signs Vital signs: Vital Signs Temp 98.5 F 11/18/23 07:00 Pulse 82 11/18/23 07:00 Resp 18 11/18/23 07:00 BP 130/78 11/18/23 07:00 Pulse Ox 99 11/18/23 07:00 FiO2 Intake & Output 11/17/23 11/18/23 11/18/23 18:59 06:59 18:59 Intake Total 600 0 Output Total 1150 1000 Balance -550 -1000 Weight 136.078 kg Intake: Intake, IV Titration 600 Amount Dextrose 5% in Water 1, 500 000 ml @ 125 mls/hr IV . Q9H12M LEANDRO with Sodium Bicarb (1 Meq/ml) 150 ml Rx#:[id number] Piperacillin-Tazobactam 3 100 .375 gm In Sodium Chloride 0.9% 100 ml @ 25 mls/hr IVPB Q12H LEANDRO Rx# :[id number] Oral 0 Output: Urine 1150 1000 Other: Voiding Method Indwelling Catheter Indwelling Catheter - Labs CBC & Chem 7: 11/18/23 06:43 11/18/23 06:43 Labs: Abnormal Lab Results - Last 24 Hours (Table) 11/17/23 11/17/23 11/17/23 Range/Units 11:30 14:50 17:25 WBC (4.50-10.00) X 10*3/uL RBC (4.40-5.60) X 10*6/uL Hgb (13.0-17.0) g/dL Hct (39.6-50.0) % MCV (80.0-97.0) FL MCH (27.0-32.0) pg MCHC (32.0-37.0) g/dL RDW (11.5-14.5) % Immature Gran # (0.00-0.04) X 10*3/uL Eosinophils # (0.04-0.35) X 10*3/uL Chloride (96-109) mmol/L Carbon Dioxide (21.6-31.8) mmol/L Anion Gap (4.00-12.00) mmol/L BUN (9.0-27.0) mg/dL Creatinine (0.6-1.5) mg/dL Est GFR (CKD-EPI) (>=60) Glucose (70-110) mg/dL POC Glucose (mg/dL) 133 H 149 H (70-110) mg/dL Calcium (8.7-10.3) mg/dL Urine Protein 1+ H (Negative) Urine Glucose (UA) 2+ H (Negative) Urine Blood Moderate H (Negative) Ur Leukocyte Esterase Large H (Negative) Urine RBC 7 H (0-5) /hpf Urine WBC >182 H (0-5) /hpf Urine WBC Clumps Many H (None) /hpf Urine Bacteria Occasional H (None) /hpf 11/17/23 11/18/23 11/18/23 Range/Units 20:04 06:43 06:43 WBC 10.77 H (4.50-10.00) X 10*3/uL RBC 3.71 L (4.40-5.60) X 10*6/uL Hgb 9.0 L (13.0-17.0) g/dL Hct 28.8 L (39.6-50.0) % MCV 77.6 L (80.0-97.0) FL MCH 24.3 L (27.0-32.0) pg MCHC 31.3 L (32.0-37.0) g/dL RDW 19.6 H (11.5-14.5) % Immature Gran # 0.07 H (0.00-0.04) X 10*3/uL Eosinophils # 0.88 H (0.04-0.35) X 10*3/uL Chloride 114 H (96-109) mmol/L Carbon Dioxide 12.2 L (21.6-31.8) mmol/L Anion Gap 14.80 H (4.00-12.00) mmol/L BUN 70.9 H (9.0-27.0) mg/dL Creatinine 4.6 H (0.6-1.5) mg/dL Est GFR (CKD-EPI) 15 L (>=60) Glucose 114 H (70-110) mg/dL POC Glucose (mg/dL) 144 H (70-110) mg/dL Calcium 8.1 L (8.7-10.3) mg/dL Urine Protein (Negative) Urine Glucose (UA) (Negative) Urine Blood (Negative) Ur Leukocyte Esterase (Negative) Urine RBC (0-5) /hpf Urine WBC (0-5) /hpf Urine WBC Clumps (None) /hpf Urine Bacteria (None) /hpf 11/18/23 Range/Units 06:59 WBC (4.50-10.00) X 10*3/uL RBC (4.40-5.60) X 10*6/uL Hgb (13.0-17.0) g/dL Hct (39.6-50.0) % MCV (80.0-97.0) FL MCH (27.0-32.0) pg MCHC (32.0-37.0) g/dL RDW (11.5-14.5) % Immature Gran # (0.00-0.04) X 10*3/uL Eosinophils # (0.04-0.35) X 10*3/uL Chloride (96-109) mmol/L Carbon Dioxide (21.6-31.8) mmol/L Anion Gap (4.00-12.00) mmol/L BUN (9.0-27.0) mg/dL Creatinine (0.6-1.5) mg/dL Est GFR (CKD-EPI) (>=60) Glucose (70-110) mg/dL POC Glucose (mg/dL) 119 H (70-110) mg/dL Calcium (8.7-10.3) mg/dL Urine Protein (Negative) Urine Glucose (UA) (Negative) Urine Blood (Negative) Ur Leukocyte Esterase (Negative) Urine RBC (0-5) /hpf Urine WBC (0-5) /hpf Urine WBC Clumps (None) /hpf Urine Bacteria (None) /hpf
[2023-11-19 07:19] LABS: Glucose,Whole Blood 145 mg/dL (70-110)
[2023-11-19 09:23] LABS: BUN/Creat Ratio 16.97 Ratio (12.00-20.00); Blood Urea Nitrogen 66.2 mg/dL (9.0-27.0); Calcium 7.7 mg/dL (8.7-10.3); Carbon Dioxide 20.7 mmol/L (21.6-31.8); Chloride 110 mmol/L (96-109); Glucose 144 mg/dL (70-110); Magnesium 1.3 mg/dL (1.5-2.4); Potassium 3.4 mmol/L (3.5-5.5); Sodium 145 mmol/L (135-145)
--- NOTE | 2023-11-19 10:05 | P.PCN ---
Description of Procedure: Procedure note preop diagnosis is wound wound right heel measurement is 4 x 3 cm Postop same measurement is 4 x 3 x 0.5 cm Procedure right foot was prepped draped in Prestel manner 1% lidocaine plain infiltrated using blade we excised the wound down to subcu tissue and the fat devitalized tissue was excised with a knife no active bleeding was noted tissue was sent for culture wound was irrigated with saline extracellular applied to the wound patient also has a sacral wound base of the wound is granulating we placed extra silver patient tarted the procedure well dressing will be changed on Tuesday
[2023-11-19] MEDS: LIDOCAINE 1% INJ 10MG/ML (20 ML MDV) ONE (10:16)
[2023-11-19] MEDS ORDERED: Magnesium Replacement Protocol 1 EACH MISC MISCELLANE PRN (10:47)
[2023-11-19] MEDS ORDERED: Potassium Replacement Protocol 1 EACH MISC MISCELLANE PRN (10:47)
[2023-11-19] MEDS: POTASSIUM CHLORIDE ER 20 MEQ TAB.ER PO SCH (11:18)
[2023-11-19] MEDS: MAGNESIUM SULFATE-D5W PMX 1 GM in DEXTROSE/WATER 1 100ML.BAG IVPB SCH (11:18)
[2023-11-19] MEDS: TAMSULOSIN 0.4 MG CAP.ER.24H PO SCH (11:18)
[2023-11-19 11:32] LABS: Glucose,Whole Blood 195 mg/dL (70-110)
--- NOTE | 2023-11-19 11:36 | P.PN ---
Subjective Patient is seen in follow-up for acute kidney injury. Renal function improving. Has Dykes catheter. Nonoliguric. Hemodynamically stable. Oral intake fair. On bicarb drip. Acidosis improved. Vital signs are stable. General: No acute distress. HEENT: Head exam is unremarkable. LUNGS: No audible rhonchi or wheezes. HEART: Rate and Rhythm are regular. ABDOMEN: Nontender. EXTREMITITES: Chronic changes noted. No drainage. No edema. Objective - Vital Signs Vital signs: Vital Signs Temp 97.5 F L 11/19/23 07:14 Pulse 84 11/19/23 07:14 Resp 16 11/19/23 07:14 BP 132/81 11/19/23 07:14 Pulse Ox 99 11/19/23 07:14 FiO2 Intake & Output 11/18/23 11/19/23 11/19/23 18:59 06:59 18:59 Output Total 1350 1350 1000 Balance -1350 -1350 -1000 Weight 136.078 kg Output: Urine 1350 1350 1000 Other: Voiding Method Indwelling Catheter Indwelling Catheter - Labs CBC & Chem 7: 11/18/23 06:43 11/19/23 05:45 Labs: Abnormal Lab Results - Last 24 Hours (Table) 11/18/23 11/18/23 11/18/23 Range/Units 11:51 17:08 19:59 Potassium (3.5-5.5) mmol/L Chloride (96-109) mmol/L Carbon Dioxide (21.6-31.8) mmol/L Anion Gap (4.00-12.00) mmol/L BUN (9.0-27.0) mg/dL Creatinine (0.6-1.5) mg/dL Est GFR (CKD-EPI) (>=60) Glucose (70-110) mg/dL POC Glucose (mg/dL) 180 H 205 H 393 H (70-110) mg/dL Calcium (8.7-10.3) mg/dL Magnesium (1.5-2.4) mg/dL 11/19/23 11/19/23 Range/Units 05:45 07:17 Potassium 3.4 L (3.5-5.5) mmol/L Chloride 110 H (96-109) mmol/L Carbon Dioxide 20.7 L (21.6-31.8) mmol/L Anion Gap 14.30 H (4.00-12.00) mmol/L BUN 66.2 H (9.0-27.0) mg/dL Creatinine 3.9 H (0.6-1.5) mg/dL Est GFR (CKD-EPI) 18 L (>=60) Glucose 144 H (70-110) mg/dL POC Glucose (mg/dL) 145 H (70-110) mg/dL Calcium 7.7 L (8.7-10.3) mg/dL Magnesium 1.3 L (1.5-2.4) mg/dL Assessment and Plan Plan: Assessment: 1. Acute kidney injury secondary to ATN secondary to severe sepsis and further worsen with the use of diuretics and BRIDGET inhibitor. Creatinine 4.42 on admiss ion - 3.9 today. Baseline creatinine near 0.6-0.8 from September 2023. No hydronephrosis noted on kidney ultrasound. UA suggestive of UTI. Urine eosinophils elevated at 3% concerning for AIN. Patient is on IV antibiotics. 2. Lower extremity osteomyelitis on IV antibiotics. ID and vascular surgery following. Underwent debridement. 3. Metabolic acidosis secondary to acute kidney injury and use of SGLT2 inhibitor. 4. Diabetes mellitus. 5. Benign hypertension. Controlled. 6. Hypokalemia from intracellular shifting from IV bicarb. 7. Hypomagnesemia from poor intake and renal losses. Plan: Maintain bicarb drip for another day. Potassium and magnesium being replaced. Maintain Dykes catheter. Strict I's and O's. Avoid nephrotoxins. Continue to monitor renal function and urine output. Continue to assess daily for need for renal replacement therapy. No urgency at this time. Continue to monitor for recovery of renal function. Will consider steroids if renal function fails to improve
--- NOTE | 2023-11-19 14:45 | PN ---
PROGRESS NOTE DATE OF SERVICE: 11/19/2023 SUBJECTIVE: This is a 48-year-old gentleman, who was admitted with acute kidney injury, also had some confusion, other multiple medical issues also. No chest pain. No palpitation. Multiple consultants are following the patient closely. PHYSICAL EXAMINATION: VITAL SIGNS: On exam, pulse 83, blood pressure 130/81, and respirations 16. CHEST: Clear to auscultation. CARDIOVASCULAR: S1 and S2. ABDOMEN: Soft. NERVOUS SYSTEM: Unchanged. LABORATORY DATA: Potassium 3.4. Rest of the labs are noted. Magnesium 1.3. ASSESSMENT: 1. Acute kidney injury, related to acute tubular necrosis. 2. Concerns of vancomycin toxicity. 3. Urinary retention with indwelling Dykes catheter. 4. Leukocytosis. 5. History of MRSA involving the sacral decubitus, currently on IV antibiotic treatment. 6. Multiple medical issues. RECOMMENDATIONS: Recommend to continue current management and symptomatic treatment. Repeat labs. Closely follow with multiple consultants. See orders for further details. Monitor blood sugars closely. Further recommendations to follow. MMODL / IJN: [id number] /
--- NOTE | 2023-11-19 16:45 | P.GSCN ---
History of Present Illness Consult date: 11/19/23 History of present illness: 48 yo male with advanced Insulin dependent DM was brought into the hospital with mental confusion He has had a cath for a few months. we were asked to see for cath issues. He vega seen Dr Miranda in the past. Most of the history was taken from his girlfriend. He is somewhat bedridden. He lives at a nursoing home as he cant care for himself Per the nursing staff the cath plugs regualrly with debris. Review of Systems ROS unobtainable: due to mental status Past Medical History Past Medical History: Diabetes Mellitus, Hyperlipidemia, Hypertension, Pneumonia Additional Past Medical History / Comment(s): pressure ulcer bilat feet and coccyx History of Any Multi-Drug Resistant Organisms: None Reported Past Surgical History: No Surgical Hx Reported Additional Past Surgical History / Comment(s): debridement of left foot ulcer Past Anesthesia/Blood Transfusion Reactions: No Reported Reaction Past Psychological History: Anxiety, Bipolar, Depression, Panic Disorder Smoking Status: Never smoker Past Alcohol Use History: Rare Past Drug Use History: None Reported - Past Family History Father Additional Family Medical History / Comment(s): polycystic kidney disease. at age 3030 years old Mother Family Medical History: Coronary Artery Disease (CAD), Diabetes Mellitus, Myocardial Infarction (MD) Medications and Allergies Home Medications Medication Instructions Recorded Confirmed Type Pregabalin [Lyrica] 300 mg PO BID 06/12/16 11/17/23 History ARIPiprazole [Abilify] 30 mg PO DAILY 07/14/23 11/17/23 History Atorvastatin Calcium [Lipitor] 80 mg PO HS 07/14/23 11/17/23 History Dapagliflozin Propanediol [Farxiga] 10 mg PO DAILY 07/14/23 11/17/23 History Levothyroxine Sodium [Synthroid] 300 mcg PO DAILY 07/14/23 11/17/23 History Metoprolol Succinate (ER) [Toprol 50 mg PO DAILY 07/14/23 11/17/23 History XL] Ondansetron [Zofran] 4 mg PO Q8H PRN 07/14/23 11/17/23 History Furosemide [Lasix] 20 mg PO DAILY 10/02/23 11/17/23 History Insulin Lispro See Protocol SQ ACHS 10/02/23 11/17/23 History L.acidoph,Paracasei, B.lactis 2 cap PO DAILY 10/02/23 11/17/23 History [Probiotic] Liquacel 30 ml PO TID 10/02/23 11/17/23 History Multivitamins, Thera [Multivitamin 1 tab PO DAILY 10/02/23 11/17/23 History (formulary)] HYDROcodone/APAP 7.5-325MG [[place] 1 tab PO Q6HR PRN #12 tab 10/06/23 11/17/23 Rx 7.5-325] Insulin Glargine,Hum.rec.anlog 26 units SQ DAILY #0 10/06/23 11/17/23 Rx [Lantus Solostar Pen] Potassium Chloride ER [K-Dur 20] 20 meq PO DAILY #0 10/06/23 11/17/23 Rx lisinopriL [Zestril] 10 mg PO HS #1 tab 10/06/23 11/17/23 Rx 0.9 % Sodium Chloride [Sodium 10 ml IV BID 11/17/23 11/17/23 History Chloride Flush] Cefepime [Maxipime] 2 gm IVPB Q8H 11/17/23 11/17/23 History DAPTOmycin [Cubicin] 6 mg IV Q48H 11/17/23 11/17/23 History Dulaglutide [Trulicity] 1.5 mg SQ TH 11/17/23 11/17/23 History Loperamide [Imodium] 2 mg PO QID PRN 11/17/23 11/17/23 History Mirtazapine [Remeron] 45 mg PO HS 11/17/23 11/17/23 History SILVER sulfADIAZINE Cream 1 applic TOPICAL MOWEFR 11/17/23 11/17/23 History [Silvadene 1% Cream] Zinc Gluconate [Zinc] 50 mg PO DAILY 11/17/23 11/17/23 History amLODIPine [Norvasc] 5 mg PO DAILY 11/17/23 11/17/23 History buPROPion HCL [Wellbutrin XL] 150 mg PO DAILY 11/17/23 11/17/23 History buPROPion XL [Wellbutrin XL] 300 mg PO DIRECTED 11/17/23 11/17/23 History metroNIDAZOLE [Flagyl] 500 mg PO Q8H 11/17/23 11/17/23 History Allergies Allergy/AdvReac Type Severity Reaction Status Date / Time No Known Allergies Allergy Verified 11/17/23 04:25 Surgical - Exam Vital Signs Temp Pulse Resp BP Pulse Ox 97.9 F 89 18 115/78 98 11/17/23 04:09 11/17/23 04:09 11/17/23 04:09 11/17/23 04:09 11/17/23 04:09 - General well developed, well nourished, no distress - Eyes normal ocular movement, no icteric - ENT no hearing loss, no congestion - Neck no masses, trachea midline - Respiratory normal respiratory effort, clear to auscultation - Abdomen Abdomen: soft, non tender, no guarding, no rigid, no rebound - Integumentary no rash, no abnormal pigmentation - Neurologic no disoriented, no combative - Psychiatric The patient cannot really give much history oriented to person Results - Labs 11/18/23 06:43 11/19/23 05:45 Abnormal Lab Results - Last 24 Hours (Table) 11/18/23 11/18/23 11/19/23 Range/Units 17:08 19:59 05:45 Potassium 3.4 L (3.5-5.5) mmol/L Chloride 110 H (96-109) mmol/L Carbon Dioxide 20.7 L (21.6-31.8) mmol/L Anion Gap 14.30 H (4.00-12.00) mmol/L BUN 66.2 H (9.0-27.0) mg/dL Creatinine 3.9 H (0.6-1.5) mg/dL Est GFR (CKD-EPI) 18 L (>=60) Glucose 144 H (70-110) mg/dL POC Glucose (mg/dL) 205 H 393 H (70-110) mg/dL Calcium 7.7 L (8.7-10.3) mg/dL Magnesium 1.3 L (1.5-2.4) mg/dL 11/19/23 11/19/23 Range/Units 07:17 11:30 Potassium (3.5-5.5) mmol/L Chloride (96-109) mmol/L Carbon Dioxide (21.6-31.8) mmol/L Anion Gap (4.00-12.00) mmol/L BUN (9.0-27.0) mg/dL Creatinine (0.6-1.5) mg/dL Est GFR (CKD-EPI) (>=60) Glucose (70-110) mg/dL POC Glucose (mg/dL) 145 H 195 H (70-110) mg/dL Calcium (8.7-10.3) mg/dL Magnesium (1.5-2.4) mg/dL Diabetes panel 11/19/23 Range/Units 05:45 Sodium 145 (135-145) mmol/L Potassium 3.4 L (3.5-5.5) mmol/L Chloride 110 H (96-109) mmol/L Carbon Dioxide 20.7 L (21.6-31.8) mmol/L BUN 66.2 H (9.0-27.0) mg/dL Creatinine 3.9 H (0.6-1.5) mg/dL Glucose 144 H (70-110) mg/dL Calcium 7.7 L (8.7-10.3) mg/dL Calcium panel 11/19/23 Range/Units 05:45 Calcium 7.7 L (8.7-10.3) mg/dL Pituitary panel 11/19/23 Range/Units 05:45 Sodium 145 (135-145) mmol/L Potassium 3.4 L (3.5-5.5) mmol/L Chloride 110 H (96-109) mmol/L Carbon Dioxide 20.7 L (21.6-31.8) mmol/L BUN 66.2 H (9.0-27.0) mg/dL Creatinine 3.9 H (0.6-1.5) mg/dL Glucose 144 H (70-110) mg/dL Calcium 7.7 L (8.7-10.3) mg/dL Adrenal panel 11/19/23 Range/Units 05:45 Sodium 145 (135-145) mmol/L Potassium 3.4 L (3.5-5.5) mmol/L Chloride 110 H (96-109) mmol/L Carbon Dioxide 20.7 L (21.6-31.8) mmol/L BUN 66.2 H (9.0-27.0) mg/dL Creatinine 3.9 H (0.6-1.5) mg/dL Glucose 144 H (70-110) mg/dL Calcium 7.7 L (8.7-10.3) mg/dL Assessment and Plan Assessment: Impression: chronic urine retention. catheter issues. Insulin dependent DM. Multiple medical issues. Plan: The catheter should be irrigated prn.unfortunately it appears as if he has a hypotonic ngb. I will review his office chart and discuss with Dr miranda before further recommendations.
[2023-11-19 17:19] LABS: Glucose,Whole Blood 252 mg/dL (70-110)
--- NOTE | 2023-11-19 20:52 | P.PN ---
Subjective Progress Note Date: 11/19/23 Principal diagnosis: Reason for follow-up is diabetic foot infection and osteomyelitis Patient is a 48-year-old male with a past medical history significant for diabetes mellitus hypertension hyperlipidemia patient has been dealing with extensive left diabetic foot wound and infection for the patient did have multiple admission to the hospital, last culture positive for Enterobacter Enterococcus and Proteus patient is being admitted to hospital with renal failure. On today's evaluation that is 11/19/2023,the patient remains to be afebrile, patient is on room air not requiring supplemental oxygen and denies any shortness of breath no chest pain or cough.Patient denies having any nausea or vomiting, no abdominal pain and no diarrhea has been reported and denies any worsening pain to the bilateral foot wound area. Patient creatinine 3.9 Objective - Vital Signs Vital signs: Vital Signs Temp 97.7 F 11/19/23 02:00 Pulse 89 11/19/23 02:00 Resp 16 11/19/23 02:00 BP 110/65 11/19/23 02:00 Pulse Ox 99 11/19/23 02:00 FiO2 Intake & Output 11/18/23 11/19/23 11/19/23 18:59 06:59 18:59 Output Total 1350 1350 Balance -1350 -1350 Weight 136.078 kg Output: Urine 1350 1350 Other: Voiding Method Indwelling Catheter Indwelling Catheter - Exam GENERAL DESCRIPTION: Middle-aged male lying in bed in no distress RESPIRATORY SYSTEM: Unlabored breathing , decreased breath sounds at bases HEART: S1 S2 regular rate and rhythm , ABDOMEN: Soft , no tenderness EXTREMITIES: Feet wounds are currently dressed - Labs CBC & Chem 7: 11/18/23 06:43 11/19/23 05:45 Labs: Abnormal Lab Results - Last 24 Hours (Table) 11/18/23 11/18/23 11/18/23 Range/Units 06:43 06:43 11:51 WBC 10.77 H (4.50-10.00) X 10*3/uL RBC 3.71 L (4.40-5.60) X 10*6/uL Hgb 9.0 L (13.0-17.0) g/dL Hct 28.8 L (39.6-50.0) % MCV 77.6 L (80.0-97.0) FL MCH 24.3 L (27.0-32.0) pg MCHC 31.3 L (32.0-37.0) g/dL RDW 19.6 H (11.5-14.5) % Immature Gran # 0.07 H (0.00-0.04) X 10*3/uL Eosinophils # 0.88 H (0.04-0.35) X 10*3/uL Chloride 114 H (96-109) mmol/L Carbon Dioxide 12.2 L (21.6-31.8) mmol/L Anion Gap 14.80 H (4.00-12.00) mmol/L BUN 70.9 H (9.0-27.0) mg/dL Creatinine 4.6 H (0.6-1.5) mg/dL Est GFR (CKD-EPI) 15 L (>=60) Glucose 114 H (70-110) mg/dL POC Glucose (mg/dL) 180 H (70-110) mg/dL Calcium 8.1 L (8.7-10.3) mg/dL 11/18/23 11/18/23 11/19/23 Range/Units 17:08 19:59 07:17 WBC (4.50-10.00) X 10*3/uL RBC (4.40-5.60) X 10*6/uL Hgb (13.0-17.0) g/dL Hct (39.6-50.0) % MCV (80.0-97.0) FL MCH (27.0-32.0) pg MCHC (32.0-37.0) g/dL RDW (11.5-14.5) % Immature Gran # (0.00-0.04) X 10*3/uL Eosinophils # (0.04-0.35) X 10*3/uL Chloride (96-109) mmol/L Carbon Dioxide (21.6-31.8) mmol/L Anion Gap (4.00-12.00) mmol/L BUN (9.0-27.0) mg/dL Creatinine (0.6-1.5) mg/dL Est GFR (CKD-EPI) (>=60) Glucose (70-110) mg/dL POC Glucose (mg/dL) 205 H 393 H 145 H (70-110) mg/dL Calcium (8.7-10.3) mg/dL Assessment and Plan (1) Diabetic foot infection Current Visit: No Status: Acute Code(s): E11.628 - TYPE 2 DIABETES MELLITUS WITH OTHER SKIN COMPLICATIONS; L08.9 - LOCAL INFECTION OF THE SKIN AND SUBCUTANEOUS TISSUE, UNSP SNOMED Code(s): 820532793 (2) Diabetic foot ulcer Current Visit: No Status: Acute Code(s): E11.621 - TYPE 2 DIABETES MELLITUS WITH FOOT ULCER; L97.509 - NON-PRESSURE CHRONIC ULCER OTH PRT UNSP FOOT W UNSP SEVERITY SNOMED Code(s): 508950757 Plan: 1patient with a left diabetic foot wound and underlying osteomyelitis with the last culture positive for Enterobacter Enterococcus and Proteus unfortunately patient insurance refused to pay for the Zosyn and the patient has been treated with the vancomycin and cefepime along with the Flagyl now being admitted to hospital with renal failure for the patient being managed by nephrology 2-patient to continue with Zosyn 3.375 g every 12 hours 3-local wound care to the left foot wound with a dry Aquacel silver dressing change every 48 hour keep the area of the pressure 4-patient with wound to the right heel area currently waiting for vascular surgery debridement Dictation was produced using [employer] dictation software. please excuse any grammatical, word or spelling errors. Time with Patient: Less than 30
[2023-11-19 21:08] LABS: Glucose,Whole Blood 203 mg/dL (70-110)
[2023-11-20 05:52] LABS: Glucose,Whole Blood 128 mg/dL (70-110)
[2023-11-20 09:35] LABS: HCT 25.7 % (39.6-50.0); HGB 7.9 g/dL (13.0-17.0); MCHC 30.7 g/dL (32.0-37.0); MCV 74.7 FL (80.0-97.0); Mean Platelet Volume 10.9 FL (9.5-12.2); NRBC Per 100 WBC 0 X 10*3/uL (0.00-0.01); Platelet Count 189 X 10*3/uL (140-440); RBC 3.44 X 10*6/uL (4.40-5.60); RDW 19.8 % (11.5-14.5); WBC 10.16 X 10*3/uL (4.50-10.00)
[2023-11-20 10:06] LABS: Anisocytosis (M) 2+; Basophils # (A) 0.03 X 10*3/uL (0.00-0.10); Basophils % (A) 0.3 %; Eosinophils % (A) 6.9 %; Hypochromasia (M) 2+; Lymphocytes # (A) 3.34 X 10*3/uL (0.90-5.00); Lymphocytes % (A) 32.9 %; Microcytosis (M) 2+; Monocytes # (A) 0.61 X 10*3/uL (0.20-1.00); Neutrophils # (A) 5.42 X 10*3/uL (1.80-7.70); Neutrophils % (A) 53.3 %
--- NOTE | 2023-11-20 10:50 | P.PN ---
Subjective Patient is seen in follow-up for acute kidney injury. Renal function improving. Creatinine 3.9 yesterday. Has Dykes catheter. Nonoliguric. Hemodynamically stable. Oral intake fair. On bicarb drip. Acidosis improved. Vital signs are stable. General: No acute distress. HEENT: Head exam is unremarkable. LUNGS: No audible rhonchi or wheezes. HEART: Rate and Rhythm are regular. ABDOMEN: Nontender. EXTREMITITES: Chronic changes noted. No drainage. No edema. Objective - Vital Signs Vital signs: Vital Signs Temp 98 F 11/20/23 07:04 Pulse 80 11/20/23 07:04 Resp 18 11/20/23 07:04 BP 124/77 11/20/23 07:04 Pulse Ox 97 11/20/23 07:04 FiO2 Intake & Output 11/19/23 11/20/23 11/20/23 18:59 06:59 18:59 Intake Total 1900 1600 Output Total 1000 1700 Balance 900 -100 Intake: Intake, IV Titration 1900 1600 Amount Dextrose 5% in Water 1, 1500 1500 000 ml @ 125 mls/hr IV . Q9H12M LEANDRO with Sodium Bicarb (1 Meq/ml) 150 ml Rx#:[id number] Magnesium Sulfate-D5w Pmx 400 1 gm In Dextrose/Water 1 100ml.bag @ 100 mls/hr IVPB Q1H LEANDRO Rx#: [id number] Piperacillin-Tazobactam 3 100 .375 gm In Sodium Chloride 0.9% 100 ml @ 25 mls/hr IVPB Q12H LEANDRO Rx# :[id number] Output: Urine 1000 1700 Other: Voiding Method Indwelling Catheter Indwelling Catheter - Labs CBC & Chem 7: 11/20/23 06:24 11/19/23 05:45 Labs: Abnormal Lab Results - Last 24 Hours (Table) 11/19/23 11/19/23 11/19/23 Range/Units 11:30 17:16 20:57 WBC (4.50-10.00) X 10*3/uL RBC (4.40-5.60) X 10*6/uL Hgb (13.0-17.0) g/dL Hct (39.6-50.0) % MCV (80.0-97.0) FL MCH (27.0-32.0) pg MCHC (32.0-37.0) g/dL RDW (11.5-14.5) % Immature Gran # (0.00-0.04) X 10*3/uL Eosinophils # (0.04-0.35) X 10*3/uL Hypochromasia (manual) Anisocytosis (manual) Microcytosis (manual) POC Glucose (mg/dL) 195 H 252 H 203 H (70-110) mg/dL 11/20/23 11/20/23 Range/Units 04:59 06:24 WBC 10.16 H (4.50-10.00) X 10*3/uL RBC 3.44 L (4.40-5.60) X 10*6/uL Hgb 7.9 L (13.0-17.0) g/dL Hct 25.7 L (39.6-50.0) % MCV 74.7 L (80.0-97.0) FL MCH 23.0 L (27.0-32.0) pg MCHC 30.7 L (32.0-37.0) g/dL RDW 19.8 H (11.5-14.5) % Immature Gran # 0.06 H (0.00-0.04) X 10*3/uL Eosinophils # 0.70 H (0.04-0.35) X 10*3/uL Hypochromasia (manual) 2+ A Anisocytosis (manual) 2+ A Microcytosis (manual) 2+ A POC Glucose (mg/dL) 128 H (70-110) mg/dL Microbiology - Last 24 Hours (Table) 11/19/23 10:30 Gram Stain - Preliminary Foot - Right Tissue Culture - Preliminary Denisse albicans Assessment and Plan Plan: Assessment: 1. Acute kidney injury secondary to ATN secondary to severe sepsis and further worsen with the use of diuretics and BRIDGET inhibitor. Creatinine 4.42 on admission - 3.9 yesterday. Baseline creatinine near 0.6-0.8 from September 2023. No hydronephrosis noted on kidney ultrasound. UA suggestive of UTI. Urine eosinophils elevated at 3% concerning for AIN. Patient is on IV antibiotics. 2. Lower extremity osteomyelitis on IV antibiotics. ID and vascular surgery following. Underwent debridement. 3. Metabolic acidosis secondary to acute kidney injury and use of SGLT2 inhibitor. Improving with bicarb drip. 4. Diabetes mellitus. 5. Benign hypertension. Controlled. 6. Hypokalemia from intracellular shifting from IV bicarb. Replaced. 7. Hypomagnesemia from poor intake and renal losses. Replaced. Plan: Change bicarb drip to normal saline. Replace potassium and magnesium as needed. Maintain Dykes catheter. Strict I's and O's. Avoid nephrotoxins. Continue to monitor renal function and urine output. Continue to assess daily for need for renal replacement therapy. No urgency at this time. Continue to monitor for recovery of renal function. Will consider steroids if renal function fails to improve
[2023-11-20 10:51] LABS: Glucose 134 mg/dL (70-110); Magnesium 1.7 mg/dL (1.5-2.4)
[2023-11-20 10:52] LABS: Calcium 8.1 mg/dL (8.7-10.3); Chloride 108 mmol/L (96-109); Potassium 3.2 mmol/L (3.5-5.5); Sodium 145 mmol/L (135-145)
[2023-11-20 11:59] LABS: Glucose,Whole Blood 234 mg/dL (70-110)
[2023-11-20] MEDS: POTASSIUM CHLORIDE ER 20 MEQ TAB.ER PO STA (13:41)
[2023-11-20] MEDS: FLUCONAZOLE IN NACL,ISO-OSM 100 MG in SALINE 1 50ML.BAG IVPB SCH (13:41)
[2023-11-20] MEDS: SODIUM CHLORIDE 0.9% 1,000 ML IV SCH (13:43)
[2023-11-20 17:06] LABS: Glucose,Whole Blood 211 mg/dL (70-110)
[2023-11-20 20:15] LABS: Glucose,Whole Blood 172 mg/dL (70-110)
--- NOTE | 2023-11-21 02:43 | PN ---
PROGRESS NOTE DATE OF SERVICE: 11/20/2023 SUBJECTIVE: This is a 48-year-old gentleman admitted with acute kidney injury, also had a catheter. No chest pain. No palpitation. PHYSICAL EXAMINATION: VITAL SIGNS: Pulse is 80, blood pressure 120/74, and respirations 18. CHEST: Clear to auscultation. CARDIOVASCULAR: S1 and S2. ABDOMEN: Soft. NERVOUS SYSTEM: Unchanged. LABORATORY DATA: Reviewed. Hemoglobin 7.9. Creatinine is 3.6. Culture showed Denisse albicans. ASSESSMENT: 1. Acute kidney injury related to acute tubular necrosis. 2. Concerns of vancomycin toxicity. 3. Denisse albicans from the culture. 4. Urinary retention, indwelling Dykes catheter. 5. Leukocytosis. 6. History of methicillin-resistant Staphylococcus aureus involving the sacral decubitus, currently on IV antibiotics. 7. Multiple medical issues. RECOMMENDATIONS: Recommend to continue current management and symptomatic treatment. Otherwise, add Diflucan to the current regimen. Closely follow with multiple consultants. Monitor blood sugars closely. Further recommendations to follow. MMODL / IJN: [id number] /
[2023-11-21 06:58] LABS: Glucose,Whole Blood 123 mg/dL (70-110)
[2023-11-21 10:12] LABS: African American GFR (CKD) 27 (>60 ml/min/1.73 sqM); Anion Gap 6 mmol/L; Blood Urea Nitrogen 62 mg/dL (9-20); Calcium 7.6 mg/dL (8.4-10.2); Carbon Dioxide 28 mmol/L (22-30); Chloride 111 mmol/L (98-107); Glucose 93 mg/dL (74-99); Magnesium 1.5 mg/dL (1.6-2.3); Non-African American GFR(CKD) 24 (>60 ml/min/1.73 sqM); Potassium 3.4 mmol/L (3.5-5.1); Sodium 145 mmol/L (137-145)
[2023-11-21 10:32] LABS: Anisocytosis Slight; Basophils % (A) 0 %; Eosinophils # (A) 0.6 k/uL (0-0.7); Eosinophils % (A) 5 %; HCT 26.8 % (39.0-53.0); HGB 8.5 gm/dL (13.0-17.5); Hypochromasia Slight; Lymphocytes # (A) 3.2 k/uL (1.0-4.8); Lymphocytes % (A) 31 %; MCH 24.7 pg (25.0-35.0); MCHC 31.8 g/dL (31.0-37.0); MCV 77.7 fL (80.0-100.0); Mean Platelet Volume 9.6; Microcytosis Moderate; Monocytes # (A) 0.6 k/uL (0-1.0); Monocytes % (A) 6 %; Neutrophils # (A) 6.1 k/uL (1.3-7.7); Neutrophils % (A) 57 %; Platelet Count 191 k/uL (150-450); RBC 3.44 m/uL (4.30-5.90); RDW 19.5 % (11.5-15.5); WBC 10.6 k/uL (3.8-10.6)
[2023-11-21] MEDS: LOPERAMIDE 2 MG CAP PO PRN (10:41)
[2023-11-21] MEDS: NYSTATIN 100,000 UNIT/GM POWD 15 GM TOPICAL SCH (10:56)
--- NOTE | 2023-11-21 11:43 | P.PN ---
Subjective Patient is seen in follow-up for acute kidney injury. Renal function improving. Has Dykes catheter. Nonoliguric. Hemodynamically stable. Oral intake fair. On IV fluids. Vital signs are stable. General: No acute distress. HEENT: Head exam is unremarkable. LUNGS: No audible rhonchi or wheezes. HEART: Rate and Rhythm are regular. ABDOMEN: Nontender. EXTREMITITES: Chronic changes noted. No drainage. No edema. Objective - Vital Signs Vital signs: Vital Signs Temp 97.8 F 11/21/23 06:59 Pulse 89 11/21/23 06:59 Resp 16 11/21/23 06:59 BP 128/82 11/21/23 06:59 Pulse Ox 96 11/21/23 06:59 FiO2 Intake & Output 11/20/23 11/21/23 11/21/23 18:59 06:59 18:59 Intake Total 1120 Output Total 1225 1550 525 Balance -9807 -430 -525 Intake: Intake, IV Titration 1000 Amount Piperacillin-Tazobactam 3 100 .375 gm In Sodium Chloride 0.9% 100 ml @ 25 mls/hr IVPB Q12H LEANDRO Rx# :[id number] Sodium Chloride 0.9% 1, 900 000 ml @ 75 mls/hr IV . [id number] LEANDRO Rx#:[id number] Oral 120 Output: Urine 1225 1550 525 Other: Voiding Method Indwelling Catheter Indwelling Catheter Indwelling Catheter # Bowel Movements 1 1 - Labs CBC & Chem 7: 11/21/23 07:04 11/21/23 07:04 Labs: Abnormal Lab Results - Last 24 Hours (Table) 11/20/23 11/20/23 11/20/23 Range/Units 11:58 17:05 20:13 RBC (4.30-5.90) m/uL Hgb (13.0-17.5) gm/dL Hct (39.0-53.0) % MCV (80.0-100.0) fL MCH (25.0-35.0) pg RDW (11.5-15.5) % Potassium (3.5-5.1) mmol/L Chloride (98-107) mmol/L BUN (9-20) mg/dL Creatinine (0.66-1.25) mg/dL POC Glucose (mg/dL) 234 H 211 H 172 H (70-110) mg/dL Calcium (8.4-10.2) mg/dL Magnesium (1.6-2.3) mg/dL 11/21/23 11/21/23 11/21/23 Range/Units 06:57 07:04 07:04 RBC 3.44 L (4.30-5.90) m/uL Hgb 8.5 L (13.0-17.5) gm/dL Hct 26.8 L (39.0-53.0) % MCV 77.7 L (80.0-100.0) fL MCH 24.7 L (25.0-35.0) pg RDW 19.5 H (11.5-15.5) % Potassium 3.4 L (3.5-5.1) mmol/L Chloride 111 H (98-107) mmol/L BUN 62 H (9-20) mg/dL Creatinine 2.96 H (0.66-1.25) mg/dL POC Glucose (mg/dL) 123 H (70-110) mg/dL Calcium 7.6 L (8.4-10.2) mg/dL Magnesium 1.5 L (1.6-2.3) mg/dL Microbiology - Last 24 Hours (Table) 11/19/23 10:30 Gram Stain - Final Foot - Right Tissue Culture - Final Denisse albicans Coagulase Negative Staph Assessment and Plan Plan: Assessment: 1. Acute kidney injury secondary to ATN secondary to severe sepsis and further worsen with the use of diuretics and BRIDGET inhibitor. Creatinine 4.42 on admission - 2.96 today. Baseline creatinine near 0.6-0.8 from September 2023. No hydronephrosis noted on kidney ultrasound. UA suggestive of UTI. Urine eosinophils elevated at 3% concerning for AIN. Patient is on IV antibiotics. 2. Lower extremity osteomyelitis on IV antibiotics. ID and vascular surgery following. Underwent debridement. 3. Metabolic acidosis secondary to acute kidney injury and use of SGLT2 inhibitor. Improving with bicarb drip. 4. Diabetes mellitus. 5. Benign hypertension. Controlled. 6. Hypokalemia from intracellular shifting from IV bicarb. Replaced. Still low. 7. Hypomagnesemia from poor intake and renal losses. Plan: Change bicarb drip to normal saline. Potassium and magnesium being replaced. Maintain Dykes catheter. Strict I's and O's. Avoid nephrotoxins. Continue to monitor renal function and urine output. Will consider steroids if renal function fails to improve.
[2023-11-21] MEDS: POTASSIUM CHLORIDE ER 20 MEQ TAB.ER PO SCH ×2 (11:51→18:15)
[2023-11-21] MEDS: MAGNESIUM SULFATE-D5W PMX 1 GM in DEXTROSE/WATER 1 100ML.BAG IVPB SCH (11:51)
[2023-11-21 11:52] LABS: Glucose,Whole Blood 149 mg/dL (70-110)
--- NOTE | 2023-11-21 16:50 | P.PN ---
Subjective Progress Note Date: 11/20/23 Principal diagnosis: Reason for follow-up is diabetic foot infection and osteomyelitis Patient is a 48-year-old male with a past medical history significant for diabetes mellitus hypertension hyperlipidemia patient has been dealing with extensive left diabetic foot wound and infection for the patient did have multiple admission to the hospital, last culture positive for Enterobacter Enterococcus and Proteus patient is being admitted to hospital with renal failure. On today's evaluation that is 11/20/2023, the patient continues to be afebrile, the patient is on room air and breathing comfortably, the Pt denies having any chest pain or cough, the patient denies having any abdominal pain no vomiting or any diarrhea has been reported by the nursing staff, denies pain to the inguinal area. Patient white count is 10.16, creatinine 3.6 Objective - Vital Signs Vital signs: Vital Signs Temp 98 F 11/20/23 07:04 Pulse 80 11/20/23 07:04 Resp 18 11/20/23 07:04 BP 124/77 11/20/23 07:04 Pulse Ox 97 11/20/23 07:04 FiO2 Intake & Output 11/19/23 11/20/23 11/20/23 18:59 06:59 18:59 Intake Total 1900 1600 Output Total 1000 1700 Balance 900 -100 Intake: Intake, IV Titration 1900 1600 Amount Dextrose 5% in Water 1, 1500 1500 000 ml @ 125 mls/hr IV . Q9H12M LEANDRO with Sodium Bicarb (1 Meq/ml) 150 ml Rx#:[id number] Magnesium Sulfate-D5w Pmx 400 1 gm In Dextrose/Water 1 100ml.bag @ 100 mls/hr IVPB Q1H LEANDRO Rx#: [id number] Piperacillin-Tazobactam 3 100 .375 gm In Sodium Chloride 0.9% 100 ml @ 25 mls/hr IVPB Q12H LEANDRO Rx# :[id number] Output: Urine 1000 1700 Other: Voiding Method Indwelling Catheter Indwelling Catheter - Exam GENERAL DESCRIPTION: Middle-aged male lying in bed in no distress RESPIRATORY SYSTEM: Unlabored breathing , decreased breath sounds at bases HEART: S1 S2 regular rate and rhythm , ABDOMEN: Soft , no tenderness EXTREMITIES: Feet wounds are currently dressed - Labs CBC & Chem 7: 11/21/23 07:04 11/21/23 15:27 Labs: Abnormal Lab Results - Last 24 Hours (Table) 11/19/23 11/19/23 11/19/23 Range/Units 05:45 11:30 17:16 Potassium 3.4 L (3.5-5.5) mmol/L Chloride 110 H (96-109) mmol/L Carbon Dioxide 20.7 L (21.6-31.8) mmol/L Anion Gap 14.30 H (4.00-12.00) mmol/L BUN 66.2 H (9.0-27.0) mg/dL Creatinine 3.9 H (0.6-1.5) mg/dL Est GFR (CKD-EPI) 18 L (>=60) Glucose 144 H (70-110) mg/dL POC Glucose (mg/dL) 195 H 252 H (70-110) mg/dL Calcium 7.7 L (8.7-10.3) mg/dL Magnesium 1.3 L (1.5-2.4) mg/dL 11/19/23 11/20/23 Range/Units 20:57 04:59 Potassium (3.5-5.5) mmol/L Chloride (96-109) mmol/L Carbon Dioxide (21.6-31.8) mmol/L Anion Gap (4.00-12.00) mmol/L BUN (9.0-27.0) mg/dL Creatinine (0.6-1.5) mg/dL Est GFR (CKD-EPI) (>=60) Glucose (70-110) mg/dL POC Glucose (mg/dL) 203 H 128 H (70-110) mg/dL Calcium (8.7-10.3) mg/dL Magnesium (1.5-2.4) mg/dL Microbiology - Last 24 Hours (Table) 11/19/23 10:30 Gram Stain - Preliminary Foot - Right Assessment and Plan (1) Diabetic foot infection Current Visit: No Status: Acute Code(s): E11.628 - TYPE 2 DIABETES MELLITUS WITH OTHER SKIN COMPLICATIONS; L08.9 - LOCAL INFECTION OF THE SKIN AND SUBCUTANEOUS TISSUE, UNSP SNOMED Code(s): 093537696 (2) Diabetic foot ulcer Current Visit: No Status: Acute Code(s): E11.621 - TYPE 2 DIABETES MELLITUS WITH FOOT ULCER; L97.509 - NON-PRESSURE CHRONIC ULCER OTH PRT UNSP FOOT W UNSP SEVERITY SNOMED Code(s): 808327909 Plan: 1patient with a left diabetic foot wound and underlying osteomyelitis with the last culture positive for Enterobacter Enterococcus and Proteus unfortunately patient insurance refused to pay for the Zosyn and the patient has been treated with the vancomycin and cefepime along with the Flagyl now being admitted to hospital with renal failure for the patient being managed by nephrology 2-patient to continue with Zosyn 3.375 g every 12 hours 3-local wound care to the left foot wound with a dry Aquacel silver dressing change every 48 hour keep the area of the pressure 4-patient with wound to the right heel area patient is s/p bedside debridement of the right heel cultures currently pending Dictation was produced using [employer] dictation software. please excuse any grammatical, word or spelling errors. Time with Patient: Less than 30
--- NOTE | 2023-11-21 16:51 | P.PN ---
Subjective Progress Note Date: 11/21/23 Principal diagnosis: Reason for follow-up is diabetic foot infection and osteomyelitis Patient is a 48-year-old male with a past medical history significant for diabetes mellitus hypertension hyperlipidemia patient has been dealing with extensive left diabetic foot wound and infection for the patient did have multiple admission to the hospital, last culture positive for Enterobacter Enterococcus and Proteus patient is being admitted to hospital with renal failure. On today's evaluation that is 11/21/2023, Patient is afebrile patient is currently on room air and denies having any shortness of breath, the patient denies any chest pain or cough, the patient denies any nausea vomiting did not have any abdominal pain and no diarrhea patient denies pain to bilateral heel wound area Patient white count is 10.6, creatinine is 2.96, cultures from the right heel is growing Denisse albicans and coagulase-negative staph Objective - Vital Signs Vital signs: Vital Signs Temp 97.9 F 11/21/23 12:46 Pulse 84 11/21/23 12:46 Resp 20 11/21/23 12:46 BP 132/80 11/21/23 12:46 Pulse Ox 97 11/21/23 12:46 FiO2 Intake & Output 11/20/23 11/21/23 11/21/23 18:59 06:59 18:59 Intake Total 1120 Output Total 1225 1550 1225 Balance -1225 -430 -1225 Intake: Intake, IV Titration 1000 Amount Piperacillin-Tazobactam 3 100 .375 gm In Sodium Chloride 0.9% 100 ml @ 25 mls/hr IVPB Q12H [facility] Rx# :[id number] Sodium Chloride 0.9% 1, 900 000 ml @ 75 mls/hr IV . [id number] [facility] Rx#:[id number] Oral 120 Output: Urine 1225 1550 1225 Other: Voiding Method Indwelling Catheter Indwelling Catheter Indwelling Catheter # Bowel Movements 1 1 - Exam GENERAL DESCRIPTION: Middle-aged male lying in bed in no distress RESPIRATORY SYSTEM: Unlabored breathing , decreased breath sounds at bases HEART: S1 S2 regular rate and rhythm , ABDOMEN: Soft , no tenderness EXTREMITIES: Feet wounds are currently dressed - Labs CBC & Chem 7: 11/21/23 07:04 11/21/23 15:27 Labs: Abnormal Lab Results - Last 24 Hours (Table) 11/20/23 11/20/2311/20/24 Range/Units 17:05 20:13 06:57 RBC (4.30-5.90) m/uL Hgb (13.0-17.5) gm/dL Hct (39.0-53.0) % MCV (80.0-100.0) fL MCH (25.0-35.0) pg RDW (11.5-15.5) % Potassium (3.5-5.1) mmol/L Chloride (98-107) mmol/L BUN (9-20) mg/dL Creatinine (0.66-1.25) mg/dL POC Glucose (mg/dL) 211 H 172 H 123 H (70-110) mg/dL Calcium (8.4-10.2) mg/dL Magnesium (1.6-2.3) mg/dL 11/21/23 11/21/23 11/21/23 Range/Units 07:04 07:04 11:51 RBC 3.44 L (4.30-5.90) m/uL Hgb 8.5 L (13.0-17.5) gm/dL Hct 26.8 L (39.0-53.0) % MCV 77.7 L (80.0-100.0) fL MCH 24.7 L (25.0-35.0) pg RDW 19.5 H (11.5-15.5) % Potassium 3.4 L (3.5-5.1) mmol/L Chloride 111 H (98-107) mmol/L BUN 62 H (9-20) mg/dL Creatinine 2.96 H (0.66-1.25) mg/dL POC Glucose (mg/dL) 149 H (70-110) mg/dL Calcium 7.6 L (8.4-10.2) mg/dL Magnesium 1.5 L (1.6-2.3) mg/dL Microbiology - Last 24 Hours (Table) 11/19/23 10:30 Anaerobic Culture - Preliminary Foot - Right 11/19/23 10:30 Gram Stain - Final Foot - Right Tissue Culture - Final Denisse albicans Coagulase Negative Staph Assessment and Plan (1) Diabetic foot infection Current Visit: No Status: Acute Code(s): E11.628 - TYPE 2 DIABETES MELLITUS WITH OTHER SKIN COMPLICATIONS; L08.9 - LOCAL INFECTION OF THE SKIN AND SUBCUTANEOUS TISSUE, UNSP SNOMED Code(s): 482850175 (2) Diabetic foot ulcer Current Visit: No Status: Acute Code(s): E11.621 - TYPE 2 DIABETES MELLITUS WITH FOOT ULCER; L97.509 - NON-PRESSURE CHRONIC ULCER OTH PRT UNSP FOOT W UNSP SEVERITY SNOMED Code(s): 411958580 Plan: 1patient with a left diabetic foot wound and underlying osteomyelitis with the last culture positive for Enterobacter Enterococcus and Proteus unfortunately patient insurance refused to pay for the Zosyn and the patient has been treated with the vancomycin and cefepime along with the Flagyl now being admitted to hospital with renal failure for the patient being managed by nephrology 2--local wound care to the left foot wound with a dry Aquacel silver dressing change every 48 hour keep the area of the pressure 3-patient with wound to the right heel area patient is s/p bedside debridement of the right heel cultures currently growing coagulase-negative staph and Denisse possible skin zeeshan patient is covered with Zosyn to continue Dictation was produced using [employer] dictation software. please excuse any grammatical, word or spelling errors. Time with Patient: Less than 30
[2023-11-21 17:10] LABS: Glucose,Whole Blood 151 mg/dL (70-110)
--- NOTE | 2023-11-21 19:25 | P.PN ---
Subjective Progress Note Date: 11/21/23 Patient is a 48-year-old male with a PMH of insulin-dependent diabetes melitis, PAD with chronic bilateral feet ulcers, chronic sacral decubitus ulcer, hypertension, and hyperlipidemia who was transferred from [facility] where the patient had presented for altered mental status. No meaningful history could be obtained from the patient as he was severely confused at the time of interview, only oriented to self. History obtained from the chart and from the ED provider. The patient The patient who is currently undergoing treatment for osteomyelitis involving sacral decubitus on wound VAC, was noted to be more confused than usual. He has been receiving IV daptomycin, cefepime, and Flagyl via PICC line. He was subsequently sent to [facility] where he was noted to be in acute renal failure. Laboratory evaluation reveals a creatinine of 4.42 (baseline 0.6), with BUN 77 (baseline 10), WBC count 11.3, hemoglobin 9.0 (similar to baseline), with MCV 79.4, and phosphorus 4.9 with glucose 140. ED documentation reviewed and case discussed with ED provider. 11/18/2023 Patient is seen in follow-up this morning with multiple medical consultations following. Patient's mentation is improving and is awake and alert and talking answering questions appropriately. Patient continues with indwelling Dykes catheter which was exchanged although per nursing staff at [facility] they had continued complications with Dykes clotting and not draining properly without Flomax. Will consult urology and appreciate input and recommendations. Patient is maintained on antibiotics with infectious disease following in the form of Zosyn and vancomycin has been discontinued. Concerns for vancomycin toxicity with COLT. Patient continued on sodium bicarb drip with no improvements in kidney functions at this time. Renal replacement being discussed although no urgency. Vascular surgery Dr. Gutierrez also consulted with concerns of multiple wounds and will undergo bedside debridement and hopeful for deep tissue cultures. Patient is afebrile and on room air with no reports of chest pain or shortness of breath 11/21/2023 Patient is seen in follow-up today and mentation is significantly improved. Kidney functions improving and less than 3 today. Dykes catheter was exchanged and good urinary output. Patient is maintained on antibiotics in the form of Zosyn with infectious disease following. Culture showing Denisse and coag negative staph will await final. Patient is afebrile no reports of chest pain or shortness patient currently staying at [facility] and will likely return there on discharge. Recommend PT/OT therapy evaluation. Review of systems: Constitutional: No reports of fatigue, fever, or chills, reports to feeling much better Cardiovascular: No reports of chest pain or palpitations Respiratory: No reports of shortness of breath or cough GI: No reports of nausea, vomiting, or diarrhea : No reports of dysuria or retention Neurovascular: reports of generalized weakness All medications have been reviewed Physical examination: Vital signs reviewed General: Ill-appearing male, awake, alert and oriented x 2, mentation improved from yesterday, appears older than stated age, obese Derm: Left lateral foot stage III ulcer extending from heel to left fifth toe, unstageable sacral large decubitus, unstageable right foot ulcer status post bedside debridement, current dressing is dry and intact with Head: atraumatic, normocephalic, symmetric Eyes: EOMI, no lid lag, anicteric sclera, pupils equal round reactive to light ENT: Nose and ears atraumatic Neck: No cervical lymphadenopathy, trachea midline, supple Mouth: no lip lesion, mucus membranes dry Cardiovascular: S1S2 muffled Lungs: Breath sounds diminished bilaterally otherwise clear to auscultation with no rhonchi or wheezing noted. No accessory muscle use Abdominal: soft, obese nontender to palpation, no guarding Ext: no gross muscle atrophy, no contractures, Neuro: no gross focal neuro deficits, diffusely weak Assessment: Acute kidney injury related to acute tubular necrosis secondary to severe sepsis as well as diuretics, BRIDGET inhibitor, and vancomycin Concerns for vancomycin toxicity, present on admission Urinary retention with indwelling Dykes catheter, on admission Altered mental status, likely uremic encephalopathy due to above, improving Leukocytosis, present on admission with sepsis, possibly secondary to multiple unstageable wounds, patient is afebrile Osteomyelitis involving sacral decubitus, currently on IV antibiotic therapy of unknown duration. Patient does have a PICC line Hypertension Diabetes mellitus, type II Hyperlipidemia Obesity with a BMI of 36.5 GI prophylaxis DVT prophylaxis Full code Plan: Infectious disease following and will continue on Zosyn. Patient was on vancomycin with concerns of vancomycin toxicity and acute kidney injury secondary to this. As patient was on a number of medications with concerns of overmedicating and will hold on those previous medications Wound care as well as vascular surgery following for multiple unstageable ulcers, status post bedside debridement of the heel on 11/19/[address] Gutierrez Continue with IV fluids normal saline 150 cc/h and follow-up on repeat labs, nephrology following and patient is maintained on bicarb drip with no improvements in kidney functions. Discussing renal replacement therapy although not urgent at this time, kidney functions are improving Monitor BMP, repeat labs ordered for a.m. Home medications reviewed and resumed as appropriate Continue monitoring Accu-Cheks before meals and at bedtime and will adjust medications as needed Patient is from [facility] and primary care provider is Dr. Roca since living at the [facility] 1 month ago per family Due to multiple complex medical issues, prognosis is guarded The impression and plan of care has been dictated by Nirmala Morales, Nurse Practitioner as directed. Dr. Filippo MD I have performed a history and examination and MDM of this patient, discussed the same with the dictator, and agree with the dictator's assessment and plan as written ,documented as a scribe. Based on total visit time, I have performed more than 50% of the visit. Objective - Vital Signs Vital signs: Vital Signs Temp 97.9 F 11/21/23 12:46 Pulse 84 11/21/23 12:46 Resp 20 11/21/23 12:46 BP 132/80 11/21/23 12:46 Pulse Ox 97 11/21/23 12:46 FiO2 Intake & Output 11/21/23 11/21/23 11/22/23 06:59 18:59 06:59 Intake Total 1120 1250 Output Total 1550 1675 Balance -430 -425 Intake: Intake, IV Titration 1000 1250 Amount Fluconazole in NaCl,Iso- 50 Osm 100 mg In Saline 1 50ml.bag @ 50 mls/hr IVPB DAILY [facility] Rx#:[id number] Magnesium Sulfate-D5w Pmx 200 1 gm In Dextrose/Water 1 100ml.bag @ 100 mls/hr IVPB Q1H [facility] Rx#: [id number] Piperacillin-Tazobactam 3 100 100 .375 gm In Sodium Chloride 0.9% 100 ml @ 25 mls/hr IVPB Q12H [facility] Rx# :[id number] Sodium Chloride 0.9% 1, 900 900 000 ml @ 75 mls/hr IV . [id number] [facility] Rx#:[id number] Oral 120 Output: Urine 1550 1675 Other: Voiding Method Indwelling Catheter Indwelling Catheter # Bowel Movements 1 1 - Labs CBC & Chem 7: 11/21/23 07:04 11/21/23 15:27 Labs: Abnormal Lab Results - Last 24 Hours (Table) 11/20/23 11/21/23 11/21/23 Range/Units 20:13 06:57 07:04 RBC (4.30-5.90) m/uL Hgb (13.0-17.5) gm/dL Hct (39.0-53.0) % MCV (80.0-100.0) fL MCH (25.0-35.0) pg RDW (11.5-15.5) % Potassium 3.4 L (3.5-5.1) mmol/L Chloride 111 H (98-107) mmol/L BUN 62 H (9-20) mg/dL Creatinine 2.96 H (0.66-1.25) mg/dL POC Glucose (mg/dL) 172 H 123 H (70-110) mg/dL Calcium 7.6 L (8.4-10.2) mg/dL Magnesium 1.5 L (1.6-2.3) mg/dL 11/21/23 11/21/23 11/21/23 Range/Units 07:04 11:51 17:09 RBC 3.44 L (4.30-5.90) m/uL Hgb 8.5 L (13.0-17.5) gm/dL Hct 26.8 L (39.0-53.0) % MCV 77.7 L (80.0-100.0) fL MCH 24.7 L (25.0-35.0) pg RDW 19.5 H (11.5-15.5) % Potassium (3.5-5.1) mmol/L Chloride (98-107) mmol/L BUN (9-20) mg/dL Creatinine (0.66-1.25) mg/dL POC Glucose (mg/dL) 149 H 151 H (70-110) mg/dL Calcium (8.4-10.2) mg/dL Magnesium (1.6-2.3) mg/dL Microbiology - Last 24 Hours (Table) 11/19/23 10:30 Anaerobic Culture - Preliminary Foot - Right 11/19/23 10:30 Gram Stain - Final Foot - Right Tissue Culture - Final Denisse albicans Coagulase Negative Staph
[2023-11-21 20:02] LABS: Glucose,Whole Blood 315 mg/dL (70-110)
[2023-11-21 20:48] VITALS: RESP 16
[2023-11-22 07:02] LABS: Glucose,Whole Blood 139 mg/dL (70-110)
[2023-11-22 07:30] LABS: African American GFR (CKD) 33 (>60 ml/min/1.73 sqM); Anion Gap 5 mmol/L; Blood Urea Nitrogen 58 mg/dL (9-20); Calcium 7.7 mg/dL (8.4-10.2); Carbon Dioxide 25 mmol/L (22-30); Chloride 113 mmol/L (98-107); Glucose 131 mg/dL (74-99); Magnesium 1.6 mg/dL (1.6-2.3); Non-African American GFR(CKD) 28 (>60 ml/min/1.73 sqM); Potassium 4.2 mmol/L (3.5-5.1); Sodium 143 mmol/L (137-145)
--- NOTE | 2023-11-22 09:16 | CDI ---
Documentation Clarification Form Date: 11/22/2023 08:06:04 AM From: Gabrielle Vazquez RN CCDS Phone: [phone] Admit Date: 11/17/2023 06:39:00 AM Patient Name: Cristian Hoff Visit Number: [id number] Discharge Date: ATTENTION: The Clinical Documentation Specialists (CDI) and [facility] Coding Staff appreciate your assistance in clarifying documentation. Please respond to the clarification below the line at the bottom and electronically sign. The CDI & [facility] Coding staff will review the response and follow-up if needed. Please note: Queries are made part of the Legal Health Record. If you have any questions, please contact the author of this message via ITS. Nirmala Morales NP Uremic Encephalopathy is documented 11/16, H&P. Additional clarification regarding the type of encephalopathy is requested. History/Risk Factors: 48 year old male presents to the ED from [facility] for being severely confused more than usual and acute renal failure. Medical history: Multiple ulcers, Stage 4 sacral ulcer, DM2, HTN and obesity. 11/16, H&P Clinical Indicators: Labs, 11/16: Wbc 11.3 Chl 117, Carbon dioxide 8, BUN 77, Cr 4.42, GFR 14, Calcium 8.1, Phosphorus 4.9, AST 15, Albumin 2.6 CT Brain, 11/16: 1.No CT evidence for acute CVA. 2. Nonspecific white matter changes, likely secondary to chronic small vessel ischemic disease. Treatment: 11/16 Cefepime 2gm IVPB Q8H; 11/16 11/19 Dextrose / Water with Sodium Bicarbonate 150ml IVPB Q9H; Flcuconazole/Sodium Chl 100mg IVPB Daily; 11/16 Zosyn 3.375gm ivpb Q12H; 11/17 Sodium Biarbonate 100ml IV x 1 Consults: Please further clarify the type of encephalopathy, if known: [ x ] Metabolic toxic encephalopathy secondary to medications and COLT [ ] Septic Encephalopathy [ ] Other, please specify [ ] Unable to determine (Template Last Revised: August 2020) MTDD
[2023-11-22 12:22] LABS: Glucose,Whole Blood 170 mg/dL (70-110)
--- NOTE | 2023-11-22 14:23 | P.DS ---
Providers Date of admission: 11/17/23 06:39 Expected date of discharge: 11/22/23 Attending physician: Corey Barkley Consults: 11/17/23 07:14 Consult Physician Urgent Consulting Provider: Yonas Dey Consult Reason/Comments: Osteomyelitis Do you want consulting provider notified?: Yes 11/17/23 08:45 Consult Physician Routine Consulting Provider: Miguel A Ceron Consult Reason/Comments: COLT, renal failure Do you want consulting provider notified?: Yes 11/17/23 16:28 Consult Physician Routine Consulting Provider: David Gutierrez Consult Reason/Comments: known pt in wound clinic Do you want consulting provider notified?: Already Contacted 11/18/23 14:31 Consult Physician Urgent Consulting Provider: Mehul Miranda Consult Reason/Comments: Dykes catheter issues, retention, renal failure Do you want consulting provider notified?: Yes Primary care physician: Ahsan Roca Hospital Course: Final diagnosis Acute kidney injury related to acute tubular necrosis secondary to severe sepsis as well as diuretics, BRIDGET inhibitor, and vancomycin Concerns for vancomycin toxicity, present on admission Urinary retention with indwelling Dykes catheter, on admission Altered mental status, likely uremic encephalopathy due to above, improving Metabolic/toxic encephalopathy, present on admission secondary to COLT as well as medication effect, improved Leukocytosis, present on admission with sepsis, possibly secondary to multiple unstageable wounds, patient is afebrile Osteomyelitis involving sacral decubitus, currently on IV antibiotic therapy of unknown duration. Patient does have a PICC line which is being removed on 11/22/2023 Hypertension Diabetes mellitus, type II Hyperlipidemia Obesity with a BMI of 36.5 GI prophylaxis DVT prophylaxis Full code Discharge disposition Patient is being discharged in a stable condition with guarded prognosis to [facility] . Patient will follow-up with Dr. Roca in the outpatient setting upon discharge. Patient is to continue with close outpatient follow-up with nephrology as well as the wound care center as scheduled. Patient to continue with local wound care and also continue with indwelling Dykes catheter. Patient to follow-up with urology outpatient. Continue Flomax. Total time taken is greater than 35 minutes. Hospital course This is a 48-year-old male who was recently admitted with increased confusion with altered mental status concerns with sepsis, present on admission. Patient had been on IV antibiotics with a PICC line for quite some time for multiple wounds of the lower extremities as well as sacral decubitus ulcer. Patient came in with acute kidney injury and evaluated by nephrology showing some improvements recommending close outpatient follow-up. Patient has been chronically having an indwelling Dykes catheter and evaluated by urology recommending to continue with catheter and outpatient follow-up. Patient to continue on Flomax and Dykes care. Patient did have a bedside debridement of the heel ulcer done with vascular surgery showing no coag negative staph otherwise Denisse and was continued on antifungals along with antibiotics showing clinical improvement. Patient will have PICC line discontinued and will be closely monitored off antibiotic therapy. Patient to continue following with a local wound care at the wound care center as well. Dykes catheter was exchanged on admission and recommend close outpatient follow-up with urology. Please refer to other consultation notes for further HPI. Currently no reports of chest pain, shortness of breath, or palpitations. Patient is afebrile. No reports of nausea or vomiting and patient is tolerating diet. Patient will be discharged to [facility] today. Physical exam: Gen: This is a 48-year-old male who is alert and oriented x 2-3, well-developed, obese HEENT: Head is atraumatic, normocephalic. Pupils equal, round. Sclerae is anicteric. NECK: Supple. No JVD. No lymphadenopathy. No thyromegaly. LUNGS: Diminished breath sounds bilaterally otherwise clear to auscultation. No wheezes or rhonchi. No intercostal retractions. HEART: S1, S2 are muffled ABDOMEN: Soft. Obese. Bowel sounds are present. No masses. No tenderness. EXTREMITIES: No pedal edema. No calf tenderness. NEUROLOGICAL: Patient is awake, alert and oriented x2-3. Cranial nerves 2 through 12 are grossly intact. Diffusely weak Please refer to medication reconciliation sheet for a list of medications. The impression and plan of care has been dictated by Nurse Cecily Pr actitioner as directed. Dr. Filippo MD I have performed a history and examination and MDM of this patient, discussed the same with the dictator, and agree with the dictator's assessment and plan as written ,documented as a scribe. Based on total visit time, I have performed more than 50% of the visit. Patient Condition at Discharge: Fair Plan - Discharge Summary New Discharge Prescriptions: New Folic Acid 1 mg PO DAILY tab Enoxaparin [Lovenox] 30 mg SQ DAILY each Tamsulosin [Flomax] 0.4 mg PO PC-BRKFST #0 cap Nystatin 100,000 Unit/gm Oint [Mycostatin Oint] 1 applic TOPICAL TID each Nystatin 100,000 Unit/gm Powd [Mycostatin Powder] 1 applic TOPICAL BID each Thiamine [Vitamin B-1] 100 mg PO DAILY tab Continue Metoprolol Succinate (ER) [Toprol XL] 50 mg PO DAILY Atorvastatin Calcium [Lipitor] 80 mg PO HS Levothyroxine Sodium [Synthroid] 300 mcg PO DAILY Dapagliflozin Propanediol [Farxiga] 10 mg PO DAILY ARIPiprazole [Abilify] 30 mg PO DAILY Multivitamins, Thera [Multivitamin (formulary)] 1 tab PO DAILY Insulin Glargine,Hum.rec.anlog [Lantus Solostar Pen] 26 units SQ DAILY #0 Zinc Gluconate [Zinc] 50 mg PO DAILY Loperamide [Imodium] 2 mg PO QID PRN PRN Reason: Loose Stool buPROPion XL [Wellbutrin XL] 300 mg PO DIRECTED buPROPion HCL [Wellbutrin XL] 150 mg PO DAILY Dulaglutide [Trulicity] 1.5 mg SQ TH Mirtazapine [Remeron] 45 mg PO HS 0.9 % Sodium Chloride [Sodium Chloride Flush] 10 ml IV BID amLODIPine [Norvasc] 5 mg PO DAILY Ondansetron [Zofran] 4 mg PO Q8H PRN PRN Reason: Nausea And Vomiting L.acidoph,Paracasei, B.lactis [Probiotic] 2 cap PO DAILY Insulin Lispro See Protocol SQ ACHS Liquacel 30 ml PO TID Potassium Chloride ER [K-Dur 20] 20 meq PO DAILY #0 Discontinued Pregabalin [Lyrica] 300 mg PO BID lisinopriL [Zestril] 10 mg PO HS #1 tab metroNIDAZOLE [Flagyl] 500 mg PO Q8H DAPTOmycin [Cubicin] 6 mg IV Q48H Cefepime [Maxipime] 2 gm IVPB Q8H Furosemide [Lasix] 20 mg PO DAILY HYDROcodone/APAP 7.5-325MG [Raywick 7.5-325] 1 tab PO Q6HR PRN #12 tab PRN Reason: Pain SILVER sulfADIAZINE Cream [Silvadene 1% Cream] 1 applic TOPICAL MOWEFR Discharge Medication List ARIPiprazole [Abilify] 30 mg PO DAILY 07/14/23 [History] Atorvastatin Calcium [Lipitor] 80 mg PO HS 07/14/23 [History] Dapagliflozin Propanediol [Farxiga] 10 mg PO DAILY 07/14/23 [History] Levothyroxine Sodium [Synthroid] 300 mcg PO DAILY 07/14/23 [History] Metoprolol Succinate (ER) [Toprol XL] 50 mg PO DAILY 07/14/23 [History] Ondansetron [Zofran] 4 mg PO Q8H PRN 07/14/23 [History] Insulin Lispro See Protocol SQ ACHS 10/02/23 [History] L.acidoph,Paracasei, B.lactis [Probiotic] 2 cap PO DAILY 10/02/23 [History] Liquacel 30 ml PO TID 10/02/23 [History] Multivitamins, Thera [Multivitamin (formulary)] 1 tab PO DAILY 10/02/23 [History ] Insulin Glargine,Hum.rec.anlog [Lantus Solostar Pen] 26 units SQ DAILY #0 10/06/23 [Rx] Potassium Chloride ER [K-Dur 20] 20 meq PO DAILY #0 10/06/23 [Rx] 0.9 % Sodium Chloride [Sodium Chloride Flush] 10 ml IV BID 11/17/23 [History] Dulaglutide [Trulicity] 1.5 mg SQ TH 11/17/23 [History] Loperamide [Imodium] 2 mg PO QID PRN 11/17/23 [History] Mirtazapine [Remeron] 45 mg PO HS 11/17/23 [History] Zinc Gluconate [Zinc] 50 mg PO DAILY 11/17/23 [History] amLODIPine [Norvasc] 5 mg PO DAILY 11/17/23 [History] buPROPion HCL [Wellbutrin XL] 150 mg PO DAILY 11/17/23 [History] buPROPion XL [Wellbutrin XL] 300 mg PO DIRECTED 11/17/23 [History] Enoxaparin [Lovenox] 30 mg SQ DAILY each 11/22/23 [Rx] Folic Acid 1 mg PO DAILY tab 11/22/23 [Rx] Nystatin 100,000 Unit/gm Oint [Mycostatin Oint] 1 applic TOPICAL TID each 11/22/23 [Rx] Nystatin 100,000 Unit/gm Powd [Mycostatin Powder] 1 applic TOPICAL BID each 11/22/23 [Rx] Tamsulosin [Flomax] 0.4 mg PO PC-BRKFST #0 cap 11/22/23 [Rx] Thiamine [Vitamin B-1] 100 mg PO DAILY tab 11/22/23 [Rx] Follow up Appointment(s)/Referral(s): Dinora Flowers MD [STAFF PHYSICIAN] - 1 Week Rxoanne Agee NPC [REFERRING] - 1-2 days David Gutierrez MD [STAFF PHYSICIAN] - 1 Week Patient Instructions/Handouts: Acute Kidney Injury (DC), Osteomyelitis (DC), Diabetic Foot Ulcers (DC), Pressure Injury (DC), Encephalopathy (DC) Activity/Diet/Wound Care/Special Instructions: Patient is returning to [facility] Activity as tolerated Continue diabetic diet consistent carb Follow-up with nephrology outpatient Follow-up with urology outpatient Follow-up with the wound care center with vascular surgery Dr. Gutierrez Discharge Disposition: TRANSFER TO SNF/ECF
--- NOTE | 2023-11-22 16:11 | P.PN ---
Subjective Progress Note Date: 11/22/23 Principal diagnosis: Reason for follow-up is diabetic foot infection and osteomyelitis Patient is a 48-year-old male with a past medical history significant for diabetes mellitus hypertension hyperlipidemia patient has been dealing with extensive left diabetic foot wound and infection for the patient did have multiple admission to the hospital, last culture positive for Enterobacter Enterococcus and Proteus patient is being admitted to hospital with renal failure. On today's evaluation that is 11/22/2023, patient has been afebrile, patient is breathing comfortably and is currently on room air, patient denies having any significant cough no chest pain shortness of breath, patient denies nausea vomiting or diarrhea and no abdominal pain denies pain to bilateral foot wound area. Patient creatinine is down to 2.53 Objective - Vital Signs Vital signs: Vital Signs Temp 98.6 F 11/22/23 12:18 Pulse 86 11/22/23 12:18 Resp 16 11/22/23 12:18 BP 133/75 11/22/23 12:18 Pulse Ox 96 11/22/23 12:18 FiO2 Intake & Output 11/21/23 11/22/23 11/22/23 18:59 06:59 18:59 Intake Total 1250 2190 Output Total 1675 1701 Balance -425 489 Intake: Intake, IV Titration 1250 1000 Amount Fluconazole in NaCl,Iso- 50 Osm 100 mg In Saline 1 50ml.bag @ 50 mls/hr IVPB DAILY [facility] Rx#:[id number] Magnesium Sulfate-D5w Pmx 200 1 gm In Dextrose/Water 1 100ml.bag @ 100 mls/hr IVPB Q1H [facility] Rx#: [id number] Piperacillin-Tazobactam 3 100 100 .375 gm In Sodium Chloride 0.9% 100 ml @ 25 mls/hr IVPB Q12H [facility] Rx# :[id number] Sodium Chloride 0.9% 1, 900 900 000 ml @ 75 mls/hr IV . [id number] [facility] Rx#:[id number] Oral 1190 Output: Urine 1675 1700 Stool 1 Other: Voiding Method Indwelling Catheter Indwelling Catheter Indwelling Catheter # Bowel Movements 1 - Exam GENERAL DESCRIPTION: Middle-aged male lying in bed in no distress RESPIRATORY SYSTEM: Unlabored breathing , decreased breath sounds at bases HEART: S1 S2 regular rate and rhythm , ABDOMEN: Soft , no tenderness EXTREMITIES: Right heel wound minimal slough no significant redness or foul- smelling drainage - Labs CBC & Chem 7: 11/21/23 07:04 11/22/23 06:03 Labs: Abnormal Lab Results - Last 24 Hours (Table) 11/21/23 11/21/23 11/22/23 Range/Units 17:09 20:00 06:03 Chloride 113 H (98-107) mmol/L BUN 58 H (9-20) mg/dL Creatinine 2.53 H (0.66-1.25) mg/dL Glucose 131 H (74-99) mg/dL POC Glucose (mg/dL) 151 H 315 H (70-110) mg/dL Calcium 7.7 L (8.4-10.2) mg/dL 11/22/23 11/22/23 Range/Units 07:01 12:20 Chloride (98-107) mmol/L BUN (9-20) mg/dL Creatinine (0.66-1.25) mg/dL Glucose (74-99) mg/dL POC Glucose (mg/dL) 139 H 170 H (70-110) mg/dL Calcium (8.4-10.2) mg/dL Microbiology - Last 24 Hours (Table) 11/19/23 10:30 Anaerobic Culture - Preliminary Foot - Right 11/19/23 10:30 Gram Stain - Final Foot - Right Tissue Culture - Final Denisse albicans Coagulase Negative Staph Assessment and Plan (1) Diabetic foot infection Current Visit: No Status: Acute Code(s): E11.628 - TYPE 2 DIABETES MELLITUS WITH OTHER SKIN COMPLICATIONS; L08.9 - LOCAL INFECTION OF THE SKIN AND SUBCU TANEOUS TISSUE, UNSP SNOMED Code(s): 317494563 (2) Diabetic foot ulcer Current Visit: No Status: Acute Code(s): E11.621 - TYPE 2 DIABETES MELLITUS WITH FOOT ULCER; L97.509 - NON-PRESSURE CHRONIC ULCER OTH PRT UNSP FOOT W UNSP SEVERITY SNOMED Code(s): 228450022 Plan: 1patient with a left diabetic foot wound and underlying osteomyelitis with the last culture positive for Enterobacter Enterococcus and Proteus unfortunately patient insurance refused to pay for the Zosyn and the patient has been treated with the vancomycin and cefepime along with the Flagyl now being admitted to hospital with renal failure for the patient being managed by nephrology 2--local wound care to bilateral feet wound with a dry Aquacel silver dressing change every 48 hour keep the area of the pressure 3-patient with wound to the right heel area patient is s/p bedside debridement of the right heel cultures currently growing coagulase-negative staph and Denisse which is more likely skin zeeshan no significant cellulitis was noticed patient is afebrile white count is normal recommending no further antibiotic therapy at this point discontinue the PICC line local wound care to continue per the vascular surgery discussed in detail with the nurse marimaritioner for admitting team working on discharge Dictation was produced using [employer] dictation software. please excuse any grammatical, word or spelling errors. Time with Patient: Less than 30
[2023-11-22 17:03] LABS: Glucose,Whole Blood 125 mg/dL (70-110)
[2023-11-22 18:15] VITALS: BP 148/83; PULSE 76; TEMP 98.9
--- NOTE | 2023-11-22 19:04 | P.PN ---
Subjective Patient is seen for follow-up for acute kidney injury. Renal function has improved with creatinine down to 2.5 mg/dL. Maintained on IV fluids. No significant complaints. Objective - Vital Signs Vital signs: Vital Signs Temp 98.9 F 11/22/23 18:04 Pulse 76 11/22/23 18:04 Resp 16 11/22/23 18:05 BP 148/83 11/22/23 18:05 Pulse Ox 95 11/22/23 18:05 FiO2 Intake & Output 11/22/23 11/22/23 11/23/23 06:59 18:59 06:59 Intake Total 2190 Output Total 1701 1400 Balance 489 -1400 Intake: Intake, IV Titration 1000 Amount Piperacillin-Tazobactam 3 100 .375 gm In Sodium Chloride 0.9% 100 ml @ 25 mls/hr IVPB Q12H [facility] Rx# :[id number] Sodium Chloride 0.9% 1, 900 000 ml @ 75 mls/hr IV . [id number] [facility] Rx#:[id number] Oral 1190 Output: Urine 1700 1400 Stool 1 Other: Voiding Method Indwelling Catheter Indwelling Catheter # Voids 1 # Bowel Movements 1 - Exam Patient is awake, comfortable, no acute distress. Examination of the heart S1 and S2 Examination of the lungs bilateral breath sounds are heard. Examination of lower extremities shows no significant edema CUT FILE CLERK exam grossly intact - Labs CBC & Chem 7: 11/21/23 07:04 11/22/23 06:03 Labs: Abnormal Lab Results - Last 24 Hours (Table) 11/21/23 11/22/23 11/22/23 Range/Units 20:00 06:03 07:01 Chloride 113 H (98-107) mmol/L BUN 58 H (9-20) mg/dL Creatinine 2.53 H (0.66-1.25) mg/dL Glucose 131 H (74-99) mg/dL POC Glucose (mg/dL) 315 H 139 H (70-110) mg/dL Calcium 7.7 L (8.4-10.2) mg/dL 11/22/23 11/22/23 Range/Units 12:20 17:02 Chloride (98-107) mmol/L BUN (9-20) mg/dL Creatinine (0.66-1.25) mg/dL Glucose (74-99) mg/dL POC Glucose (mg/dL) 170 H 125 H (70-110) mg/dL Calcium (8.4-10.2) mg/dL Assessment and Plan Assessment: 1. Acute kidney injury secondary to ATN secondary to severe sepsis and further worsen with the use of diuretics and BRIDGET inhibitor. Creatinine 4.42 on admission - 2.5 today. Baseline creatinine near 0.6-0.8 from September 2023. No hydronephrosis noted on kidney ultrasound. UA suggestive of UTI. Urine eosinophils elevated at 3% concerning for AIN. Patient is on IV antibiotics. 2. Lower extremity osteomyelitis on IV antibiotics. ID and vascular surgery following. Underwent debridement. 3. Metabolic acidosis secondary to acute kidney injury and use of SGLT2 inhibitor. Improving with bicarb drip. 4. Diabetes mellitus. 5. Benign hypertension. Controlled. 6. Hypokalemia from intracellular shifting from IV bicarb. Replaced. Still low. 7. Hypomagnesemia from poor intake and renal losses. Plan: Encourage increased oral intake. May continue with IV fluids Follow-up as outpatient in 1 week post discharge. Continue to hold steroids for now as renal function continues to improve.
== END 2023-11-22 19:00 | DRG 720 ==
LOC: EC 04:03 → 5NMEDONC 06:39
PROVIDERS: ADMIT Hospitalist; ATTEND Hospitalist
DX: A41.81 Sepsis due to Enterococcus (principal); E11.69 Type 2 diabetes mellitus with other specified complication; R65.20 Severe sepsis without septic shock; G93.41 Metabolic encephalopathy; E87.20 Acidosis, unspecified; G92.8 Other toxic encephalopathy; R33.9 Retention of urine, unspecified; E11.628 Type 2 diabetes mellitus with other skin complications; E11.621 Type 2 diabetes mellitus with foot ulcer; E66.01 Morbid (severe) obesity due to excess calories; F05 Delirium due to known physiological condition; G93.49 Other encephalopathy; L89.314 Pressure ulcer of right buttock, stage 4; L89.629 Pressure ulcer of left heel, unspecified stage; L97.413 Non-pressure chronic ulcer of right heel and midfoot with necrosis of muscle; L97.422 Non-pressure chronic ulcer of left heel and midfoot with fat layer exposed; L97.512 Non-pressure chronic ulcer of other part of right foot with fat layer exposed; L97.522 Non-pressure chronic ulcer of other part of left foot with fat layer exposed; E11.22 Type 2 diabetes mellitus with diabetic chronic kidney disease; Z68.36 Body mass index [BMI] 36.0-36.9, adult; I12.9 Hypertensive chronic kidney disease with stage 1 through stage 4 chronic kidney disease, or unspecified chronic kidney disease; M46.28 Osteomyelitis of vertebra, sacral and sacrococcygeal region; N17.0 Acute kidney failure with tubular necrosis; L89.159 Pressure ulcer of sacral region, unspecified stage; Z79.4 Long term (current) use of insulin; E87.6 Hypokalemia; Z79.85 Long-term (current) use of injectable non-insulin antidiabetic drugs; N18.9 Chronic kidney disease, unspecified; E78.5 Hyperlipidemia, unspecified; E83.42 Hypomagnesemia; F41.0 Panic disorder [episodic paroxysmal anxiety]; F31.9 Bipolar disorder, unspecified; Z74.01 Bed confinement status; Z79.84 Long term (current) use of oral hypoglycemic drugs; Z79.890 Hormone replacement therapy; Z79.899 Other long term (current) drug therapy; Z86.14 Personal history of Methicillin resistant Staphylococcus aureus infection; Z87.01 Personal history of pneumonia (recurrent)
CPT/HCPCS: 36415; 70450; 76770; 80048; 80053; 81001; 83735; 84100; 84132; 85025; 87070; 87075; 87205; 93005; 96360; 96361; 99291

== ENCOUNTER 2024-01-02 15:42 | Inpatient (IN) | payer OTHER ==
--- NOTE | 2024-01-02 16:29 | ED ---
General Adult HPI - General Chief complaint: Skin/Abscess/Foreign Body Stated complaint: Wound -came from wound care Time Seen by Provider: 01/02/24 15:46 Source: patient, RN/MD, RN notes reviewed Mode of arrival: wheelchair Limitations: no limitations - History of Present Illness Initial comments: Patient is a 48-year-old male present to the emergency department from the wound center. Patient was sent by Dr. Gutierrez for admission. Patient states he does have chronic wounds and does not walk because of the wounds. Patient has wounds of his bilateral feet and sacral region. Patient has been going to the wound center for months however seems to be getting worse. Patient denies fevers. - Related Data Home Medications Medication Instructions Recorded Confirmed ARIPiprazole [Abilify] 30 mg PO DAILY 07/14/23 11/17/23 Atorvastatin Calcium [Lipitor] 80 mg PO HS 07/14/23 11/17/23 Dapagliflozin Propanediol [Farxiga] 10 mg PO DAILY 07/14/23 11/17/23 Levothyroxine Sodium [Synthroid] 300 mcg PO DAILY 07/14/23 11/17/23 Metoprolol Succinate (ER) [Toprol 50 mg PO DAILY 07/14/23 11/17/23 XL] Ondansetron [Zofran] 4 mg PO Q8H PRN 07/14/23 11/17/23 Insulin Lispro See Protocol SQ ACHS 10/02/23 11/17/23 L.acidoph,Paracasei, B.lactis 2 cap PO DAILY 10/02/23 11/17/23 [Probiotic] Liquacel 30 ml PO TID 10/02/23 11/17/23 Multivitamins, Thera [Multivitamin 1 tab PO DAILY 10/02/23 11/17/23 (formulary)] 0.9 % Sodium Chloride [Sodium 10 ml IV BID 11/17/23 11/17/23 Chloride Flush] Dulaglutide [Trulicity] 1.5 mg SQ TH 11/17/23 11/17/23 Loperamide [Imodium] 2 mg PO QID PRN 11/17/23 11/17/23 Mirtazapine [Remeron] 45 mg PO HS 11/17/23 11/17/23 Zinc Gluconate [Zinc] 50 mg PO DAILY 11/17/23 11/17/23 amLODIPine [Norvasc] 5 mg PO DAILY 11/17/23 11/17/23 buPROPion HCL [Wellbutrin XL] 150 mg PO DAILY 11/17/23 11/17/23 buPROPion XL [Wellbutrin XL] 300 mg PO DIRECTED 11/17/23 11/17/23 Previous Rx's Medication Instructions Recorded Insulin Glargine,Hum.rec.anlog 26 units SQ DAILY #0 10/06/23 [Lantus Solostar Pen] Potassium Chloride ER [K-Dur 20] 20 meq PO DAILY #0 10/06/23 Enoxaparin [Lovenox] 30 mg SQ DAILY each 11/22/23 Folic Acid 1 mg PO DAILY tab 11/22/23 Nystatin 100,000 Unit/gm Oint 1 applic TOPICAL TID each 11/22/23 [Mycostatin Oint] Nystatin 100,000 Unit/gm Powd 1 applic TOPICAL BID each 11/22/23 [Mycostatin Powder] Tamsulosin [Flomax] 0.4 mg PO PC-BRKFST #0 cap 11/22/23 Thiamine [Vitamin B-1] 100 mg PO DAILY tab 11/22/23 Allergies Allergy/AdvReac Type Severity Reaction Status Date / Time No Known Allergies Allergy Verified 01/02/24 16:04 Review of Systems ROS Statement: Those systems with pertinent positive or pertinent negative responses have been documented in the HPI. ROS Other: All systems not noted in ROS Statement are negative. Constitutional: Denies: fever Eyes: Denies: eye pain ENT: Denies: ear pain Respiratory: Denies: dyspnea Cardiovascular: Denies: chest pain Endocrine: Reports: fatigue Neurological: Reports: weakness (Patient states new onset weakness left arm last month that was considered to be a stroke despite negative head CT.) Past Medical History Past Medical History: Diabetes Mellitus, Hyperlipidemia, Hypertension, Pneumonia Additional Past Medical History / Comment(s): pressure ulcer bilat feet and coccyx History of Any Multi-Drug Resistant Organisms: None Reported Past Surgical History: No Surgical Hx Reported Additional Past Surgical History / Comment(s): debridement of left foot ulcer Past Anesthesia/Blood Transfusion Reactions: No Reported Reaction Past Psychological History: Anxiety, Bipolar, Depression, Panic Disorder Smoking Status: Never smoker Past Alcohol Use History: Occasional Past Drug Use History: None Reported - Past Family History Father Additional Family Medical History / Comment(s): polycystic kidney disease. at age 3030 years old Mother Family Medical History: Coronary Artery Disease (CAD), Diabetes Mellitus, Myocardial Infarction (NE) General Exam Limitations: no limitations General appearance: alert, in no apparent distress Head exam: Present: normocephalic Eye exam: Present: normal appearance Neck exam: Present: normal inspection Respiratory exam: Present: normal lung sounds bilaterally Cardiovascular Exam: Present: regular rate, normal rhythm GI/Abdominal exam: Present: soft. Absent: tenderness Extremities exam: Present: other (Feet are wrapped from the wound center) Neurological exam: Present: alert, other (Left arm weakness) Psychiatric exam: Present: normal affect, normal mood Skin exam: Present: other (Moderate stage III/IV sacral ulcer) Course Vital Signs 01/02/24 15:59 Temperature 98.9 F Pulse Rate 95 Respiratory 18 Rate Blood Pressure 104/58 O2 Sat by Pulse 97 Oximetry Medical Decision Making - Medical Decision Making Was pt. sent in by a medical professional or institution (, PA, REGISTRATION SCHEDULING SPECIALIST, urgent care, hospital, or alf...) When possible be specific @ -Patient was sent by wound care Did you speak to anyone other than the patient for history (EMS, parent, family, police, friend...)? What history was obtained from this source @ -I did speak with Dr. Gutierrez who would like patient admitted to Dr. Barkley and consult with Dr. Best as well as himself Did you review nursing and triage notes (agree or disagree)? Why? @ -I reviewed and agree with nursing and triage notes Were old charts reviewed (outside hosp., previous admission, EMS record, old EKG, old radiological studies, urgent care reports/EKG's, alf records)? Report findings @ -No old charts were reviewed Differential Diagnosis (chest pain, altered mental status, abdominal pain women, abdominal pain men, vaginal bleeding, weakness, fever, dyspnea, syncope, headache, dizziness, GI bleed, back pain, seizure, CVA, palpatations, mental health, musculoskeletal)? @ -Differential Fever: Pneumonia, viral URI, endocarditis, myocarditis, pericarditis, otitis, sinusitis, peritonsillar Abscess, retropharyngeal Abscess, epiglottitis, peritonitis, appendicitis, Yvonne cystitis, diverticulitis, hepatitis, colitis, UTI, PID, TOA, pyelonephritis, prostatitis, epididymitis, meningitis, encephalitis, pulmonary embolism, CVA, thyroid storm, pancreatitis, adrenal crisis, cavernous sinus thrombosis, this is not meant to be an all-inclusive list. EKG interpreted by me (3pts min.). @ -As above X-rays interpreted by me (1pt min.). @ -Sacral x-ray has been ordered CT interpreted by me (1pt min.). @ -None done U/S interpreted by me (1pt. min.). @ -None done What testing was considered but not performed or refused? (CT, X-rays, U/S, labs)? Why? @ -Sacral x-ray has been ordered What meds were considered but not given or refused? Why? @ -None Did you discuss the management of the patient with other professionals ( professionals i.e. , PA, REGISTRATION SCHEDULING SPECIALIST, lab, RT, psych nurse, medical social worker, cargo inspector, teacher, national insurance officer, piano case maker)? Give summary @ -Case discussed with Dr. Gutierrez. Case also discussed with Dr. Brown who will admit Was smoking cessation discussed for >3mins.? @ -No Was critical care preformed (if so, how long)? @ -No Were there social determinants of health that impacted care today? How? (Ho melessness, low income, unemployed, alcoholism, drug addiction, transportation, low edu. Level, literacy, decrease access to med. care, group home, rehab)? @ -No Was there de-escalation of care discussed even if they declined (Discuss DNR or withdrawal of care, Hospice)? DNR status @ -No What co-morbidities impacted this encounter? (DM, HTN, Smoking, COPD, CAD, Cancer, CVA, ARF, Chemo, Hep., AIDS, mental health diagnosis, sleep apnea, morbid obesity)? @ -Patient has not been ambulating Was patient admitted / discharged? Hospital course, mention meds given and route, prescriptions, significant lab abnormalities, going to OR and other pertinent info. @ -Patient presents from [facility] for admission with surgical consult. Admission orders written. Undiagnosed new problem with uncertain prognosis? @ -No Drug Therapy requiring intensive monitoring for toxicity (Heparin, Nitro, Insulin, Cardizem)? @ -No Were any procedures done? @ -No Diagnosis/symptom? @ -Sacral ulcer Acute, or Chronic, or Acute on Chronic? @ -Acute Uncomplicated (without systemic symptoms) or Complicated (systemic symptoms)? @ -Default Side effects of treatment? @ -No Exacerbation, Progression, or Severe Exacerbation? @ -No Poses a threat to life or bodily function? How? (Chest pain, [place], NE, pneumonia, PE, COPD, DKA, ARF, appy, cholecystitis, CVA, Diverticulitis, Homicidal, Suicidal, threat to staff... and all critical care pts) @ -No Disposition Clinical Impression: Sacral ulcer Disposition: ADMITTED IP TO THIS HOSP Condition: Serious Is patient prescribed a controlled substance at d/c from ED?: No Referrals: Ahsan Roca MD [Primary Care Provider] - 1-2 days Time of Disposition: 16:28
[2024-01-02] MEDS: PIPERACILLIN-TAZOBACTAM 3.375 GM in SODIUM CHLORIDE 0.9% 100 ML IVPB SCH (16:51)
[2024-01-02] MEDS: SODIUM CHLORIDE 0.9% 1,000 ML IV SCH (16:51)
[2024-01-02 16:55] LABS: Anisocytosis Slight; HCT 25.2 % (39.0-53.0); HGB 8.1 gm/dL (13.0-17.5); Hypochromasia Slight; MCH 26.5 pg (25.0-35.0); MCHC 32.2 g/dL (31.0-37.0); MCV 82.5 fL (80.0-100.0); Microcytosis Slight; Platelet Count 339 k/uL (150-450); RBC 3.06 m/uL (4.30-5.90); RDW 17.1 % (11.5-15.5); WBC 29.2 k/uL (3.8-10.6)
[2024-01-02] MEDS ORDERED: NALOXONE 0.4 MG/ML 1 ML VIAL IV PRN (16:57)
[2024-01-02 17:12] LABS: ALT 72 U/L (4-49); African American GFR (CKD) 88 (>60 ml/min/1.73 sqM); Albumin 2.8 g/dL (3.5-5.0); Anion Gap 13 mmol/L; Blood Urea Nitrogen 23 mg/dL (9-20); Calcium 8.3 mg/dL (8.4-10.2); Carbon Dioxide 16 mmol/L (22-30); Chloride 97 mmol/L (98-107); Glucose 243 mg/dL (74-99); Non-African American GFR(CKD) 77 (>60 ml/min/1.73 sqM); Sodium 126 mmol/L (137-145); Total Bilirubin 1.2 mg/dL (0.2-1.3); Total Protein 6.5 g/dL (6.3-8.2)
[2024-01-02 17:20] LABS: AST 94 U/L (17-59); Alkaline Phosphatase 616 U/L (38-126); Potassium 4.9 mmol/L (3.5-5.1)
--- NOTE | 2024-01-02 17:39 | XR ---
EXAMINATION TYPE: XR sacrum coccyx DATE OF EXAM: 01/02/2024 COMPARISON: None HISTORY: Tailbone pain, ulcer TECHNIQUE: 3 view sacrum FINDINGS: Sacroiliac joints are patent. No acute fractures are evident. No suspicious erosions are id entified. Soft tissue wound is at the distal sacrococcygeal junction region. Adjacent sacral cortex a ppears intact. IMPRESSION: 1. Large wound posterior inferior sacral region. The adjacent sacrum appears intact without erosion
[2024-01-02] MEDS ORDERED: ACETAMINOPHEN ORAL SUSP 160 MG/5 ML CUP PO PRN (18:06)
[2024-01-02 18:08] LABS: Lymphocytes # (M) 1.75 k/uL (1.0-4.8); Monocytes # (M) 0.58 k/uL (0-1.0); Neutrophils # (M) 26.86 k/uL (1.3-7.7); Neutrophils % (M) 92 %; Nucleated Red Blood Cells 0 /100 WBC (0-0); Total Cells Counted 100
[2024-01-02 18:40] LABS: INR 1.2 (<1.2); Partial Thromboplastin Time 25.8 sec (22.0-30.0)
[2024-01-02] MEDS: ACETAMINOPHEN TAB 500 MG TAB PO STA (18:54)
[2024-01-02] MEDS: ATORVASTATIN 80 MG TAB PO SCH (19:38)
[2024-01-02] MEDS: SODIUM CHLORIDE 0.9% 1,000 ML IV STA (19:38)
[2024-01-02] MEDS: DOXYCYCLINE 100 MG CAP PO SCH (19:38)
[2024-01-02] MEDS: POTASSIUM CHLORIDE ER 20 MEQ TAB.ER PO SCH (19:38)
[2024-01-02 20:02] LABS: Glucose,Whole Blood 204 mg/dL (70-110)
[2024-01-02] MEDS ORDERED: LIQUACEL PO SCH (22:00)
--- NOTE | 2024-01-02 22:57 | P.HPIM ---
History of Present Illness H&P Date: 01/02/24 Chief Complaint: Wound infection Patient is a 48-year-old male with a past medical history of hypertension, hyperlipidemia, diabetes type 2 insulin-dependent, bilateral feet and coccyx decub ulcers, anxiety/depression/bipolar and panic disorder was sent from wound care center by Dr. Gutierrez due to infection. Patient has been having bilateral feet and sacral diabetic ulcer/. Patient has been on follow-up with wound care Center. Wound dressing was done prior to transfer to ER. Patient was febrile with Tmax 103.2 on admission and tachycardic. Pulse ox 90% on room air. Blood pressure went down to 89/61. X-ray of the sacrum and coccyx showed large wound posterior inferior sacral region. The dizziness likely patient intact without erosion. EKG showed sinus rhythm with low QRS voltage in the precordial leads. Laboratory data showed WBC 29.2 hemoglobin 8.1 and platelets 339 RDW 17.1 INR 1.2 Sodium 126 potassium 4.9 chloride 97 bicarb is 16 BUN 23 and creatinine 1.12 and blood sugar 243 lactic acid 1.6 calcium 8.3 AST 94 ALT 72 and alk phos 616 and albumin 2.8. Review of Systems Constitutional: Patient does have fever and chills.. No generalized weakness or weight loss. Abdomen: Patient denied nausea vomiting and diarrhea and abdominal pain. Cardiovascular: Patient denies any chest pain or short of breath no palpitations. Respiratory: patient denied any cough or sputum production. No shortness of breath Neurologic: Patient denied any numbness or tingling. no headache. Musculoskeletal: Patient denies any complaints of joint swelling or deformity. Skin: Bilateral feet and sacral wound infection Psychiatric: Negative Endocrine: No heat or cold intolerance. No recent weight gain. Genitourinary: No dysuria or hematuria. All other 14 point ROS negative except the above Past Medical History Past Medical History: Diabetes Mellitus, Hyperlipidemia, Hypertension, Pneumonia Additional Past Medical History / Comment(s): pressure ulcer bilat feet and coccyx History of Any Multi-Drug Resistant Organisms: None Reported Past Surgical History: No Surgical Hx Reported Additional Past Surgical History / Comment(s): debridement of left foot ulcer Past Anesthesia/Blood Transfusion Reactions: No Reported Reaction Past Psychological History: Anxiety, Bipolar, Depression, Panic Disorder Smoking Status: Never smoker Past Alcohol Use History: Occasional Past Drug Use History: None Reported - Past Family History Father Additional Family Medical History / Comment(s): polycystic kidney disease. at age 3030 years old Mother Family Medical History: Coronary Artery Disease (CAD), Diabetes Mellitus, Myocardial Infarction ([place]) Medications and Allergies Home Medications Medication Instructions Recorded Confirmed Type ARIPiprazole [Abilify] 30 mg PO DAILY 07/14/23 01/02/24 History Atorvastatin Calcium [Lipitor] 80 mg PO HS 07/14/23 01/02/24 History Dapagliflozin Propanediol [Farxiga] 10 mg PO DAILY 07/14/23 01/02/24 History Metoprolol Succinate (ER) [Toprol 50 mg PO DAILY 07/14/23 01/02/24 History XL] Ondansetron [Zofran] 4 mg PO Q8H PRN 07/14/23 01/02/24 History Insulin Lispro See Protocol SQ ACHS 10/02/23 01/02/24 History L.acidoph,Paracasei, B.lactis 2 cap PO DAILY 10/02/23 01/02/24 History [Probiotic] Liquacel 60 ml PO TID 10/02/23 01/02/24 History Multivitamins, Thera [Multivitamin 1 tab PO DAILY 10/02/23 01/02/24 History (formulary)] Insulin Glargine,Hum.rec.anlog 26 units SQ DAILY #0 10/06/23 01/02/24 Rx [Lantus Solostar Pen] Dulaglutide [Trulicity] 1.5 mg SQ TH 11/17/23 01/02/24 History Loperamide [Imodium] 2 mg PO DIRECTED PRN 11/17/23 01/02/24 History Zinc Gluconate [Zinc] 50 mg PO DAILY 11/17/23 01/02/24 History amLODIPine [Norvasc] 5 mg PO DAILY 11/17/23 01/02/24 History Folic Acid 1 mg PO DAILY tab 11/22/23 01/02/24 Rx Thiamine [Vitamin B-1] 100 mg PO DAILY tab 11/22/23 01/02/24 Rx ALPRAZolam [Xanax] 1 mg PO Q8H PRN 01/02/24 01/02/24 History Acetaminophen Oral Susp [Tylenol] 160 mg PO Q8H PRN 01/02/24 01/02/24 History Amoxic-Pot Clav 875-125Mg 1 tab PO BID 01/02/24 01/02/24 History [Augmentin 875-125] Ascorbic Acid [Vitamin C] 250 mg PO DAILY 01/02/24 01/02/24 History Doxycycline Hyclate 100 mg PO BID 01/02/24 01/02/24 History Ferrous Sulfate [Feosol] 325 mg PO DAILY 01/02/24 01/02/24 History Levothyroxine Sodium [Synthroid] 75 mcg PO DAILY 01/02/24 01/02/24 History Levothyroxine Sodium [Synthroid] 200 mcg PO DAILY 01/02/24 01/02/24 History Pantoprazole [Protonix] 40 mg PO DAILY 01/02/24 01/02/24 History Potassium Chloride ER [K-Dur 20] 20 meq PO BID 01/02/24 01/02/24 History Sodium Chloride Tab 1 gm PO DAILY 01/02/24 01/02/24 History buPROPion HCL [buPROPion HCL XL] 450 mg PO DAILY 01/02/24 01/02/24 History Allergies Allergy/AdvReac Type Severity Reaction Status Date / Time No Known Allergies Allergy Verified 01/02/24 17:35 Physical Exam Vitals: Vital Signs Temp Pulse Pulse Resp BP BP Pulse Ox 01/02/24 19:25 98.2 F 125 H 18 99/78 95 01/02/24 18:44 103.1 F H 129 H 20 109/84 100 01/02/24 15:59 98.9 F 95 18 104/58 97 Intake and Output 01/02/24 01/02/24 01/02/24 06:59 14:59 22:59 Other: Weight 119.295 kg PHYSICAL EXAMINATION: Patient is lying in the bed,, no acute distress, awake alert and oriented.. HEENT: Normocephalic. Neck is supple. Pupils reactive. Nostrils clear. Oral cavity is moist. Neck reveals no JVD, carotid bruits, or thyromegaly. CHEST EXAMINATION: Trachea is central. Symmetrical expansion. Bibasilar diminished sounds otherwise lung hinds clear to auscultation and percussion. CARDIAC: Normal S1, S2 with no gallops. No murmurs ABDOMEN: Soft. Bowel sounds present. No organomegaly. No abdominal bruits. Sacral wound is bandaged. Extremities: Bilateral lower extremity trace edema. Bilateral feet wounds are bandaged. No clubbing or cyanosis Neurologically awake, alert, oriented x3. Patient is able to move all extremities while in bed.. No gross focal deficits noted Skin: No rash or skin lesions except as above. Psychiatric: Coperative. Nonsuicidal Musculoskeletal: No joint swelling or deformity. Results CBC & Chem 7: 01/03/24 02:00 01/03/24 02:00 Labs: Abnormal Lab Results - Last 24 Hours (Table) 01/02/24 01/02/24 01/02/24 Range/Units 16:27 16:27 17:56 WBC 29.2 H (3.8-10.6) k/uL RBC 3.06 L (4.30-5.90) m/uL Hgb 8.1 L (13.0-17.5) gm/dL Hct 25.2 L (39.0-53.0) % RDW 17.1 H (11.5-15.5) % Neutrophils # (Manual) 26.86 H (1.3-7.7) k/uL PT 13.0 H (10.0-12.5) sec INR 1.2 H (<1.2) Sodium 126 L (137-145) mmol/L Chloride 97 L (98-107) mmol/L Carbon Dioxide 16 L (22-30) mmol/L BUN 23 H (9-20) mg/dL Glucose 243 H (74-99) mg/dL POC Glucose (mg/dL) (70-110) mg/dL Calcium 8.3 L (8.4-10.2) mg/dL AST 94 H (17-59) U/L ALT 72 H (4-49) U/L Alkaline Phosphatase 616 H (38-126) U/L Albumin 2.8 L (3.5-5.0) g/dL 01/02/24 Range/Units 20:01 WBC (3.8-10.6) k/uL RBC (4.30-5.90) m/uL Hgb (13.0-17.5) gm/dL Hct (39.0-53.0) % RDW (11.5-15.5) % Neutrophils # (Manual) (1.3-7.7) k/uL PT (10.0-12.5) sec INR (<1.2) Sodium (137-145) mmol/L Chloride (98-107) mmol/L Carbon Dioxide (22-30) mmol/L BUN (9-20) mg/dL Glucose (74-99) mg/dL POC Glucose (mg/dL) 204 H (70-110) mg/dL Calcium (8.4-10.2) mg/dL AST (17-59) U/L ALT (4-49) U/L Alkaline Phosphatase (38-126) U/L Albumin (3.5-5.0) g/dL Thrombosis Risk Factor Assmnt - DVT/VTE Prophylaxis DVT/VTE Prophylaxis: Pharmacologic Prophylaxis ordered Assessment and Plan Assessment: Infected sacral decub ulcers and bilateral feet diabetic ulcers. Sepsis secondary to above Elevated liver enzymes Diabetes type 2 with hyperglycemia uncontrolled. Insulin-dependent Hyponatremia likely hypovolemic Hypertension Hyperlipidemia Medical debility currently bedridden Anxiety/depression and bipolar disorder and panic disorder Hypothyroidism Normocytic anemia with hemoglobin 8.1 on admission DVT prophylaxis with heparin subcu Plan: Patient will be continued on IV hydration and antibiotics in the form of Zosyn and daptomycin was added as per ID recommendations. Follow-up wound cultures. Continue with insulin regimen and sliding scale for better blood sugar control. Continue to monitor liver enzymes. Follow-up blood cultures. ID and vascular surgery was consulted for evaluation. Continue with wound care. Time with Patient: Greater than 30
[2024-01-02] MEDS: INSULIN ASPART (NovoLOG) 100 UNIT/ML VIAL SQ SCH (23:10)
[2024-01-03] MEDS: SODIUM CHLORIDE 0.9% 1,000 ML IV STA (01:02)
[2024-01-03 01:07] LABS: Glucose,Whole Blood 235 mg/dL (70-110)
[2024-01-03 03:02] LABS: ALT 64 U/L (4-49); AST 100 U/L (17-59); African American GFR (CKD) 81 (>60 ml/min/1.73 sqM); Albumin 2.2 g/dL (3.5-5.0); Albumin/Globulin Ratio 0.7; Alkaline Phosphatase 564 U/L (38-126); Anion Gap 10 mmol/L; Anisocytosis Slight; Blood Urea Nitrogen 23 mg/dL (9-20); Calcium 7.4 mg/dL (8.4-10.2); Carbon Dioxide 15 mmol/L (22-30); Chloride 100 mmol/L (98-107); Glucose 188 mg/dL (74-99); HCT 22.4 % (39.0-53.0); Hypochromasia Slight; MCH 25.8 pg (25.0-35.0); MCHC 31.2 g/dL (31.0-37.0); MCV 82.5 fL (80.0-100.0); Mean Platelet Volume 9.3; Microcytosis Slight; Non-African American GFR(CKD) 70 (>60 ml/min/1.73 sqM); Platelet Count 251 k/uL (150-450); RBC 2.71 m/uL (4.30-5.90); RDW 17.4 % (11.5-15.5); Sodium 125 mmol/L (137-145); Total Bilirubin 0.9 mg/dL (0.2-1.3); Total Protein 5.2 g/dL (6.3-8.2); WBC 31.5 k/uL (3.8-10.6)
[2024-01-03] MEDS: SODIUM CHLORIDE 0.9% 1,000 ML IV ONE (03:15)
[2024-01-03] MEDS: LEVOTHYROXINE 75 MCG TAB PO SCH (06:11)
[2024-01-03] MEDS: LEVOTHYROXINE 100 MCG TAB PO SCH (06:11)
[2024-01-03 08:10] LABS: Glucose,Whole Blood 192 mg/dL (70-110)
[2024-01-03] MEDS: PANTOPRAZOLE 40 MG TABLET PO SCH (08:19)
[2024-01-03 08:27] VITALS: BMI 32.0
[2024-01-03] MEDS ORDERED: METOPROLOL SUCCINATE (ER) 50 MG TAB.ER.24H PO SCH (09:00)
[2024-01-03] MEDS ORDERED: amLODIPine 5 MG TAB PO SCH (09:00)
[2024-01-03] MEDS: SODIUM CHLORIDE TAB 1 GM TAB PO SCH (09:13)
[2024-01-03] MEDS: FOLIC ACID 1 MG TAB PO SCH (09:13)
[2024-01-03] MEDS: THIAMINE 100 MG TAB PO SCH (09:13)
[2024-01-03] MEDS: FERROUS SULFATE 325 MG TAB PO SCH (09:13)
[2024-01-03] MEDS: ARIPiprazole 15 MG TAB PO SCH (09:13)
[2024-01-03] MEDS: MULTIVITAMINS, THERA 1 EACH TAB PO SCH (09:14)
[2024-01-03] MEDS: INSULIN DETEMIR (LEVEMIR) 100 UNIT/ML SYR SQ SCH (09:14)
[2024-01-03] MEDS: ASCORBIC ACID 500 MG TAB PO SCH (09:14)
[2024-01-03] MEDS: buPROPion XL 150 MG TAB.ER.24H PO SCH (09:14)
[2024-01-03] MEDS: LACTOBACILLUS ACIDOPHILUS/PECT 1 EACH CAPSULE PO SCH (09:35)
[2024-01-03] MEDS: ZINC SULFATE 220 MG CAP PO SCH (09:35)
[2024-01-03] MEDS: DAPAGLIFLOZIN PROPANEDIOL 10 MG TABLET PO SCH (09:35)
[2024-01-03 12:36] LABS: Glucose,Whole Blood 176 mg/dL (70-110)
--- NOTE | 2024-01-03 16:44 | P.GSCN ---
History of Present Illness Consult date: 01/03/24 Reason for Consult: Sacral wound History of present illness: 48-year-old male known to our service. Patient had prior debridement of a large sacrococcygeal ulcer by myself in September. Patient has been following with the wound care center. Per the patient he had been doing better but then was having issues with diarrhea and frequent vomiting. Patient says his wound worsened at that time. He apparently has an appointment to see GI as an outpatient for elevated liver enzymes. He was told he may have problems with his gallbladder. Denies abdominal pain. We were consulted for sacral decubitus debridement. Was seen by infectious disease earlier today. Patient with significant leukocytosis. Review of Systems The patient denies any acute changes in vision or hearing, no dysphagia or odynophagia, no chest pain or shortness of breath, no dysuria or hematuria, no headache, no runny nose, no rectal bleeding or melena, no unexplained weight loss Past Medical History Past Medical History: Diabetes Mellitus, Hyperlipidemia, Hypertension, Pneumonia Additional Past Medical History / Comment(s): pressure ulcer bilat feet and coccyx History of Any Multi-Drug Resistant Organisms: None Reported Past Surgical History: No Surgical Hx Reported Additional Past Surgical History / Comment(s): debridement of left foot ulcer Past Anesthesia/Blood Transfusion Reactions: No Reported Reaction Past Psychological History: Anxiety, Bipolar, Depression, Panic Disorder Smoking Status: Never smoker Past Alcohol Use History: Occasional Past Drug Use History: None Reported - Past Family History Father Additional Family Medical History / Comment(s): polycystic kidney disease. at age 3030 years old Mother Family Medical History: Coronary Artery Disease (CAD), Diabetes Mellitus, Myocardial Infarction ([place]) Medications and Allergies Home Medications Medication Instructions Recorded Confirmed Type ARIPiprazole [Abilify] 30 mg PO DAILY 07/14/23 01/02/24 History Atorvastatin Calcium [Lipitor] 80 mg PO HS 07/14/23 01/02/24 History Dapagliflozin Propanediol [Farxiga] 10 mg PO DAILY 07/14/23 01/02/24 History Metoprolol Succinate (ER) [Toprol 50 mg PO DAILY 07/14/23 01/02/24 History XL] Ondansetron [Zofran] 4 mg PO Q8H PRN 07/14/23 01/02/24 History Insulin Lispro See Protocol SQ ACHS 10/02/23 01/02/24 History L.acidoph,Paracasei, B.lactis 2 cap PO DAILY 10/02/23 01/02/24 History [Probiotic] Liquacel 60 ml PO TID 10/02/23 01/02/24 History Multivitamins, Thera [Multivitamin 1 tab PO DAILY 10/02/23 01/02/24 History (formulary)] Insulin Glargine,Hum.rec.anlog 26 units SQ DAILY #0 10/06/23 01/02/24 Rx [Lantus Solostar Pen] Dulaglutide [Trulicity] 1.5 mg SQ TH 11/17/23 01/02/24 History Loperamide [Imodium] 2 mg PO DIRECTED PRN 11/17/23 01/02/24 History Zinc Gluconate [Zinc] 50 mg PO DAILY 11/17/23 01/02/24 History amLODIPine [Norvasc] 5 mg PO DAILY 11/17/23 01/02/24 History Folic Acid 1 mg PO DAILY tab 11/22/23 01/02/24 Rx Thiamine [Vitamin B-1] 100 mg PO DAILY tab 11/22/23 01/02/24 Rx ALPRAZolam [Xanax] 1 mg PO Q8H PRN 01/02/24 01/02/24 History Acetaminophen Oral Susp [Tylenol] 160 mg PO Q8H PRN 01/02/24 01/02/24 History Amoxic-Pot Clav 875-125Mg 1 tab PO BID 01/02/24 01/02/24 History [Augmentin 875-125] Ascorbic Acid [Vitamin C] 250 mg PO DAILY 01/02/24 01/02/24 History Doxycycline Hyclate 100 mg PO BID 01/02/24 01/02/24 History Ferrous Sulfate [Feosol] 325 mg PO DAILY 01/02/24 01/02/24 History Levothyroxine Sodium [Synthroid] 75 mcg PO DAILY 01/02/24 01/02/24 History Levothyroxine Sodium [Synthroid] 200 mcg PO DAILY 01/02/24 01/02/24 History Pantoprazole [Protonix] 40 mg PO DAILY 01/02/24 01/02/24 History Potassium Chloride ER [K-Dur 20] 20 meq PO BID 01/02/24 01/02/24 History Sodium Chloride Tab 1 gm PO DAILY 01/02/24 01/02/24 History buPROPion HCL [buPROPion HCL XL] 450 mg PO DAILY 01/02/24 01/02/24 History Allergies Allergy/AdvReac Type Severity Reaction Status Date / Time No Known Allergies Allergy Verified 01/02/24 17:35 Surgical - Exam Vital Signs Temp Pulse Resp BP Pulse Ox 98.9 F 95 18 104/58 97 01/02/24 15:59 01/02/24 15:59 01/02/24 15:59 01/02/24 15:59 01/02/24 15:59 Physical exam: General: Well-developed, well-nourished HEENT: Normocephalic, sclerae nonicteric Abdomen: Nontender, nondistended Extremities: Dressings bilateral heel, large sacral wound with necrotic slough and subcutaneous tissues Neuro: Alert and oriented Results - Labs 01/03/24 02:00 01/03/24 02:00 Abnormal Lab Results - Last 24 Hours (Table) 01/02/24 01/02/24 01/02/24 Range/Units 16:27 16:27 17:56 WBC 29.2 H (3.8-10.6) k/uL RBC 3.06 L (4.30-5.90) m/uL Hgb 8.1 L (13.0-17.5) gm/dL Hct 25.2 L (39.0-53.0) % RDW 17.1 H (11.5-15.5) % Neutrophils # (Manual) 26.86 H (1.3-7.7) k/uL PT 13.0 H (10.0-12.5) sec INR 1.2 H (<1.2) Sodium 126 L (137-145) mmol/L Chloride 97 L (98-107) mmol/L Carbon Dioxide 16 L (22-30) mmol/L BUN 23 H (9-20) mg/dL Glucose 243 H (74-99) mg/dL POC Glucose (mg/dL) (70-110) mg/dL Hemoglobin A1c (<=6.0) % Calcium 8.3 L (8.4-10.2) mg/dL AST 94 H (17-59) U/L ALT 72 H (4-49) U/L Alkaline Phosphatase 616 H (38-126) U/L Total Protein (6.3-8.2) g/dL Albumin 2.8 L (3.5-5.0) g/dL 01/02/24 01/03/24 01/03/24 Range/Units 20:01 01:05 02:00 WBC (3.8-10.6) k/uL RBC (4.30-5.90) m/uL Hgb (13.0-17.5) gm/dL Hct (39.0-53.0) % RDW (11.5-15.5) % Neutrophils # (Manual) (1.3-7.7) k/uL PT (10.0-12.5) sec INR (<1.2) Sodium (137-145) mmol/L Chloride (98-107) mmol/L Carbon Dioxide (22-30) mmol/L BUN (9-20) mg/dL Glucose (74-99) mg/dL POC Glucose (mg/dL) 204 H 235 H (70-110) mg/dL Hemoglobin A1c 6.7 H (<=6.0) % Calcium (8.4-10.2) mg/dL AST (17-59) U/L ALT (4-49) U/L Alkaline Phosphatase (38-126) U/L Total Protein (6.3-8.2) g/dL Albumin (3.5-5.0) g/dL 01/03/24 01/03/24 01/03/24 Range/Units 02:00 02:00 08:08 WBC 31.5 H (3.8-10.6) k/uL RBC 2.71 L (4.30-5.90) m/uL Hgb 7.0 L (13.0-17.5) gm/dL Hct 22.4 L (39.0-53.0) % RDW 17.4 H (11.5-15.5) % Neutrophils # (Manual) (1.3-7.7) k/uL PT (10.0-12.5) sec INR (<1.2) Sodium 125 L (137-145) mmol/L Chloride (98-107) mmol/L Carbon Dioxide 15 L (22-30) mmol/L BUN 23 H (9-20) mg/dL Glucose 188 H (74-99) mg/dL POC Glucose (mg/dL) 192 H (70-110) mg/dL Hemoglobin A1c (<=6.0) % Calcium 7.4 L (8.4-10.2) mg/dL AST 100 H (17-59) U/L ALT 64 H (4-49) U/L Alkaline Phosphatase 564 H (38-126) U/L Total Protein 5.2 L (6.3-8.2) g/dL Albumin 2.2 L (3.5-5.0) g/dL 01/03/24 Range/Units 12:34 WBC (3.8-10.6) k/uL RBC (4.30-5.90) m/uL Hgb (13.0-17.5) gm/dL Hct (39.0-53.0) % RDW (11.5-15.5) % Neutrophils # (Manual) (1.3-7.7) k/uL PT (10.0-12.5) sec INR (<1.2) Sodium (137-145) mmol/L Chloride (98-107) mmol/L Carbon Dioxide (22-30) mmol/L BUN (9-20) mg/dL Glucose (74-99) mg/dL POC Glucose (mg/dL) 176 H (70-110) mg/dL Hemoglobin A1c (<=6.0) % Calcium (8.4-10.2) mg/dL AST (17-59) U/L ALT (4-49) U/L Alkaline Phosphatase (38-126) U/L Total Protein (6.3-8.2) g/dL Albumin (3.5-5.0) g/dL Microbiology - Last 24 Hours (Table) 01/02/24 16:27 Gram Stain - Preliminary Buttock Diabetes panel 01/02/24 01/03/24 01/03/24 Range/Units 16:27 02:00 02:00 Sodium 126 L 125 L (137-145) mmol/L Potassium 4.9 4.0 (3.5-5.1) mmol/L Chloride 97 L 100 (98-107) mmol/L Carbon Dioxide 16 L 15 L (22-30) mmol/L BUN 23 H 23 H (9-20) mg/dL Creatinine 1.12 1.20 (0.66-1.25) mg/dL Glucose 243 H 188 H (74-99) mg/dL Hemoglobin A1c 6.7 H (<=6.0) % Calcium 8.3 L 7.4 L (8.4-10.2) mg/dL AST 94 H 100 H (17-59) U/L ALT 72 H 64 H (4-49) U/L Alkaline Phosphatase 616 H 564 H (38-126) U/L Total Protein 6.5 5.2 L (6.3-8.2) g/dL Albumin 2.8 L 2.2 L (3.5-5.0) g/dL Calcium panel 01/02/24 01/03/24 Range/Units 16:27 02:00 Calcium 8.3 L 7.4 L (8.4-10.2) mg/dL Albumin 2.8 L 2.2 L (3.5-5.0) g/dL Pituitary panel 01/02/24 01/03/24 Range/Units 16:27 02:00 Sodium 126 L 125 L (137-145) mmol/L Potassium 4.9 4.0 (3.5-5.1) mmol/L Chloride 97 L 100 (98-107) mmol/L Carbon Dioxide 16 L 15 L (22-30) mmol/L BUN 23 H 23 H (9-20) mg/dL Creatinine 1.12 1.20 (0.66-1.25) mg/dL Glucose 243 H 188 H (74-99) mg/dL Calcium 8.3 L 7.4 L (8.4-10.2) mg/dL Adrenal panel 01/02/24 01/03/24 Range/Units 16:27 02:00 Sodium 126 L 125 L (137-145) mmol/L Potassium 4.9 4.0 (3.5-5.1) mmol/L Chloride 97 L 100 (98-107) mmol/L Carbon Dioxide 16 L 15 L (22-30) mmol/L BUN 23 H 23 H (9-20) mg/dL Creatinine 1.12 1.20 (0.66-1.25) mg/dL Glucose 243 H 188 H (74-99) mg/dL Calcium 8.3 L 7.4 L (8.4-10.2) mg/dL Total Bilirubin 1.2 0.9 (0.2-1.3) mg/dL AST 94 H 100 H (17-59) U/L ALT 72 H 64 H (4-49) U/L Alkaline Phosphatase 616 H 564 H (38-126) U/L Total Protein 6.5 5.2 L (6.3-8.2) g/dL Albumin 2.8 L 2.2 L (3.5-5.0) g/dL Assessment and Plan (1) Sacral ulcer Narrative/Plan: 48-year-old male with worsening sacral decubitus ulcer. Will proceed with surgical debridement at this time. Will obtain deep cultures. Case discussed with infectious disease. Patient with elevated liver enzymes. No tenderness on exam. Will consult GI at this time. Patient may require diverting ostomy as well. Current Visit: Yes Status: Acute Code(s): L98.429 - NON-PRESSURE CHRONIC ULCER OF BACK WITH UNSPECIFIED SEVERITY SNOMED Code(s): 53583471
[2024-01-03 16:58] LABS: Glucose,Whole Blood 117 mg/dL (70-110)
[2024-01-03 20:09] LABS: Glucose,Whole Blood 114 mg/dL (70-110)
--- NOTE | 2024-01-03 21:54 | P.CONS ---
History of Present Illness - Reason for Consult Consult date: 01/03/24 Sacral ulcer Requesting physician: Roxanna Brown - Chief Complaint Worsening sacral wound x weeks - History of Present Illness Patient is a 48-year-old male with a past medical history significant for diabetes mellitus hypertension hyperlipidemia patient did have a initial admission to hospital back in June 2023 with extensive left diabetic foot infection requiring debridement and multiple courses of antibiotic therapy patient left foot wound also most healed subsequent developing a pressure ulcer to the right heel that was debrided on last visit and has also developed a wound to the sacral area send the patient has been at the group home patient apparently was evaluated at the wound care center yesterday and noted to have worsening sacral wound for the patient was advised to go to the hospital patient did have a fever of 103.1 F last evening denies chills patient was also tachycardic patient denies having any headache or URI symptoms no chest pain or shortness of breath no cough denies having any nausea vomiting no abdominal pain or diarrhea has been complaining of pain to the sacral wound mostly dull aching to sharp moderate intensity without radiation denies pain to bilateral foot wound which apparently are healing patient did have a white count of 29.2 which is up to 31.5 creatinine is 1.20 her liver isms mildly elevated blood local culture has been obtained patient has been admitted to the hospital started on Zosyn infectious disease was consulted for further management of antibiotic therapy Review of Systems Positive point and negatives has been mentioned in the HPI, complete review of systems was performed and all other systems are negative Past Medical History Past Medical History: Diabetes Mellitus, Hyperlipidemia, Hypertension, Pneumonia Additional Past Medical History / Comment(s): pressure ulcer bilat feet and coccyx History of Any Multi-Drug Resistant Organisms: None Reported Past Surgical History: No Surgical Hx Reported Additional Past Surgical History / Comment(s): debridement of left foot ulcer Past Anesthesia/Blood Transfusion Reactions: No Reported Reaction Past Psychological History: Anxiety, Bipolar, Depression, Panic Disorder Smoking Status: Never smoker Past Alcohol Use History: Occasional Past Drug Use History: None Reported - Past Family History Father Additional Family Medical History / Comment(s): polycystic kidney disease. at age 3030 years old Mother Family Medical History: Coronary Artery Disease (CAD), Diabetes Mellitus, Myocardial Infarction ([place]) Medications and Allergies Home Medications Medication Instructions Recorded Confirmed Type ARIPiprazole [Abilify] 30 mg PO DAILY 07/14/23 01/02/24 History Atorvastatin Calcium [Lipitor] 80 mg PO HS 07/14/23 01/02/24 History Dapagliflozin Propanediol [Farxiga] 10 mg PO DAILY 07/14/23 01/02/24 History Metoprolol Succinate (ER) [Toprol 50 mg PO DAILY 07/14/23 01/02/24 History XL] Ondansetron [Zofran] 4 mg PO Q8H PRN 07/14/23 01/02/24 History Insulin Lispro See Protocol SQ ACHS 10/02/23 01/02/24 History L.acidoph,Paracasei, B.lactis 2 cap PO DAILY 10/02/23 01/02/24 History [Probiotic] Liquacel 60 ml PO TID 10/02/23 01/02/24 History Multivitamins, Thera [Multivitamin 1 tab PO DAILY 10/02/23 01/02/24 History (formulary)] Insulin Glargine,Hum.rec.anlog 26 units SQ DAILY #0 10/06/23 01/02/24 Rx [Lantus Solostar Pen] Dulaglutide [Trulicity] 1.5 mg SQ TH 11/17/23 01/02/24 History Loperamide [Imodium] 2 mg PO DIRECTED PRN 11/17/23 01/02/24 History Zinc Gluconate [Zinc] 50 mg PO DAILY 11/17/23 01/02/24 History amLODIPine [Norvasc] 5 mg PO DAILY 11/17/23 01/02/24 History Folic Acid 1 mg PO DAILY tab 11/22/23 01/02/24 Rx Thiamine [Vitamin B-1] 100 mg PO DAILY tab 11/22/23 01/02/24 Rx ALPRAZolam [Xanax] 1 mg PO Q8H PRN 01/02/24 01/02/24 History Acetaminophen Oral Susp [Tylenol] 160 mg PO Q8H PRN 01/02/24 01/02/24 History Amoxic-Pot Clav 875-125Mg 1 tab PO BID 01/02/24 01/02/24 History [Augmentin 875-125] Ascorbic Acid [Vitamin C] 250 mg PO DAILY 01/02/24 01/02/24 History Doxycycline Hyclate 100 mg PO BID 01/02/24 01/02/24 History Ferrous Sulfate [Feosol] 325 mg PO DAILY 01/02/24 01/02/24 History Levothyroxine Sodium [Synthroid] 75 mcg PO DAILY 01/02/24 01/02/24 History Levothyroxine Sodium [Synthroid] 200 mcg PO DAILY 01/02/24 01/02/24 History Pantoprazole [Protonix] 40 mg PO DAILY 01/02/24 01/02/24 History Potassium Chloride ER [K-Dur 20] 20 meq PO BID 01/02/24 01/02/24 History Sodium Chloride Tab 1 gm PO DAILY 01/02/24 01/02/24 History buPROPion HCL [buPROPion HCL XL] 450 mg PO DAILY 01/02/24 01/02/24 History Allergies Allergy/AdvReac Type Severity Reaction Status Date / Time No Known Allergies Allergy Verified 01/02/24 17:35 Physical Exam Vitals: Vital Signs Temp Pulse Pulse Resp BP BP Pulse Ox 01/03/24 06:04 97.4 F L 82 18 89/65 99 01/03/24 05:30 97/69 01/03/24 03:47 84 93/62 01/03/24 03:06 85 86/55 01/03/24 01:46 85 81/54 01/03/24 01:33 87 80/56 01/03/24 00:54 91 81/55 01/03/24 00:18 90 18 74/48 96 01/03/24 00:14 97.9 F 95 18 68/43 98 01/02/24 23:20 98.5 F 96 18 89/61 98 01/02/24 20:00 125 H 01/02/24 19:25 98.2 F 125 H 18 99/78 95 01/02/24 18:44 103.1 F H 129 H 20 109/84 100 01/02/24 15:59 98.9 F 95 18 104/58 97 Intake and Output 01/02/24 01/03/24 01/03/24 22:59 06:59 14:59 Intake Total 800 300 Output Total 900 400 Balance 800 -600 -400 Intake: Oral 800 300 Output: Urine 900 400 Other: Voiding Method Indwelling Catheter Indwelling Catheter Weight 119.295 kg 119.295 kg GENERAL DESCRIPTION: Middle-aged male lying in bed, no distress. No tachypnea or accessory muscle of respiration use. HEENT: Shows Pallor , no scleral icterus. Oral mucous membrane is dry. No pharyngeal erythema or thrush NECK: Trachea central, no thyromegaly. LUNGS: Unlabored breathing. Clear to auscultation anteriorly. No wheeze or crackle. HEART: S1, S2, regular rate and rhythm. No loud murmur ABDOMEN: Soft, no tenderness , guarding or rigidity, no organomegaly EXTREMITIES: Left foot wound has significant decrease in size with no slough tissue right heel wound did have some slough tissue minimal surrounding redness SKIN: Patient did have unstageable sacral pressure ulcer with significant necrotic skin surrounding redness NEUROLOGICAL: The patient is awake, alert, oriented x3, mood and affect normal. Results CBC & Chem 7: 01/03/24 02:00 01/03/24 02:00 Labs: Abnormal Lab Results - Last 24 Hours (Table) 01/02/24 01/02/24 01/02/24 Range/Units 16:27 16:27 17:56 WBC 29.2 H (3.8-10.6) k/uL RBC 3.06 L (4.30-5.90) m/uL Hgb 8.1 L (13.0-17.5) gm/dL Hct 25.2 L (39.0-53.0) % RDW 17.1 H (11.5-15.5) % Neutrophils # (Manual) 26.86 H (1.3-7.7) k/uL PT 13.0 H (10.0-12.5) sec INR 1.2 H (<1.2) Sodium 126 L (137-145) mmol/L Chloride 97 L (98-107) mmol/L Carbon Dioxide 16 L (22-30) mmol/L BUN 23 H (9-20) mg/dL Glucose 243 H (74-99) mg/dL POC Glucose (mg/dL) (70-110) mg/dL Calcium 8.3 L (8.4-10.2) mg/dL AST 94 H (17-59) U/L ALT 72 H (4-49) U/L Alkaline Phosphatase 616 H (38-126) U/L Total Protein (6.3-8.2) g/dL Albumin 2.8 L (3.5-5.0) g/dL 01/02/24 01/03/24 01/03/24 Range/Units 20:01 01:05 02:00 WBC 31.5 H (3.8-10.6) k/uL RBC 2.71 L (4.30-5.90) m/uL Hgb 7.0 L (13.0-17.5) gm/dL Hct 22.4 L (39.0-53.0) % RDW 17.4 H (11.5-15.5) % Neutrophils # (Manual) (1.3-7.7) k/uL PT (10.0-12.5) sec INR (<1.2) Sodium (137-145) mmol/L Chloride (98-107) mmol/L Carbon Dioxide (22-30) mmol/L BUN (9-20) mg/dL Glucose (74-99) mg/dL POC Glucose (mg/dL) 204 H 235 H (70-110) mg/dL Calcium (8.4-10.2) mg/dL AST (17-59) U/L ALT (4-49) U/L Alkaline Phosphatase (38-126) U/L Total Protein (6.3-8.2) g/dL Albumin (3.5-5.0) g/dL 01/03/24 01/03/24 Range/Units 02:00 08:08 WBC (3.8-10.6) k/uL RBC (4.30-5.90) m/uL Hgb (13.0-17.5) gm/dL Hct (39.0-53.0) % RDW (11.5-15.5) % Neutrophils # (Manual) (1.3-7.7) k/uL PT (10.0-12.5) sec INR (<1.2) Sodium 125 L (137-145) mmol/L Chloride (98-107) mmol/L Carbon Dioxide 15 L (22-30) mmol/L BUN 23 H (9-20) mg/dL Glucose 188 H (74-99) mg/dL POC Glucose (mg/dL) 192 H (70-110) mg/dL Calcium 7.4 L (8.4-10.2) mg/dL AST 100 H (17-59) U/L ALT 64 H (4-49) U/L Alkaline Phosphatase 564 H (38-126) U/L Total Protein 5.2 L (6.3-8.2) g/dL Albumin 2.2 L (3.5-5.0) g/dL Assessment and Plan (1) Diabetic foot ulcer Current Visit: No Status: Acute Code(s): E11.621 - TYPE 2 DIABETES MELLITUS WITH FOOT ULCER; L97.509 - NON-PRESSURE CHRONIC ULCER OTH PRT UNSP FOOT W UNSP SEVERITY SNOMED Code(s): 621326127 (2) Unstageable pressure ulcer of sacral region Current Visit: No Status: Acute Code(s): L89.150 - PRESSURE ULCER OF SACRAL REGION, UNSTAGEABLE SNOMED Code(s): 08735395555932211 (3) Sepsis Current Visit: Yes Status: Acute Code(s): A41.9 - SEPSIS, UNSPECIFIED ORGANISM SNOMED Code(s): 98422101 Plan: 1patient presented to hospital with sepsis in this patient who did have fever tachycardia source is infected sacral pressure ulcer as the patient did have unstageable sacral pressure ulcer with significant amount of necrotic tissue and maceration we will need to cover for resistant gram-positive as well as gram- negative pathogen 2-patient also have a bilateral feet diabetic foot ulcer wound to the left heel is doing well but he still have some slough tissue but no significant redness 3-await surgical debridement and deep culture 4-continue with the Zosyn we will add daptomycin to cover for the gram-positive We will follow on clinical condition and cultures to further adjust medication if needed Thank you for this consultation we will follow the patient along with you Dictation was produced using [employer] dictation software. please excuse any g rammatical, word or spelling errors. Time with Patient: Greater than 30
[2024-01-03] MEDS: HEPARIN SODIUM,PORCINE 5,000 UNIT/ML 1 ML VIAL SQ SCH (23:39)
[2024-01-04 06:28] LABS: Glucose,Whole Blood 86 mg/dL (70-110)
[2024-01-04 09:17] LABS: Anisocytosis Slight; Basophils % (A) 0 %; Eosinophils % (A) 0 %; HCT 24.5 % (39.0-53.0); HGB 7.5 gm/dL (13.0-17.5); Hypochromasia Moderate; Lymphocytes # (A) 1.3 k/uL (1.0-4.8); Lymphocytes % (A) 6 %; MCH 25.4 pg (25.0-35.0); MCHC 30.5 g/dL (31.0-37.0); MCV 83.5 fL (80.0-100.0); Mean Platelet Volume 9.1; Monocytes # (A) 0.9 k/uL (0-1.0); Monocytes % (A) 4 %; Neutrophils # (A) 20.3 k/uL (1.3-7.7); Neutrophils % (A) 89 %; Platelet Count 269 k/uL (150-450); RBC 2.93 m/uL (4.30-5.90); RDW 17.2 % (11.5-15.5); WBC 22.7 k/uL (3.8-10.6)
[2024-01-04 09:28] LABS: ALT 69 U/L (4-49); AST 133 U/L (17-59); African American GFR (CKD) >90 (>60 ml/min/1.73 sqM); Albumin 2.3 g/dL (3.5-5.0); Alkaline Phosphatase 583 U/L (38-126); Anion Gap 10 mmol/L; Blood Urea Nitrogen 15 mg/dL (9-20); Calcium 7.6 mg/dL (8.4-10.2); Carbon Dioxide 13 mmol/L (22-30); Chloride 110 mmol/L (98-107); Glucose 60 mg/dL (74-99); Non-African American GFR(CKD) 85 (>60 ml/min/1.73 sqM); Potassium 3.9 mmol/L (3.5-5.1); Sodium 133 mmol/L (137-145); Total Bilirubin 0.7 mg/dL (0.2-1.3); Total Protein 5.6 g/dL (6.3-8.2)
[2024-01-04 11:58] LABS: Glucose,Whole Blood 83 mg/dL (70-110)
--- NOTE | 2024-01-04 12:35 | P.PN ---
Subjective Progress Note Date: 01/04/24 Principal diagnosis: Reason for follow-up is infected sacral pressure ulcer Patient is a 48-year-old male with a past medical history significant for diabetes mellitus hypertension hyperlipidemia, extensive left diabetic foot infection followed by right heel pressure ulcer and now admitted to hospital with worsening sacral pressure ulcer with features of sepsis on admission. On today's evaluation that is 01/04/2024,the patient did have resolution of his fever and is afebrile this morning, patient is on room air not requiring supplemental oxygen and denies any shortness of breath no chest pain or cough.Patient denies having any nausea or vomiting, no abdominal pain and no diarrhea or any worsening pain to the sacral wound. Patient white count is down to 22.7 creatinine 1.03 cultures currently pending Objective - Vital Signs Vital signs: Vital Signs Temp 98.8 F 01/04/24 01:18 Pulse 96 01/04/24 01:18 Resp 18 01/04/24 01:18 BP 100/61 01/04/24 01:18 Pulse Ox 98 01/04/24 01:18 FiO2 Intake & Output 01/03/24 01/04/24 01/04/24 18:59 06:59 18:59 Intake Total 440 Output Total 1600 1500 Balance -1160 -1500 Weight 119.295 kg 119.295 kg Intake: Intake, IV Titration 200 Amount Piperacillin-Tazobactam 3 200 .375 gm In Sodium Chloride 0.9% 100 ml @ 25 mls/hr IVPB Q8HR [facility] Rx# :[id number] Oral 240 Output: Urine 1600 1500 Other: Voiding Method Indwelling Catheter Indwelling Catheter - Exam GENERAL DESCRIPTION: Middle-age male lying in bed in no distress RESPIRATORY SYSTEM: Unlabored breathing , decreased breath sounds at bases HEART: S1 S2 regular rate and rhythm , ABDOMEN: Soft , no tenderness EXTREMITIES: Bilateral foot wounds are currently dressed - Labs CBC & Chem 7: 01/04/24 09:03 01/04/24 09:03 Labs: Abnormal Lab Results - Last 24 Hours (Table) 01/03/24 01/03/24 01/03/24 Range/Units 12:34 16:57 20:08 WBC (3.8-10.6) k/uL RBC (4.30-5.90) m/uL Hgb (13.0-17.5) gm/dL Hct (39.0-53.0) % MCHC (31.0-37.0) g/dL RDW (11.5-15.5) % Neutrophils # (1.3-7.7) k/uL Sodium (137-145) mmol/L Chloride (98-107) mmol/L Carbon Dioxide (22-30) mmol/L Glucose (74-99) mg/dL POC Glucose (mg/dL) 176 H 117 H 114 H (70-110) mg/dL Calcium (8.4-10.2) mg/dL AST (17-59) U/L ALT (4-49) U/L Alkaline Phosphatase (38-126) U/L Total Protein (6.3-8.2) g/dL Albumin (3.5-5.0) g/dL 01/04/24 01/04/24 Range/Units 09:03 09:03 WBC 22.7 H (3.8-10.6) k/uL RBC 2.93 L (4.30-5.90) m/uL Hgb 7.5 L (13.0-17.5) gm/dL Hct 24.5 L (39.0-53.0) % MCHC 30.5 L (31.0-37.0) g/dL RDW 17.2 H (11.5-15.5) % Neutrophils # 20.3 H (1.3-7.7) k/uL Sodium 133 L (137-145) mmol/L Chloride 110 H (98-107) mmol/L Carbon Dioxide 13 L (22-30) mmol/L Glucose 60 L (74-99) mg/dL POC Glucose (mg/dL) (70-110) mg/dL Calcium 7.6 L (8.4-10.2) mg/dL AST 133 H (17-59) U/L ALT 69 H (4-49) U/L Alkaline Phosphatase 583 H (38-126) U/L Total Protein 5.6 L (6.3-8.2) g/dL Albumin 2.3 L (3.5-5.0) g/dL Microbiology - Last 24 Hours (Table) 01/02/24 16:27 Gram Stain - Preliminary Buttock Wound Culture - Preliminary 01/02/24 16:30 Blood Culture - Preliminary Blood 01/02/24 16:45 Blood Culture - Preliminary Blood Assessment and Plan (1) Diabetic foot ulcer Current Visit: No Status: Acute Code(s): E11.621 - TYPE 2 DIABETES MELLITUS WITH FOOT ULCER; L97.509 - NON-PRESSURE CHRONIC ULCER OTH PRT UNSP FOOT W UNSP SEVERITY SNOMED Code(s): 172774511 (2) Unstageable pressure ulcer of sacral region Current Visit: No Status: Acute Code(s): L89.150 - PRESSURE ULCER OF SACRAL REGION, UNSTAGEABLE SNOMED Code(s): 91343367051225024 (3) Sepsis Current Visit: Yes Status: Acute Code(s): A41.9 - SEPSIS, UNSPECIFIED ORGANISM SNOMED Code(s): 74260158 Plan: 1patient presented to hospital with sepsis in this patient who did have fever tachycardia source is infected sacral pressure ulcer as the patient did have uns tageable sacral pressure ulcer with significant amount of necrotic tissue and maceration we will need to cover for resistant gram-positive as well as gram- negative pathogen 2-patient also have a bilateral foot diabetic foot ulcer wound to the left heel is doing well but he still have some slough tissue but no significant redness 3-patient has been eval by general surgery currently waiting for surgical debridement and deep culture 4-patient to continue with the Zosyn and daptomycin while waiting for the culture to finalize Dictation was produced using [employer] dictation software. please excuse any grammatical, word or spelling errors. Time with Patient: Less than 30
[2024-01-04] MEDS: DEXTROSE 5%-0.9% NACL 1,000 ML IV SCH (12:38)
[2024-01-04] MEDS: ALPRAZolam 1 MG TAB PO PRN (12:44)
[2024-01-04] MEDS: HYDROcodone/APAP 5-325MG 1 EACH TAB PO PRN (15:17)
[2024-01-04 16:10] LABS: % Iron Saturation 11.34 (15.00-50.00); Iron 11 UG/DL (65-175); Total Iron Binding Capacity 97 UG/DL (228-460)
[2024-01-04] MEDS: IV FLUID CONTINUATION 1,000 ML IV ONE (16:24)
[2024-01-04] MEDS ORDERED: PROPOFOL 10 MG/ML 20 ML VIAL IV ONE (17:00)
[2024-01-04] MEDS ORDERED: PHENYLEPHRINE 10 MG/ML VIAL ONE (17:00)
[2024-01-04] MEDS ORDERED: LIDOCAINE 1% INJ 10MG/ML (20 ML MDV) ONE (17:00)
[2024-01-04] MEDS ORDERED: MIDAZOLAM 2 MG/2 ML VIAL ONE (17:00)
[2024-01-04] MEDS ORDERED: fentaNYL (PF) 50 MCG/ML 2 ML AMP ONE (17:00)
[2024-01-04] MEDS ORDERED: SUGAMMADEX SODIUM 200 MG/2 ML SDV IV ONE (17:00)
[2024-01-04] MEDS: LACTATED RINGERS 1,000 ML IV ONE (17:25)
--- NOTE | 2024-01-04 18:12 | P.OP ---
Date of Procedure: 01/04/24 Procedure(s) Performed: PREOPERATIVE DIAGNOSIS: Large sacral decubitus ulcer POSTOPERATIVE DIAGNOSIS: Same PROCEDURE: Wide excision and debridement sacral decubitus ulcer SURGEON: Estephania EBL: 50 cc ANESTHESIA: General COMPLICATIONS: None OPERATIVE PROCEDURE: Patient placed in the right cubitus position. Most of the ulcer currently was involving the left sacral region extending across the coccyx/midline to the right side only by a few centimeters. The previous right- sided debridement was mostly healed with the exception of a few small superficial wounds present. Unfortunately on the left-hand side the size of necrotic skin subcutaneous fat and subcutaneous muscle was quite impressive. This measured now 21 cm wide by 15 cm in length. This was debrided using both sharp dissection and cautery. There was tunneling inferiorly into the buttock on the left-hand side a distance approximately 6 to 7 cm. No further evidence of infection spreading circumferentially was noted. Deep culture was taken from the tunneling site in the left buttock region inferiorly. The large necrotic piece of tissue was excised and sent to pathology. Bleeding points were controlled with cautery. Area was irrigated with saline. Wound was then packed with 2 separate Kerlix rolls lightly moistened with saline. Sterile outer dressing applied. DISPOSITION: Stable to recovery room
[2024-01-04 18:39] LABS: Glucose,Whole Blood 97 mg/dL (70-110)
[2024-01-04 21:17] LABS: Glucose,Whole Blood 89 mg/dL (70-110)
[2024-01-04] MEDS ORDERED: ACETAMINOPHEN TAB 325 MG TAB PO PRN (22:01)
[2024-01-05 06:15] LABS: Glucose,Whole Blood 81 mg/dL (70-110)
[2024-01-05 11:01] LABS: HCT 21.2 % (39.6-50.0); MCH 26.1 pg (27.0-32.0); MCHC 30.2 g/dL (32.0-37.0); MCV 86.5 FL (80.0-97.0); Mean Platelet Volume 11.3 FL (9.5-12.2); NRBC Per 100 WBC 0 X 10*3/uL (0.00-0.01); Platelet Count 226 X 10*3/uL (140-440); RBC 2.45 X 10*6/uL (4.40-5.60); RDW 18.5 % (11.5-14.5); WBC 19.92 X 10*3/uL (4.50-10.00)
[2024-01-05] MEDS: NON FORMULARY DRUG (Dulaglutide [Trulicity] 1.5 MG/0.5 ML Each) SQ SCH (11:05)
[2024-01-05 11:21] LABS: Glucose,Whole Blood 117 mg/dL (70-110)
[2024-01-05 11:28] LABS: Basophils # (A) 0.02 X 10*3/uL (0.00-0.10); Basophils % (A) 0.1 %; Crenated RBC 2+; Eosinophils # (A) 0.01 X 10*3/uL (0.04-0.35); Eosinophils % (A) 0.1 %; HGB 6.4 g/dL (13.0-17.0); Lymphocytes # (A) 1.82 X 10*3/uL (0.90-5.00); Lymphocytes % (A) 9.1 %; Monocytes % (A) 2.5 %; Neutrophils # (A) 17.37 X 10*3/uL (1.80-7.70); Neutrophils % (A) 87.2 %
[2024-01-05 13:38] LABS: BUN/Creat Ratio 11.36 Ratio (12.00-20.00); Blood Urea Nitrogen 12.5 mg/dL (9.0-27.0); Calcium 7.1 mg/dL (8.7-10.3); Carbon Dioxide 12.8 mmol/L (21.6-31.8); Chloride 106 mmol/L (96-109); Glucose 81 mg/dL (70-110); Sodium 131 mmol/L (135-145)
--- NOTE | 2024-01-05 15:49 | P.PN ---
Subjective Progress Note Date: 01/05/24 Principal diagnosis: Reason for follow-up is infected sacral pressure ulcer Patient is a 48-year-old male with a past medical history significant for diabetes mellitus hypertension hyperlipidemia, extensive left diabetic foot infection followed by right heel pressure ulcer and now admitted to hospital with worsening sacral pressure ulcer with features of sepsis on ad mission.Patient is status post Wide excision and debridement sacral decubitus ulcer by general surgery completed on 01/04/2024 On today's evaluation that is 01/05/2024, the patient continues to be afebrile, the patient is on room air and breathing comfortably, the Pt denies having any chest pain or cough, the patient denies having any abdominal pain no vomiting or any diarrhea patient denies any worsening pain to the sacral wound area. Patient white count is 19.92, creatinine is 1.1 initial culture growing presumptive MRSA Objective - Vital Signs Vital signs: Vital Signs Temp 99.3 F 01/05/24 14:00 Pulse 107 H 01/05/24 14:00 Resp 17 01/05/24 14:00 BP 105/71 01/05/24 14:00 Pulse Ox 99 01/05/24 14:00 FiO2 Intake & Output 01/04/24 01/05/24 01/05/24 18:59 06:59 18:59 Intake Total 800 940 Output Total 1250 950 Balance -450 -10 Weight 119.295 kg Intake: IV 800 Oral 940 Output: Urine 1200 950 Estimated Blood Loss 50 Other: Voiding Method Indwelling Catheter Indwelling Catheter - Exam GENERAL DESCRIPTION: Middle-age male lying in bed in no distress RESPIRATORY SYSTEM: Unlabored breathing , decreased breath sounds at bases HEART: S1 S2 regular rate and rhythm , ABDOMEN: Soft , no tenderness EXTREMITIES: Bilateral foot wounds are currently dressed - Labs CBC & Chem 7: 01/05/24 07:08 01/05/24 07:08 Labs: Abnormal Lab Results - Last 24 Hours (Table) 01/04/24 01/04/24 01/05/24 Range/Units 09:03 09:03 07:08 WBC 19.92 H (4.50-10.00) X 10*3/uL RBC 2.45 L (4.40-5.60) X 10*6/uL Hgb 6.4 A* (13.0-17.0) g/dL Hct 21.2 L (39.6-50.0) % MCH 26.1 L (27.0-32.0) pg MCHC 30.2 L (32.0-37.0) g/dL RDW 18.5 H (11.5-14.5) % Immature Gran # 0.20 H (0.00-0.04) X 10*3/uL Neutrophils # 17.37 H (1.80-7.70) X 10*3/uL Eosinophils # 0.01 L (0.04-0.35) X 10*3/uL Crenated Cell 2+ A Sodium (135-145) mmol/L Carbon Dioxide (21.6-31.8) mmol/L Anion Gap (4.00-12.00) mmol/L BUN/Creatinine Ratio (12.00-20.00) Ratio POC Glucose (mg/dL) (70-110) mg/dL Calcium (8.7-10.3) mg/dL Iron 11 L (65-175) UG/DL TIBC 97 L (228-460) UG/DL % Saturation 11.34 L (15.00-50.00) Transferrin 69.6 L (204.0-354.0) mg/dL RBC Folate 1,087 H (280 - 791) ng/mL Crossmatch 01/05/24 01/05/24 01/05/24 Range/Units 07:08 11:20 12:30 WBC (4.50-10.00) X 10*3/uL RBC (4.40-5.60) X 10*6/uL Hgb (13.0-17.0) g/dL Hct (39.6-50.0) % MCH (27.0-32.0) pg MCHC (32.0-37.0) g/dL RDW (11.5-14.5) % Immature Gran # (0.00-0.04) X 10*3/uL Neutrophils # (1.80-7.70) X 10*3/uL Eosinophils # (0.04-0.35) X 10*3/uL Crenated Cell Sodium 131 L (135-145) mmol/L Carbon Dioxide 12.8 L (21.6-31.8) mmol/L Anion Gap 12.20 H (4.00-12.00) mmol/L BUN/Creatinine Ratio 11.36 L (12.00-20.00) Ratio POC Glucose (mg/dL) 117 H (70-110) mg/dL Calcium 7.1 L (8.7-10.3) mg/dL Iron (65-175) UG/DL TIBC (228-460) UG/DL % Saturation (15.00-50.00) Transferrin (204.0-354.0) mg/dL RBC Folate (280 - 791) ng/mL Crossmatch See Detail Microbiology - Last 24 Hours (Table) 01/02/24 16:27 Gram Stain - Final Buttock Wound Culture - Final Presumptive MRSA 01/02/24 16:30 Blood Culture - Preliminary Blood 01/02/24 16:45 Blood Culture - Preliminary Blood Assessment and Plan (1) Diabetic foot ulcer Current Visit: No Status: Acute Code(s): E11.621 - TYPE 2 DIABETES MELLITUS WITH FOOT ULCER; L97.509 - NON-PRESSURE CHRONIC ULCER OTH PRT UNSP FOOT W UNSP SEVERITY SNOMED Code(s): 180666024 (2) Unstageable pressure ulcer of sacral region Current Visit: No Status: Acute Code(s): L89.150 - PRESSURE ULCER OF SACRAL REGION, UNSTAGEABLE SNOMED Code(s): 22377304441272732 (3) Sepsis Current Visit: Yes Status: Acute Code(s): A41.9 - SEPSIS, UNSPECIFIED ORGANISM SNOMED Code(s): 08038940 Plan: 1patient presented to hospital with sepsis in this patient who did have fever tachycardia source is infected sacral pressure ulcer as the patient did have unstageable sacral pressure ulcer with significant amount of necrotic tissue and maceration we will need to cover for resistant gram-positive as well as gram- negative pathogen 2-patient also have a bilateral foot diabetic foot ulcer wound to the left heel is doing well but he still have some slough tissue but no significant redness 3-patient is status post surgical debridement and deep culture completed on 01/04/2024 with cultures currently pending 4-patient to continue with the Zosyn and daptomycin while waiting for the culture to finalize will need a PICC line for outpatient IV antibiotics Dictation was produced using [employer] dictation software. please excuse any grammatical, word or spelling errors. Time with Patient: Less than 30
--- NOTE | 2024-01-05 16:16 | P.PN ---
Subjective Progress Note Date: 01/05/24 Principal diagnosis: Sacral decubitus ulcer Patient lying in bed. Says his pain on the left buttock region is slightly better today. Remains intermittently tachycardic. Afebrile. White blood cell count improved. Objective - Vital Signs Vital signs: Vital Signs Temp 99.0 F 01/05/24 16:09 Pulse 111 H 01/05/24 16:09 Resp 16 01/05/24 16:09 BP 100/64 01/05/24 16:09 Pulse Ox 99 01/05/24 16:09 FiO2 Intake & Output 01/04/24 01/05/24 01/05/24 18:59 06:59 18:59 Intake Total 800 940 Output Total 1250 950 Balance -450 -10 Weight 119.295 kg Intake: IV 800 Oral 940 Output: Urine 1200 950 Estimated Blood Loss 50 Other: Voiding Method Indwelling Catheter Indwelling Catheter - Exam Dressing changed by the nursing staff just prior to my arrival. Serosanguineous drainage noted. Odor much improved. Mild tenderness. No significant surrounding erythema - Labs CBC & Chem 7: 01/05/24 07:08 01/05/24 07:08 Labs: Abnormal Lab Results - Last 24 Hours (Table) 01/04/24 01/05/24 01/05/24 Range/Units 09:03 07:08 07:08 WBC 19.92 H (4.50-10.00) X 10*3/uL RBC 2.45 L (4.40-5.60) X 10*6/uL Hgb 6.4 A* (13.0-17.0) g/dL Hct 21.2 L (39.6-50.0) % MCH 26.1 L (27.0-32.0) pg MCHC 30.2 L (32.0-37.0) g/dL RDW 18.5 H (11.5-14.5) % Immature Gran # 0.20 H (0.00-0.04) X 10*3/uL Neutrophils # 17.37 H (1.80-7.70) X 10*3/uL Eosinophils # 0.01 L (0.04-0.35) X 10*3/uL Crenated Cell 2+ A Sodium 131 L (135-145) mmol/L Carbon Dioxide 12.8 L (21.6-31.8) mmol/L Anion Gap 12.20 H (4.00-12.00) mmol/L BUN/Creatinine Ratio 11.36 L (12.00-20.00) Ratio POC Glucose (mg/dL) (70-110) mg/dL Calcium 7.1 L (8.7-10.3) mg/dL RBC Folate 1,087 H (280 - 791) ng/mL Crossmatch 01/05/24 01/05/24 Range/Units 11:20 12:30 WBC (4.50-10.00) X 10*3/uL RBC (4.40-5.60) X 10*6/uL Hgb (13.0-17.0) g/dL Hct (39.6-50.0) % MCH (27.0-32.0) pg MCHC (32.0-37.0) g/dL RDW (11.5-14.5) % Immature Gran # (0.00-0.04) X 10*3/uL Neutrophils # (1.80-7.70) X 10*3/uL Eosinophils # (0.04-0.35) X 10*3/uL Crenated Cell Sodium (135-145) mmol/L Carbon Dioxide (21.6-31.8) mmol/L Anion Gap (4.00-12.00) mmol/L BUN/Creatinine Ratio (12.00-20.00) Ratio POC Glucose (mg/dL) 117 H (70-110) mg/dL Calcium (8.7-10.3) mg/dL RBC Folate (280 - 791) ng/mL Crossmatch See Detail Microbiology - Last 24 Hours (Table) 01/02/24 16:27 Gram Stain - Final Buttock Wound Culture - Final Presumptive MRSA 01/02/24 16:30 Blood Culture - Preliminary Blood 01/02/24 16:45 Blood Culture - Preliminary Blood Assessment and Plan (1) Sacral ulcer Narrative/Plan: Patient doing somewhat better today. Continue antibiotics. Await deep culture results. Continue offloading and nutritional support. He and I discussed the option of diverting ostomy. He would like to avoid at this time. This will be readdressed with him as we monitor and continue his wound care. Current Visit: Yes Status: Acute Code(s): L98.429 - NON-PRESSURE CHRONIC ULCER OF BACK WITH UNSPECIFIED SEVERITY SNOMED Code(s): 91926892
[2024-01-05 16:32] LABS: Glucose,Whole Blood 114 mg/dL (70-110)
[2024-01-05] MEDS: FUROSEMIDE 10 MG/ML 2 ML VIAL IV ONE (18:00)
[2024-01-05 20:00] LABS: Glucose,Whole Blood 187 mg/dL (70-110)
[2024-01-05] MEDS: PIPERACILLIN-TAZOBACTAM 3.375 GM in SODIUM CHLORIDE 0.9% 100 ML IVPB SCH (20:16)
[2024-01-05 22:52] LABS: Glucose,Whole Blood 159 mg/dL (70-110)
[2024-01-06 00:43] LABS: Anisocytosis Slight; Basophils % (A) 0 %; Eosinophils % (A) 0 %; HCT 24.3 % (39.0-53.0); HGB 7.5 gm/dL (13.0-17.5); Hypochromasia Moderate; Lymphocytes # (A) 1.4 k/uL (1.0-4.8); Lymphocytes % (A) 7 %; MCH 26.4 pg (25.0-35.0); MCHC 30.8 g/dL (31.0-37.0); MCV 85.7 fL (80.0-100.0); Mean Platelet Volume 8.3; Monocytes # (A) 0.4 k/uL (0-1.0); Monocytes % (A) 2 %; Neutrophils # (A) 17.6 k/uL (1.3-7.7); Neutrophils % (A) 90 %; Platelet Count 240 k/uL (150-450); RBC 2.84 m/uL (4.30-5.90); RDW 17.8 % (11.5-15.5); WBC 19.7 k/uL (3.8-10.6)
[2024-01-06] MEDS ORDERED: ZINC OXIDE PASTE (Z-GUARD) 1 APPLIC TOPICAL PRN (05:30)
[2024-01-06 05:36] LABS: Glucose,Whole Blood 144 mg/dL (70-110)
[2024-01-06 09:42] LABS: Basophils # (A) 0.02 X 10*3/uL (0.00-0.10); Basophils % (A) 0.1 %; Eosinophils # (A) 0.08 X 10*3/uL (0.04-0.35); Eosinophils % (A) 0.4 %; HCT 24.5 % (39.6-50.0); HGB 7.4 g/dL (13.0-17.0); Lymphocytes # (A) 1.74 X 10*3/uL (0.90-5.00); Lymphocytes % (A) 9.6 %; MCH 25.9 pg (27.0-32.0); MCHC 30.2 g/dL (32.0-37.0); MCV 85.7 FL (80.0-97.0); Mean Platelet Volume 10.4 FL (9.5-12.2); Monocytes # (A) 0.49 X 10*3/uL (0.20-1.00); Monocytes % (A) 2.7 %; NRBC Per 100 WBC 0 X 10*3/uL (0.00-0.01); Neutrophils # (A) 15.67 X 10*3/uL (1.80-7.70); Platelet Count 228 X 10*3/uL (140-440); RBC 2.86 X 10*6/uL (4.40-5.60); RDW 17.9 % (11.5-14.5); WBC 18.21 X 10*3/uL (4.50-10.00)
[2024-01-06 10:39] LABS: BUN/Creat Ratio 12.91 Ratio (12.00-20.00); Blood Urea Nitrogen 14.2 mg/dL (9.0-27.0); Calcium 7.5 mg/dL (8.7-10.3); Carbon Dioxide 12.5 mmol/L (21.6-31.8); Chloride 108 mmol/L (96-109); Glucose 134 mg/dL (70-110); Potassium 3.8 mmol/L (3.5-5.5); Sodium 134 mmol/L (135-145)
--- NOTE | 2024-01-06 11:30 | P.PN ---
Subjective Progress Note Date: 01/06/24 CHIEF COMPLAINT: Large sacral decubitus ulcer HISTORY OF PRESENT ILLNESS: Patient is postop day #2 status post wide excision and debridement of sacral decubitus ulcer. He reports his pain is controlled. He is having loose stools. The stool is getting onto the dressing. And he required the dressing to be changed 3 times yesterday on the sacral wound. Afebrile. WBC is down from 19.7-18.21 Hgb 7.4 deep culture growing gram- negative bacilli PHYSICAL EXAM: VITAL SIGNS: Reviewed. GENERAL: no acute distress. ABDOMEN: Soft. Nondistended. Nontender. NEUROLOGIC: Awake and alert ASSESSMENT: 1. Large sacral decubitus ulcer 2. Severe protein calorie malnutrition PLAN: -Continue local wound care -Continue protein supplement -Continue offloading -Continue antibiotics -Discussed option of diverting colostomy. Questions answered to the best my ability. Patient will discuss further with Dr. Best. Physician Forensic Psychiatrist note has been reviewed by physician. Signing provider agrees with the documented findings, assessment, and plan of care. I have personally seen and examined the patient, reviewed the IMPROVEMENT RN /PAs history, exam and MDM and agree with the assessment and plan as written. Based on total visit time, I have performed more than 50% of the visit. As above: Patient feels better today. Pain is less. Labs improved. Continue local wound care. No immediate plans for diverting ostomy. Objective - Vital Signs Vital signs: Vital Signs Temp 98.0 F 01/06/24 08:00 Pulse 96 01/06/24 08:00 Resp 18 01/06/24 08:00 BP 109/73 01/06/24 08:00 Pulse Ox 98 01/06/24 08:00 FiO2 Intake & Output 01/05/24 01/06/24 01/06/24 18:59 06:59 18:59 Intake Total 0 610 480 Output Total 1000 2024 Balance -1000 -1415 480 Intake: Oral 300 480 Blood Product 0 310 Rc As-1 Unit 0 310 [id number] Output: Urine 1000 2024 Other: Voiding Method Indwelling Catheter Indwelling Catheter Indwelling Catheter # Bowel Movements 1 1 - Labs CBC & Chem 7: 01/06/24 06:08 01/06/24 06:08 Labs: Abnormal Lab Results - Last 24 Hours (Table) 01/04/24 01/05/2401/04/24 Range/Units 09:03 07:08 07:08 WBC (3.8-10.6) k/uL RBC (4.30-5.90) m/uL Hgb 6.4 A* (13.0-17.0) g/dL Hct (39.0-53.0) % MCH (27.0-32.0) pg MCHC (31.0-37.0) g/dL RDW (11.5-15.5) % Immature Gran # 0.20 H (0.00-0.04) X 10*3/uL Neutrophils # 17.37 H (1.80-7.70) X 10*3/uL Eosinophils # 0.01 L (0.04-0.35) X 10*3/uL Crenated Cell 2+ A Sodium 131 L (135-145) mmol/L Carbon Dioxide 12.8 L (21.6-31.8) mmol/L Anion Gap 12.20 H (4.00-12.00) mmol/L BUN/Creatinine Ratio 11.36 L (12.00-20.00) Ratio Glucose (70-110) mg/dL POC Glucose (mg/dL) (70-110) mg/dL Calcium 7.1 L (8.7-10.3) mg/dL RBC Folate 1,087 H (280 - 791) ng/mL Crossmatch 01/05/24 01/05/24 01/05/24 Range/Units 12:30 16:31 19:58 WBC (3.8-10.6) k/uL RBC (4.30-5.90) m/uL Hgb (13.0-17.0) g/dL Hct (39.0-53.0) % MCH (27.0-32.0) pg MCHC (31.0-37.0) g/dL RDW (11.5-15.5) % Immature Gran # (0.00-0.04) X 10*3/uL Neutrophils # (1.80-7.70) X 10*3/uL Eosinophils # (0.04-0.35) X 10*3/uL Crenated Cell Sodium (135-145) mmol/L Carbon Dioxide (21.6-31.8) mmol/L Anion Gap (4.00-12.00) mmol/L BUN/Creatinine Ratio (12.00-20.00) Ratio Glucose (70-110) mg/dL POC Glucose (mg/dL) 114 H 187 H (70-110) mg/dL Calcium (8.7-10.3) mg/dL RBC Folate (280 - 791) ng/mL Crossmatch See Detail 01/05/24 01/05/24 01/06/24 Range/Units 22:48 23:51 05:35 WBC 19.7 H (3.8-10.6) k/uL RBC 2.84 L (4.30-5.90) m/uL Hgb 7.5 L (13.0-17.0) g/dL Hct 24.3 L (39.0-53.0) % MCH (27.0-32.0) pg MCHC 30.8 L (31.0-37.0) g/dL RDW 17.8 H (11.5-15.5) % Immature Gran # (0.00-0.04) X 10*3/uL Neutrophils # 17.6 H (1.80-7.70) X 10*3/uL Eosinophils # (0.04-0.35) X 10*3/uL Crenated Cell Sodium (135-145) mmol/L Carbon Dioxide (21.6-31.8) mmol/L Anion Gap (4.00-12.00) mmol/L BUN/Creatinine Ratio (12.00-20.00) Ratio Glucose (70-110) mg/dL POC Glucose (mg/dL) 159 H 144 H (70-110) mg/dL Calcium (8.7-10.3) mg/dL RBC Folate (280 - 791) ng/mL Crossmatch 01/06/24 01/06/24 Range/Units 06:08 06:08 WBC 18.21 H (3.8-10.6) k/uL RBC 2.86 L (4.30-5.90) m/uL Hgb 7.4 L (13.0-17.0) g/dL Hct 24.5 L (39.0-53.0) % MCH 25.9 L (27.0-32.0) pg MCHC 30.2 L (31.0-37.0) g/dL RDW 17.9 H (11.5-15.5) % Immature Gran # 0.21 H (0.00-0.04) X 10*3/uL Neutrophils # 15.67 H (1.80-7.70) X 10*3/uL Eosinophils # (0.04-0.35) X 10*3/uL Crenated Cell Sodium 134 L (135-145) mmol/L Carbon Dioxide 12.5 L (21.6-31.8) mmol/L Anion Gap 13.50 H (4.00-12.00) mmol/L BUN/Creatinine Ratio (12.00-20.00) Ratio Glucose 134 H (70-110) mg/dL POC Glucose (mg/dL) (70-110) mg/dL Calcium 7.5 L (8.7-10.3) mg/dL RBC Folate (280 - 791) ng/mL Crossmatch Microbiology - Last 24 Hours (Table) 01/04/24 18:10 Gram Stain - Preliminary Other - Other Wound Culture - Preliminary Gram Neg Bacilli 01/02/24 16:30 Blood Culture - Preliminary Blood 01/02/24 16:45 Blood Culture - Preliminary Blood 01/02/24 16:27 Gram Stain - Final Buttock Wound Culture - Final Presumptive MRSA
[2024-01-06 11:46] LABS: Glucose,Whole Blood 225 mg/dL (70-110)
--- NOTE | 2024-01-06 16:22 | P.PN ---
Subjective Progress Note Date: 01/06/24 Principal diagnosis: Reason for follow-up is infected sacral pressure ulcer Patient is a 48-year-old male with a past medical history significant for diabetes mellitus hypertension hyperlipidemia, extensive left diabetic foot infection followed by right heel pressure ulcer and now admitted to hospital with worsening sacral pressure ulcer with features of sepsis on ad mission.Patient is status post Wide excision and debridement sacral decubitus ulcer by general surgery completed on 01/04/2024 On today's evaluation that is 01/06/2024, Patient is afebrile patient is c urrently on room air and denies having any shortness of breath, the patient denies any chest pain did have occasional cough, the patient denies any nausea vomiting did not have any abdominal pain and mention did have some loose stools. Patient white count is 18.1, creatinine is 1.1 cultures growing both gram- negative and MRSA Objective - Vital Signs Vital signs: Vital Signs Temp 98.0 F 01/06/24 08:00 Pulse 96 01/06/24 08:00 Resp 18 01/06/24 08:00 BP 109/73 01/06/24 08:00 Pulse Ox 98 01/06/24 08:00 FiO2 Intake & Output 01/05/24 01/06/24 01/06/24 18:59 06:59 18:59 Intake Total 0 610 480 Output Total 1000 2024 875 Balance -1000 -1415 -395 Intake: Oral 300 480 Blood Product 0 310 Rc As-1 Unit 0 310 [id number] Output: Urine 1000 2024 875 Other: Voiding Method Indwelling Catheter Indwelling Catheter Indwelling Catheter # Bowel Movements 1 1 - Exam GENERAL DESCRIPTION: Middle-age male lying in bed in no distress RESPIRATORY SYSTEM: Unlabored breathing , decreased breath sounds at bases HEART: S1 S2 regular rate and rhythm , ABDOMEN: Soft , no tenderness EXTREMITIES: Bilateral foot wounds are currently dressed - Labs CBC & Chem 7: 01/06/24 06:08 01/06/24 06:08 Labs: Abnormal Lab Results - Last 24 Hours (Table) 01/04/24 01/05/24 01/05/24 Range/Units 09:03 07:08 12:30 WBC (3.8-10.6) k/uL RBC (4.30-5.90) m/uL Hgb (13.0-17.5) gm/dL Hct (39.0-53.0) % MCH (27.0-32.0) pg MCHC (31.0-37.0) g/dL RDW (11.5-15.5) % Immature Gran # (0.00-0.04) X 10*3/uL Neutrophils # (1.3-7.7) k/uL Sodium 131 L (135-145) mmol/L Carbon Dioxide 12.8 L (21.6-31.8) mmol/L Anion Gap 12.20 H (4.00-12.00) mmol/L BUN/Creatinine Ratio 11.36 L (12.00-20.00) Ratio Glucose (70-110) mg/dL POC Glucose (mg/dL) (70-110) mg/dL Calcium 7.1 L (8.7-10.3) mg/dL RBC Folate 1,087 H (280 - 791) ng/mL Crossmatch See Detail 01/05/24 01/05/24 01/05/24 Range/Units 16:31 19:58 22:48 WBC (3.8-10.6) k/uL RBC (4.30-5.90) m/uL Hgb (13.0-17.5) gm/dL Hct (39.0-53.0) % MCH (27.0-32.0) pg MCHC (31.0-37.0) g/dL RDW (11.5-15.5) % Immature Gran # (0.00-0.04) X 10*3/uL Neutrophils # (1.3-7.7) k/uL Sodium (135-145) mmol/L Carbon Dioxide (21.6-31.8) mmol/L Anion Gap (4.00-12.00) mmol/L BUN/Creatinine Ratio (12.00-20.00) Ratio Glucose (70-110) mg/dL POC Glucose (mg/dL) 114 H 187 H 159 H (70-110) mg/dL Calcium (8.7-10.3) mg/dL RBC Folate (280 - 791) ng/mL Crossmatch 01/05/24 01/06/24 01/06/24 Range/Units 23:51 05:35 06:08 WBC 19.7 H 18.21 H (3.8-10.6) k/uL RBC 2.84 L 2.86 L (4.30-5.90) m/uL Hgb 7.5 L 7.4 L (13.0-17.5) gm/dL Hct 24.3 L 24.5 L (39.0-53.0) % MCH 25.9 L (27.0-32.0) pg MCHC 30.8 L 30.2 L (31.0-37.0) g/dL RDW 17.8 H 17.9 H (11.5-15.5) % Immature Gran # 0.21 H (0.00-0.04) X 10*3/uL Neutrophils # 17.6 H 15.67 H (1.3-7.7) k/uL Sodium (135-145) mmol/L Carbon Dioxide (21.6-31.8) mmol/L Anion Gap (4.00-12.00) mmol/L BUN/Creatinine Ratio (12.00-20.00) Ratio Glucose (70-110) mg/dL POC Glucose (mg/dL) 144 H (70-110) mg/dL Calcium (8.7-10.3) mg/dL RBC Folate (280 - 791) ng/mL Crossmatch 01/06/24 01/06/24 Range/Units 06:08 11:44 WBC (3.8-10.6) k/uL RBC (4.30-5.90) m/uL Hgb (13.0-17.5) gm/dL Hct (39.0-53.0) % MCH (27.0-32.0) pg MCHC (31.0-37.0) g/dL RDW (11.5-15.5) % Immature Gran # (0.00-0.04) X 10*3/uL Neutrophils # (1.3-7.7) k/uL Sodium 134 L (135-145) mmol/L Carbon Dioxide 12.5 L (21.6-31.8) mmol/L Anion Gap 13.50 H (4.00-12.00) mmol/L BUN/Creatinine Ratio (12.00-20.00) Ratio Glucose 134 H (70-110) mg/dL POC Glucose (mg/dL) 225 H (70-110) mg/dL Calcium 7.5 L (8.7-10.3) mg/dL RBC Folate (280 - 791) ng/mL Crossmatch Microbiology - Last 24 Hours (Table) 01/04/24 18:10 Gram Stain - Preliminary Other - Other Wound Culture - Preliminary Gram Neg Bacilli 01/02/24 16:30 Blood Culture - Preliminary Blood 01/02/24 16:45 Blood Culture - Preliminary Blood 01/02/24 16:27 Gram Stain - Final Buttock Wound Culture - Final Presumptive MRSA Assessment and Plan (1) Diabetic foot ulcer Current Visit: No Status: Acute Code(s): E11.621 - TYPE 2 DIABETES MELLITUS WITH FOOT ULCER; L97.509 - NON-PRESSURE CHRONIC ULCER OTH PRT UNSP FOOT W UNSP SEVERITY SNOMED Code(s): 373749149 (2) Unstageable pressure ulcer of sacral region Current Visit: No Status: Acute Code(s): L89.150 - PRESSURE ULCER OF SACRAL REGION, UNSTAGEABLE SNOMED Code(s): 31394362615162987 (3) Sepsis Current Visit: Yes Status: Acute Code(s): A41.9 - SEPSIS, UNSPECIFIED ORGANISM SNOMED Code(s): 77500735 Plan: 1patient presented to hospital with sepsis in this patient who did have fever tachycardia source is infected sacral pressure ulcer as the patient did have unstageable sacral pressure ulcer with significant amount of necrotic tissue and maceration we will need to cover for resistant gram-positive as well as gram- negative pathogen 2-patient also have a bilateral foot diabetic foot ulcer wound to the left heel is doing well but he still have some slough tissue but no significant redness 3-patient is status post surgical debridement and deep culture completed on 01/04/2024 with cultures currently growing gram-negative with initial culture growing MRSA 4-patient to continue with the Zosyn and daptomycin, patient benefit from diverting colostomy this was discussed with the patient who will think about it Dictation was produced using [employer] software. please excuse any grammatical, word or spelling errors. Time with Patient: Less than 30
[2024-01-06 16:55] LABS: Glucose,Whole Blood 120 mg/dL (70-110)
[2024-01-06 20:12] LABS: Glucose,Whole Blood 115 mg/dL (70-110)
[2024-01-07 06:02] LABS: Glucose,Whole Blood 97 mg/dL (70-110)
[2024-01-07 09:19] LABS: Basophils # (A) 0.02 X 10*3/uL (0.00-0.10); Basophils % (A) 0.1 %; Eosinophils # (A) 0.08 X 10*3/uL (0.04-0.35); Eosinophils % (A) 0.5 %; HCT 22.5 % (39.6-50.0); Lymphocytes # (A) 1.98 X 10*3/uL (0.90-5.00); Lymphocytes % (A) 13.3 %; MCH 25.9 pg (27.0-32.0); MCHC 31.1 g/dL (32.0-37.0); MCV 83.3 FL (80.0-97.0); Mean Platelet Volume 10.4 FL (9.5-12.2); Monocytes # (A) 0.49 X 10*3/uL (0.20-1.00); Monocytes % (A) 3.3 %; NRBC Per 100 WBC 0 X 10*3/uL (0.00-0.01); Neutrophils # (A) 12.17 X 10*3/uL (1.80-7.70); Neutrophils % (A) 81.9 %; Platelet Count 246 X 10*3/uL (140-440); WBC 14.87 X 10*3/uL (4.50-10.00)
[2024-01-07 09:37] LABS: Blood Urea Nitrogen 14.5 mg/dL (9.0-27.0); Glucose 86 mg/dL (70-110)
[2024-01-07 09:38] LABS: Calcium 7.5 mg/dL (8.7-10.3); Carbon Dioxide 13.6 mmol/L (21.6-31.8); Chloride 113 mmol/L (96-109); Potassium 3.8 mmol/L (3.5-5.5); Sodium 139 mmol/L (135-145)
[2024-01-07 12:00] LABS: Glucose,Whole Blood 95 mg/dL (70-110)
--- NOTE | 2024-01-07 13:54 | P.PN ---
Progress Note - Text Progress Note Date: 01/07/24 CHIEF COMPLAINT: Large sacral decubitus ulcer HISTORY OF PRESENT ILLNESS: Patient is postop day #3 status post wide excision and debridement of sacral decubitus ulcer. He reports his pain is controlled. PHYSICAL EXAM: VITAL SIGNS: Reviewed. GENERAL: no acute distress. ABDOMEN: Soft. Nondistended. Nontender. NEUROLOGIC: Awake and alert ASSESSMENT: 1. Large sacral decubitus ulcer 2. Severe protein calorie malnutrition PLAN: -Continue local wound care -Continue protein supplement -Continue offloading -Continue antibiotics
--- NOTE | 2024-01-07 15:19 | P.PN ---
Subjective Progress Note Date: 01/07/24 Principal diagnosis: Reason for follow-up is infected sacral pressure ulcer Patient is a 48-year-old male with a past medical history significant for diabetes mellitus hypertension hyperlipidemia, extensive left diabetic foot infection followed by right heel pressure ulcer and now admitted to hospital with worsening sacral pressure ulcer with features of sepsis on ad mission.Patient is status post Wide excision and debridement sacral decubitus ulcer by general surgery completed on 01/04/2024 On today's evaluation that is 01/07/2024, patient has been afebrile, patient is breathing comfortably and is currently on room air, patient denies having any significant cough no chest pain shortness of breath, patient denies nausea vomiting or diarrhea and no abdominal pain and no worsening pain to the sacral wound area. Patient white count is down to 14.87, creatinine is 1.0, culture now with VRE sensitive to daptomycin as well as Proteus Mirabella's previous culture with MRSA Objective - Vital Signs Vital signs: Vital Signs Temp 98.0 F 01/07/24 07:46 Pulse 88 01/07/24 07:46 Resp 17 01/07/24 07:46 BP 111/73 01/07/24 07:46 Pulse Ox 99 01/07/24 07:46 FiO2 Intake & Output 01/06/24 01/07/24 01/07/24 18:59 06:59 18:59 Intake Total 720 Output Total 1875 1300 Balance -1155 -1300 Weight 119.295 kg Intake: Oral 720 Output: Urine 1875 1300 Other: Voiding Method Indwelling Catheter Indwelling Catheter # Bowel Movements 2 - Exam GENERAL DESCRIPTION: Middle-age male lying in bed in no distress RESPIRATORY SYSTEM: Unlabored breathing , decreased breath sounds at bases HEART: S1 S2 regular rate and rhythm , ABDOMEN: Soft , no tenderness EXTREMITIES: Bilateral foot wounds are currently dressed - Labs CBC & Chem 7: 01/07/24 05:32 01/07/24 05:32 Labs: Abnormal Lab Results - Last 24 Hours (Table) 01/06/24 01/06/24 01/07/24 Range/Units 16:51 20:11 05:32 WBC 14.87 H (4.50-10.00) X 10*3/uL RBC 2.70 L (4.40-5.60) X 10*6/uL Hgb 7.0 L (13.0-17.0) g/dL Hct 22.5 L (39.6-50.0) % MCH 25.9 L (27.0-32.0) pg MCHC 31.1 L (32.0-37.0) g/dL RDW 18.0 H (11.5-14.5) % Immature Gran # 0.13 H (0.00-0.04) X 10*3/uL Neutrophils # 12.17 H (1.80-7.70) X 10*3/uL Chloride (96-109) mmol/L Carbon Dioxide (21.6-31.8) mmol/L Anion Gap (4.00-12.00) mmol/L POC Glucose (mg/dL) 120 H 115 H (70-110) mg/dL Calcium (8.7-10.3) mg/dL 01/07/24 Range/Units 05:32 WBC (4.50-10.00) X 10*3/uL RBC (4.40-5.60) X 10*6/uL Hgb (13.0-17.0) g/dL Hct (39.6-50.0) % MCH (27.0-32.0) pg MCHC (32.0-37.0) g/dL RDW (11.5-14.5) % Immature Gran # (0.00-0.04) X 10*3/uL Neutrophils # (1.80-7.70) X 10*3/uL Chloride 113 H (96-109) mmol/L Carbon Dioxide 13.6 L (21.6-31.8) mmol/L Anion Gap 12.40 H (4.00-12.00) mmol/L POC Glucose (mg/dL) (70-110) mg/dL Calcium 7.5 L (8.7-10.3) mg/dL Microbiology - Last 24 Hours (Table) 01/04/24 18:10 Anaerobic Culture - Preliminary Other - Other 01/04/24 18:10 Gram Stain - Final Other - Other Wound Culture - Final Proteus mirabilis Enterococcus faecium VRE Assessment and Plan (1) Diabetic foot ulcer Current Visit: No Status: Acute Code(s): E11.621 - TYPE 2 DIABETES MELLITUS WITH FOOT ULCER; L97.509 - NON-PRESSURE CHRONIC ULCER OTH PRT UNSP FOOT W UNSP SEVERITY SNOMED Code(s): 165210126 (2) Unstageable pressure ulcer of sacral region Current Visit: No Status: Acute Code(s): L89.150 - PRESSURE ULCER OF SACRAL REGION, UNSTAGEABLE SNOMED Code(s): 84888492499197691 (3) Sepsis Current Visit: Yes Status: Acute Code(s): A41.9 - SEPSIS, UNSPECIFIED ORGANISM SNOMED Code(s): 44128882 Plan: 1patient presented to hospital with sepsis in this patient who did have fever tachycardia source is infected sacral pressure ulcer as the patient did have unstageable sacral pressure ulcer with significant amount of necrotic tissue and maceration we will need to cover for resistant gram-positive as well as gram- negative pathogen 2-patient also have a bilateral foot diabetic foot ulcer wound to the left heel is doing well but he still have some slough tissue but no significant redness 3-patient is status post surgical debridement and deep culture completed on 01/04/2024 with cultures currently growing Proteus and VRE, with initial culture growing MRSA 4-patient to continue with the Zosyn and daptomycin, patient will need a PICC line and outpatient IV antibiotic therapy Dictation was produced using [employer] dictation software. please excuse any grammatical, word or spelling errors. Time with Patient: Less than 30
[2024-01-07 16:48] LABS: Glucose,Whole Blood 51 mg/dL (70-110)
[2024-01-07 17:11] LABS: Glucose,Whole Blood 78 mg/dL (70-110)
[2024-01-07 20:43] LABS: Glucose,Whole Blood 64 mg/dL (70-110)
[2024-01-07 21:19] LABS: Glucose,Whole Blood 86 mg/dL (70-110)
[2024-01-08 00:08] LABS: Glucose,Whole Blood 68 mg/dL (70-110)
[2024-01-08 00:49] LABS: Glucose,Whole Blood 68 mg/dL (70-110)
[2024-01-08 01:17] LABS: Glucose,Whole Blood 91 mg/dL (70-110)
[2024-01-08 06:07] LABS: Glucose,Whole Blood 106 mg/dL (70-110)
[2024-01-08 09:42] LABS: Basophils # (A) 0.02 X 10*3/uL (0.00-0.10); Basophils % (A) 0.1 %; Eosinophils # (A) 0.09 X 10*3/uL (0.04-0.35); Eosinophils % (A) 0.6 %; HCT 24.1 % (39.6-50.0); HGB 7.4 g/dL (13.0-17.0); Lymphocytes # (A) 2.08 X 10*3/uL (0.90-5.00); Lymphocytes % (A) 13.4 %; MCH 25.9 pg (27.0-32.0); MCHC 30.7 g/dL (32.0-37.0); MCV 84.3 FL (80.0-97.0); Monocytes # (A) 0.52 X 10*3/uL (0.20-1.00); Monocytes % (A) 3.4 %; NRBC Per 100 WBC 0 X 10*3/uL (0.00-0.01); Neutrophils # (A) 12.67 X 10*3/uL (1.80-7.70); Neutrophils % (A) 81.7 %; Platelet Count 261 X 10*3/uL (140-440); RBC 2.86 X 10*6/uL (4.40-5.60); RDW 18.2 % (11.5-14.5); WBC 15.51 X 10*3/uL (4.50-10.00)
[2024-01-08 09:49] LABS: BUN/Creat Ratio 11.11 Ratio (12.00-20.00); Calcium 7.5 mg/dL (8.7-10.3); Carbon Dioxide 14.9 mmol/L (21.6-31.8); Chloride 110 mmol/L (96-109); Glucose 79 mg/dL (70-110); Sodium 136 mmol/L (135-145)
[2024-01-08 11:35] LABS: Glucose,Whole Blood 109 mg/dL (70-110)
[2024-01-08] MEDS: ONDANSETRON 4 MG TAB PO PRN (12:33)
--- NOTE | 2024-01-08 12:43 | P.PN ---
Subjective Progress Note Date: 01/08/24 Principal diagnosis: Reason for follow-up is infected sacral pressure ulcer Patient is a 48-year-old male with a past medical history significant for diabetes mellitus hypertension hyperlipidemia, extensive left diabetic foot infection followed by right heel pressure ulcer and now admitted to hospital with worsening sacral pressure ulcer with features of sepsis on ad mission.Patient is status post Wide excision and debridement sacral decubitus ulcer by general surgery completed on 01/04/2024 On today's evaluation that is 01/08/2024, Patient is afebrile this morning and denies any chills, patient mention breathing comfortably and is currently on room air, patient denies any chest pain occasional cough patient denies any abdominal pain no diarrhea no nausea no vomiting, no new symptoms. Patient white count is 15.51, creatinine 0.9 Objective - Vital Signs Vital signs: Vital Signs Temp 98.2 F 01/08/24 07:11 Pulse 90 01/08/24 07:11 Resp 18 01/08/24 07:11 BP 107/67 01/08/24 07:11 Pulse Ox 99 01/08/24 07:11 FiO2 Intake & Output 01/07/24 01/08/24 01/08/24 18:59 06:59 18:59 Intake Total 500 Output Total 1800 1500 Balance -1800 -1000 Intake: Oral 500 Output: Urine 1800 1500 Other: Voiding Method Indwelling Catheter Indwelling Catheter Indwelling Catheter # Bowel Movements 1 - Exam GENERAL DESCRIPTION: Middle-age male lying in bed in no distress RESPIRATORY SYSTEM: Unlabored breathing , decreased breath sounds at bases HEART: S1 S2 regular rate and rhythm , ABDOMEN: Soft , no tenderness EXTREMITIES: Bilateral foot wounds are currently dressed - Labs CBC & Chem 7: 01/08/24 03:15 01/08/24 03:15 Labs: Abnormal Lab Results - Last 24 Hours (Table) 01/07/24 01/07/24 01/08/24 Range/Units 16:47 20:39 00:07 WBC (4.50-10.00) X 10*3/uL RBC (4.40-5.60) X 10*6/uL Hgb (13.0-17.0) g/dL Hct (39.6-50.0) % MCH (27.0-32.0) pg MCHC (32.0-37.0) g/dL RDW (11.5-14.5) % Immature Gran # (0.00-0.04) X 10*3/uL Neutrophils # (1.80-7.70) X 10*3/uL Chloride (96-109) mmol/L Carbon Dioxide (21.6-31.8) mmol/L BUN/Creatinine Ratio (12.00-20.00) Ratio POC Glucose (mg/dL) 51 L 64 L 68 L (70-110) mg/dL Calcium (8.7-10.3) mg/dL 01/08/24 01/08/24 01/08/24 Range/Units 00:37 03:15 03:15 WBC 15.51 H (4.50-10.00) X 10*3/uL RBC 2.86 L (4.40-5.60) X 10*6/uL Hgb 7.4 L (13.0-17.0) g/dL Hct 24.1 L (39.6-50.0) % MCH 25.9 L (27.0-32.0) pg MCHC 30.7 L (32.0-37.0) g/dL RDW 18.2 H (11.5-14.5) % Immature Gran # 0.13 H (0.00-0.04) X 10*3/uL Neutrophils # 12.67 H (1.80-7.70) X 10*3/uL Chloride 110 H (96-109) mmol/L Carbon Dioxide 14.9 L (21.6-31.8) mmol/L BUN/Creatinine Ratio 11.11 L (12.00-20.00) Ratio POC Glucose (mg/dL) 68 L (70-110) mg/dL Calcium 7.5 L (8.7-10.3) mg/dL Microbiology - Last 24 Hours (Table) 01/02/24 16:30 Blood Culture - Final Blood 01/02/24 16:45 Blood Culture - Final Blood Assessment and Plan (1) Diabetic foot ulcer Current Visit: No Status: Acute Code(s): E11.621 - TYPE 2 DIABETES MELLITUS WITH FOOT ULCER; L97.509 - NON-PRESSURE CHRONIC ULCER OTH PRT UNSP FOOT W UNSP SEVERITY SNOMED Code(s): 254167322 (2) Unstageable pressure ulcer of sacral region Current Visit: No Status: Acute Code(s): L89.150 - PRESSURE ULCER OF SACRAL REGION, UNSTAGEABLE SNOMED Code(s): 52764761282822540 (3) Sepsis Current Visit: Yes Status: Acute Code(s): A41.9 - SEPSIS, UNSPECIFIED ORGANISM SNOMED Code(s): 97982758 Plan: 1patient presented to hospital with sepsis in this patient who did have fever tachycardia source is infected sacral pressure ulcer as the patient did have unstageable sacral pressure ulcer with significant amount of necrotic tissue and maceration we will need to cover for resistant gram-positive as well as gram- negative pathogen 2-patient also have a bilateral foot diabetic foot ulcer wound to the left heel is doing well but he still have some slough tissue but no significant redness 3-patient is status post surgical debridement and deep culture completed on 01/04/2024 with cultures currently growing Proteus and VRE, with initial culture growing MRSA 4-patient to continue with the Zosyn and daptomycin, white count is slightly up today and we will monitor closely and continue local wound care as ordered Dictation was produced using [employer] dictation software. please excuse any grammatical, word or spelling errors. Time with Patient: Less than 30
--- NOTE | 2024-01-08 12:46 | P.PN ---
Subjective Progress Note Date: 01/08/24 Principal diagnosis: Sacral decubitus ulcer Patient doing well today. No new complaints. Dressing changed earlier by nursing staff. He is afebrile. White blood cell count 15. Objective - Vital Signs Vital signs: Vital Signs Temp 98.2 F 01/08/24 07:11 Pulse 90 01/08/24 07:11 Resp 18 01/08/24 07:11 BP 107/67 01/08/24 07:11 Pulse Ox 99 01/08/24 07:11 FiO2 Intake & Output 01/07/24 01/08/24 01/08/24 18:59 06:59 18:59 Intake Total 500 Output Total 1800 1500 Balance -1800 -1000 Intake: Oral 500 Output: Urine 1800 1500 Other: Voiding Method Indwelling Catheter Indwelling Catheter Indwelling Catheter # Bowel Movements 1 - Exam Dressing changed by the nursing staff just prior to my arrival. Serosanguineous drainage noted. Odor much improved. Mild tenderness. No significant surrounding erythema - Labs CBC & Chem 7: 01/08/24 03:15 01/08/24 03:15 Labs: Abnormal Lab Results - Last 24 Hours (Table) 01/07/24 01/07/24 01/08/24 Range/Units 16:47 20:39 00:07 WBC (4.50-10.00) X 10*3/uL RBC (4.40-5.60) X 10*6/uL Hgb (13.0-17.0) g/dL Hct (39.6-50.0) % MCH (27.0-32.0) pg MCHC (32.0-37.0) g/dL RDW (11.5-14.5) % Immature Gran # (0.00-0.04) X 10*3/uL Neutrophils # (1.80-7.70) X 10*3/uL Chloride (96-109) mmol/L Carbon Dioxide (21.6-31.8) mmol/L BUN/Creatinine Ratio (12.00-20.00) Ratio POC Glucose (mg/dL) 51 L 64 L 68 L (70-110) mg/dL Calcium (8.7-10.3) mg/dL 01/08/24 01/08/24 01/08/24 Range/Units 00:37 03:15 03:15 WBC 15.51 H (4.50-10.00) X 10*3/uL RBC 2.86 L (4.40-5.60) X 10*6/uL Hgb 7.4 L (13.0-17.0) g/dL Hct 24.1 L (39.6-50.0) % MCH 25.9 L (27.0-32.0) pg MCHC 30.7 L (32.0-37.0) g/dL RDW 18.2 H (11.5-14.5) % Immature Gran # 0.13 H (0.00-0.04) X 10*3/uL Neutrophils # 12.67 H (1.80-7.70) X 10*3/uL Chloride 110 H (96-109) mmol/L Carbon Dioxide 14.9 L (21.6-31.8) mmol/L BUN/Creatinine Ratio 11.11 L (12.00-20.00) Ratio POC Glucose (mg/dL) 68 L (70-110) mg/dL Calcium 7.5 L (8.7-10.3) mg/dL Microbiology - Last 24 Hours (Table) 01/02/24 16:30 Blood Culture - Final Blood 01/02/24 16:45 Blood Culture - Final Blood Assessment and Plan (1) Sacral ulcer Narrative/Plan: 48-year-old male doing fairly well after wide debridement sacral decubitus ulcer. Continue local wound care. Continue offloading and antibiotics. Current Visit: Yes Status: Acute Code(s): L98.429 - NON-PRESSURE CHRONIC ULCER OF BACK WITH UNSPECIFIED SEVERITY SNOMED Code(s): 84289267
[2024-01-08 16:39] LABS: Glucose,Whole Blood 76 mg/dL (70-110)
[2024-01-08 17:49] LABS: Glucose,Whole Blood 72 mg/dL (70-110)
[2024-01-08] MEDS: DEXTROSE 50% SYRINGE 50 ML IVP PRN ×2 (17:55→22:05)
[2024-01-08 18:15] LABS: Glucose,Whole Blood 98 mg/dL (70-110)
[2024-01-08 21:32] LABS: Glucose,Whole Blood 68 mg/dL (70-110)
[2024-01-08 21:56] LABS: Glucose,Whole Blood 81 mg/dL (70-110)
[2024-01-08] MEDS: DEXTROSE 5%-0.9% NACL 1,000 ML IV SCH (22:06)
--- NOTE | 2024-01-09 00:52 | P.PN ---
Subjective Progress Note Date: 01/03/24 Patient is a 48-year-old male with a past medical history of hypertension, hyperlipidemia, diabetes type 2 insulin-dependent, bilateral feet and coccyx decub ulcers, anxiety/depression/bipolar and panic disorder was sent from wound care center by Dr. Gutierrez due to infection. Patient has been having bilateral feet and sacral diabetic ulcer/. Patient has been on follow-up with wound care Center. Wound dressing was done prior to transfer to ER. Patient was febrile with Tmax 103.2 on admission and tachycardic. Pulse ox 90% on room air. Blood pressure went down to 89/61. X-ray of the sacrum and coccyx showed large wound posterior inferior sacral region. The dizziness likely patient intact without erosion. EKG showed sinus rhythm with low QRS voltage in the precordial leads. Laboratory data showed WBC 29.2 hemoglobin 8.1 and platelets 339 RDW 17.1 INR 1.2 Sodium 126 potassium 4.9 chloride 97 bicarb is 16 BUN 23 and creatinine 1.12 and blood sugar 243 lactic acid 1.6 calcium 8.3 AST 94 ALT 72 and alk phos 616 and albumin 2.8. 01/03/2024 Patient is currently lying in the bed. Awake alert and oriented. Pain is fairly controlled. Complains of diarrhea which is mainly watery. Patient sta douglas her diarrhea has started back again. Afebrile.Patient has been afebrile. Laboratory data showed WBC 31.5, hemoglobin 7.0 and platelets 251 Sodium 125 potassium 4.0 chloride 100 bicarb is 15 BUN 23 and creatinine 1.2 and A1c 6.7 Liver enzymes showed AST 100 ALT 64 and alk phos 564 and albumin 2.2. Patient has been continued on IV antibiotics and ID and vascular surgery is on board. Current medications reviewed. Objective - Vital Signs Vital signs: Vital Signs Temp 98.7 F 01/03/24 19:46 Pulse 96 01/03/24 19:46 Resp 20 01/03/24 19:46 BP 104/67 01/03/24 19:46 Pulse Ox 99 01/03/24 19:46 FiO2 Intake & Output 01/03/24 01/03/24 01/04/24 06:59 18:59 06:59 Intake Total 1100 440 Output Total 900 1600 Balance 200 -1160 Weight 119.295 kg 119.295 kg Intake: Intake, IV Titration 200 Amount Piperacillin-Tazobactam 3 200 .375 gm In Sodium Chloride 0.9% 100 ml @ 25 mls/hr IVPB Q8HR [facility] Rx# :[id number] Oral 1100 240 Output: Urine 900 1600 Other: Voiding Method Indwelling Catheter Indwelling Catheter - Exam PHYSICAL EXAMINATION: Patient is lying in the bed,, no acute distress, awake alert and oriented.. HEENT: Normocephalic. Neck is supple. Pupils reactive. Nostrils clear. Oral cavity is moist. Neck reveals no JVD, carotid bruits, or thyromegaly. CHEST EXAMINATION: Trachea is central. Symmetrical expansion. Bibasilar diminished sounds otherwise lung hinds clear to auscultation and percussion. CARDIAC: Normal S1, S2 with no gallops. No murmurs ABDOMEN: Soft. Bowel sounds present. No organomegaly. No abdominal bruits. Sacral wound is packed.. Extremities: Bilateral lower extremity trace edema. Bilateral feet wounds are bandaged. No clubbing or cyanosis Neurologically awake, alert, oriented x3. Patient is able to move all extremities while in bed.. No gross focal deficits noted Skin: No rash or skin lesions except as above. Psychiatric: Coperative. Nonsuicidal Musculoskeletal: No joint swelling or deformity. - Labs CBC & Chem 7: 01/08/24 03:15 01/08/24 03:15 Labs: Abnormal Lab Results - Last 24 Hours (Table) 01/03/24 01/03/24 01/03/24 Range/Units 01:05 02:00 02:00 WBC 31.5 H (3.8-10.6) k/uL RBC 2.71 L (4.30-5.90) m/uL Hgb 7.0 L (13.0-17.5) gm/dL Hct 22.4 L (39.0-53.0) % RDW 17.4 H (11.5-15.5) % Sodium (137-145) mmol/L Carbon Dioxide (22-30) mmol/L BUN (9-20) mg/dL Glucose (74-99) mg/dL POC Glucose (mg/dL) 235 H (70-110) mg/dL Hemoglobin A1c 6.7 H (<=6.0) % Calcium (8.4-10.2) mg/dL AST (17-59) U/L ALT (4-49) U/L Alkaline Phosphatase (38-126) U/L Total Protein (6.3-8.2) g/dL Albumin (3.5-5.0) g/dL 01/03/24 01/03/24 01/03/24 Range/Units 02:00 08:08 12:34 WBC (3.8-10.6) k/uL RBC (4.30-5.90) m/uL Hgb (13.0-17.5) gm/dL Hct (39.0-53.0) % RDW (11.5-15.5) % Sodium 125 L (137-145) mmol/L Carbon Dioxide 15 L (22-30) mmol/L BUN 23 H (9-20) mg/dL Glucose 188 H (74-99) mg/dL POC Glucose (mg/dL) 192 H 176 H (70-110) mg/dL Hemoglobin A1c (<=6.0) % Calcium 7.4 L (8.4-10.2) mg/dL AST 100 H (17-59) U/L ALT 64 H (4-49) U/L Alkaline Phosphatase 564 H (38-126) U/L Total Protein 5.2 L (6.3-8.2) g/dL Albumin 2.2 L (3.5-5.0) g/dL 01/03/24 01/03/24 Range/Units 16:57 20:08 WBC (3.8-10.6) k/uL RBC (4.30-5.90) m/uL Hgb (13.0-17.5) gm/dL Hct (39.0-53.0) % RDW (11.5-15.5) % Sodium (137-145) mmol/L Carbon Dioxide (22-30) mmol/L BUN (9-20) mg/dL Glucose (74-99) mg/dL POC Glucose (mg/dL) 117 H 114 H (70-110) mg/dL Hemoglobin A1c (<=6.0) % Calcium (8.4-10.2) mg/dL AST (17-59) U/L ALT (4-49) U/L Alkaline Phosphatase (38-126) U/L Total Protein (6.3-8.2) g/dL Albumin (3.5-5.0) g/dL Microbiology - Last 24 Hours (Table) 01/02/24 16:30 Blood Culture - Preliminary Blood 01/02/24 16:45 Blood Culture - Preliminary Blood 01/02/24 16:27 Gram Stain - Preliminary Buttock Assessment and Plan Assessment: Infected sacral decub ulcers and bilateral feet diabetic ulcers. Sepsis secondary to above Elevated liver enzymes Diabetes type 2 with hyperglycemia uncontrolled. Insulin-dependent Hyponatremia likely hypovolemic Hypertension Hyperlipidemia Medical debility currently bedridden Anxiety/depression and bipolar disorder and panic disorder Hypothyroidism Normocytic anemia with hemoglobin 8.1 on admission DVT prophylaxis with heparin subcu Plan: Patient will be continued on IV hydration and antibiotics in the form of Zosyn and daptomycin was added as per ID recommendations. General surgery was consulted. Planning for debridement tomorrow. Follow-up wound cultures. Continue with insulin regimen and sliding scale for better blood sugar control. Continue to monitor liver enzymes. Follow-up blood cultures. ID and vascular surgery is on board. Continue with wound care. Time with Patient: Greater than 30
--- NOTE | 2024-01-09 00:55 | P.PN ---
Subjective Progress Note Date: 01/04/24 Patient is a 48-year-old male with a past medical history of hypertension, hyperlipidemia, diabetes type 2 insulin-dependent, bilateral feet and coccyx decub ulcers, anxiety/depression/bipolar and panic disorder was sent from wound care center by Dr. Gutierrez due to infection. Patient has been having bilateral feet and sacral diabetic ulcer/. Patient has been on follow-up with wound care Center. Wound dressing was done prior to transfer to ER. Patient was febrile with Tmax 103.2 on admission and tachycardic. Pulse ox 90% on room air. Blood pressure went down to 89/61. X-ray of the sacrum and coccyx showed large wound posterior inferior sacral region. The dizziness likely patient intact without erosion. EKG showed sinus rhythm with low QRS voltage in the precordial leads. Laboratory data showed WBC 29.2 hemoglobin 8.1 and platelets 339 RDW 17.1 INR 1.2 Sodium 126 potassium 4.9 chloride 97 bicarb is 16 BUN 23 and creatinine 1.12 and blood sugar 243 lactic acid 1.6 calcium 8.3 AST 94 ALT 72 and alk phos 616 and albumin 2.8. 01/03/2024 Patient is currently lying in the bed. Awake alert and oriented. Pain is fairly controlled. Complains of diarrhea which is mainly watery. Patient sta douglas her diarrhea has started back again. Afebrile.Patient has been afebrile. Laboratory data showed WBC 31.5, hemoglobin 7.0 and platelets 251 Sodium 125 potassium 4.0 chloride 100 bicarb is 15 BUN 23 and creatinine 1.2 and A1c 6.7 Liver enzymes showed AST 100 ALT 64 and alk phos 564 and albumin 2.2. Patient has been continued on IV antibiotics and ID and vascular surgery is on board. 01/04/2024 Patient is lying in the bed. Awake alert and oriented x 3. Pain is better controlled. No complaints of chest pain or shortness of breath. No nausea vomiting or abdominal pain or diarrhea. No cough or sputum production. Patient has been afebrile. Patient underwent Wide excision and debridement sacral decubitus ulcer. Laboratory data showed WBC 22.7 hemoglobin 7.5 and platelets 269 sodium 133 potassium 3.9 chloride 110 bicarb is 13 BUN 15 and creatinine 1.03 and patient was also found to have iron deficient. B12 folate within normal limits. Rearrangements are still elevated. Remains on antibiotics daptomycin and Zosyn. ID is on board. Current medications reviewed. Objective - Vital Signs Vital signs: Vital Signs Temp 97 F L 01/04/24 18:20 Pulse 105 H 01/04/24 22:26 Resp 18 01/04/24 18:55 BP 100/67 01/04/24 22:26 Pulse Ox 96 01/04/24 22:26 FiO2 Intake & Output 01/04/24 01/04/24 01/05/24 06:59 18:59 06:59 Intake Total 800 480 Output Total 1500 1250 Balance -1500 -450 480 Weight 119.295 kg 119.295 kg Intake: IV 800 Oral 480 Output: Urine 1500 1200 Estimated Blood Loss 50 Other: Voiding Method Indwelling Catheter - Exam PHYSICAL EXAMINATION: Patient is lying in the bed,, no acute distress, awake alert and oriented.. HEENT: Normocephalic. Neck is supple. Pupils reactive. Nostrils clear. Oral cavity is moist. Neck reveals no JVD, carotid bruits, or thyromegaly. CHEST EXAMINATION: Trachea is central. Symmetrical expansion. Bibasilar diminished sounds otherwise lung hinds clear to auscultation and percussion. CARDIAC: Normal S1, S2 with no gallops. No murmurs ABDOMEN: Soft. Bowel sounds present. No organomegaly. No abdominal bruits. Sacral wound is packed.. Extremities: Bilateral lower extremity trace edema. Bilateral feet wounds are bandaged. No clubbing or cyanosis Neurologically awake, alert, oriented x3. Patient is able to move all extremities while in bed.. No gross focal deficits noted Skin: No rash or skin lesions except as above. Psychiatric: Coperative. Nonsuicidal Musculoskeletal: No joint swelling or deformity. - Labs CBC & Chem 7: 01/08/24 03:15 01/08/24 03:15 Labs: Abnormal Lab Results - Last 24 Hours (Table) 01/04/24 01/04/24 Range/Units 09:03 09:03 WBC 22.7 H (3.8-10.6) k/uL RBC 2.93 L (4.30-5.90) m/uL Hgb 7.5 L (13.0-17.5) gm/dL Hct 24.5 L (39.0-53.0) % MCHC 30.5 L (31.0-37.0) g/dL RDW 17.2 H (11.5-15.5) % Neutrophils # 20.3 H (1.3-7.7) k/uL Sodium 133 L (137-145) mmol/L Chloride 110 H (98-107) mmol/L Carbon Dioxide 13 L (22-30) mmol/L Glucose 60 L (74-99) mg/dL Calcium 7.6 L (8.4-10.2) mg/dL Iron 11 L (65-175) UG/DL TIBC 97 L (228-460) UG/DL % Saturation 11.34 L (15.00-50.00) Transferrin 69.6 L (204.0-354.0) mg/dL AST 133 H (17-59) U/L ALT 69 H (4-49) U/L Alkaline Phosphatase 583 H (38-126) U/L Total Protein 5.6 L (6.3-8.2) g/dL Albumin 2.3 L (3.5-5.0) g/dL Microbiology - Last 24 Hours (Table) 01/02/24 16:30 Blood Culture - Preliminary Blood 01/02/24 16:45 Blood Culture - Preliminary Blood 01/02/24 16:27 Gram Stain - Preliminary Buttock Wound Culture - Preliminary Assessment and Plan Assessment: Infected sacral decub ulcers and bilateral feet diabetic ulcers. s/p Wide excision and debridement sacral decubitus ulcer on 01/04/24 Sepsis secondary to above Elevated liver enzymes Diabetes type 2 with hyperglycemia uncontrolled. Insulin-dependent Hyponatremia likely hypovolemic Hypertension Hyperlipidemia Medical debility currently bedridden Anxiety/depression and bipolar disorder and panic disorder Hypothyroidism Normocytic anemia with hemoglobin 8.1 on admission DVT prophylaxis with heparin subcu Plan: Patient will be continued on IV hydration and antibiotics in the form of Zosyn and daptomycin was added as per ID recommendations. General surgery was consulted. Planning for debridement tomorrow. Follow-up wound cultures. Continue with insulin regimen and sliding scale for better blood sugar control. Continue to monitor liver enzymes. Follow-up blood cultures. ID and vascular surgery is on board. Continue with wound care. Time with Patient: Greater than 30
--- NOTE | 2024-01-09 00:58 | P.PN ---
Subjective Progress Note Date: 01/05/24 Patient is a 48-year-old male with a past medical history of hypertension, hyperlipidemia, diabetes type 2 insulin-dependent, bilateral feet and coccyx decub ulcers, anxiety/depression/bipolar and panic disorder was sent from wound care center by Dr. Gutierrez due to infection. Patient has been having bilateral feet and sacral diabetic ulcer/. Patient has been on follow-up with wound care Center. Wound dressing was done prior to transfer to ER. Patient was febrile with Tmax 103.2 on admission and tachycardic. Pulse ox 90% on room air. Blood pressure went down to 89/61. X-ray of the sacrum and coccyx showed large wound posterior inferior sacral region. The dizziness likely patient intact without erosion. EKG showed sinus rhythm with low QRS voltage in the precordial leads. Laboratory data showed WBC 29.2 hemoglobin 8.1 and platelets 339 RDW 17.1 INR 1.2 Sodium 126 potassium 4.9 chloride 97 bicarb is 16 BUN 23 and creatinine 1.12 and blood sugar 243 lactic acid 1.6 calcium 8.3 AST 94 ALT 72 and alk phos 616 and albumin 2.8. 01/03/2024 Patient is currently lying in the bed. Awake alert and oriented. Pain is fairly controlled. Complains of diarrhea which is mainly watery. Patient sta douglas her diarrhea has started back again. Afebrile.Patient has been afebrile. Laboratory data showed WBC 31.5, hemoglobin 7.0 and platelets 251 Sodium 125 potassium 4.0 chloride 100 bicarb is 15 BUN 23 and creatinine 1.2 and A1c 6.7 Liver enzymes showed AST 100 ALT 64 and alk phos 564 and albumin 2.2. Patient has been continued on IV antibiotics and ID and vascular surgery is on board. 01/04/2024 Patient is lying in the bed. Awake alert and oriented x 3. Pain is better controlled. No complaints of chest pain or shortness of breath. No nausea vomiting or abdominal pain or diarrhea. No cough or sputum production. Patient has been afebrile. Patient underwent Wide excision and debridement sacral decubitus ulcer. Laboratory data showed WBC 22.7 hemoglobin 7.5 and platelets 269 sodium 133 potassium 3.9 chloride 110 bicarb is 13 BUN 15 and creatinine 1.03 and patient was also found to have iron deficient. B12 folate within normal limits. Rearrangements are still elevated. Remains on antibiotics daptomycin and Zosyn. ID is on board. 01/04/2021 Patient is resting in bed. Awake alert and oriented x 3. Pain is controlled. Patient is s/p sacral wound debridement yesterday. Left buttock region is slightly better as per surgery. Leukocytosis improving. Patient has been afebr ile. Laboratory test showed WBCs 19.9 hemoglobin 6.4 and platelets 226 Sodium 131 potassium 4.0 chloride 106 bicarb is 12.8 BUN 12.5 and creatinine 1.1 and blood sugar is 81 and calcium is 7.1. Patient remains on antibiotics and follow-up final culture reports. Patient is on iron supplementation. Current medications reviewed. Objective - Vital Signs Vital signs: Vital Signs Temp 98.6 F 01/05/24 20:14 Pulse 102 H 01/05/24 20:14 Resp 16 01/05/24 20:14 BP 108/71 01/05/24 20:14 Pulse Ox 98 01/05/24 20:14 FiO2 Intake & Output 01/05/24 01/05/24 01/06/24 06:59 18:59 06:59 Intake Total 940 0 310 Output Total 950 1000 1125 Balance -10 -1000 -815 Intake: Oral 940 Blood Product 0 310 Rc As-1 Unit 0 310 [id number] Output: Urine 950 1000 1125 Other: Voiding Method Indwelling Catheter Indwelling Catheter # Bowel Movements 1 - Exam PHYSICAL EXAMINATION: Patient is lying in the bed,, no acute distress, awake alert and oriented.. HEENT: Normocephalic. Neck is supple. Pupils reactive. Nostrils clear. Oral cavity is moist. Neck reveals no JVD, carotid bruits, or thyromegaly. CHEST EXAMINATION: Trachea is central. Symmetrical expansion. Bibasilar diminished sounds otherwise lung hinds clear to auscultation and percussion. CARDIAC: Normal S1, S2 with no gallops. No murmurs ABDOMEN: Soft. Bowel sounds present. No organomegaly. No abdominal bruits. Sacral wound is packed.. Extremities: Bilateral lower extremity trace edema. Bilateral feet wounds are bandaged. No clubbing or cyanosis Neurologically awake, alert, oriented x3. Patient is able to move all extremities while in bed.. No gross focal deficits noted Skin: No rash or skin lesions except as above. Psychiatric: Coperative. Nonsuicidal Musculoskeletal: No joint swelling or deformity. - Labs CBC & Chem 7: 01/08/24 03:15 01/08/24 03:15 Labs: Abnormal Lab Results - Last 24 Hours (Table) 01/04/24 01/05/24 01/05/24 Range/Units 09:03 07:08 07:08 WBC 19.92 H (4.50-10.00) X 10*3/uL RBC 2.45 L (4.40-5.60) X 10*6/uL Hgb 6.4 A* (13.0-17.0) g/dL Hct 21.2 L (39.6-50.0) % MCH 26.1 L (27.0-32.0) pg MCHC 30.2 L (32.0-37.0) g/dL RDW 18.5 H (11.5-14.5) % Immature Gran # 0.20 H (0.00-0.04) X 10*3/uL Neutrophils # 17.37 H (1.80-7.70) X 10*3/uL Eosinophils # 0.01 L (0.04-0.35) X 10*3/uL Crenated Cell 2+ A Sodium 131 L (135-145) mmol/L Carbon Dioxide 12.8 L (21.6-31.8) mmol/L Anion Gap 12.20 H (4.00-12.00) mmol/L BUN/Creatinine Ratio 11.36 L (12.00-20.00) Ratio POC Glucose (mg/dL) (70-110) mg/dL Calcium 7.1 L (8.7-10.3) mg/dL RBC Folate 1,087 H (280 - 791) ng/mL Crossmatch 01/05/24 01/05/24 01/05/24 Range/Units 11:20 12:30 16:31 WBC (4.50-10.00) X 10*3/uL RBC (4.40-5.60) X 10*6/uL Hgb (13.0-17.0) g/dL Hct (39.6-50.0) % MCH (27.0-32.0) pg MCHC (32.0-37.0) g/dL RDW (11.5-14.5) % Immature Gran # (0.00-0.04) X 10*3/uL Neutrophils # (1.80-7.70) X 10*3/uL Eosinophils # (0.04-0.35) X 10*3/uL Crenated Cell Sodium (135-145) mmol/L Carbon Dioxide (21.6-31.8) mmol/L Anion Gap (4.00-12.00) mmol/L BUN/Creatinine Ratio (12.00-20.00) Ratio POC Glucose (mg/dL) 117 H 114 H (70-110) mg/dL Calcium (8.7-10.3) mg/dL RBC Folate (280 - 791) ng/mL Crossmatch See Detail 01/05/24 01/05/24 Range/Units 19:58 22:48 WBC (4.50-10.00) X 10*3/uL RBC (4.40-5.60) X 10*6/uL Hgb (13.0-17.0) g/dL Hct (39.6-50.0) % MCH (27.0-32.0) pg MCHC (32.0-37.0) g/dL RDW (11.5-14.5) % Immature Gran # (0.00-0.04) X 10*3/uL Neutrophils # (1.80-7.70) X 10*3/uL Eosinophils # (0.04-0.35) X 10*3/uL Crenated Cell Sodium (135-145) mmol/L Carbon Dioxide (21.6-31.8) mmol/L Anion Gap (4.00-12.00) mmol/L BUN/Creatinine Ratio (12.00-20.00) Ratio POC Glucose (mg/dL) 187 H 159 H (70-110) mg/dL Calcium (8.7-10.3) mg/dL RBC Folate (280 - 791) ng/mL Crossmatch Microbiology - Last 24 Hours (Table) 01/04/24 18:10 Wound Culture - Preliminary Other - Other Gram Neg Bacilli 01/02/24 16:30 Blood Culture - Preliminary Blood 01/02/24 16:45 Blood Culture - Preliminary Blood 01/02/24 16:27 Gram Stain - Final Buttock Wound Culture - Final Presumptive MRSA Assessment and Plan Assessment: Infected sacral decub ulcers and bilateral feet diabetic ulcers. s/p Wide excision and debridement sacral decubitus ulcer on 01/04/24 Sepsis secondary to above Elevated liver enzymes Diabetes type 2 with hyperglycemia uncontrolled. Insulin-dependent Hyponatremia likely hypovolemic Hypertension Hyperlipidemia Medical debility currently bedridden Anxiety/depression and bipolar disorder and panic disorder Hypothyroidism Normocytic anemia with hemoglobin 8.1 on admission DVT prophylaxis with heparin subcu Plan: Patient will be continued on IV hydration and antibiotics in the form of Zosyn and daptomycin was added as per ID recommendations. Follow-up culture reports. General surgery is on board. S/p debridement. Continue with insulin regimen and sliding scale for better blood sugar control. Continue to monitor liver enzymes. Follow-up blood cultures. ID and vascular surgery is on board. Continue with wound care. Time with Patient: Greater than 30
--- NOTE | 2024-01-09 01:01 | P.PN ---
Subjective Progress Note Date: 01/06/24 Patient is a 48-year-old male with a past medical history of hypertension, hyperlipidemia, diabetes type 2 insulin-dependent, bilateral feet and coccyx decub ulcers, anxiety/depression/bipolar and panic disorder was sent from wound care center by Dr. Gutierrez due to infection. Patient has been having bilateral feet and sacral diabetic ulcer/. Patient has been on follow-up with wound care Center. Wound dressing was done prior to transfer to ER. Patient was febrile with Tmax 103.2 on admission and tachycardic. Pulse ox 90% on room air. Blood pressure went down to 89/61. X-ray of the sacrum and coccyx showed large wound posterior inferior sacral region. The dizziness likely patient intact without erosion. EKG showed sinus rhythm with low QRS voltage in the precordial leads. Laboratory data showed WBC 29.2 hemoglobin 8.1 and platelets 339 RDW 17.1 INR 1.2 Sodium 126 potassium 4.9 chloride 97 bicarb is 16 BUN 23 and creatinine 1.12 and blood sugar 243 lactic acid 1.6 calcium 8.3 AST 94 ALT 72 and alk phos 616 and albumin 2.8. 01/03/2024 Patient is currently lying in the bed. Awake alert and oriented. Pain is fairly controlled. Complains of diarrhea which is mainly watery. Patient sta douglas her diarrhea has started back again. Afebrile.Patient has been afebrile. Laboratory data showed WBC 31.5, hemoglobin 7.0 and platelets 251 Sodium 125 potassium 4.0 chloride 100 bicarb is 15 BUN 23 and creatinine 1.2 and A1c 6.7 Liver enzymes showed AST 100 ALT 64 and alk phos 564 and albumin 2.2. Patient has been continued on IV antibiotics and ID and vascular surgery is on board. 01/04/2024 Patient is lying in the bed. Awake alert and oriented x 3. Pain is better controlled. No complaints of chest pain or shortness of breath. No nausea vomiting or abdominal pain or diarrhea. No cough or sputum production. Patient has been afebrile. Patient underwent Wide excision and debridement sacral decubitus ulcer. Laboratory data showed WBC 22.7 hemoglobin 7.5 and platelets 269 sodium 133 potassium 3.9 chloride 110 bicarb is 13 BUN 15 and creatinine 1.03 and patient was also found to have iron deficient. B12 folate within normal limits. Rearrangements are still elevated. Remains on antibiotics daptomycin and Zosyn. ID is on board. 01/04/2021 Patient is resting in bed. Awake alert and oriented x 3. Pain is controlled. Patient is s/p sacral wound debridement yesterday. Left buttock region is slightly better as per surgery. Leukocytosis improving. Patient has been afebr ile. Laboratory test showed WBCs 19.9 hemoglobin 6.4 and platelets 226 Sodium 131 potassium 4.0 chloride 106 bicarb is 12.8 BUN 12.5 and creatinine 1.1 and blood sugar is 81 and calcium is 7.1. Patient remains on antibiotics and follow-up final culture reports. Patient is on iron supplementation. 01/06/2024 Patient is postoperative day 2 send no debridement will start her ulcers. Pain is well-controlled. Otherwise patient denies any chest pain or shortness of breath. Still having loose stools. Dressing is to be changed at least 3 times yesterday. Otherwise laboratory data showed WBC improving to 18.2 hemoglobin 7.4 and platelets 228 sodium 134 potassium 3.8 chloride 108 bicarb is 12.5 BUN 14.1 creatinine 1.1 and calcium 7.5. Patient remains on broad-spectrum antibiotics. Follow-up wound cultures. Current medications reviewed. Objective - Vital Signs Vital signs: Vital Signs Temp 99.0 F 01/06/24 19:42 Pulse 99 01/06/24 19:42 Resp 18 01/06/24 19:42 BP 109/69 01/06/24 19:42 Pulse Ox 97 01/06/24 19:42 FiO2 Intake & Output 01/06/24 01/06/24 01/07/24 06:59 18:59 06:59 Intake Total 610 720 Output Total 2024 1874 Balance -1415 -1155 Weight 119.295 kg Intake: Oral 300 720 Blood Product 310 Rc As-1 Unit 310 [id number] Output: Urine 2024 1874 Other: Voiding Method Indwelling Catheter Indwelling Catheter # Bowel Movements 1 2 - Exam PHYSICAL EXAMINATION: Patient is lying in the bed,, no acute distress, awake alert and oriented.. HEENT: Normocephalic. Neck is supple. Pupils reactive. Nostrils clear. Oral cavity is moist. Neck reveals no JVD, carotid bruits, or thyromegaly. CHEST EXAMINATION: Trachea is central. Symmetrical expansion. Bibasilar diminished sounds otherwise lung hinds clear to auscultation and percussion. CARDIAC: Normal S1, S2 with no gallops. No murmurs ABDOMEN: Soft. Bowel sounds present. No organomegaly. No abdominal bruits. Sacral wound is packed.. Extremities: Bilateral lower extremity trace edema. Bilateral feet wounds are b andaged. No clubbing or cyanosis Neurologically awake, alert, oriented x3. Patient is able to move all extremities while in bed.. No gross focal deficits noted Skin: No rash or skin lesions except as above. Psychiatric: Coperative. Nonsuicidal Musculoskeletal: No joint swelling or deformity. - Labs CBC & Chem 7: 01/08/24 03:15 01/08/24 03:15 Labs: Abnormal Lab Results - Last 24 Hours (Table) 01/05/24 01/05/24 01/06/24 Range/Units 22:48 23:51 05:35 WBC 19.7 H (3.8-10.6) k/uL RBC 2.84 L (4.30-5.90) m/uL Hgb 7.5 L (13.0-17.5) gm/dL Hct 24.3 L (39.0-53.0) % MCH (27.0-32.0) pg MCHC 30.8 L (31.0-37.0) g/dL RDW 17.8 H (11.5-15.5) % Immature Gran # (0.00-0.04) X 10*3/uL Neutrophils # 17.6 H (1.3-7.7) k/uL Sodium (135-145) mmol/L Carbon Dioxide (21.6-31.8) mmol/L Anion Gap (4.00-12.00) mmol/L Glucose (70-110) mg/dL POC Glucose (mg/dL) 159 H 144 H (70-110) mg/dL Calcium (8.7-10.3) mg/dL 01/06/24 01/06/24 01/06/24 Range/Units 06:08 06:08 11:44 WBC 18.21 H (3.8-10.6) k/uL RBC 2.86 L (4.30-5.90) m/uL Hgb 7.4 L (13.0-17.5) gm/dL Hct 24.5 L (39.0-53.0) % MCH 25.9 L (27.0-32.0) pg MCHC 30.2 L (31.0-37.0) g/dL RDW 17.9 H (11.5-15.5) % Immature Gran # 0.21 H (0.00-0.04) X 10*3/uL Neutrophils # 15.67 H (1.3-7.7) k/uL Sodium 134 L (135-145) mmol/L Carbon Dioxide 12.5 L (21.6-31.8) mmol/L Anion Gap 13.50 H (4.00-12.00) mmol/L Glucose 134 H (70-110) mg/dL POC Glucose (mg/dL) 225 H (70-110) mg/dL Calcium 7.5 L (8.7-10.3) mg/dL 01/06/24 01/06/24 Range/Units 16:51 20:11 WBC (3.8-10.6) k/uL RBC (4.30-5.90) m/uL Hgb (13.0-17.5) gm/dL Hct (39.0-53.0) % MCH (27.0-32.0) pg MCHC (31.0-37.0) g/dL RDW (11.5-15.5) % Immature Gran # (0.00-0.04) X 10*3/uL Neutrophils # (1.3-7.7) k/uL Sodium (135-145) mmol/L Carbon Dioxide (21.6-31.8) mmol/L Anion Gap (4.00-12.00) mmol/L Glucose (70-110) mg/dL POC Glucose (mg/dL) 120 H 115 H (70-110) mg/dL Calcium (8.7-10.3) mg/dL Microbiology - Last 24 Hours (Table) 01/04/24 18:10 Gram Stain - Final Other - Other Wound Culture - Final Proteus mirabilis Enterococcus faecium VRE 01/02/24 16:30 Blood Culture - Preliminary Blood 01/02/24 16:45 Blood Culture - Preliminary Blood Assessment and Plan Assessment: Infected sacral decub ulcers and bilateral feet diabetic ulcers. s/p Wide excision and debridement sacral decubitus ulcer on 01/04/24 Sepsis secondary to above Elevated liver enzymes Diabetes type 2 with hyperglycemia uncontrolled. Insulin-dependent Hyponatremia likely hypovolemic Hypertension Hyperlipidemia Medical debility currently bedridden Anxiety/depression and bipolar disorder and panic disorder Hypothyroidism Normocytic anemia with hemoglobin 8.1 on admission Severe protein calorie malnutrition DVT prophylaxis with heparin subcu Plan: Patient will be continued on IV hydration and antibiotics in the form of Zosyn and daptomycin was added as per ID recommendations. Wound cultures growing gram-negative bacilli. General surgery is on board. S/p debridement. Considering diverting colostomy placement. Continue with insulin regimen and sliding scale for better blood sugar control. Continue to monitor liver enzymes. Follow-up blood cultures. ID and vascular surgery is on board. Continue with wound care. Time with Patient: Greater than 30
--- NOTE | 2024-01-09 01:02 | P.PN ---
Subjective Progress Note Date: 01/07/24 Patient is a 48-year-old male with a past medical history of hypertension, hyperlipidemia, diabetes type 2 insulin-dependent, bilateral feet and coccyx decub ulcers, anxiety/depression/bipolar and panic disorder was sent from wound care center by Dr. Gutierrez due to infection. Patient has been having bilateral feet and sacral diabetic ulcer/. Patient has been on follow-up with wound care Center. Wound dressing was done prior to transfer to ER. Patient was febrile with Tmax 103.2 on admission and tachycardic. Pulse ox 90% on room air. Blood pressure went down to 89/61. X-ray of the sacrum and coccyx showed large wound posterior inferior sacral region. The dizziness likely patient intact without erosion. EKG showed sinus rhythm with low QRS voltage in the precordial leads. Laboratory data showed WBC 29.2 hemoglobin 8.1 and platelets 339 RDW 17.1 INR 1.2 Sodium 126 potassium 4.9 chloride 97 bicarb is 16 BUN 23 and creatinine 1.12 and blood sugar 243 lactic acid 1.6 calcium 8.3 AST 94 ALT 72 and alk phos 616 and albumin 2.8. 01/03/2024 Patient is currently lying in the bed. Awake alert and oriented. Pain is fairly controlled. Complains of diarrhea which is mainly watery. Patient sta douglas her diarrhea has started back again. Afebrile.Patient has been afebrile. Laboratory data showed WBC 31.5, hemoglobin 7.0 and platelets 251 Sodium 125 potassium 4.0 chloride 100 bicarb is 15 BUN 23 and creatinine 1.2 and A1c 6.7 Liver enzymes showed AST 100 ALT 64 and alk phos 564 and albumin 2.2. Patient has been continued on IV antibiotics and ID and vascular surgery is on board. 01/04/2024 Patient is lying in the bed. Awake alert and oriented x 3. Pain is better controlled. No complaints of chest pain or shortness of breath. No nausea vomiting or abdominal pain or diarrhea. No cough or sputum production. Patient has been afebrile. Patient underwent Wide excision and debridement sacral decubitus ulcer. Laboratory data showed WBC 22.7 hemoglobin 7.5 and platelets 269 sodium 133 potassium 3.9 chloride 110 bicarb is 13 BUN 15 and creatinine 1.03 and patient was also found to have iron deficient. B12 folate within normal limits. Rearrangements are still elevated. Remains on antibiotics daptomycin and Zosyn. ID is on board. 01/04/2021 Patient is resting in bed. Awake alert and oriented x 3. Pain is controlled. Patient is s/p sacral wound debridement yesterday. Left buttock region is slightly better as per surgery. Leukocytosis improving. Patient has been afebr ile. Laboratory test showed WBCs 19.9 hemoglobin 6.4 and platelets 226 Sodium 131 potassium 4.0 chloride 106 bicarb is 12.8 BUN 12.5 and creatinine 1.1 and blood sugar is 81 and calcium is 7.1. Patient remains on antibiotics and follow-up final culture reports. Patient is on iron supplementation. 01/06/2024 Patient is postoperative day 2 send no debridement will start her ulcers. Pain is well-controlled. Otherwise patient denies any chest pain or shortness of breath. Still having loose stools. Dressing is to be changed at least 3 times yesterday. Otherwise laboratory data showed WBC improving to 18.2 hemoglobin 7.4 and platelets 228 sodium 134 potassium 3.8 chloride 108 bicarb is 12.5 BUN 14.1 creatinine 1.1 and calcium 7.5. Patient remains on broad-spectrum antibiotics. Follow-up wound cultures. 01/07/2024 Patient is resting in the bed. Awake alert and oriented x 3. No complaints of chest pain or shortness of breath. No fever no chills. Patient is postoperative day 3 with debridement of sacral decub ulcers. Pain is well-controlled. No nausea vomiting abdominal pain. Diarrhea improving. Patient has been afebrile. Laboratory data showed WBC 14.8 hemoglobin 7.0 and platelets 246. Sodium 139 potassium 3.8 chloride 103 bicarb is 13.6 BUN 14.9 creatinine 1.0 and calcium 7.5 Patient remains on antibiotics Zosyn and daptomycin. Wound cultures are growing gram-negative bacilli and present MRSA. Current medications reviewed. Objective - Vital Signs Vital signs: Vital Signs Temp 98.4 F 01/07/24 20:00 Pulse 97 01/07/24 20:00 Resp 18 01/07/24 20:00 BP 116/76 01/07/24 20:00 Pulse Ox 99 01/07/24 20:00 FiO2 Intake & Output 01/07/24 01/07/24 01/08/24 06:59 18:59 06:59 Intake Total 500 Output Total 1300 1800 Balance -1300 -1800 500 Intake: Oral 500 Output: Urine 1300 1800 Other: Voiding Method Indwelling Catheter Indwelling Catheter Indwelling Catheter # Bowel Movements 1 - Exam PHYSICAL EXAMINATION: Patient is lying in the bed,, no acute distress, awake alert and oriented.. HEENT: Normocephalic. Neck is supple. Pupils reactive. Nostrils clear. Oral cavity is moist. Neck reveals no JVD, carotid bruits, or thyromegaly. CHEST EXAMINATION: Trachea is central. Symmetrical expansion. Bibasilar diminished sounds otherwise lung hnids clear to auscultation and percussion. CARDIAC: Normal S1, S2 with no gallops. No murmurs ABDOMEN: Soft. Bowel sounds present. No organomegaly. No abdominal bruits. Sacral wound is packed.. Extremities: Bilateral lower extremity trace edema. Bilateral feet wounds are bandaged. No clubbing or cyanosis Neurologically awake, alert, oriented x3. Patient is able to move all extremities while in bed.. No gross focal deficits noted Skin: No rash or skin lesions except as above. Psychiatric: Coperative. Nonsuicidal Musculoskeletal: No joint swelling or deformity. - Labs CBC & Chem 7: 01/08/24 03:15 01/08/24 03:15 Labs: Abnormal Lab Results - Last 24 Hours (Table) 01/07/24 01/07/24 01/07/24 Range/Units 05:32 05:32 16:47 WBC 14.87 H (4.50-10.00) X 10*3/uL RBC 2.70 L (4.40-5.60) X 10*6/uL Hgb 7.0 L (13.0-17.0) g/dL Hct 22.5 L (39.6-50.0) % MCH 25.9 L (27.0-32.0) pg MCHC 31.1 L (32.0-37.0) g/dL RDW 18.0 H (11.5-14.5) % Immature Gran # 0.13 H (0.00-0.04) X 10*3/uL Neutrophils # 12.17 H (1.80-7.70) X 10*3/uL Chloride 113 H (96-109) mmol/L Carbon Dioxide 13.6 L (21.6-31.8) mmol/L Anion Gap 12.40 H (4.00-12.00) mmol/L POC Glucose (mg/dL) 51 L (70-110) mg/dL Calcium 7.5 L (8.7-10.3) mg/dL 01/07/24 Range/Units 20:39 WBC (4.50-10.00) X 10*3/uL RBC (4.40-5.60) X 10*6/uL Hgb (13.0-17.0) g/dL Hct (39.6-50.0) % MCH (27.0-32.0) pg MCHC (32.0-37.0) g/dL RDW (11.5-14.5) % Immature Gran # (0.00-0.04) X 10*3/uL Neutrophils # (1.80-7.70) X 10*3/uL Chloride (96-109) mmol/L Carbon Dioxide (21.6-31.8) mmol/L Anion Gap (4.00-12.00) mmol/L POC Glucose (mg/dL) 64 L (70-110) mg/dL Calcium (8.7-10.3) mg/dL Microbiology - Last 24 Hours (Table) 01/02/24 16:30 Blood Culture - Final Blood 01/02/24 16:45 Blood Culture - Final Blood 01/04/24 18:10 Anaerobic Culture - Preliminary Other - Other 01/04/24 18:10 Gram Stain - Final Other - Other Wound Culture - Final Proteus mirabilis Enterococcus faecium VRE Assessment and Plan Assessment: Infected sacral decub ulcers and bilateral feet diabetic ulcers. s/p Wide excision and debridement sacral decubitus ulcer on 01/04/24 Sepsis secondary to above Elevated liver enzymes Diabetes type 2 with hyperglycemia uncontrolled. Insulin-dependent Hyponatremia likely hypovolemic Hypertension Hyperlipidemia Medical debility currently bedridden Anxiety/depression and bipolar disorder and panic disorder Hypothyroidism Normocytic anemia with hemoglobin 8.1 on admission Severe protein calorie malnutrition DVT prophylaxis with heparin subcu Plan: Patient will be continued on IV hydration and antibiotics in the form of Zosyn and daptomycin was added as per ID recommendations. Wound cultures growing gram-negative bacilli and present MRSA.. General surgery is on board. S/p debridement. Considering diverting colostomy placement. Continue with insulin regimen and sliding scale for better blood sugar control. Continue to monitor liver enzymes. Follow-up blood cultures. ID and vascular surgery is on board. Continue with wound care. Time with Patient: Greater than 30
--- NOTE | 2024-01-09 01:04 | P.PN ---
Subjective Progress Note Date: 01/08/24 Patient is a 48-year-old male with a past medical history of hypertension, hyperlipidemia, diabetes type 2 insulin-dependent, bilateral feet and coccyx decub ulcers, anxiety/depression/bipolar and panic disorder was sent from wound care center by Dr. Gutierrez due to infection. Patient has been having bilateral feet and sacral diabetic ulcer/. Patient has been on follow-up with wound care Center. Wound dressing was done prior to transfer to ER. Patient was febrile with Tmax 103.2 on admission and tachycardic. Pulse ox 90% on room air. Blood pressure went down to 89/61. X-ray of the sacrum and coccyx showed large wound posterior inferior sacral region. The dizziness likely patient intact without erosion. EKG showed sinus rhythm with low QRS voltage in the precordial leads. Laboratory data showed WBC 29.2 hemoglobin 8.1 and platelets 339 RDW 17.1 INR 1.2 Sodium 126 potassium 4.9 chloride 97 bicarb is 16 BUN 23 and creatinine 1.12 and blood sugar 243 lactic acid 1.6 calcium 8.3 AST 94 ALT 72 and alk phos 616 and albumin 2.8. 01/03/2024 Patient is currently lying in the bed. Awake alert and oriented. Pain is fairly controlled. Complains of diarrhea which is mainly watery. Patient sta douglas her diarrhea has started back again. Afebrile.Patient has been afebrile. Laboratory data showed WBC 31.5, hemoglobin 7.0 and platelets 251 Sodium 125 potassium 4.0 chloride 100 bicarb is 15 BUN 23 and creatinine 1.2 and A1c 6.7 Liver enzymes showed AST 100 ALT 64 and alk phos 564 and albumin 2.2. Patient has been continued on IV antibiotics and ID and vascular surgery is on board. 01/04/2024 Patient is lying in the bed. Awake alert and oriented x 3. Pain is better controlled. No complaints of chest pain or shortness of breath. No nausea vomiting or abdominal pain or diarrhea. No cough or sputum production. Patient has been afebrile. Patient underwent Wide excision and debridement sacral decubitus ulcer. Laboratory data showed WBC 22.7 hemoglobin 7.5 and platelets 269 sodium 133 potassium 3.9 chloride 110 bicarb is 13 BUN 15 and creatinine 1.03 and patient was also found to have iron deficient. B12 folate within normal limits. Rearrangements are still elevated. Remains on antibiotics daptomycin and Zosyn. ID is on board. 01/04/2021 Patient is resting in bed. Awake alert and oriented x 3. Pain is controlled. Patient is s/p sacral wound debridement yesterday. Left buttock region is slightly better as per surgery. Leukocytosis improving. Patient has been afebr ile. Laboratory test showed WBCs 19.9 hemoglobin 6.4 and platelets 226 Sodium 131 potassium 4.0 chloride 106 bicarb is 12.8 BUN 12.5 and creatinine 1.1 and blood sugar is 81 and calcium is 7.1. Patient remains on antibiotics and follow-up final culture reports. Patient is on iron supplementation. 01/06/2024 Patient is postoperative day 2 send no debridement will start her ulcers. Pain is well-controlled. Otherwise patient denies any chest pain or shortness of breath. Still having loose stools. Dressing is to be changed at least 3 times yesterday. Otherwise laboratory data showed WBC improving to 18.2 hemoglobin 7.4 and platelets 228 sodium 134 potassium 3.8 chloride 108 bicarb is 12.5 BUN 14.1 creatinine 1.1 and calcium 7.5. Patient remains on broad-spectrum antibiotics. Follow-up wound cultures. 01/07/2024 Patient is resting in the bed. Awake alert and oriented x 3. No complaints of chest pain or shortness of breath. No fever no chills. Patient is postoperative day 3 with debridement of sacral decub ulcers. Pain is well-controlled. No nausea vomiting abdominal pain. Diarrhea improving. Patient has been afebrile. Laboratory data showed WBC 14.8 hemoglobin 7.0 and platelets 246. Sodium 139 potassium 3.8 chloride 103 bicarb is 13.6 BUN 14.9 creatinine 1.0 and calcium 7.5 Patient remains on antibiotics Zosyn and daptomycin. Wound cultures are growing gram-negative bacilli and present MRSA. 01/08/2024 Patient is resting in bed. Awake alert and oriented x 3. No complaints of chest pain or shortness of breath. Diarrhea improving. Dressing change was done by nursing staff. Patient has been afebrile. No cough or sputum production. Laboratory test showed WBC improved to 14.5 hemoglobin 7.4 and platelets 261, sodium 136 potassium 4.0 chloride 110 bicarb is 14.9 and BUN 10 and creatinine 0.9 and calcium 7.5. Patient is on Zosyn and daptomycin. Wound cultures growing Proteus Mirabella's and Enterococcus faecium. Initial cultures are growing present MRSA. Current medications reviewed. Objective - Vital Signs Vital signs: Vital Signs Temp 98.6 F 01/08/24 20:00 Pulse 94 01/08/24 20:00 Resp 26 H 01/08/24 20:00 BP 115/79 01/08/24 20:00 Pulse Ox 99 01/08/24 20:00 FiO2 Intake & Output 01/08/24 01/08/24 01/09/24 06:59 18:59 06:59 Intake Total 500 Output Total 1500 1600 Balance -1000 -1600 Intake: Oral 500 Output: Urine 1500 1600 Other: Voiding Method Indwelling Catheter Indwelling Catheter - Exam PHYSICAL EXAMINATION: Patient is lying in the bed,, no acute distress, awake alert and oriented.. HEENT: Normocephalic. Neck is supple. Pupils reactive. Nostrils clear. Oral cavity is moist. Neck reveals no JVD, carotid bruits, or thyromegaly. CHEST EXAMINATION: Trachea is central. Symmetrical expansion. Bibasilar diminished sounds otherwise lung hinds clear to auscultation and percussion. CARDIAC: Normal S1, S2 with no gallops. No murmurs ABDOMEN: Soft. Bowel sounds present. No organomegaly. No abdominal bruits. Sacral wound is packed.. Extremities: Bilateral lower extremity trace edema. Bilateral feet wounds are bandaged. No clubbing or cyanosis Neurologically awake, alert, oriented x3. Patient is able to move all extremities while in bed.. No gross focal deficits noted Skin: No rash or skin lesions except as above. Psychiatric: Coperative. Nonsuicidal Musculoskeletal: No joint swelling or deformity. - Labs CBC & Chem 7: 01/08/24 03:15 01/08/24 03:15 Labs: Abnormal Lab Results - Last 24 Hours (Table) 01/08/24 01/08/24 01/08/24 Range/Units 00:07 00:37 03:15 WBC 15.51 H (4.50-10.00) X 10*3/uL RBC 2.86 L (4.40-5.60) X 10*6/uL Hgb 7.4 L (13.0-17.0) g/dL Hct 24.1 L (39.6-50.0) % MCH 25.9 L (27.0-32.0) pg MCHC 30.7 L (32.0-37.0) g/dL RDW 18.2 H (11.5-14.5) % Immature Gran # 0.13 H (0.00-0.04) X 10*3/uL Neutrophils # 12.67 H (1.80-7.70) X 10*3/uL Chloride (96-109) mmol/L Carbon Dioxide (21.6-31.8) mmol/L BUN/Creatinine Ratio (12.00-20.00) Ratio POC Glucose (mg/dL) 68 L 68 L (70-110) mg/dL Calcium (8.7-10.3) mg/dL 01/08/24 01/08/24 Range/Units 03:15 21:25 WBC (4.50-10.00) X 10*3/uL RBC (4.40-5.60) X 10*6/uL Hgb (13.0-17.0) g/dL Hct (39.6-50.0) % MCH (27.0-32.0) pg MCHC (32.0-37.0) g/dL RDW (11.5-14.5) % Immature Gran # (0.00-0.04) X 10*3/uL Neutrophils # (1.80-7.70) X 10*3/uL Chloride 110 H (96-109) mmol/L Carbon Dioxide 14.9 L (21.6-31.8) mmol/L BUN/Creatinine Ratio 11.11 L (12.00-20.00) Ratio POC Glucose (mg/dL) 68 L (70-110) mg/dL Calcium 7.5 L (8.7-10.3) mg/dL Microbiology - Last 24 Hours (Table) 01/02/24 16:30 Blood Culture - Final Blood 01/02/24 16:45 Blood Culture - Final Blood Assessment and Plan Assessment: Infected sacral decub ulcers and bilateral feet diabetic ulcers. s/p Wide excision and debridement sacral decubitus ulcer on 01/04/24 Sepsis secondary to above Elevated liver enzymes Diabetes type 2 with hyperglycemia uncontrolled. Insulin-dependent Hyponatremia likely hypovolemic Hypertension Hyperlipidemia Medical debility currently bedridden Anxiety/depression and bipolar disorder and panic disorder Hypothyroidism Normocytic anemia with hemoglobin 8.1 on admission Severe protein calorie malnutrition DVT prophylaxis with heparin subcu Plan: Patient will be continued on IV hydration and antibiotics in the form of Zosyn and daptomycin was added as per ID recommendations. Wound cultures growing Proteus, Enterococcus. Initial wound cultures growing present to MRSA General surgery is on board. S/p debridement. Considering diverting colostomy placement. Continue with insulin regimen and sliding scale for better blood sugar control. Continue to monitor liver enzymes. Follow-up blood cultures. ID and vascular surgery is on board. Continue with wound care. Time with Patient: Greater than 30
[2024-01-09 02:42] LABS: Glucose,Whole Blood 78 mg/dL (70-110)
[2024-01-09 06:01] LABS: Glucose,Whole Blood 66 mg/dL (70-110)
[2024-01-09 06:36] LABS: Glucose,Whole Blood 147 mg/dL (70-110)
[2024-01-09 06:49] LABS: Glucose,Whole Blood 124 mg/dL (70-110)
[2024-01-09] MEDS ORDERED: INSULIN DETEMIR (LEVEMIR) 100 UNIT/ML SYR SQ SCH (07:00)
[2024-01-09 08:41] LABS: Basophils # (A) 0.02 X 10*3/uL (0.00-0.10); Basophils % (A) 0.1 %; Eosinophils # (A) 0.14 X 10*3/uL (0.04-0.35); HCT 24.5 % (39.6-50.0); HGB 7.4 g/dL (13.0-17.0); Lymphocytes % (A) 16.6 %; MCH 25.8 pg (27.0-32.0); MCHC 30.2 g/dL (32.0-37.0); MCV 85.4 FL (80.0-97.0); Mean Platelet Volume 9.9 FL (9.5-12.2); Monocytes # (A) 0.55 X 10*3/uL (0.20-1.00); Monocytes % (A) 3.8 %; NRBC Per 100 WBC 0.02 X 10*3/uL (0.00-0.01); Neutrophils # (A) 11.31 X 10*3/uL (1.80-7.70); Neutrophils % (A) 77.9 %; Platelet Count 273 X 10*3/uL (140-440); RBC 2.87 X 10*6/uL (4.40-5.60)
[2024-01-09 09:33] LABS: ALT 42 U/L (10-49); AST 47 U/L (14-35); Albumin/Globulin Ratio 0.54 Ratio (1.60-3.17); Alkaline Phosphatase 695 U/L (41-126); BUN/Creat Ratio 9.44 Ratio (12.00-20.00); Blood Urea Nitrogen 8.5 mg/dL (9.0-27.0); Calcium 7.6 mg/dL (8.7-10.3); Carbon Dioxide 15.8 mmol/L (21.6-31.8); Chloride 108 mmol/L (96-109); Globulin 3.7 g/dL (1.6-3.3); Glucose 61 mg/dL (70-110); Potassium 3.8 mmol/L (3.5-5.5); Sodium 135 mmol/L (135-145); Total Bilirubin 0.4 mg/dL (0.3-1.2); Total Protein 5.7 g/dL (6.2-8.2)
[2024-01-09 11:27] LABS: Glucose,Whole Blood 101 mg/dL (70-110)
--- NOTE | 2024-01-09 13:02 | P.PN ---
Subjective Progress Note Date: 01/09/24 CHIEF COMPLAINT: Large sacral decubitus ulcer HISTORY OF PRESENT ILLNESS: Patient is postop day #5 status post wide excision and debridement of sacral decubitus ulcer. Patient reports he is feeling better . Nursing staff has been changing patient's dressing. Afebrile. Skin warm 15.5 14.5 PHYSICAL EXAM: VITAL SIGNS: Reviewed. GENERAL: no acute distress. ABDOMEN: Soft. Nondistended. Nontender. ASSESSMENT: 1. Large sacral decubitus ulcer 2. Severe protein calorie malnutrition PLAN: -Continue local wound care -Continue protein supplement -Continue offloading -Continue antibiotics -Patient is still debating his decision about a diverting colostomy Physician Plow Mechanic note has been reviewed by physician. Signing provider agrees with the documented findings, assessment, and plan of care. I have personally seen and examined the patient, reviewed the SHIRRING MACHINE OPERATOR /PAs history, exam and MDM and agree with the assessment and plan as written. Based on total visit time, I have performed more than 50% of the visit. As above: Patient's wound relatively clean. Some slough medially. Tenderness is definitely better. White blood cell count improved. Patient still having some nausea. Says he feels nauseated as soon as food hits the back of his throat. Etiology for that unclear. Could be related to his severe systemic infection but that should be improving. Continue increasing activity. Continue offloading and antibiotics. Discussed diverging ostomy. After discussing risks and benefits we have decided to hold off on that for now. Objective - Vital Signs Vital signs: Vital Signs Temp 97.9 F 01/09/24 07:57 Pulse 83 01/09/24 07:57 Resp 20 01/09/24 07:57 BP 115/75 01/09/24 07:57 Pulse Ox 99 01/09/24 07:57 FiO2 Intake & Output 01/08/24 01/09/24 01/09/24 18:59 06:59 18:59 Output Total 1600 1300 Balance -1600 -1300 Output: Urine 1600 1300 Other: Voiding Method Indwelling Catheter Indwelling Catheter Indwelling Catheter - Labs CBC & Chem 7: 01/09/24 05:18 01/09/24 05:18 Labs: Abnormal Lab Results - Last 24 Hours (Table) 01/08/24 01/09/24 01/09/24 Range/Units 21:25 05:18 05:18 WBC 14.50 H (4.50-10.00) X 10*3/uL RBC 2.87 L (4.40-5.60) X 10*6/uL Hgb 7.4 L (13.0-17.0) g/dL Hct 24.5 L (39.6-50.0) % MCH 25.8 L (27.0-32.0) pg MCHC 30.2 L (32.0-37.0) g/dL RDW 18.0 H (11.5-14.5) % Immature Gran # 0.08 H (0.00-0.04) X 10*3/uL Neutrophils # 11.31 H (1.80-7.70) X 10*3/uL NRBC/100 WBC Diff 0.02 H (0.00-0.01) X 10*3/uL Carbon Dioxide 15.8 L (21.6-31.8) mmol/L BUN 8.5 L (9.0-27.0) mg/dL BUN/Creatinine Ratio 9.44 L (12.00-20.00) Ratio Glucose 61 L (70-110) mg/dL POC Glucose (mg/dL) 68 L (70-110) mg/dL Calcium 7.6 L (8.7-10.3) mg/dL AST 47 H (14-35) U/L Alkaline Phosphatase 695 H (41-126) U/L Total Protein 5.7 L (6.2-8.2) g/dL Albumin 2.0 L (3.8-4.9) g/dL Globulin 3.7 H (1.6-3.3) g/dL Albumin/Globulin Ratio 0.54 L (1.60-3.17) Ratio 01/09/24 01/09/24 01/09/24 Range/Units 05:59 06:35 06:48 WBC (4.50-10.00) X 10*3/uL RBC (4.40-5.60) X 10*6/uL Hgb (13.0-17.0) g/dL Hct (39.6-50.0) % MCH (27.0-32.0) pg MCHC (32.0-37.0) g/dL RDW (11.5-14.5) % Immature Gran # (0.00-0.04) X 10*3/uL Neutrophils # (1.80-7.70) X 10*3/uL NRBC/100 WBC Diff (0.00-0.01) X 10*3/uL Carbon Dioxide (21.6-31.8) mmol/L BUN (9.0-27.0) mg/dL BUN/Creatinine Ratio (12.00-20.00) Ratio Glucose (70-110) mg/dL POC Glucose (mg/dL) 66 L 147 H 124 H (70-110) mg/dL Calcium (8.7-10.3) mg/dL AST (14-35) U/L Alkaline Phosphatase (41-126) U/L Total Protein (6.2-8.2) g/dL Albumin (3.8-4.9) g/dL Globulin (1.6-3.3) g/dL Albumin/Globulin Ratio (1.60-3.17) Ratio Microbiology - Last 24 Hours (Table) 01/04/24 18:10 Anaerobic Culture - Final Other - Other
[2024-01-09 16:52] LABS: Glucose,Whole Blood 96 mg/dL (70-110)
--- NOTE | 2024-01-09 17:59 | P.PN ---
Subjective Progress Note Date: 01/09/24 Principal diagnosis: Reason for follow-up is infected sacral pressure ulcer Patient is a 48-year-old male with a past medical history significant for diabetes mellitus hypertension hyperlipidemia, extensive left diabetic foot infection followed by right heel pressure ulcer and now admitted to hospital with worsening sacral pressure ulcer with features of sepsis on ad mission.Patient is status post Wide excision and debridement sacral decubitus ulcer by general surgery completed on 01/04/2024 On today's evaluation that is 01/09/2024,the patient denies any fever or any chills, patient is breathing comfortably on room air, the patient denies chest pain shortness of breath and no significant cough, patient denies abdominal pain, no nausea vomiting or diarrhea denies any worsening pain to the sacral wound area. No new lab has been repeated today. Objective - Vital Signs Vital signs: Vital Signs Temp 98.4 F 01/09/24 13:51 Pulse 85 01/09/24 13:51 Resp 20 01/09/24 13:51 BP 117/75 01/09/24 13:51 Pulse Ox 99 01/09/24 13:51 FiO2 Intake & Output 01/08/24 01/09/24 01/09/24 18:59 06:59 18:59 Intake Total 0 Output Total 1600 1300 Balance -1600 -1300 0 Intake: Oral 0 Output: Urine 1600 1300 Other: Voiding Method Indwelling Catheter Indwelling Catheter Indwelling Catheter - Exam GENERAL DESCRIPTION: Middle-age male lying in bed in no distress RESPIRATORY SYSTEM: Unlabored breathing , decreased breath sounds at bases HEART: S1 S2 regular rate and rhythm , ABDOMEN: Soft , no tenderness EXTREMITIES: Bilateral foot wounds are currently dressed - Labs CBC & Chem 7: 01/09/24 05:18 01/09/24 05:18 Labs: Abnormal Lab Results - Last 24 Hours (Table) 01/08/24 01/09/24 01/09/24 Range/Units 21:25 05:18 05:18 WBC 14.50 H (4.50-10.00) X 10*3/uL RBC 2.87 L (4.40-5.60) X 10*6/uL Hgb 7.4 L (13.0-17.0) g/dL Hct 24.5 L (39.6-50.0) % MCH 25.8 L (27.0-32.0) pg MCHC 30.2 L (32.0-37.0) g/dL RDW 18.0 H (11.5-14.5) % Immature Gran # 0.08 H (0.00-0.04) X 10*3/uL Neutrophils # 11.31 H (1.80-7.70) X 10*3/uL NRBC/100 WBC Diff 0.02 H (0.00-0.01) X 10*3/uL Carbon Dioxide 15.8 L (21.6-31.8) mmol/L BUN 8.5 L (9.0-27.0) mg/dL BUN/Creatinine Ratio 9.44 L (12.00-20.00) Ratio Glucose 61 L (70-110) mg/dL POC Glucose (mg/dL) 68 L (70-110) mg/dL Calcium 7.6 L (8.7-10.3) mg/dL AST 47 H (14-35) U/L Alkaline Phosphatase 695 H (41-126) U/L Total Protein 5.7 L (6.2-8.2) g/dL Albumin 2.0 L (3.8-4.9) g/dL Globulin 3.7 H (1.6-3.3) g/dL Albumin/Globulin Ratio 0.54 L (1.60-3.17) Ratio 01/09/24 01/09/24 01/09/24 Range/Units 05:59 06:35 06:48 WBC (4.50-10.00) X 10*3/uL RBC (4.40-5.60) X 10*6/uL Hgb (13.0-17.0) g/dL Hct (39.6-50.0) % MCH (27.0-32.0) pg MCHC (32.0-37.0) g/dL RDW (11.5-14.5) % Immature Gran # (0.00-0.04) X 10*3/uL Neutrophils # (1.80-7.70) X 10*3/uL NRBC/100 WBC Diff (0.00-0.01) X 10*3/uL Carbon Dioxide (21.6-31.8) mmol/L BUN (9.0-27.0) mg/dL BUN/Creatinine Ratio (12.00-20.00) Ratio Glucose (70-110) mg/dL POC Glucose (mg/dL) 66 L 147 H 124 H (70-110) mg/dL Calcium (8.7-10.3) mg/dL AST (14-35) U/L Alkaline Phosphatase (41-126) U/L Total Protein (6.2-8.2) g/dL Albumin (3.8-4.9) g/dL Globulin (1.6-3.3) g/dL Albumin/Globulin Ratio (1.60-3.17) Ratio Microbiology - Last 24 Hours (Table) 01/04/24 18:10 Anaerobic Culture - Final Other - Other Assessment and Plan (1) Diabetic foot ulcer Current Visit: No Status: Acute Code(s): E11.621 - TYPE 2 DIABETES MELLITUS WITH FOOT ULCER; L97.509 - NON-PRESSURE CHRONIC ULCER OTH PRT UNSP FOOT W UNSP SEVERITY SNOMED Code(s): 661164490 (2) Unstageable pressure ulcer of sacral region Current Visit: No Status: Acute Code(s): L89.150 - PRESSURE ULCER OF SACRAL REGION, UNSTAGEABLE SNOMED Code(s): 92731042301526759 (3) Sepsis Current Visit: Yes Status: Acute Code(s): A41.9 - SEPSIS, UNSPECIFIED ORGANISM SNOMED Code(s): 57186182 Plan: 1patient presented to hospital with sepsis in this patient who did have fever tachycardia source is infected sacral pressure ulcer as the patient did have unstageable sacral pressure ulcer with significant amount of necrotic tissue and maceration we will need to cover for resistant gram-positive as well as gram- negative pathogen 2-patient also have a bilateral foot diabetic foot ulcer wound to the left heel is doing well but he still have some slough tissue but no significant redness 3-patient is status post surgical debridement and deep culture completed on 01/04/2024 with cultures currently growing Proteus and VRE, with initial culture growing MRSA 4-patient to continue with the Zosyn and daptomycin, no CBC was done today will need a PICC line for outpatient IV antibiotic therapy Dictation was produced using [employer] dictation software. please excuse any grammatical, word or spelling errors. Time with Patient: Less than 30
[2024-01-09 21:04] LABS: Glucose,Whole Blood 138 mg/dL (70-110)
[2024-01-10 05:59] LABS: Glucose,Whole Blood 142 mg/dL (70-110)
[2024-01-10 08:57] LABS: Basophils # (A) 0.01 X 10*3/uL (0.00-0.10); Basophils % (A) 0.1 %; Eosinophils # (A) 0.23 X 10*3/uL (0.04-0.35); Eosinophils % (A) 1.9 %; HCT 24.2 % (39.6-50.0); HGB 7.5 g/dL (13.0-17.0); Lymphocytes # (A) 2.01 X 10*3/uL (0.90-5.00); Lymphocytes % (A) 16.5 %; MCH 26.6 pg (27.0-32.0); MCV 85.8 FL (80.0-97.0); Mean Platelet Volume 9.8 FL (9.5-12.2); Monocytes # (A) 0.45 X 10*3/uL (0.20-1.00); Monocytes % (A) 3.7 %; NRBC Per 100 WBC 0 X 10*3/uL (0.00-0.01); Neutrophils # (A) 9.43 X 10*3/uL (1.80-7.70); Neutrophils % (A) 77.1 %; Platelet Count 266 X 10*3/uL (140-440); RBC 2.82 X 10*6/uL (4.40-5.60); RDW 18.1 % (11.5-14.5); WBC 12.21 X 10*3/uL (4.50-10.00)
[2024-01-10 08:58] LABS: BUN/Creat Ratio 12.62 Ratio (12.00-20.00); Blood Urea Nitrogen 10.1 mg/dL (9.0-27.0); Chloride 111 mmol/L (96-109); Glucose 130 mg/dL (70-110); Potassium 3.8 mmol/L (3.5-5.5); Sodium 138 mmol/L (135-145)
[2024-01-10 08:59] LABS: Calcium 7.5 mg/dL (8.7-10.3); Carbon Dioxide 16.4 mmol/L (21.6-31.8)
[2024-01-10 11:21] LABS: Glucose,Whole Blood 138 mg/dL (70-110)
[2024-01-10] MEDS ORDERED: SODIUM HYPOCHLORITE 0.25% 480 ML BOT MISCELLANE PRN (13:34)
[2024-01-10] MEDS: HYDROcodone/APAP 5-325MG 1 EACH TAB PO PRN (14:00)
--- NOTE | 2024-01-10 15:20 | P.PN ---
Subjective Progress Note Date: 01/10/24 CHIEF COMPLAINT: Large sacral decubitus ulcer HISTORY OF PRESENT ILLNESS: Patient is postop day #6 status post wide excision and debridement of sacral decubitus ulcer. Patient reports pain controlled. He is working on offloading. Patient is status post PICC line placement afebrile. WBC is down from 14.5-12.2 PHYSICAL EXAM: VITAL SIGNS: Reviewed. GENERAL: no acute distress. ASSESSMENT: 1. Large sacral decubitus ulcer 2. Severe protein calorie malnutrition PLAN: -Patient can be discharged from surgical standpoint when medically cleared -Discharge antibiotics per infectious disease -Continue local wound care per infectious disease -Continue protein supplement -Continue offloading -Patient wishes to hold off on diverting colostomy at this time Physician Traveling Buyer note has been reviewed by physician. Signing provider agrees with the documented findings, assessment, and plan of care. I have personally seen and examined the patient, reviewed the PATIENT ACCESS ASSOCIATE /PAs history, exam and MDM and agree with the assessment and plan as written. Based on total visit time, I have performed more than 50% of the visit. As above: Patient doing about the same. Medially the wound has some necrotic d ebris. Will reassess tomorrow. Possible repeat debridement . Objective - Vital Signs Vital signs: Vital Signs Temp 97.8 F 01/10/24 13:15 Pulse 92 01/10/24 13:15 Resp 18 01/10/24 13:15 BP 114/76 01/10/24 13:15 Pulse Ox 98 01/10/24 13:15 FiO2 Intake & Output 01/09/24 01/10/24 01/10/24 18:59 06:59 18:59 Intake Total 240 517 Output Total 2250 900 Balance 240 -2250 -383 Intake: Oral 240 517 Output: Urine 2250 900 Other: Voiding Method Indwelling Catheter Indwelling Catheter Indwelling Catheter # Bowel Movements 0 - Labs CBC & Chem 7: 01/10/24 05:18 01/10/24 05:18 Labs: Abnormal Lab Results - Last 24 Hours (Table) 01/09/24 01/10/24 01/10/24 Range/Units 21:01 05:18 05:18 WBC 12.21 H (4.50-10.00) X 10*3/uL RBC 2.82 L (4.40-5.60) X 10*6/uL Hgb 7.5 L (13.0-17.0) g/dL Hct 24.2 L (39.6-50.0) % MCH 26.6 L (27.0-32.0) pg MCHC 31.0 L (32.0-37.0) g/dL RDW 18.1 H (11.5-14.5) % Immature Gran # 0.08 H (0.00-0.04) X 10*3/uL Neutrophils # 9.43 H (1.80-7.70) X 10*3/uL Chloride 111 H (96-109) mmol/L Carbon Dioxide 16.4 L (21.6-31.8) mmol/L Glucose 130 H (70-110) mg/dL POC Glucose (mg/dL) 138 H (70-110) mg/dL Calcium 7.5 L (8.7-10.3) mg/dL 01/10/24 01/10/24 Range/Units 05:57 11:18 WBC (4.50-10.00) X 10*3/uL RBC (4.40-5.60) X 10*6/uL Hgb (13.0-17.0) g/dL Hct (39.6-50.0) % MCH (27.0-32.0) pg MCHC (32.0-37.0) g/dL RDW (11.5-14.5) % Immature Gran # (0.00-0.04) X 10*3/uL Neutrophils # (1.80-7.70) X 10*3/uL Chloride (96-109) mmol/L Carbon Dioxide (21.6-31.8) mmol/L Glucose (70-110) mg/dL POC Glucose (mg/dL) 142 H 138 H (70-110) mg/dL Calcium (8.7-10.3) mg/dL
--- NOTE | 2024-01-10 15:57 | P.PN ---
Subjective Progress Note Date: 01/10/24 Principal diagnosis: Reason for follow-up is infected sacral pressure ulcer Patient is a 48-year-old male with a past medical history significant for diabetes mellitus hypertension hyperlipidemia, extensive left diabetic foot infection followed by right heel pressure ulcer and now admitted to hospital with worsening sacral pressure ulcer with features of sepsis on ad mission.Patient is status post Wide excision and debridement sacral decubitus ulcer by general surgery completed on 01/04/2024 On today's evaluation that is 01/10/2024,the patient remains to be afebrile, patient is on room air not requiring supplemental oxygen and denies any shortness of breath no chest pain or cough.Patient denies having any nausea or vomiting, no abdominal pain and no diarrhea has been reported and denies any worsening pain to the sacral wound area. Patient white count is down to 12.21 creatinine 0.8 Objective - Vital Signs Vital signs: Vital Signs Temp 97.8 F 01/10/24 13:15 Pulse 92 01/10/24 13:15 Resp 18 01/10/24 13:15 BP 114/76 01/10/24 13:15 Pulse Ox 98 01/10/24 13:15 FiO2 Intake & Output 01/09/24 01/10/24 01/10/24 18:59 06:59 18:59 Intake Total 240 517 Output Total 2250 900 Balance 240 -2250 -383 Intake: Oral 240 517 Output: Urine 2250 900 Other: Voiding Method Indwelling Catheter Indwelling Catheter Indwelling Catheter # Bowel Movements 0 - Exam GENERAL DESCRIPTION: Middle-age male lying in bed in no distress RESPIRATORY SYSTEM: Unlabored breathing , decreased breath sounds at bases HEART: S1 S2 regular rate and rhythm , ABDOMEN: Soft , no tenderness EXTREMITIES: Bilateral foot wounds are currently dressed - Labs CBC & Chem 7: 01/10/24 05:18 01/10/24 05:18 Labs: Abnormal Lab Results - Last 24 Hours (Table) 01/09/24 01/10/24 01/10/24 Range/Units 21:01 05:18 05:18 WBC 12.21 H (4.50-10.00) X 10*3/uL RBC 2.82 L (4.40-5.60) X 10*6/uL Hgb 7.5 L (13.0-17.0) g/dL Hct 24.2 L (39.6-50.0) % MCH 26.6 L (27.0-32.0) pg MCHC 31.0 L (32.0-37.0) g/dL RDW 18.1 H (11.5-14.5) % Immature Gran # 0.08 H (0.00-0.04) X 10*3/uL Neutrophils # 9.43 H (1.80-7.70) X 10*3/uL Chloride 111 H (96-109) mmol/L Carbon Dioxide 16.4 L (21.6-31.8) mmol/L Glucose 130 H (70-110) mg/dL POC Glucose (mg/dL) 138 H (70-110) mg/dL Calcium 7.5 L (8.7-10.3) mg/dL 01/10/24 01/10/24 Range/Units 05:57 11:18 WBC (4.50-10.00) X 10*3/uL RBC (4.40-5.60) X 10*6/uL Hgb (13.0-17.0) g/dL Hct (39.6-50.0) % MCH (27.0-32.0) pg MCHC (32.0-37.0) g/dL RDW (11.5-14.5) % Immature Gran # (0.00-0.04) X 10*3/uL Neutrophils # (1.80-7.70) X 10*3/uL Chloride (96-109) mmol/L Carbon Dioxide (21.6-31.8) mmol/L Glucose (70-110) mg/dL POC Glucose (mg/dL) 142 H 138 H (70-110) mg/dL Calcium (8.7-10.3) mg/dL Assessment and Plan (1) Diabetic foot ulcer Current Visit: No Status: Acute Code(s): E11.621 - TYPE 2 DIABETES MELLITUS WITH FOOT ULCER; L97.509 - NON-PRESSURE CHRONIC ULCER OTH PRT UNSP FOOT W UNSP SEVERITY SNOMED Code(s): 277446896 (2) Unstageable pressure ulcer of sacral region Current Visit: No Status: Acute Code(s): L89.150 - PRESSURE ULCER OF SACRAL REGION, UNSTAGEABLE SNOMED Code(s): 00108292954495917 (3) Sepsis Current Visit: Yes Status: Acute Code(s): A41.9 - SEPSIS, UNSPECIFIED ORGANISM SNOMED Code(s): 00495430 Plan: 1patient presented to hospital with sepsis in this patient who did have fever tachycardia source is infected sacral pressure ulcer as the patient did have unstageable sacral pressure ulcer with significant amount of necrotic tissue and maceration we will need to cover for resistant gram-positive as well as gram- negative pathogen 2-patient also have a bilateral foot diabetic foot ulcer wound to the left heel is doing well but he still have some slough tissue but no significant redness 3-patient is status post surgical debridement and deep culture completed on 01/04/2024 with cultures currently growing Proteus and VRE, with initial culture growing MRSA 4-patient has received the PICC line, to continue with the Zosyn and daptomycin, plan is for a 6-week course of IV antibiotic therapy Dictation was produced using [employer] dictation software. please excuse any grammatical, word or spelling errors. Time with Patient: Less than 30
[2024-01-10 17:14] LABS: Glucose,Whole Blood 128 mg/dL (70-110)
[2024-01-10 21:04] LABS: Glucose,Whole Blood 181 mg/dL (70-110)
--- NOTE | 2024-01-11 01:46 | P.PN ---
Subjective Progress Note Date: 01/09/24 Patient is a 48-year-old male with a past medical history of hypertension, hyperlipidemia, diabetes type 2 insulin-dependent, bilateral feet and coccyx decub ulcers, anxiety/depression/bipolar and panic disorder was sent from wound care center by Dr. Gutierrez due to infection. Patient has been having bilateral feet and sacral diabetic ulcer/. Patient has been on follow-up with wound care Center. Wound dressing was done prior to transfer to ER. Patient was febrile with Tmax 103.2 on admission and tachycardic. Pulse ox 90% on room air. Blood pressure went down to 89/61. X-ray of the sacrum and coccyx showed large wound posterior inferior sacral region. The dizziness likely patient intact without erosion. EKG showed sinus rhythm with low QRS voltage in the precordial leads. Laboratory data showed WBC 29.2 hemoglobin 8.1 and platelets 339 RDW 17.1 INR 1.2 Sodium 126 potassium 4.9 chloride 97 bicarb is 16 BUN 23 and creatinine 1.12 and blood sugar 243 lactic acid 1.6 calcium 8.3 AST 94 ALT 72 and alk phos 616 and albumin 2.8. 01/03/2024 Patient is currently lying in the bed. Awake alert and oriented. Pain is fairly controlled. Complains of diarrhea which is mainly watery. Patient sta douglas her diarrhea has started back again. Afebrile.Patient has been afebrile. Laboratory data showed WBC 31.5, hemoglobin 7.0 and platelets 251 Sodium 125 potassium 4.0 chloride 100 bicarb is 15 BUN 23 and creatinine 1.2 and A1c 6.7 Liver enzymes showed AST 100 ALT 64 and alk phos 564 and albumin 2.2. Patient has been continued on IV antibiotics and ID and vascular surgery is on board. 01/04/2024 Patient is lying in the bed. Awake alert and oriented x 3. Pain is better controlled. No complaints of chest pain or shortness of breath. No nausea vomiting or abdominal pain or diarrhea. No cough or sputum production. Patient has been afebrile. Patient underwent Wide excision and debridement sacral decubitus ulcer. Laboratory data showed WBC 22.7 hemoglobin 7.5 and platelets 269 sodium 133 potassium 3.9 chloride 110 bicarb is 13 BUN 15 and creatinine 1.03 and patient was also found to have iron deficient. B12 folate within normal limits. Rearrangements are still elevated. Remains on antibiotics daptomycin and Zosyn. ID is on board. 01/04/2021 Patient is resting in bed. Awake alert and oriented x 3. Pain is controlled. Patient is s/p sacral wound debridement yesterday. Left buttock region is slightly better as per surgery. Leukocytosis improving. Patient has been afebr ile. Laboratory test showed WBCs 19.9 hemoglobin 6.4 and platelets 226 Sodium 131 potassium 4.0 chloride 106 bicarb is 12.8 BUN 12.5 and creatinine 1.1 and blood sugar is 81 and calcium is 7.1. Patient remains on antibiotics and follow-up final culture reports. Patient is on iron supplementation. 01/06/2024 Patient is postoperative day 2 send no debridement will start her ulcers. Pain is well-controlled. Otherwise patient denies any chest pain or shortness of breath. Still having loose stools. Dressing is to be changed at least 3 times yesterday. Otherwise laboratory data showed WBC improving to 18.2 hemoglobin 7.4 and platelets 228 sodium 134 potassium 3.8 chloride 108 bicarb is 12.5 BUN 14.1 creatinine 1.1 and calcium 7.5. Patient remains on broad-spectrum antibiotics. Follow-up wound cultures. 01/07/2024 Patient is resting in the bed. Awake alert and oriented x 3. No complaints of chest pain or shortness of breath. No fever no chills. Patient is postoperative day 3 with debridement of sacral decub ulcers. Pain is well-controlled. No nausea vomiting abdominal pain. Diarrhea improving. Patient has been afebrile. Laboratory data showed WBC 14.8 hemoglobin 7.0 and platelets 246. Sodium 139 potassium 3.8 chloride 103 bicarb is 13.6 BUN 14.9 creatinine 1.0 and calcium 7.5 Patient remains on antibiotics Zosyn and daptomycin. Wound cultures are growing gram-negative bacilli and present MRSA. 01/08/2024 Patient is resting in bed. Awake alert and oriented x 3. No complaints of chest pain or shortness of breath. Diarrhea improving. Dressing change was done by nursing staff. Patient has been afebrile. No cough or sputum production. Laboratory test showed WBC improved to 14.5 hemoglobin 7.4 and platelets 261, sodium 136 potassium 4.0 chloride 110 bicarb is 14.9 and BUN 10 and creatinine 0.9 and calcium 7.5. Patient is on Zosyn and daptomycin. Wound cultures growing Proteus Mirabella's and Enterococcus faecium. Initial cultures are growing present MRSA. 01/09/2024 Patient is currently resting in bed. Awake alert and oriented x 3. S/p debridement of the sacral decub ulcer. Postoperative day 5. Patient otherwise denies any complaints of worsening pain. Wound dressing has been done. No complaints of chest pain or shortness of breath. Wound cultures reviewed. Patient is on antibiotics daptomycin and Zosyn. ID and general surgery is on board. Laboratory data reviewed. Current medications reviewed. Objective - Vital Signs Vital signs: Vital Signs Temp 98.3 F 01/09/24 19:49 Pulse 86 01/09/24 19:49 Resp 18 01/09/24 19:49 BP 111/73 01/09/24 19:49 Pulse Ox 99 01/09/24 19:49 FiO2 Intake & Output 01/09/24 01/09/24 01/10/24 06:59 18:59 06:59 Intake Total 240 Output Total 1300 Balance -1300 240 Intake: Oral 240 Output: Urine 1300 Other: Voiding Method Indwelling Catheter Indwelling Catheter # Bowel Movements 0 - Exam PHYSICAL EXAMINATION: Patient is lying in the bed,, no acute distress, awake alert and oriented.. HEENT: Normocephalic. Neck is supple. Pupils reactive. Nostrils clear. Oral cavity is moist. Neck reveals no JVD, carotid bruits, or thyromegaly. CHEST EXAMINATION: Trachea is central. Symmetrical expansion. Bibasilar diminished sounds otherwise lung hinds clear to auscultation and percussion. CARDIAC: Normal S1, S2 with no gallops. No murmurs ABDOMEN: Soft. Bowel sounds present. No organomegaly. No abdominal bruits. Sa cral wound is packed.. Extremities: Bilateral lower extremity trace edema. Bilateral feet wounds are bandaged. No clubbing or cyanosis Neurologically awake, alert, oriented x3. Patient is able to move all extremities while in bed.. No gross focal deficits noted Skin: No rash or skin lesions except as above. Psychiatric: Coperative. Nonsuicidal Musculoskeletal: No joint swelling or deformity. - Labs CBC & Chem 7: 01/10/24 05:18 01/10/24 05:18 Labs: Abnormal Lab Results - Last 24 Hours (Table) 01/09/24 01/09/24 01/09/24 Range/Units 05:18 05:18 05:59 WBC 14.50 H (4.50-10.00) X 10*3/uL RBC 2.87 L (4.40-5.60) X 10*6/uL Hgb 7.4 L (13.0-17.0) g/dL Hct 24.5 L (39.6-50.0) % MCH 25.8 L (27.0-32.0) pg MCHC 30.2 L (32.0-37.0) g/dL RDW 18.0 H (11.5-14.5) % Immature Gran # 0.08 H (0.00-0.04) X 10*3/uL Neutrophils # 11.31 H (1.80-7.70) X 10*3/uL NRBC/100 WBC Diff 0.02 H (0.00-0.01) X 10*3/uL Carbon Dioxide 15.8 L (21.6-31.8) mmol/L BUN 8.5 L (9.0-27.0) mg/dL BUN/Creatinine Ratio 9.44 L (12.00-20.00) Ratio Glucose 61 L (70-110) mg/dL POC Glucose (mg/dL) 66 L (70-110) mg/dL Calcium 7.6 L (8.7-10.3) mg/dL AST 47 H (14-35) U/L Alkaline Phosphatase 695 H (41-126) U/L Total Protein 5.7 L (6.2-8.2) g/dL Albumin 2.0 L (3.8-4.9) g/dL Globulin 3.7 H (1.6-3.3) g/dL Albumin/Globulin Ratio 0.54 L (1.60-3.17) Ratio 01/09/24 01/09/24 01/09/24 Range/Units 06:35 06:48 21:01 WBC (4.50-10.00) X 10*3/uL RBC (4.40-5.60) X 10*6/uL Hgb (13.0-17.0) g/dL Hct (39.6-50.0) % MCH (27.0-32.0) pg MCHC (32.0-37.0) g/dL RDW (11.5-14.5) % Immature Gran # (0.00-0.04) X 10*3/uL Neutrophils # (1.80-7.70) X 10*3/uL NRBC/100 WBC Diff (0.00-0.01) X 10*3/uL Carbon Dioxide (21.6-31.8) mmol/L BUN (9.0-27.0) mg/dL BUN/Creatinine Ratio (12.00-20.00) Ratio Glucose (70-110) mg/dL POC Glucose (mg/dL) 147 H 124 H 138 H (70-110) mg/dL Calcium (8.7-10.3) mg/dL AST (14-35) U/L Alkaline Phosphatase (41-126) U/L Total Protein (6.2-8.2) g/dL Albumin (3.8-4.9) g/dL Globulin (1.6-3.3) g/dL Albumin/Globulin Ratio (1.60-3.17) Ratio Microbiology - Last 24 Hours (Table) 01/04/24 18:10 Anaerobic Culture - Final Other - Other Assessment and Plan Assessment: Infected sacral decub ulcers and bilateral feet diabetic ulcers. s/p Wide excision and debridement sacral decubitus ulcer on 01/04/24 Sepsis secondary to above Elevated liver enzymes Diabetes type 2 with hyperglycemia uncontrolled. Insulin-dependent Hyponatremia likely hypovolemic Hypertension Hyperlipidemia Medical debility currently bedridden Anxiety/depression and bipolar disorder and panic disorder Hypothyroidism Normocytic anemia with hemoglobin 8.1 on admission Severe protein calorie malnutrition DVT prophylaxis with heparin subcu Plan: Patient will be continued on IV hydration and antibiotics in the form of Zosyn and daptomycin was added as per ID recommendations. Wound cultures growing Proteus, Enterococcus. Initial wound cultures growing present to MRSA General surgery is on board. S/p debridement. Considering diverting colostomy placement. Continue with insulin regimen and sliding scale for better blood sugar control. Continue to monitor liver enzymes. Follow-up blood cultures. ID and vascular surgery is on board. Continue with wound care. Time with Patient: Greater than 30
--- NOTE | 2024-01-11 01:48 | P.PN ---
Subjective Progress Note Date: 01/10/24 Patient is a 48-year-old male with a past medical history of hypertension, hyperlipidemia, diabetes type 2 insulin-dependent, bilateral feet and coccyx decub ulcers, anxiety/depression/bipolar and panic disorder was sent from wound care center by Dr. Gutierrez due to infection. Patient has been having bilateral feet and sacral diabetic ulcer/. Patient has been on follow-up with wound care Center. Wound dressing was done prior to transfer to ER. Patient was febrile with Tmax 103.2 on admission and tachycardic. Pulse ox 90% on room air. Blood pressure went down to 89/61. X-ray of the sacrum and coccyx showed large wound posterior inferior sacral region. The dizziness likely patient intact without erosion. EKG showed sinus rhythm with low QRS voltage in the precordial leads. Laboratory data showed WBC 29.2 hemoglobin 8.1 and platelets 339 RDW 17.1 INR 1.2 Sodium 126 potassium 4.9 chloride 97 bicarb is 16 BUN 23 and creatinine 1.12 and blood sugar 243 lactic acid 1.6 calcium 8.3 AST 94 ALT 72 and alk phos 616 and albumin 2.8. 01/03/2024 Patient is currently lying in the bed. Awake alert and oriented. Pain is fairly controlled. Complains of diarrhea which is mainly watery. Patient sta douglas her diarrhea has started back again. Afebrile.Patient has been afebrile. Laboratory data showed WBC 31.5, hemoglobin 7.0 and platelets 251 Sodium 125 potassium 4.0 chloride 100 bicarb is 15 BUN 23 and creatinine 1.2 and A1c 6.7 Liver enzymes showed AST 100 ALT 64 and alk phos 564 and albumin 2.2. Patient has been continued on IV antibiotics and ID and vascular surgery is on board. 01/04/2024 Patient is lying in the bed. Awake alert and oriented x 3. Pain is better controlled. No complaints of chest pain or shortness of breath. No nausea vomiting or abdominal pain or diarrhea. No cough or sputum production. Patient has been afebrile. Patient underwent Wide excision and debridement sacral decubitus ulcer. Laboratory data showed WBC 22.7 hemoglobin 7.5 and platelets 269 sodium 133 potassium 3.9 chloride 110 bicarb is 13 BUN 15 and creatinine 1.03 and patient was also found to have iron deficient. B12 folate within normal limits. Rearrangements are still elevated. Remains on antibiotics daptomycin and Zosyn. ID is on board. 01/04/2021 Patient is resting in bed. Awake alert and oriented x 3. Pain is controlled. Patient is s/p sacral wound debridement yesterday. Left buttock region is slightly better as per surgery. Leukocytosis improving. Patient has been afebr ile. Laboratory test showed WBCs 19.9 hemoglobin 6.4 and platelets 226 Sodium 131 potassium 4.0 chloride 106 bicarb is 12.8 BUN 12.5 and creatinine 1.1 and blood sugar is 81 and calcium is 7.1. Patient remains on antibiotics and follow-up final culture reports. Patient is on iron supplementation. 01/06/2024 Patient is postoperative day 2 send no debridement will start her ulcers. Pain is well-controlled. Otherwise patient denies any chest pain or shortness of breath. Still having loose stools. Dressing is to be changed at least 3 times yesterday. Otherwise laboratory data showed WBC improving to 18.2 hemoglobin 7.4 and platelets 228 sodium 134 potassium 3.8 chloride 108 bicarb is 12.5 BUN 14.1 creatinine 1.1 and calcium 7.5. Patient remains on broad-spectrum antibiotics. Follow-up wound cultures. 01/07/2024 Patient is resting in the bed. Awake alert and oriented x 3. No complaints of chest pain or shortness of breath. No fever no chills. Patient is postoperative day 3 with debridement of sacral decub ulcers. Pain is well-controlled. No nausea vomiting abdominal pain. Diarrhea improving. Patient has been afebrile. Laboratory data showed WBC 14.8 hemoglobin 7.0 and platelets 246. Sodium 139 potassium 3.8 chloride 103 bicarb is 13.6 BUN 14.9 creatinine 1.0 and calcium 7.5 Patient remains on antibiotics Zosyn and daptomycin. Wound cultures are growing gram-negative bacilli and present MRSA. 01/08/2024 Patient is resting in bed. Awake alert and oriented x 3. No complaints of chest pain or shortness of breath. Diarrhea improving. Dressing change was done by nursing staff. Patient has been afebrile. No cough or sputum production. Laboratory test showed WBC improved to 14.5 hemoglobin 7.4 and platelets 261, sodium 136 potassium 4.0 chloride 110 bicarb is 14.9 and BUN 10 and creatinine 0.9 and calcium 7.5. Patient is on Zosyn and daptomycin. Wound cultures growing Proteus Mirabella's and Enterococcus faecium. Initial cultures are growing present MRSA. 01/09/2024 Patient is currently resting in bed. Awake alert and oriented x 3. S/p debridement of the sacral decub ulcer. Postoperative day 5. Patient otherwise denies any complaints of worsening pain. Wound dressing has been done. No complaints of chest pain or shortness of breath. Wound cultures reviewed. Patient is on antibiotics daptomycin and Zosyn. ID and general surgery is on board. Laboratory data reviewed. 01/10/2024 Patient is resting in bed. Awake alert and oriented x 3. No complaints of chest pain or shortness of breath. Postoperative day 6 status post debridement of the sacral decub ulcers. Continued on antibiotics in the form of daptomycin and Zosyn. Patient has PICC line in place. WBC is trending down. Anticipate discharge back to [facility] with ID final recommendations. Patient wishes to hold off on diverting colostomy at this time. Continued on wound care. Current medications reviewed. Objective - Vital Signs Vital signs: Vital Signs Temp 97.8 F 01/10/24 13:15 Pulse 92 01/10/24 13:15 Resp 18 01/10/24 13:15 BP 114/76 01/10/24 13:15 Pulse Ox 98 01/10/24 13:15 FiO2 Intake & Output 01/10/24 01/10/24 01/11/24 06:59 18:59 06:59 Intake Total 517 Output Total 2250 1999 Balance -2250 -1483 Intake: Oral 517 Output: Urine 2250 1999 Other: Voiding Method Indwelling Catheter Indwelling Catheter # Bowel Movements 1 - Exam PHYSICAL EXAMINATION: Patient is lying in the bed,, no acute distress, awake alert and oriented.. HEENT: Normocephalic. Neck is supple. Pupils reactive. Nostrils clear. Oral cavity is moist. Neck reveals no JVD, carotid bruits, or thyromegaly. CHEST EXAMINATION: Trachea is central. Symmetrical expansion. Bibasilar diminished sounds otherwise lung hinds clear to auscultation and percussion. CARDIAC: Normal S1, S2 with no gallops. No murmurs ABDOMEN: Soft. Bowel sounds present. No organomegaly. No abdominal bruits. Sacral wound is packed.. Extremities: Bilateral lower extremity trace edema. Bilateral feet wounds are bandaged. No clubbing or cyanosis Neurologically awake, alert, oriented x3. Patient is able to move all extremities while in bed.. No gross focal deficits noted Skin: No rash or skin lesions except as above. Psychiatric: Coperative. Nonsuicidal Musculoskeletal: No joint swelling or deformity. - Labs CBC & Chem 7: 01/10/24 05:18 01/10/24 05:18 Labs: Abnormal Lab Results - Last 24 Hours (Table) 01/10/24 01/10/24 01/10/24 Range/Units 05:18 05:18 05:57 WBC 12.21 H (4.50-10.00) X 10*3/uL RBC 2.82 L (4.40-5.60) X 10*6/uL Hgb 7.5 L (13.0-17.0) g/dL Hct 24.2 L (39.6-50.0) % MCH 26.6 L (27.0-32.0) pg MCHC 31.0 L (32.0-37.0) g/dL RDW 18.1 H (11.5-14.5) % Immature Gran # 0.08 H (0.00-0.04) X 10*3/uL Neutrophils # 9.43 H (1.80-7.70) X 10*3/uL Chloride 111 H (96-109) mmol/L Carbon Dioxide 16.4 L (21.6-31.8) mmol/L Glucose 130 H (70-110) mg/dL POC Glucose (mg/dL) 142 H (70-110) mg/dL Calcium 7.5 L (8.7-10.3) mg/dL 01/10/24 01/10/24 01/10/24 Range/Units 11:18 17:12 21:02 WBC (4.50-10.00) X 10*3/uL RBC (4.40-5.60) X 10*6/uL Hgb (13.0-17.0) g/dL Hct (39.6-50.0) % MCH (27.0-32.0) pg MCHC (32.0-37.0) g/dL RDW (11.5-14.5) % Immature Gran # (0.00-0.04) X 10*3/uL Neutrophils # (1.80-7.70) X 10*3/uL Chloride (96-109) mmol/L Carbon Dioxide (21.6-31.8) mmol/L Glucose (70-110) mg/dL POC Glucose (mg/dL) 138 H 128 H 181 H (70-110) mg/dL Calcium (8.7-10.3) mg/dL Assessment and Plan Assessment: Infected sacral decub ulcers and bilateral feet diabetic ulcers. s/p Wide excision and debridement sacral decubitus ulcer on 01/04/24 Sepsis secondary to above Elevated liver enzymes Diabetes type 2 with hyperglycemia uncontrolled. Insulin-dependent Hyponatremia likely hypovolemic Hypertension Hyperlipidemia Medical debility currently bedridden Anxiety/depression and bipolar disorder and panic disorder Hypothyroidism Normocytic anemia with hemoglobin 8.1 on admission Severe protein calorie malnutrition DVT prophylaxis with heparin subcu Plan: Patient will be continued on IV hydration and antibiotics in the form of Zosyn and daptomycin was added as per ID recommendations. Wound cultures growing Proteus, Enterococcus. Initial wound cultures growing present to MRSA General surgery is on board. S/p debridement. Patient would like to hold off diverting colostomy at this time. Anticipate discharge with ID final recommendations. PICC line in place. Continue with insulin regimen and sliding scale for better blood sugar control. Continue to monitor liver enzymes. Follow-up blood cultures. ID and vascular surgery is on board. Continue with wound care. Time with Patient: Greater than 30
[2024-01-11 06:03] LABS: Glucose,Whole Blood 138 mg/dL (70-110)
[2024-01-11 07:40] VITALS: RESP 17
[2024-01-11 08:41] LABS: Basophils # (A) 0.01 X 10*3/uL (0.00-0.10); Basophils % (A) 0.1 %; Eosinophils % (A) 1.8 %; HCT 26.5 % (39.6-50.0); Lymphocytes # (A) 2.17 X 10*3/uL (0.90-5.00); MCH 26.3 pg (27.0-32.0); MCHC 30.2 g/dL (32.0-37.0); MCV 87.2 FL (80.0-97.0); Monocytes # (A) 0.49 X 10*3/uL (0.20-1.00); Monocytes % (A) 4.5 %; NRBC Per 100 WBC 0 X 10*3/uL (0.00-0.01); Neutrophils # (A) 7.93 X 10*3/uL (1.80-7.70); Platelet Count 305 X 10*3/uL (140-440); RBC 3.04 X 10*6/uL (4.40-5.60); RDW 18.1 % (11.5-14.5); WBC 10.87 X 10*3/uL (4.50-10.00)
[2024-01-11 09:22] LABS: Blood Urea Nitrogen 16.4 mg/dL (9.0-27.0); Calcium 7.7 mg/dL (8.7-10.3); Carbon Dioxide 15.6 mmol/L (21.6-31.8); Chloride 109 mmol/L (96-109); Glucose 113 mg/dL (70-110); Potassium 3.8 mmol/L (3.5-5.5); Sodium 138 mmol/L (135-145)
--- NOTE | 2024-01-11 10:54 | P.DS ---
Providers Date of admission: 01/03/24 10:08 Attending physician: Roxanna Brown Consults: 01/02/24 16:57 Consult Physician Routine Consulting Provider: Nadeem Best Consult Reason/Comments: sacral ulcer Do you want consulting provider notified?: Yes Consult Physician Routine Consulting Provider: David Gutierrez Consult Reason/Comments: sacral ulcer Do you want consulting provider notified?: Already Contacted 01/02/24 22:56 Consult Physician Routine Consulting Provider: Yonas Dey Consult Reason/Comments: Sacral ulcer Do you want consulting provider notified?: Yes Primary care physician: Ahsan Roca Hospital Course: Diagnoses: Infected sacral decub ulcers and bilateral feet diabetic ulcers. s/p Wide excision and debridement sacral decubitus ulcer on 01/04/24 Sepsis secondary to above Elevated liver enzymes Diabetes type 2 with hyperglycemia uncontrolled. Insulin-dependent Hyponatremia likely hypovolemic Hypertension Hyperlipidemia Medical debility currently bedridden Anxiety/depression and bipolar disorder and panic disorder Hypothyroidism Normocytic anemia with hemoglobin 8.1 on admission Severe protein calorie malnutrition Hospital course: Patient is a 48-year-old male with a past medical history of hypertension, hyperlipidemia, diabetes type 2 insulin-dependent, bilateral feet and coccyx decub ulcers, anxiety/depression/bipolar and panic disorder was sent from wound care center by Dr. Gutierrez due to infection. Patient has been having bilateral feet and sacral diabetic ulcer/. Patient has been on follow-up with wound care Center. Wound dressing was done prior to transfer to ER. Patient was febrile with Tmax 103.2 on admission and tachycardic. Pulse ox 90% on room air. Blood pressure went down to 89/61. Patient was treated with IV fluids and antibiotic, surgery team evaluated the patient and he underwent surgical debridement of his sacral wound on 01/03, deep culture came back positive for 4 Proteus. Also he has wound culture sensitive with a gram presumptive MRSA. Patient received IV antibiotics with daptomycin per ID team. Patient clinically doing well and he is back to baseline fully awake and oriented with mild pain at the sacral area, no other complaint. No chest pain or dyspnea. No diarrhea. No dizziness or abdominal pain. He tolerates diet well. Patient agrees to ECF today. Patient was cleared by ID team to be discharged on IV daptomycin x 6 weeks, ID may add another antibiotics upon discharge to the recommendation Surgery team cleared him for discharge as well Patient agrees to be discharged today Problems and management plan were discussed with the patient and he verbalized understanding and acceptance Patient was found stable and can be discharged to ECF in guarded prognosis however he needs follow-up as an outpatient. Patient was instructed to follow up with PCP Dr. Roca within one week and patient agrees Patient was instructed to follow-up with ID team Dr. Dey in [address] Best from surgery in 2 weeks. Patient agrees Physical exam Gen: patient is a AAOx3, no distress CVS: S1-S2, RRR, no murmur Lungs: B/L CTA, no wheezing -Abdomen: soft, no distention, no tenderness, positive bowel sounds. Colostomy bag in place -Extremity: no leg edema or induration. picc line is in place -Musculoskeletal: Sacral pressure ulcer, with dressing in place. No joint swelling Time spent more than 35 minutes Patient Condition at Discharge: Serious Plan - Discharge Summary Discharge Rx Participant: No New Discharge Prescriptions: No Action Metoprolol Succinate (ER) [Toprol XL] 50 mg PO DAILY Atorvastatin Calcium [Lipitor] 80 mg PO HS Dapagliflozin Propanediol [Farxiga] 10 mg PO DAILY ARIPiprazole [Abilify] 30 mg PO DAILY Multivitamins, Thera [Multivitamin (formulary)] 1 tab PO DAILY Insulin Glargine,Hum.rec.anlog [Lantus Solostar Pen] 26 units SQ DAILY #0 Zinc Gluconate [Zinc] 50 mg PO DAILY Loperamide [Imodium] 2 mg PO DIRECTED PRN PRN Reason: Loose Stool Dulaglutide [Trulicity] 1.5 mg SQ TH amLODIPine [Norvasc] 5 mg PO DAILY Folic Acid 1 mg PO DAILY tab Sodium Chloride Tab 1 gm PO DAILY Pantoprazole [Protonix] 40 mg PO DAILY Acetaminophen Oral Susp [Tylenol] 160 mg PO Q8H PRN PRN Reason: Fever And/ Or Pain Ferrous Sulfate [Feosol] 325 mg PO DAILY Doxycycline Hyclate 100 mg PO BID buPROPion HCL [buPROPion HCL XL] 450 mg PO DAILY Ondansetron [Zofran] 4 mg PO Q8H PRN PRN Reason: Nausea And Vomiting L.acidoph,Paracasei, B.lactis [Probiotic] 2 cap PO DAILY Insulin Lispro See Protocol SQ ACHS Liquacel 60 ml PO TID Thiamine [Vitamin B-1] 100 mg PO DAILY tab Levothyroxine Sodium [Synthroid] 200 mcg PO DAILY Levothyroxine Sodium [Synthroid] 75 mcg PO DAILY Ascorbic Acid [Vitamin C] 250 mg PO DAILY Amoxic-Pot Clav 875-125Mg [Augmentin 875-125] 1 tab PO BID ALPRAZolam [Xanax] 1 mg PO Q8H PRN PRN Reason: Anxiety Potassium Chloride ER [K-Dur 20] 20 meq PO BID Discharge Medication List ARIPiprazole [Abilify] 30 mg PO DAILY 07/14/23 [History] Atorvastatin Calcium [Lipitor] 80 mg PO HS 07/14/23 [History] Dapagliflozin Propanediol [Farxiga] 10 mg PO DAILY 07/14/23 [History] Metoprolol Succinate (ER) [Toprol XL] 50 mg PO DAILY 07/14/23 [History] Ondansetron [Zofran] 4 mg PO Q8H PRN 07/14/23 [History] Insulin Lispro See Protocol SQ ACHS 10/02/23 [History] L.acidoph,Paracasei, B.lactis [Probiotic] 2 cap PO DAILY 10/02/23 [History] Liquacel 60 ml PO TID 10/02/23 [History] Multivitamins, Thera [Multivitamin (formulary)] 1 tab PO DAILY 10/02/23 [History] Insulin Glargine,Hum.rec.anlog [Lantus Solostar Pen] 26 units SQ DAILY #0 10/06/23 [Rx] Dulaglutide [Trulicity] 1.5 mg SQ TH 11/17/23 [History] Loperamide [Imodium] 2 mg PO DIRECTED PRN 11/17/23 [History] Zinc Gluconate [Zinc] 50 mg PO DAILY 11/17/23 [History] amLODIPine [Norvasc] 5 mg PO DAILY 11/17/23 [History] Folic Acid 1 mg PO DAILY tab 11/22/23 [Rx] Thiamine [Vitamin B-1] 100 mg PO DAILY tab 11/22/23 [Rx] ALPRAZolam [Xanax] 1 mg PO Q8H PRN 01/02/24 [History] Acetaminophen Oral Susp [Tylenol] 160 mg PO Q8H PRN 01/02/24 [History] Amoxic-Pot Clav 875-125Mg [Augmentin 875-125] 1 tab PO BID 01/02/24 [History] Ascorbic Acid [Vitamin C] 250 mg PO DAILY 01/02/24 [History] Doxycycline Hyclate 100 mg PO BID 01/02/24 [History] Ferrous Sulfate [Feosol] 325 mg PO DAILY 01/02/24 [History] Levothyroxine Sodium [Synthroid] 75 mcg PO DAILY 01/02/24 [History] Levothyroxine Sodium [Synthroid] 200 mcg PO DAILY 01/02/24 [History] Pantoprazole [Protonix] 40 mg PO DAILY 01/02/24 [History] Potassium Chloride ER [K-Dur 20] 20 meq PO BID 01/02/24 [History] Sodium Chloride Tab 1 gm PO DAILY 01/02/24 [History] buPROPion HCL [buPROPion HCL XL] 450 mg PO DAILY 01/02/24 [History] Follow up Appointment(s)/Referral(s): Ahsan Roca MD [Primary Care Provider] - 1-2 days [facility] [NON-STAFF] - As Needed
[2024-01-11 11:39] LABS: Glucose,Whole Blood 125 mg/dL (70-110)
--- NOTE | 2024-01-11 12:44 | P.PN ---
Subjective Progress Note Date: 01/11/24 Principal diagnosis: Reason for follow-up is infected sacral pressure ulcer Patient is a 48-year-old male with a past medical history significant for diabetes mellitus hypertension hyperlipidemia, extensive left diabetic foot infection followed by right heel pressure ulcer and now admitted to hospital with worsening sacral pressure ulcer with features of sepsis on ad mission.Patient is status post Wide excision and debridement sacral decubitus ulcer by general surgery completed on 01/04/2024 On today's evaluation that is 01/11/2024, the patient continues to be afebrile, the patient is on room air and breathing comfortably, the Pt denies having any chest pain or cough, the patient denies having any abdominal pain no vomiting or any diarrhea has been reported by the nursing staff patient has pain to the sacral wound area. Patient white count is down to 10.87, creatinine 0.8 Objective - Vital Signs Vital signs: Vital Signs Temp 97.3 F L 01/11/24 07:18 Pulse 93 01/11/24 07:18 Resp 17 01/11/24 07:18 BP 104/69 01/11/24 07:18 Pulse Ox 98 01/11/24 07:18 FiO2 Intake & Output 01/10/24 01/11/24 01/11/24 18:59 06:59 18:59 Intake Total 517 Output Total 1999 2099 Balance -1483 -2099 Intake: Oral 517 Output: Urine 1999 2099 Other: Voiding Method Indwelling Catheter Indwelling Catheter Indwelling Catheter # Bowel Movements 1 - Exam GENERAL DESCRIPTION: Middle-age male lying in bed in no distress RESPIRATORY SYSTEM: Unlabored breathing , decreased breath sounds at bases HEART: S1 S2 regular rate and rhythm , ABDOMEN: Soft , no tenderness EXTREMITIES: Bilateral foot wounds are currently dressed - Labs CBC & Chem 7: 01/11/24 04:27 01/11/24 04:27 Labs: Abnormal Lab Results - Last 24 Hours (Table) 01/10/24 01/10/24 01/11/24 Range/Units 17:12 21:02 04:27 WBC 10.87 H (4.50-10.00) X 10*3/uL RBC 3.04 L (4.40-5.60) X 10*6/uL Hgb 8.0 L (13.0-17.0) g/dL Hct 26.5 L (39.6-50.0) % MCH 26.3 L (27.0-32.0) pg MCHC 30.2 L (32.0-37.0) g/dL RDW 18.1 H (11.5-14.5) % Immature Gran # 0.07 H (0.00-0.04) X 10*3/uL Neutrophils # 7.93 H (1.80-7.70) X 10*3/uL Carbon Dioxide (21.6-31.8) mmol/L Anion Gap (4.00-12.00) mmol/L BUN/Creatinine Ratio (12.00-20.00) Ratio Glucose (70-110) mg/dL POC Glucose (mg/dL) 128 H 181 H (70-110) mg/dL Calcium (8.7-10.3) mg/dL 01/11/24 01/11/24 01/11/24 Range/Units 04:27 06:02 11:38 WBC (4.50-10.00) X 10*3/uL RBC (4.40-5.60) X 10*6/uL Hgb (13.0-17.0) g/dL Hct (39.6-50.0) % MCH (27.0-32.0) pg MCHC (32.0-37.0) g/dL RDW (11.5-14.5) % Immature Gran # (0.00-0.04) X 10*3/uL Neutrophils # (1.80-7.70) X 10*3/uL Carbon Dioxide 15.6 L (21.6-31.8) mmol/L Anion Gap 13.40 H (4.00-12.00) mmol/L BUN/Creatinine Ratio 20.50 H (12.00-20.00) Ratio Glucose 113 H (70-110) mg/dL POC Glucose (mg/dL) 138 H 125 H (70-110) mg/dL Calcium 7.7 L (8.7-10.3) mg/dL Assessment and Plan (1) Diabetic foot ulcer Current Visit: No Status: Acute Code(s): E11.621 - TYPE 2 DIABETES MELLITUS WITH FOOT ULCER; L97.509 - NON-PRESSURE CHRONIC ULCER OTH PRT UNSP FOOT W UNSP SEVERITY SNOMED Code(s): 605531098 (2) Unstageable pressure ulcer of sacral region Current Visit: No Status: Acute Code(s): L89.150 - PRESSURE ULCER OF SACRAL REGION, UNSTAGEABLE SNOMED Code(s): 39786287896457526 (3) Sepsis Current Visit: Yes Status: Acute Code(s): A41.9 - SEPSIS, UNSPECIFIED ORGANISM SNOMED Code(s): 84086606 Plan: 1patient presented to hospital with sepsis in this patient who did have fever tachycardia source is infected sacral pressure ulcer as the patient did have unstageable sacral pressure ulcer with significant amount of necrotic tissue and maceration we will need to cover for resistant gram-positive as well as gram- negative pathogen 2-patient is status post surgical debridement and deep culture completed on 01/04/2024 with cultures currently growing Proteus and VRE, with initial culture growing MRSA 3-patient has received the PICC line, we will adjust antibiotics to Rocephin and oral Flagyl instead of Zosyn and continue with the daptomycin for total of 6 weeks with weekly monitoring of CRP and sed rate and close outpatient follow-up Dictation was produced using [email or web address] dictation software. please excuse any grammatical, word or spelling errors. Time with Patient: Less than 30
[2024-01-11 14:06] VITALS: BP 110/74; PULSE 89; TEMP 97.7
--- NOTE | 2024-01-11 14:33 | P.PN ---
Subjective Progress Note Date: 01/11/24 CHIEF COMPLAINT: Large sacral decubitus ulcer HISTORY OF PRESENT ILLNESS: Patient is postop day #7 status post wide excision and debridement of sacral decubitus ulcer. Patient's pain is controlled. They are working on discharging him to ECF with IV antibiotics. Afebrile. WBC down from 12-10.87 PHYSICAL EXAM: VITAL SIGNS: Reviewed. GENERAL: no acute distress. ASSESSMENT: 1. Large sacral decubitus ulcer 2. Severe protein calorie malnutrition PLAN: -Patient can be discharged from surgical standpoint -Discharge antibiotics per infectious disease -Continue local wound care per infectious disease -Continue protein supplement -Continue offloading -Patient wishes to hold off on diverting colostomy at this time Physician Manufacturing Specialist note has been reviewed by physician. Signing provider agrees with the documented findings, assessment, and plan of care. Objective - Vital Signs Vital signs: Vital Signs Temp 97.3 F L 01/11/24 07:18 Pulse 93 01/11/24 07:18 Resp 17 01/11/24 07:18 BP 104/69 01/11/24 07:18 Pulse Ox 98 01/11/24 07:18 FiO2 Intake & Output 01/10/24 01/11/24 01/11/24 18:59 06:59 18:59 Intake Total 517 Output Total 1999 2099 Balance -1483 -2099 Intake: Oral 517 Output: Urine 1999 2099 Other: Voiding Method Indwelling Catheter Indwelling Catheter Indwelling Catheter # Bowel Movements 1 - Labs CBC & Chem 7: 01/11/24 04:27 01/11/24 04:27 Labs: Abnormal Lab Results - Last 24 Hours (Table) 01/10/24 01/10/24 01/11/24 Range/Units 17:12 21:02 04:27 WBC 10.87 H (4.50-10.00) X 10*3/uL RBC 3.04 L (4.40-5.60) X 10*6/uL Hgb 8.0 L (13.0-17.0) g/dL Hct 26.5 L (39.6-50.0) % MCH 26.3 L (27.0-32.0) pg MCHC 30.2 L (32.0-37.0) g/dL RDW 18.1 H (11.5-14.5) % Immature Gran # 0.07 H (0.00-0.04) X 10*3/uL Neutrophils # 7.93 H (1.80-7.70) X 10*3/uL Carbon Dioxide (21.6-31.8) mmol/L Anion Gap (4.00-12.00) mmol/L BUN/Creatinine Ratio (12.00-20.00) Ratio Glucose (70-110) mg/dL POC Glucose (mg/dL) 128 H 181 H (70-110) mg/dL Calcium (8.7-10.3) mg/dL 01/11/24 01/11/24 01/11/24 Range/Units 04:27 06:02 11:38 WBC (4.50-10.00) X 10*3/uL RBC (4.40-5.60) X 10*6/uL Hgb (13.0-17.0) g/dL Hct (39.6-50.0) % MCH (27.0-32.0) pg MCHC (32.0-37.0) g/dL RDW (11.5-14.5) % Immature Gran # (0.00-0.04) X 10*3/uL Neutrophils # (1.80-7.70) X 10*3/uL Carbon Dioxide 15.6 L (21.6-31.8) mmol/L Anion Gap 13.40 H (4.00-12.00) mmol/L BUN/Creatinine Ratio 20.50 H (12.00-20.00) Ratio Glucose 113 H (70-110) mg/dL POC Glucose (mg/dL) 138 H 125 H (70-110) mg/dL Calcium 7.7 L (8.7-10.3) mg/dL
== END 2024-01-11 18:49 | DRG 710 ==
LOC: EC 15:42 → 5NMEDONC 16:59 → 1SOBS 01-03 06:01 → OBSVTOIN 01-03 10:08 → 4SSUR 01-04 14:57
PROVIDERS: ADMIT Internal Medicine; ATTEND Internal Medicine
PROC: 0KBP0ZZ Excision of Left Hip Muscle, Open Approach (ICD-10-PCS; principal; 2024-01-04 10:25)
PROC: 02HV33Z Insertion of Infusion Device into Superior Vena Cava, Percutaneous Approach (ICD-10-PCS; 2024-01-10)
DX: A41.9 Sepsis, unspecified organism (principal); E03.9 Hypothyroidism, unspecified; E43 Unspecified severe protein-calorie malnutrition; Z68.32 Body mass index [BMI] 32.0-32.9, adult; D64.9 Anemia, unspecified; E87.1 Hypo-osmolality and hyponatremia; E86.1 Hypovolemia; E11.621 Type 2 diabetes mellitus with foot ulcer; L97.429 Non-pressure chronic ulcer of left heel and midfoot with unspecified severity; L97.419 Non-pressure chronic ulcer of right heel and midfoot with unspecified severity; L89.150 Pressure ulcer of sacral region, unstageable; R19.7 Diarrhea, unspecified; I10 Essential (primary) hypertension; E78.5 Hyperlipidemia, unspecified; E61.1 Iron deficiency; F31.9 Bipolar disorder, unspecified; F41.0 Panic disorder [episodic paroxysmal anxiety]; R74.01 Elevation of levels of liver transaminase levels; E11.65 Type 2 diabetes mellitus with hyperglycemia; Z16.21 Resistance to vancomycin; B96.4 Proteus (mirabilis) (morganii) as the cause of diseases classified elsewhere; Z87.01 Personal history of pneumonia (recurrent); Z74.01 Bed confinement status; Z79.899 Other long term (current) drug therapy; Z79.890 Hormone replacement therapy; Z79.84 Long term (current) use of oral hypoglycemic drugs; Z79.4 Long term (current) use of insulin
CPT/HCPCS: 36415; 36573; 72220; 80048; 80053; 82607; 82747; 83036; 83540; 83550; 83605; 85025; 85027; 85610; 85730; 86850; 86900; 86901; 86920; 87040; 87070; 87075; 87077; 87186; 87205; 87324; 88304; 93005; 96365; 96366; 99284

== ENCOUNTER 2024-01-23 13:55 | Emergency (ER) | payer OTHER ==
--- NOTE | 2024-01-23 14:34 | ED ---
Skin/Abscess/FB HPI - General Source: patient, family, RN notes reviewed Mode of arrival: wheelchair Limitations: no limitations <Heidy Goetz - Last Filed: 01/23/24 14:32> <Cayla Alba - Last Filed: 01/23/24 21:05> - General Chief complaint: Skin/Abscess/Foreign Body Stated complaint: Back pain Time Seen by Provider: 01/23/24 14:32 - History of Present Illness Initial comments: Quick Note: This is a 48-year-old male who presents to the emergency department for a worsening sacral wound. Patient has been dealing with nonhealing sacral pressure wounds and followed up with Dr. Gutierrez today. He was told that from his perspective there is nothing else that he can do and advised he come to the emergency department and be transferred to [facility] for further management. He is on antibiotics but is unsure what kind. States that this is becoming increasingly painful. Denies any fevers or chills. (Heidy Goetz) 48-year-old male presents emergency department chief complaint of a worsening sacral wound. Patient was originally evaluated as a quick note as described above. Currently patient states that he is having 8 out of 10 sacral pressure and pain. States that he is on current IV antibiotics but is unaware of what medications they are. Denies any fevers, chills, nausea, vomiting, abdominal pain. (Cayla Alba) - Related Data Home Medications Medication Instructions Recorded Confirmed ARIPiprazole [Abilify] 30 mg PO DAILY 07/14/23 01/02/24 Dapagliflozin Propanediol [Farxiga] 10 mg PO DAILY 07/14/23 01/02/24 Ondansetron [Zofran] 4 mg PO Q8H PRN 07/14/23 01/02/24 Insulin Lispro See Protocol SQ ACHS 10/02/23 01/02/24 L.acidoph,Paracasei, B.lactis 2 cap PO DAILY 10/02/23 01/02/24 [Probiotic] Liquacel 60 ml PO TID 10/02/23 01/02/24 Multivitamins, Thera [Multivitamin 1 tab PO DAILY 10/02/23 01/02/24 (formulary)] Dulaglutide [Trulicity] 1.5 mg SQ TH 11/17/23 01/02/24 Loperamide [Imodium] 2 mg PO DIRECTED PRN 11/17/23 01/02/24 Zinc Gluconate [Zinc] 50 mg PO DAILY 11/17/23 01/02/24 Acetaminophen Oral Susp [Tylenol] 160 mg PO Q8H PRN 01/02/24 01/02/24 Amoxic-Pot Clav 875-125Mg 1 tab PO BID 01/02/24 01/02/24 [Augmentin 875-125] Ascorbic Acid [Vitamin C] 250 mg PO DAILY 01/02/24 01/02/24 Ferrous Sulfate [Iron (65 MG 325 mg PO DAILY 01/02/24 01/02/24 Elemental)] Levothyroxine Sodium [Synthroid] 75 mcg PO DAILY 01/02/24 01/02/24 Levothyroxine Sodium [Synthroid] 200 mcg PO DAILY 01/02/24 01/02/24 Pantoprazole [Protonix] 40 mg PO DAILY 01/02/24 01/02/24 Potassium Chloride ER [K-Dur 20] 20 meq PO BID 01/02/24 01/02/24 Sodium Chloride Tab 1 gm PO DAILY 01/02/24 01/02/24 buPROPion HCL [buPROPion HCL XL] 450 mg PO DAILY 01/02/24 01/02/24 Previous Rx's Medication Instructions Recorded Folic Acid 1 mg PO DAILY tab 11/22/23 Thiamine [Vitamin B-1] 100 mg PO DAILY tab 11/22/23 ALPRAZolam [Xanax] 1 mg PO Q12H PRN 3 Days #3 tab 01/11/24 Acetaminophen Tab [Tylenol] 650 mg PO Q6HR PRN tab 01/11/24 DAPTOmycin [Cubicin] 600 mg IV DAILY #40 each 01/11/24 Metoprolol Succinate (ER) [Toprol 12.5 mg PO DAILY #15 tab 01/11/24 XL] cefTRIAXone [Rocephin] 2,000 mg IVP Q24HR #40 each 01/11/24 metroNIDAZOLE [Flagyl] 500 mg PO TID #120 tab 01/11/24 Allergies Allergy/AdvReac Type Severity Reaction Status Date / Time No Known Allergies Allergy Verified 01/02/24 17:35 Review of Systems ROS Other: All systems not noted in ROS Statement are negative. <Heidy Goetz Filed: 01/23/24 14:32> ROS Other: All systems not noted in ROS Statement are negative. <Cayla Alba - Last Filed: 01/23/24 21:05> ROS Statement: Those systems with pertinent positive or pertinent negative responses have been documented in the HPI. Past Medical History Past Medical History: Diabetes Mellitus, Hyperlipidemia, Hypertension, Pneumonia Additional Past Medical History / Comment(s): pressure ulcer bilat feet and coccyx History of Any Multi-Drug Resistant Organisms: None Reported Date of last positivie culture/infection: 01/04/24 MDRO Source:: sacral wound Past Surgical History: No Surgical Hx Reported Additional Past Surgical History / Comment(s): debridement of left foot ulcer Past Anesthesia/Blood Transfusion Reactions: No Reported Reaction Past Psychological History: Anxiety, Bipolar, Depression, Panic Disorder Smoking Status: Never smoker Past Alcohol Use History: Occasional Past Drug Use History: None Reported - Past Family History Father Family Medical History: Myocardial Infarction (MT) Additional Family Medical History / Comment(s): polycystic kidney disease. at age 3030 years old Mother Family Medical History: Coronary Artery Disease (CAD), Diabetes Mellitus, Myocardial Infarction (MT) <Aureliamary graceHeidy - Last Filed: 01/23/24 14:32> General Exam <Pascualaguilarmary graceHeidy - Last Filed: 01/23/24 14:32> General appearance: alert, in no apparent distress Head exam: Present: atraumatic, normocephalic, normal inspection Eye exam: Present: normal appearance, PERRL, EOMI. Absent: scleral icterus, conjunctival injection, periorbital swelling ENT exam: Present: normal exam, mucous membranes moist Neck exam: Present: normal inspection. Absent: tenderness, meningismus, lymphadenopathy Respiratory exam: Present: normal lung sounds bilaterally. Absent: respiratory distress, wheezes, rales, rhonchi, stridor Cardiovascular Exam: Present: regular rate, normal rhythm, normal heart sounds. Absent: systolic murmur, diastolic murmur, rubs, gallop, clicks GI/Abdominal exam: Present: soft, normal bowel sounds. Absent: distended, tenderness, guarding, rebound, rigid Extremities exam: Present: normal inspection, full ROM, normal capillary refill (diminished). Absent: tenderness, pedal edema, joint swelling, calf tenderness Back exam: Present: tenderness (sacral), other (sacral ulcer, nonblanchable). Absent: normal inspection Neurological exam: Present: alert, oriented X3, CN II-XII intact Psychiatric exam: Present: normal affect, normal mood Skin exam: Present: warm, dry, intact, normal color, pallor. Absent: rash <Cayla Alba - Last Filed: 01/23/24 21:05> - General Exam Comments Initial Comments: Visual Physical Exam Vital signs reviewed General: Well-appearing, nontoxic, no acute distress. Head: Normocephalic, atraumatic Eyes: PERRLA, EOMI ENT: Airway patent Chest: Nonlabored breathing Skin: No visual rash, normal skin tone Neuro: Alert and oriented 3 Musculoskeletal: No gross abnormalities (Heidy Goetz) Course Vital Signs 01/23/24 01/23/24 01/23/24 14:31 17:49 20:04 Temperature 97.9 F Pulse Rate 100 102 H 101 H Respiratory 18 18 18 Rate Blood Pressure 77/50 96/82 95/68 O2 Sat by Pulse 100 100 99 Oximetry Medical Decision Making <Heidy Goetz - Last Filed: 01/23/24 14:32> - Lab Data Result diagrams: 01/23/24 17:28 01/23/24 17:28 <Cayla Alba - Last Filed: 01/23/24 21:05> - Medical Decision Making I performed the QuickNote portion of this chart. Signed Heidy Goetz PA-C. (Heidy Goetz) Was pt. sent in by a medical professional or institution ([facility], [facility], urgent care, hospital, or [facility]...) When possible be specific @ -Was advised by his general surgeon to report to the emergency department for transfer to surgical facility for evaluation of sacral ulcer. Did you speak to anyone other than the patient for history (EMS, parent, family, police, friend...)? What history was obtained from this source @ -No Did you review nursing and triage notes (agree or disagree)? Why? @ -I reviewed and agree with nursing and triage notes Were old charts reviewed (outside hosp., previous admission, EMS record, old EKG, old radiological studies, urgent care reports/EKG's, [facility] records)? Report findings @ -Reviewed the patient's previous chart notes where he was noted to have a surgical debridement of the sacral wound on 01/05/24. XR from 01/02/2024 reveals a large sacral wound to the posterior inferior sacral region, adjacent sacrum appears intact without erosion. Differential Diagnosis (chest pain, altered mental status, abdominal pain women, abdominal pain men, vaginal bleeding, weakness, fever, dyspnea, syncope, headache, dizziness, GI bleed, back pain, seizure, CVA, palpatations, mental health, musculoskeletal)? @ -Differential Abdominal Pain Men: Appendicitis, cholecystitis, diverticulosis, ischemic bowel, pancreatitis, hepatitis, UTI, gastroenteritis, AAA, incarcerated hernia, bowel obstruction, constipation, inflammatory bowel, hepatitis, peptic ulcer disease, splenic infarction, perforated viscus, testicular torsion, this is not meant to be an all-inclusive list EKG interpreted by me (3pts min.). @ -none X-rays interpreted by me (1pt min.). @ -None done CT interpreted by me (1pt min.). @ -None done U/S interpreted by me (1pt. min.). @ -None done What testing was considered but not performed or refused? (CT, X-rays, U/S, labs)? Why? @ -None What meds were considered but not given or refused? Why? @ -None Did you discuss the management of the patient with other professionals (professionals i.e. Dr., PA, [facility], lab, RT, psych nurse, social services coordinator, foot drill operator, teacher, sailing officer, transplant case manager)? Give summary @ -Attending Dr. Laura in regard to the patient's case. It was described that the patient's general surgeon, Dr. Dr. Jay is that the patient be transferred to facility with further evaluation for complicated sacral ulcer. The transfer team at [facility] in regard to transfer and transfer was denied by both general surgery and plastic surgery. Spoke with the transfer team at [facility] and patient was accepted to an ER to ER transfer and will be eval uated by general surgery with plastic surgery on consult. Admitting physician Dr. Mukherjee in the ER and general surgeon on consult Dr. Lopez agreed to transfer and to evaluate the patient. Was smoking cessation discussed for >3mins.? @ -No Was critical care preformed (if so, how long)? @ -No Were there social determinants of health that impacted care today? How? (Homelessness, low income, unemployed, alcoholism, drug addiction, transportation, low edu. Level, literacy, decrease access to med. care, fpc, rehab)? @ -No Was there de-escalation of care discussed even if they declined (Discuss DNR or withdrawal of care, Hospice)? DNR status @ -No What co-morbidities impacted this encounter? (DM, HTN, Smoking, COPD, CAD, Cancer, CVA, ARF, Chemo, Hep., AIDS, mental health diagnosis, sleep apnea, morbid obesity)? @ -None Was patient admitted / discharged? Hospital course, mention meds given and route, prescriptions, significant lab abnormalities, going to OR and other pertinent info. @ -transferred. 48-year-old male with a complicated sacral ulcer. Patient patient will have a sacral ulcer that has not been checked. Additionally patient's vitals a hypertension which she states is normal for him is provided with a liter fluid bolus. Provided with pain medication pending lab results. Reveals a leukocytosis of 12 labs reveal leukocytosis 12.0 and neutrophils 9.3. Chronic anemia with a hemoglobin of 9.3 and hematocrit 30.2 which is corrected. Previous labs. Has revealed a mild hypokalemia of 3.3. CRP mildly elevated at 8.7. due to patient's general surgeon's request he will be transferred to a facility with a plastic surgeon for further evaluation. Patient has been accepted at [facility] with emergency department physician Dr. Mukherjee, with general surgeon on consult, Dr. Lopez evaluation of complex sacral wound. case discussed with Dr. Laura. Undiagnosed new problem with uncertain prognosis? @ -Acute Drug Therapy requiring intensive monitoring for toxicity (Heparin, Nitro, Insulin, Cardizem)? @ -No Were any procedures done? @ -No Diagnosis/symptom? @ -Proximal sacral ulcer Acute, or Chronic, or Acute on Chronic? @ -Acute on chronic Uncomplicated (without systemic symptoms) or Complicated (systemic symptoms)? @ -Complicated Side effects of treatment? @ -No Exacerbation, Progression, or Severe Exacerbation? @ -No Poses a threat to life or bodily function? How? (Chest pain, USA, MT, pneumonia, PE, COPD, DKA, ARF, appy, cholecystitis, CVA, Diverticulitis, Homicidal, Suicidal, threat to staff... and all critical care pts) @ -No (Cayla Alba) - Lab Data Lab Results 01/23/24 01/23/24 01/23/24 Range/Units 17:28 17:28 17:28 WBC 12.0 H (3.8-10.6) k/uL RBC 3.45 L (4.30-5.90) m/uL Hgb 9.3 L D (13.0-17.5) gm/dL Hct 30.2 L (39.0-53.0) % MCV 87.3 (80.0-100.0) fL MCH 26.9 (25.0-35.0) pg MCHC 30.8 L (31.0-37.0) g/dL RDW 18.2 H (11.5-15.5) % Plt Count 410 (150-450) k/uL MPV 7.8 Neutrophils % 77 % Lymphocytes % 16 % Monocytes % 5 % Eosinophils % 1 % Basophils % 0 % Neutrophils # 9.3 H (1.3-7.7) k/uL Lymphocytes # 2.0 (1.0-4.8) k/uL Monocytes # 0.6 (0-1.0) k/uL Eosinophils # 0.1 (0-0.7) k/uL Basophils # 0.0 (0-0.2) k/uL Hypochromasia Marked Anisocytosis Slight Sodium 138 (137-145) mmol/L Potassium 3.3 L (3.5-5.1) mmol/L Chloride 110 H (98-107) mmol/L Carbon Dioxide 13 L (22-30) mmol/L Anion Gap 15 mmol/L BUN 7 L (9-20) mg/dL Creatinine 0.92 (0.66-1.25) mg/dL Est GFR (CKD-EPI)AfAm >90 (>60 ml/min/1.73 sqM) Est GFR (CKD-EPI)NonAf >90 (>60 ml/min/1.73 sqM) Glucose 105 H (74-99) mg/dL Plasma Lactic Acid Simon 1.9 (0.7-2.0) mmol/L Calcium 8.2 L (8.4-10.2) mg/dL Total Bilirubin 0.5 (0.2-1.3) mg/dL AST 18 (17-59) U/L ALT 12 (4-49) U/L Alkaline Phosphatase 271 H (38-126) U/L C-Reactive Protein 8.7 H (<1.0) mg/dL Total Protein 6.6 (6.3-8.2) g/dL Albumin 2.6 L (3.5-5.0) g/dL Disposition <Heidy Goetz - Last Filed: 01/23/24 14:32> - Out of Hospital Transfer - Req. Specs Out of Hospital Transfer - Requested Specifics: Other Emergency Center ([facility]) <Cayla Alba - Last Filed: 01/23/24 21:05> Clinical Impression: Wound of sacral region Disposition: OTHER INSTITUTION NOT DEFINED Condition: Poor Referrals: Ahsan Roca MD [Primary Care Provider] - 1-2 days
[2024-01-23 14:37] VITALS: RESP 18
[2024-01-23] MEDS: SODIUM CHLORIDE 0.9% 1,000 ML IV STA (17:28)
[2024-01-23] MEDS: ONDANSETRON 4 MG/2 ML VIAL IVP STA (17:42)
[2024-01-23] MEDS: MORPHINE SULFATE 4 MG/ML SYRINGE IVP STA (17:42)
[2024-01-23 17:50] LABS: Anisocytosis Slight; Basophils % (A) 0 %; Eosinophils # (A) 0.1 k/uL (0-0.7); Eosinophils % (A) 1 %; HCT 30.2 % (39.0-53.0); Hypochromasia Marked; Lymphocytes % (A) 16 %; MCH 26.9 pg (25.0-35.0); MCHC 30.8 g/dL (31.0-37.0); MCV 87.3 fL (80.0-100.0); Mean Platelet Volume 7.8; Monocytes # (A) 0.6 k/uL (0-1.0); Monocytes % (A) 5 %; Neutrophils # (A) 9.3 k/uL (1.3-7.7); Neutrophils % (A) 77 %; Platelet Count 410 k/uL (150-450); RBC 3.45 m/uL (4.30-5.90); RDW 18.2 % (11.5-15.5)
[2024-01-23 18:02] LABS: HGB 9.3 gm/dL (13.0-17.5)
[2024-01-23 18:14] LABS: ALT 12 U/L (4-49); AST 18 U/L (17-59); African American GFR (CKD) >90 (>60 ml/min/1.73 sqM); Albumin 2.6 g/dL (3.5-5.0); Alkaline Phosphatase 271 U/L (38-126); Anion Gap 15 mmol/L; Blood Urea Nitrogen 7 mg/dL (9-20); C Reactive Protein 8.7 mg/dL (<1.0); Calcium 8.2 mg/dL (8.4-10.2); Carbon Dioxide 13 mmol/L (22-30); Chloride 110 mmol/L (98-107); Glucose 105 mg/dL (74-99); Non-African American GFR(CKD) >90 (>60 ml/min/1.73 sqM); Potassium 3.3 mmol/L (3.5-5.1); Sodium 138 mmol/L (137-145); Total Bilirubin 0.5 mg/dL (0.2-1.3); Total Protein 6.6 g/dL (6.3-8.2)
[2024-01-23] MEDS: HYDROmorphone 1 MG/ML 1 ML SYRINGE IVP STA (20:42)
[2024-01-23 21:13] VITALS: BP 99/68; PULSE 97; TEMP 97.8
[2024-01-24 02:41] LABS: Erythrocyte Sedimentation Rate 116 mm/Hr (0-15)
== END 2024-01-23 21:13 | disposition other institution (70) ==
LOC: EC 13:55
DX: L89.159 Pressure ulcer of sacral region, unspecified stage (principal)
CPT/HCPCS: 36415; 80053; 85652; 83605; 85025; 86140; 99284; 96374; 96375 ×2; 96361 ×4; J2270; J2405; J1170

== ENCOUNTER 2024-02-22 12:12 | Day surgery (SDC) | payer OTHER ==
[2024-02-22 13:17] VITALS: TEMP 97.2
[2024-02-22 13:17] LABS: Glucose,Whole Blood 100 mg/dL (70-110)
[2024-02-22] MEDS: LACTATED RINGERS 1,000 ML IV SCH (13:18)
[2024-02-22] MEDS: IV FLUID CONTINUATION 1,000 ML IV ONE (13:18)
[2024-02-22] MEDS ORDERED: LIDOCAINE 1% (10MG/ML) FOR IV START INTRADERMA PRN (13:19)
[2024-02-22] MEDS: ONDANSETRON 4 MG/2 ML VIAL IVP PRN (13:22)
[2024-02-22] MEDS ORDERED: LIDOCAINE 1% INJ 10MG/ML (20 ML MDV) ONE (13:40)
[2024-02-22] MEDS ORDERED: PROPOFOL 10 MG/ML 20 ML VIAL IV ONE (13:40)
--- NOTE | 2024-02-22 13:50 | P.PCN ---
Date of Procedure: 02/22/24 Procedure(s) Performed: BRIEF HISTORY: Patient is a 48-year-old, pleasant, white male scheduled of endoscopies about evaluation of intermittent episodes of nausea vomiting for the last several months duration. He does have longstanding history of diabetes mellitus for over 30 years duration.. PROCEDURE PERFORMED: Esophagogastroduodenoscopy with biopsy PREOPERATIVE DIAGNOSIS: Chronic intermittent nausea vomiting of several months duration. IV sedation per anesthesia. PROCEDURE: After informed consent was obtained, the patient was brought into the endoscopy unit. IV sedation was administered by Anesthesia under continuous monitoring. Initially the Olympus GIF-140 video endoscope was inserted into the mouth. Esophagus intubated without any difficulty. It was gradually advanced into the stomach and duodenum and carefully examined. The bulb and the second part of the duodenum appeared normal. The scope at this time was withdrawn to the stomach, adequately insufflated with air, and upon careful examination, mucosa of the antrumhad Mild antral gastritis. Biopsies were done from this area. There was rtained food in the stomach suggestive of diabetic gastoparesis. The body, cardia and the fundus appeared normal. The scope was then withdrawn into the esophagus. The GE junction was located at 45 cm from the incisors.. There were no erosions or ulcerations seen and the patient tolerated the procedure well. IMPRESSION: 1.Mild antral gastritis. 2.Retained food in the stomach suggestive of diabetic gastoparesis. RECOMMENDATIONS: The findings of this examination were discussed with the patient .Follow up with biopsy results. Continue currents medications. Small frequent meals and aggressive control og blood sugars. F/up office in 3-4 weeks
[2024-02-22 14:18] VITALS: BP 136/83; PULSE 99; RESP 18
== END 2024-02-22 14:42 | disposition home or self-care (01) ==
LOC: ORWHC2ENDO 12:12
PROVIDERS: ATTEND Internal Medicine Gastroenterology
DX: K29.50 Unspecified chronic gastritis without bleeding (principal); E11.9 Type 2 diabetes mellitus without complications; I10 Essential (primary) hypertension; E78.5 Hyperlipidemia, unspecified; K21.9 Gastro-esophageal reflux disease without esophagitis; F32.A Depression, unspecified; E07.9 Disorder of thyroid, unspecified; Z79.890 Hormone replacement therapy; Z79.84 Long term (current) use of oral hypoglycemic drugs; Z79.899 Other long term (current) drug therapy
CPT/HCPCS: 43239; 88305